=== PATIENT | male | born 1965 | race Hispanic/Latino ===

== ENCOUNTER 2017-04-01 12:03 | Emergency (ER) | payer SELFPAY ==
[2017-04-01 13:53] VITALS: BP 150/88
[2017-04-01 14:21] LABS: Basophils % (Auto) 0.4 % (0.0-1.8); Hematocrit 41.9 % (35.5-45.6); Hemoglobin 13.9 gm/dl (11.8-15.2); Mean Corpuscular HGB Conc 33 % (32-34); Mean Corpuscular Hemoglobin 28 pg (28-32); Mean Corpuscular Volume 86 fl (84-94); Platelet Count 347 K/mm3 (140-440); Red Cell Distribution Width 13.4 % (13.2-15.2); White Blood Count 16.1 K/mm3 (4.5-11.0)
[2017-04-01 14:35] LABS: Anion Gap 18 mmol/L; BUN/Creatinine Ratio 8.57; Blood Urea Nitrogen 6 mg/dL (9-20); Calcium 9.1 mg/dL (8.4-10.2); Carbon Dioxide 26 mmol/L (22-30); Chloride 92.5 mmol/L (98-107); Glucose 285 mg/dL (75-100); Potassium 3.9 mmol/L (3.6-5.0); Sodium 133 mmol/L (137-145)
== END 2017-04-01 18:17 | disposition left against medical advice (07) ==
LOC: ED 12:03
DX: M79.671 Pain in right foot (principal); Z53.21 Procedure and treatment not carried out due to patient leaving prior to being seen by health care provider
CPT/HCPCS: 36415; 80048; 82805; 82962; 85025

== ENCOUNTER 2022-07-30 23:57 | Inpatient (IN) | payer MEDICAID ==
[2022-07-31] MEDS ORDERED: CEFEPIME/NS 2 GM/100 ML 2 GM/100 ML BAG IV ONE (00:09)
[2022-07-31] MEDS ORDERED: SODIUM CHLORIDE 0.9% 1000 ML IV SOLN IV ONE (00:09)
[2022-07-31] MEDS ORDERED: VANCOMYCIN/NS 1 GM/250 ML 1 GM/250 ML BAG IV ONE (00:30)
--- NOTE | 2022-07-31 00:30 | Emergency Department Report ---
ED General Adult HPI - General Chief complaint: Altered Mental Status Stated complaint: FEVER Time Seen by Provider: 07/31/22 00:03 Source: EMS (Verbal report received from emergency medical services. EMS documentation not available at time of chart dictation ), RN notes reviewed, old records reviewed Mode of arrival: Stretcher Limitations: Altered Mental Status, Physical Limitation - History of Present Illness Initial comments: The patient was evaluated in the emergency department for symptoms described in the history of present illness. He/she was evaluated in the context of the global COVID-19 pandemic, which necessitated consideration that the patient might be at risk for infection with the virus that causes COVID-19. Institutional protocols and algorithms that pertain to the evaluation of patients at risk for COVID-19 are in a state of rapid change based on information released by regulatory bodies including the CDC and federal and [place] state health organizations. These policies and algorithms were followed during the patient's care in the emergency department. Please note that these policies, procedures and recommendations changed on a rapid basis. This patient is a 57-year-old gentleman who [place] [facility] a local [facility]. Past medical history includes GERD, pneumonitis, diabetes type 2, renal insufficiency, right above-knee amputation, anxiety, depression, urinary retention, indwelling Kyle catheter, dysphagia, and gastric feeding tube. The patient is currently a resident at [facility]. It appears that his primary care doctor is Dr. Mcguire. The patient is a 57-year-old gentleman brought to the hospital by emergency medical services with an EMS articulated complaint of weakness, altered mental status and difficulty breathing. EMS reports that blood pressure is low in the field, and that the patient might be hypoxic. They also report that the patient received acetaminophen and Benadryl while in the prison. In the emergency room, the patient is awake and breathing spontaneously, and not protecting his airway. He is found to be hypoxic, and hypotensive. The patient is intubated using rapid sequence induction techniques. Given hemodynamic instability, right-sided internal jugular sterile central line, is placed with maximum barrier precautions, using real-time ultrasound guidance. CT scan of the brain showed no acute findings. An x-ray of the chest showed a right lower lobe pneumonia. The patient's COVID-19 vaccination status is not known. His last known well time is not explicitly known. Patient himself is altered, encephalopathic, and not able to describe the qualitative nature of symptoms, exacerbating factors relieving factors or aggravating factors -: unknown - Related Data Allergies Allergy/AdvReac Type Severity Reaction Status Date / Time No Known Allergies Allergy Verified 07/31/22 00:19 ED Review of Systems ROS: Stated complaint: FEVER Other details as noted in HPI Comment: Unobtainable due to pts medical conditions ED Past Medical Hx - Past Medical History Hx Hypertension: Yes Hx Diabetes: Yes Hx Psychiatric Treatment: Yes (panic attacks, Anxiety) - Surgical History Additional Surgical History: Right foot surgery x 4 - Social History Smoking Status: Current Every Day Smoker Substance Use Type: Alcohol, Marijuana ED Physical Exam - General Limitations: Altered Mental Status, Physical Limitation General appearance: obtunded - Head Head exam: Present: atraumatic, normocephalic - Eye Eye exam: Present: normal appearance, EOMI - ENT ENT exam: Present: mucous membranes dry, normal external ear exam, other (Copious secretions noted in the mouth and oropharynx) - Neck Neck exam: Present: normal inspection, full ROM. Absent: tenderness, men ingismus - Respiratory Respiratory exam: Present: respiratory distress, rhonchi, accessory muscle use. Absent: stridor - Cardiovascular Cardiovascular Exam: Present: normal rhythm, tachycardia, JVD. Absent: systolic murmur, diastolic murmur, rubs, gallop - GI/Abdominal GI/Abdominal exam: Present: soft, other (Feeding tube in place). Absent: distended, tenderness, guarding, rebound, rigid, pulsatile mass - Rectal Rectal exam: Present: normal inspection - exam: Present: normal inspection External exam: Present: normal external exam - Extremities Exam Extremities exam: Present: other (2+ pulses noted in the bilateral upper, and lower extremities in the femoral distribution. There is no long bony tenderness. The muscular compartments are soft. The pelvis is stable). Absent: normal inspection (Right above-knee amputation.), calf tenderness - Back Exam Back exam: Present: normal inspection. Absent: tenderness, CVA tenderness (R), CVA tenderness (L), paraspinal tenderness, vertebral tenderness - Neurological Exam Neurological exam: Present: altered, other (Patient is altered and breathing rapidly. The patient's is encephalopathic. The patient does not have a gag reflex) - Skin Skin exam: Present: warm, dry, intact, normal color. Absent: rash ED Course Vital Signs 07/30/22 07/31/22 07/31/22 23:58 01:00 02:07 Temperature 100.3 F H Pulse Rate 102 H 95 H Respiratory 22 Rate Blood Pressure 77/53 Blood Pressure 100/58 [Right] O2 Sat by Pulse 4 L 100 100 Oximetry 07/31/22 07/31/22 07/31/22 02:08 02:16 02:30 Temperature Pulse Rate Respiratory Rate Blood Pressure 73/44 77/46 Blood Pressure [Right] O2 Sat by Pulse 96 97 100 Oximetry 07/31/22 07/31/22 07/31/22 02:46 03:00 03:16 Temperature Pulse Rate Respiratory Rate Blood Pressure 87/52 90/56 98/55 Blood Pressure [Right] O2 Sat by Pulse 100 100 100 Oximetry - Reevaluation(s) Reevaluation #1: 07/31/22 02:21 Differential diagnosis, include but not limited to: Toxic metabolic encephalopathy, hypoxic respiratory failure, sepsis Assessment and plan: 57-year-old gentleman, with acute hypoxic respiratory failure, septic shock, right lower lobe pneumonia, requires intubation, insertion of central line, and initiation of vasopressor therapy. Cover empirically with vancomycin, cefepime, stress dose steroids and hydrocortisone. Laboratory studies reviewed and appreciated. Contacted critical care physician on-call, Dr. Sevilla She will follow in consultation, and authorizes admission to the ICU. Hospital physician, Dr. Ainsley Winters to admit to ICU X-ray chest shows right lower lobe pneumonia. Noncontrast CT scan of the brain negative for acute findings. Prognosis is guarded. - Central Line Placement Right IJ Consent Obtained: emergent situation Patient Placed on Monitor/Pulse Ox: Yes MD Prep: mask, gown, gloves Central Line Prep: Chlorhexidine scrub Local Anesthesia Used: Lidocaine 1% Amount of Anesthesia Used (mls): 5 Ultrasound Used for Placement: Yes Central Line Lumen Inserted: triple Reason for Insertion: Emergency Venous Access Bloods Obtained for Lab: No Central Line Position: good blood return, all ports aspirated, flus, sutured in place with 2-0 Dressing Applied: Tegaderm Post Procedure X-Ray: tip of catheter in good p Patient Tolerated Procedure: well Complications: none Additional Comments: Patient presenting with septic shock, likely secondary to acute respiratory failure, and is demonstrating signs of hemodynamic compromise. Patient is critically ill, and the patient is emergently and administratively consented for sterile central line placement. Patient prepped and draped in typical maximal sterile fashion. Using ultrasound guidance, left-sided internal jugular vein is cannulated with an 18-gauge needle, with 3 inch plastic catheter, guidewire, 0.032 x 60 cm, J-tip with a 3 mm radius is then inserted into the guiding catheter, and appropriate luminal placement is confirmed with real-time [id number] ultrasound guidance. A stab incision is made with an 11-gauge blade, and then incision is dilated. The 7 Ethiopian triple-lumen catheter has each of the 3 ports flushed with sterile saline in advance of placement. Then, a 7 Ethiopian triple-lumen catheter is inserted over the guidewire, and sutured to the skin. Real-time ultrasound guidance confirms appropriate luminal placement. Ports are aspirated easily, and flushed easily. Blue Biopatch is then affixed to the skin, and Tegaderm is applied to the skin. This patient tolerated the procedure well, and without obvious complication. Blood loss estimated at less than 50 cc. - Intubation Time Out Performed: No (Emergency procedure) Sedative: Ketamine Mg Given: 100 Paralytic: Rocuronium Mg Given: 50 Laryngoscope: fiberoptic video scope Size: 4 Assist Device Used: fiberoptic device ET Tube Size: 8 Tube Secured Depth (cm): 23 Tube Placement Confirmation: visualized tube passing t, equal breath sounds bilat, no breath sounds over epi, confirmation by capnometr Patient Tolerated Procedure: well Intubation Complications: none Additional Comments: Patient placed on nasal cannula 15 L/min. Received simultaneous [id number] ventilation. Preoxygenated to 99/100%. Video laryngoscopy is performed, with a curved S4 video living scope blade, and a 8.0 endotracheal tube is gently inserted into the oropharynx, after appropriate suctioning. The tube is placed through the trachea without difficulty, stylette is removed, ems helicopter pilot balloon is inflated, and end-tidal capnography confirmatory device is attached to the endotracheal tube, and there is appropriate end-tidal capnography color change. Condensation is noted on the tube, and there are appropriate breath sounds appreciated bilaterally. The patient tolerated the procedure well, without obvious complication ED Medical Decision Making - Lab Data Result diagrams: 07/31/22 00:37 07/31/22 00:37 Vital Signs 07/30/22 07/31/22 07/31/22 23:58 01:00 02:07 Temperature 100.3 F H Pulse Rate 102 H 95 H Respiratory 22 Rate Blood Pressure 77/53 Blood Pressure 100/58 [Right] O2 Sat by Pulse 4 L 100 100 Oximetry Lab Results 07/31/22 07/31/22 07/31/22 Range/Units 00:37 00:37 00:37 WBC 5.0 (4.5-11.0) K/mm3 RBC 2.99 L (3.65-5.03) M/mm3 Hgb 8.5 L (11.8-15.2) gm/dl Hct 26.0 L (35.5-45.6) % MCV 87 (84-94) fl MCH 28 (28-32) pg MCHC 33 (32-34) % RDW 17.6 H (13.2-15.2) % Plt Count 184 (140-440) K/mm3 Lymph % (Auto) 9.9 L (13.4-35.0) % [place] % (Auto) 6.3 (0.0-7.3) % Eos % (Auto) 0.3 (0.0-4.3) % Baso % (Auto) 0.2 (0.0-1.8) % Lymph # (Auto) 0.5 L (1.2-5.4) K/mm3 [place] # (Auto) 0.3 (0.0-0.8) K/mm3 Eos # (Auto) 0.0 (0.0-0.4) K/mm3 Baso # (Auto) 0.0 (0.0-0.1) K/mm3 Seg Neutrophils % 83.3 H (40.0-70.0) % Seg Neutrophils # 4.1 (1.8-7.7) K/mm3 PT 15.1 H (12.2-14.9) Sec. INR 1.04 (0.87-1.13) APTT 32.1 (24.2-36.6) Sec. Sodium 137 (137-145) mmol/L Potassium 5.1 H (3.6-5.0) mmol/L Chloride 100.9 (98-107) mmol/L Carbon Dioxide 25 (22-30) mmol/L Anion Gap 16 mmol/L BUN 30 H (9-20) mg/dL Creatinine 1.2 (0.8-1.3) mg/dL Estimated GFR > 60 ml/min BUN/Creatinine Ratio 25 % Glucose 93 (75-100) mg/dL Lactic Acid (0.7-2.0) mmol/L Calcium 7.6 L (8.4-10.2) mg/dL Magnesium (1.7-2.3) mg/dL Total Bilirubin 0.50 (0.1-1.2) mg/dL AST 10 (5-40) units/L ALT < 5 L (7-56) units/L Alkaline Phosphatase 69 (35-129) units/L Total Creatine Kinase (55-170) units/L Troponin T 0.025 (0.00-0.029) ng/mL Total Protein 5.4 L (6.3-8.2) g/dL Albumin 1.9 L (3.9-5) g/dL Albumin/Globulin Ratio 0.5 % TSH (0.270-4.200) mlU/mL Salicylates (2.8-20.0) mg/dL Acetaminophen (10.0-30.0) ug/mL 07/31/22 07/31/22 07/31/22 Range/Units 00:37 00:37 00:37 WBC (4.5-11.0) K/mm3 RBC (3.65-5.03) M/mm3 Hgb (11.8-15.2) gm/dl Hct (35.5-45.6) % MCV (84-94) fl MCH (28-32) pg MCHC (32-34) % RDW (13.2-15.2) % Plt Count (140-440) K/mm3 Lymph % (Auto) (13.4-35.0) % [place] % (Auto) (0.0-7.3) % Eos % (Auto) (0.0-4.3) % Baso % (Auto) (0.0-1.8) % Lymph # (Auto) (1.2-5.4) K/mm3 [place] # (Auto) (0.0-0.8) K/mm3 Eos # (Auto) (0.0-0.4) K/mm3 Baso # (Auto) (0.0-0.1) K/mm3 Seg Neutrophils % (40.0-70.0) % Seg Neutrophils # (1.8-7.7) K/mm3 PT (12.2-14.9) Sec. INR (0.87-1.13) APTT (24.2-36.6) Sec. Sodium (137-145) mmol/L Potassium (3.6-5.0) mmol/L Chloride (98-107) mmol/L Carbon Dioxide (22-30) mmol/L Anion Gap mmol/L BUN (9-20) mg/dL Creatinine (0.8-1.3) mg/dL Estimated GFR ml/min BUN/Creatinine Ratio % Glucose (75-100) mg/dL Lactic Acid 1.40 (0.7-2.0) mmol/L Calcium (8.4-10.2) mg/dL Magnesium 1.90 (1.7-2.3) mg/dL Total Bilirubin (0.1-1.2) mg/dL AST (5-40) units/L ALT (7-56) units/L Alkaline Phosphatase (35-129) units/L Total Creatine Kinase 14 L (55-170) units/L Troponin T (0.00-0.029) ng/mL Total Protein (6.3-8.2) g/dL Albumin (3.9-5) g/dL Albumin/Globulin Ratio % TSH 0.844 (0.270-4.200) mlU/mL Salicylates (2.8-20.0) mg/dL Acetaminophen (10.0-30.0) ug/mL 07/31/22 07/31/22 Range/Units 00:37 00:37 WBC (4.5-11.0) K/mm3 RBC (3.65-5.03) M/mm3 Hgb (11.8-15.2) gm/dl Hct (35.5-45.6) % MCV (84-94) fl MCH (28-32) pg MCHC (32-34) % RDW (13.2-15.2) % Plt Count (140-440) K/mm3 Lymph % (Auto) (13.4-35.0) % [place] % (Auto) (0.0-7.3) % Eos % (Auto) (0.0-4.3) % Baso % (Auto) (0.0-1.8) % Lymph # (Auto) (1.2-5.4) K/mm3 [place] # (Auto) (0.0-0.8) K/mm3 Eos # (Auto) (0.0-0.4) K/mm3 Baso # (Auto) (0.0-0.1) K/mm3 Seg Neutrophils % (40.0-70.0) % Seg Neutrophils # (1.8-7.7) K/mm3 PT (12.2-14.9) Sec. INR (0.87-1.13) APTT (24.2-36.6) Sec. Sodium (137-145) mmol/L Potassium (3.6-5.0) mmol/L Chloride (98-107) mmol/L Carbon Dioxide (22-30) mmol/L Anion Gap mmol/L BUN (9-20) mg/dL Creatinine (0.8-1.3) mg/dL Estimated GFR ml/min BUN/Creatinine Ratio % Glucose (75-100) mg/dL Lactic Acid (0.7-2.0) mmol/L Calcium (8.4-10.2) mg/dL Magnesium (1.7-2.3) mg/dL Total Bilirubin (0.1-1.2) mg/dL AST (5-40) units/L ALT (7-56) units/L Alkaline Phosphatase (35-129) units/L Total Creatine Kinase (55-170) units/L Troponin T (0.00-0.029) ng/mL Total Protein (6.3-8.2) g/dL Albumin (3.9-5) g/dL Albumin/Globulin Ratio % TSH (0.270-4.200) mlU/mL Salicylates < 0.3 L (2.8-20.0) mg/dL Acetaminophen 14.6 (10.0-30.0) ug/mL - EKG Data -: EKG Interpreted by Ne EKG shows normal: sinus rhythm Rate: normal - EKG Data 07/31/22 04:03 The EKG is interpreted at 03: 51 This is a sinus rhythm, with a rate of 60 bpm. There is a normal axis. Nonspecific T wave abnormalities. Low voltage in inferior leads. QTc 4 7 3 ms. Abnormal EKG. Not a STEMI. 07/31/22 04:13 - Radiology Data Radiology results: pending, report reviewed, image reviewed CHEST 1 VIEW INDICATION / CLINICAL INFORMATION: ETT placement. COMPARISON: None available. FINDINGS: SUPPORT DEVICES: Endotracheal tube terminates 5 cm above glenn at satisfactory position. Right IJ central venous catheter terminates superior vena cava. HEART / MEDIASTINUM: Heart size is within normal limits. Mediastinal contour demonstrates no significant abnormality. LUNGS / PLEURA: Airspace opacities right cardiophrenic angle in infrahilar region with blunting right costophrenic angle. Diffuse interstitial prominence. BONES: No significant osseous abnormality. ADDITIONAL FINDINGS: No significant additional findings. IMPRESSION: 1. Infectious process right lower lung could be considered with possible small dependent right pleural effusion. Signer Name: Isac Servin II, MD Signed: 07/31/2022 12:58 AM Workstation Name: [email or web address] CT HEAD WITHOUT CONTRAST INDICATION / CLINICAL INFORMATION: Confusion and encephalopathy. TECHNIQUE: CT head was performed without administration of intravenous contrast. All CT scans at this location are performed using CT dose reduction for ALARA by means of automated exposure control. COMPARISON: None available. FINDINGS: CEREBRAL HEMISPHERES: Generalized atrophy and bilateral regions of periventricular white matter hypoattenuation compatible with juwan rovascular ischemia are demonstrated. No midline shift. Basal cisterns patent. Small lacunar infarction left subinsular white matter. Mildly asymmetric hypoattenuation of frontal white matter within the right centrum semiovale. HEMORRHAGE: None. CEREBELLUM / BRAINSTEM: No significant abnormality. ORBITS: No significant abnormality. SOFT TISSUES: No significant abnormality. SKULL: No significant abnormality. PARANASAL SINUSES / MASTOID AIR CELLS: Partial opacification of multiple anterior ethmoid air cells with air-fluid level right maxillary sinus and mucoperiosteal thickening of the right maxillary sinus. ADDITIONAL FINDINGS: Partially visualized endotracheal tube IMPRESSION: 1. Bilateral regions of periventricular white matter hypoattenuation compatible with microvascular ischemia. Slightly asymmetric more focal hypoattenuation of the right frontal white matter within the centrum semiovale additionally is present. If clinical concern for acute infarction is present, MRI is recommended for further evaluation. Signer Name: Isac Servin II, MD Signed: 07/31/2022 1:02 AM Workstation Name: [id number] Critical Care Time: Yes Critical care time in (mins) excluding proc time.: 45 Critical care attestation.: If time is entered above; I have spent that time in minutes in the direct care of this critically ill patient, excluding procedure time. ED Disposition Clinical Impression: Acute respiratory failure with hypoxia, Acute encephalopathy, Septic shock, Pneumonia Disposition: 09 ADMITTED INPATIENT Is pt being admited?: Yes Does the pt Need Aspirin: No Condition: Critical
[2022-07-31] MEDS ORDERED: ROCURONIUM 50 MG/5 ML INJ IV ONE (00:34)
[2022-07-31] MEDS ORDERED: KETAMINE 500 MG/5 ML VIAL MDV ONE (00:35)
[2022-07-31] MEDS ORDERED: VANCOMYCIN PHARMACY TO DOSE IV SCH ×2 (01:00→09:00)
[2022-07-31 01:04] LABS: Basophils % (Auto) 0.2 % (0.0-1.8); Eosinophils % (Auto) 0.3 % (0.0-4.3); Hemoglobin 8.5 gm/dl (11.8-15.2); Lymphocytes # (Auto) 0.5 K/mm3 (1.2-5.4); Lymphocytes % (Auto) 9.9 % (13.4-35.0); Mean Corpuscular HGB Conc 33 % (32-34); Mean Corpuscular Volume 87 fl (84-94); Monocytes # (Auto) 0.3 K/mm3 (0.0-0.8); Monocytes % (Auto) 6.3 % (0.0-7.3); Platelet Count 184 K/mm3 (140-440); Red Blood Count 2.99 M/mm3 (3.65-5.03); Red Cell Distribution Width 17.6 % (13.2-15.2)
[2022-07-31 01:20] LABS: INR 1.04 (0.87-1.13)
[2022-07-31 01:21] LABS: Partial Thromboplastin Time 32.1 Sec. (24.2-36.6)
[2022-07-31] MEDS ORDERED: LIP THERAPY VASELINE TP PRN (01:30)
[2022-07-31] MEDS ORDERED: MINERAL OIL/PETROLATUM, WHITE OPHTH OINT 3.5 GM OU PRN (01:30)
[2022-07-31 01:34] LABS: Albumin 1.9 g/dL (3.9-5); BUN/Creatinine Ratio 25; Blood Urea Nitrogen 30 mg/dL (9-20); Calcium 7.6 mg/dL (8.4-10.2); Hemolysis Index 9
[2022-07-31 01:59] LABS: Alanine Aminotransferase < 5 units/L (7-56)
[2022-07-31] MEDS ORDERED: fentaNYL DRIP Premix 1,000 MCG/100 ML BAG IV SCH (02:00)
[2022-07-31] MEDS ORDERED: HYDROCORTISONE SOD SUCC 100 MG/2 ML VIAL IV ONE (02:01)
--- NOTE | 2022-07-31 02:02 | XRay Report ---
CHEST 1 VIEW INDICATION / CLINICAL INFORMATION: ETT placement. COMPARISON: None available. FINDINGS: SUPPORT DEVICES: Endotracheal tube terminates 5 cm above glenn at satisfactory position. Right IJ ce ntral venous catheter terminates superior vena cava. HEART / MEDIASTINUM: Heart size is within normal limits. Mediastinal contour demonstrates no signific ant abnormality. LUNGS / PLEURA: Airspace opacities right cardiophrenic angle in infrahilar region with blunting right costophrenic angle. Diffuse interstitial prominence. BONES: No significant osseous abnormality. ADDITIONAL FINDINGS: No significant additional findings. IMPRESSION: 1. Infectious process right lower lung could be considered with possible small dependent right pleura l effusion. Signer Name: Isac Servin II, MD Signed: 07/31/2022 1:58 AM Workstation Name: [id number]
--- NOTE | 2022-07-31 02:06 | Cat Scan Report ---
CT HEAD WITHOUT CONTRAST INDICATION / CLINICAL INFORMATION: Confusion and encephalopathy. TECHNIQUE: CT head was performed without administration of intravenous contrast. All CT scans at this location are performed using CT dose reduction for ALARA by means of automated exposure control. COMPARISON: None available. FINDINGS: CEREBRAL HEMISPHERES: Generalized atrophy and bilateral regions of periventricular white matter hypoa ttenuation compatible with microvascular ischemia are demonstrated. No midline shift. Basal cisterns patent. Small lacunar infarction left subinsular white matter. Mildly asymmetric hypoattenuation of f rontal white matter within the right centrum semiovale. HEMORRHAGE: None. CEREBELLUM / BRAINSTEM: No significant abnormality. ORBITS: No significant abnormality. SOFT TISSUES: No significant abnormality. SKULL: No significant abnormality. PARANASAL SINUSES / MASTOID AIR CELLS: Partial opacification of multiple anterior ethmoid air cells w ith air-fluid level right maxillary sinus and mucoperiosteal thickening of the right maxillary sinus. ADDITIONAL FINDINGS: Partially visualized endotracheal tube IMPRESSION: 1. Bilateral regions of periventricular white matter hypoattenuation compatible with microvascular is chemia. Slightly asymmetric more focal hypoattenuation of the right frontal white matter within the c entrum semiovale additionally is present. If clinical concern for acute infarction is present, MRI is recommended for further evaluation. Signer Name: Isac Servin II, MD Signed: 07/31/2022 2:02 AM Workstation Name: [id number]
[2022-07-31] MEDS ORDERED: NORepinephrine/NS 8 MG-250 ML 8 MG/250 ML INFUS..BTL IV SCH ×2 (02:13→03:00)
[2022-07-31] MEDS ORDERED: MAGNESIUM HYDROXIDE (MOM) ORAL LIQD UDC PO PRN (02:27)
[2022-07-31] MEDS ORDERED: MORPHINE 4 MG/1 ML INJ IV PRN (02:27)
[2022-07-31] MEDS ORDERED: DEXTROSE 50% IN WATER (25GM) 50 ML SYRINGE IV PRN (02:27)
[2022-07-31] MEDS ORDERED: ONDANSETRON 4 MG/2 ML INJ IV PRN (02:27)
[2022-07-31] MEDS ORDERED: ACETAMINOPHEN 650 MG RECT SUPP PR PRN (02:27)
[2022-07-31] MEDS ORDERED: MORPHINE 2 MG/1 ML INJ IV PRN (02:27)
[2022-07-31] MEDS ORDERED: SODIUM CHLORIDE 0.9% 1000 ML 1,000 ML IV SCH (02:30)
[2022-07-31 02:35] LABS: ABG Base Excess 3.2 mmol/L (-2.0-3.0); ABG HCO3 28.7 mmol/L (20.0-26.0); ABG Methemoglobin 0.3 % (0.0-1.5); ABG Oxygen Saturation 88.6 % (95.0-99.0); ABG PCO2 49.4 mm Hg; ABG PH 7.381 pH Units (7.350-7.450); ABG PO2 51.2 mm Hg (80.0-90.0)
--- NOTE | 2022-07-31 02:42 | History and Physical Report ---
History of Present Illness Date of examination: 07/31/22 Date of admission: 07/31/2022 Chief complaint: Generalized Weakness Altered Mental Status History of present illness: 57-year-old male with known history of diabetes mellitus, GERD, anxiety and depression, right AKA brought into the emergency room today via EMS with complaint of generalized weakness, changes in mental status and shortness of breath. Patient is a resident of a group home. Most of the history was gotten from the ER staff as patient is already intubated sedated. Blood pressure was said to be low on the field and patient was also said to be hypoxic. He was said to have received Benadryl and acetaminophen while in the group home. Upon arrival in the emergency room he was found to be hypoxic and hypotensive. He was subsequently intubated because he was not protecting his airway. Work-up in the emergency room today, lab is significant for hemoglobin of 8.5 and hematocrit of 26. BUN of 30 and creatinine of 1.2. Urinalysis significant for UTI. Chest x-ray shows infectious process in the right lower lobe with possible small dependent right pleural effusion. CT of the head is suggestive microvascular ischemia. MRI of the brain suggested if needed for further evaluation. Patient has been started on IV fluid, pressure and empiric IV antibiotics. Past History Past Medical History: diabetes, GERD, hypertension, renal failure, other ( Depression, Urinary retention,Anxiety,) Past Surgical History: Other (Right AKA,Gastric tube placement) Social history: other (Resides in a Residential) Family history: no significant family history Medications and Allergies Allergies Allergy/AdvReac Type Severity Reaction Status Date / Time No Known Allergies Allergy Verified 07/31/22 00:19 Active Meds: Active Medications Acetaminophen (Acetaminophen 650 Mg Rect Supp) 650 mg OK Q6H PRN PRN Reason: Pain MILD(1-3)/Fever >100.5/BARDALES Dextrose (Dextrose 50% In Water (25gm) 50 Ml Syringe) 50 ml IV Q30MIN PRN; Protocol PRN Reason: Hypoglycemia Famotidine (Famotidine 20 Mg/2 Ml Inj) 20 mg IV BID HALEY Heparin Sodium (Porcine) (Heparin 5,000 Unit/1 Ml Vial) 5,000 unit SUB-Q Q8HR HALEY Hydrophilic Ointment (Lip Therapy Vaseline) 1 applic TP Q2HR PRN PRN Reason: Dry Lips Fentanyl Citrate (Fentanyl Drip Premix) 1,000 mcg in 100 mls @ 2.5 mls/hr IV TITR HALEY; Protocol NORepinephrine/NS 8 MG-250 ML (Norepinephrine/Ns 8 Mg-250 Ml (Double Conc)) 8 mg in 250 mls @ 11.907 mls/hr IV TITRATE HALEY; Protocol Last Admin: 07/31/22 02:17 Dose: 0.1 mcg/kg/min, 11.907 mls/hr Sodium Chloride (Nacl 0.9% 1000 Ml) 1,000 mls @ 125 mls/hr IV DIRECT HALEY Insulin Human Lispro (Insulin Lispro 100 Unit/Ml) 0 unit SUB-Q ACHS HALEY; Protocol Magnesium Hydroxide (Magnesium Hydroxide (Mom) Oral Liqd Udc) 30 ml PO Q4H PRN PRN Reason: Constipation Morphine Sulfate (Morphine 2 Mg/1 Ml Inj) 2 mg IV Q4H PRN PRN Reason: Pain, Moderate (4-6) Morphine Sulfate (Morphine 4 Mg/1 Ml Inj) 4 mg IV Q4H PRN PRN Reason: Pain , Severe (7-10) Multi-Ingred Cream/Lotion/Oil/Oint (Mineral Oil/Petrolatum, White Ophth Oint 3.5 Gm) 1 applic OU Q4HR PRN PRN Reason: Dry Eye(s) Ondansetron HCl (Ondansetron 4 Mg/2 Ml Inj) 4 mg IV Q8H PRN PRN Reason: Nausea And Vomiting Senna/Docusate Sodium (Sennosides/Docusate Sodium 8.6/50 Mg Tab) 1 tab FEEDTUBE BID HALEY Sodium Chloride (Sodium Chloride 0.9% 10 Ml Flush Syringe) 10 ml IV BID HALEY Sodium Chloride (Sodium Chloride 0.9% 10 Ml Flush Syringe) 10 ml IV PRN PRN PRN Reason: LINE FLUSH Review of Systems ROS unobtainable: due to endotracheal tube Exam - Constitutional Vitals: Temp Pulse Resp BP Pulse Ox 100.3 F H 95 H 22 77/53 100 07/30/22 23:58 07/31/22 01:00 07/30/22 23:58 07/31/22 01:00 07/31/22 02:07 General appearance: Present: well-nourished, other (Intubated and sedated) - EENT Eyes: Present: PERRL, EOM intact. Absent: scleral icterus ENT: hearing intact, clear oral mucosa, dentition normal - Neck Neck: Present: supple, normal ROM - Respiratory Respiratory effort: other (On Ventilator) Respiratory: bilateral: diminished - Cardiovascular Rhythm: regular Heart Sounds: Present: S1 & S2. Absent: gallop, systolic murmur, diastolic murmur, rub, click - Extremities Extremities: no ischemia, pulses intact, pulses symmetrical, No edema, normal temperature, normal color, Full ROM, abnormal (Right AKA) Peripheral Pulses: within normal limits - Abdominal General gastrointestinal: Present: soft, non-tender, non-distended, normal bowel sounds - Integumentary Integumentary: Present: clear, warm, dry - Musculoskeletal Musculoskeletal: other (Intubated and Sedated) - Psychiatric Psychiatric: cooperative - Neurologic Neurologic: other (Intubated and Sedated) HEART Score - HEART Score Troponin: Troponin T 0.025 ng/mL (0.00-0.029) 07/31/22 00:37 Results - Labs CBC & Chem 7: 07/31/22 00:37 07/31/22 00:37 Labs: Abnormal lab results 07/31/22 07/31/22 07/31/22 Range/Units 00:37 00:37 00:37 RBC 2.99 L (3.65-5.03) M/mm3 Hgb 8.5 L (11.8-15.2) gm/dl Hct 26.0 L (35.5-45.6) % RDW 17.6 H (13.2-15.2) % Lymph % (Auto) 9.9 L (13.4-35.0) % Lymph # (Auto) 0.5 L (1.2-5.4) K/mm3 Seg Neutrophils % 83.3 H (40.0-70.0) % PT 15.1 H (12.2-14.9) Sec. ABG pO2 (80.0-90.0) mm Hg ABG HCO3 (20.0-26.0) mmol/L ABG O2 Saturation (95.0-99.0) % ABG Base Excess (-2.0-3.0) mmol/L ABG Hemoglobin (14.0-18.0) gm/dl Oxyhemoglobin (95.0-99.0) % Potassium 5.1 H (3.6-5.0) mmol/L BUN 30 H (9-20) mg/dL Calcium 7.6 L (8.4-10.2) mg/dL ALT < 5 L (7-56) units/L Total Creatine Kinase (55-170) units/L Total Protein 5.4 L (6.3-8.2) g/dL Albumin 1.9 L (3.9-5) g/dL Salicylates (2.8-20.0) mg/dL 07/31/22 07/31/22 07/31/22 Range/Units 00:37 00:37 02:25 RBC (3.65-5.03) M/mm3 Hgb (11.8-15.2) gm/dl Hct (35.5-45.6) % RDW (13.2-15.2) % Lymph % (Auto) (13.4-35.0) % Lymph # (Auto) (1.2-5.4) K/mm3 Seg Neutrophils % (40.0-70.0) % PT (12.2-14.9) Sec. ABG pO2 51.2 L (80.0-90.0) mm Hg ABG HCO3 28.7 H (20.0-26.0) mmol/L ABG O2 Saturation 88.6 L (95.0-99.0) % ABG Base Excess 3.2 H (-2.0-3.0) mmol/L ABG Hemoglobin 7.1 L (14.0-18.0) gm/dl Oxyhemoglobin 87.3 L (95.0-99.0) % Potassium (3.6-5.0) mmol/L BUN (9-20) mg/dL Calcium (8.4-10.2) mg/dL ALT (7-56) units/L Total Creatine Kinase 14 L (55-170) units/L Total Protein (6.3-8.2) g/dL Albumin (3.9-5) g/dL Salicylates < 0.3 L (2.8-20.0) mg/dL Assessment and Plan Assessment: 1. Acute hypoxic respiratory failure 2. Septic shock -secondary to underlying infection 3. UTI 4. Pneumonia Plan: 1. Patient admitted into the intensive care unit. [employer] has also been notified by the ER physician 2. Patient placed on IV fluid and empiric IV antibiotics. 3. We will continue to monitor vital signs closely. 4. We will await culture results. DVT Prophylaxis: Subcutaneous heparin Code Status: Full code
[2022-07-31 02:56] LABS: Color,Urine Yellow (Yellow)
[2022-07-31 03:01] LABS: Bacteria,Urine 1+ /HPF (Negative); Mucus,Urine FEW /HPF
[2022-07-31 03:05] LABS: Ictotest,Urine Positive (Negative); WBC,Urine > 182.0 /HPF (0.0-6.0)
[2022-07-31] MEDS ORDERED: INSULIN LISPRO 100 UNIT/ML SUB-Q SCH (07:30)
--- NOTE | 2022-07-31 08:34 | Consultation ---
History of Present Illness Consult date: 07/31/22 Requesting physician: SUSAN SUNSHINE History of present illness: HISTORY PER ED DOCUMENTATION 57-year-old male with known history of diabetes mellitus, GERD, anxiety and depression, right AKA brought into the emergency room today via EMS with complaint of generalized weakness, changes in mental status and shortness of breath. Patient is a resident of a senior living. Blood pressure was said to be low on the field and patient was also said to be hypoxic. He was said to have received Benadryl and acetaminophen while in the senior living. Upon arrival in the emergency room he was found to be hypoxic and hypotensive. He was subsequently intubated because he was not protecting his airway. Work-up in the emergency room today, lab is significant for hemoglobin of 8.5 and hematocrit of 26. BUN of 30 and creatinine of 1.2. Urinalysis significant for UTI. Chest x-ray shows infectious process in the right lower lobe with possible small dependent right pleural effusion. CT of the head is suggestive microvascular ischemia. MRI of the brain suggested if needed for further evaluation. Patient has been started on IV fluid, vasopressor and empiric IV antibiotics. Patient seen and examined. Vitals, labs, medications, chart and imaging reviewed. Discussed with respiratory care, nursing care, clinical pharmacist and primary service Orally intubated, ETT 8.0, 24cm at the [facility] 20/450/+6/100% ABG 7.38/49/51 RIJ CVL Kyle catheter Past History Past Medical History: diabetes, GERD, hypertension, renal failure, other (Depression, Urinary retention,Anxiety,) Past Surgical History: Other (Right AKA,Gastric tube placement) Social history: other (Resides in a [facility]) Family history: no significant family history Medications and Allergies Allergies Allergy/AdvReac Type Severity Reaction Status Date / Time No Known Allergies Allergy Verified 07/31/22 00:19 Active Meds: Active Medications Acetaminophen (Acetaminophen 650 Mg Rect Supp) 650 mg ME Q6H PRN PRN Reason: Pain MILD(1-3)/Fever >100.5/BARDALES Last Admin: 07/31/22 03:20 Dose: 650 mg Dextrose (Dextrose 50% In Water (25gm) 50 Ml Syringe) 50 ml IV Q30MIN PRN; Protocol PRN Reason: Hypoglycemia Famotidine (Famotidine 20 Mg/2 Ml Inj) 20 mg IV BID HALEY Heparin Sodium (Porcine) (Heparin 5,000 Unit/1 Ml Vial) 5,000 unit SUB-Q Q8HR HALEY Hydrophilic Ointment (Lip Therapy Vaseline) 1 applic TP Q2HR PRN PRN Reason: Dry Lips Fentanyl Citrate (Fentanyl Drip Premix) 1,000 mcg in 100 mls @ 2.5 mls/hr IV TITR HALEY; Protocol NORepinephrine/NS 8 MG-250 ML (Norepinephrine/Ns 8 Mg-250 Ml (Double Conc)) 8 mg in 250 mls @ 11.907 mls/hr IV TITRATE HALEY; Protocol Last Admin: 07/31/22 02:17 Dose: 0.1 mcg/kg/min, 11.907 mls/hr Sodium Chloride (Nacl 0.9% 1000 Ml) 1,000 mls @ 125 mls/hr IV DIRECT HALEY Cefepime HCl (Cefepime/Ns 2 Gm/100 Ml) 2 gm in 100 mls @ 200 mls/hr IV Q12H HALEY; Protocol Insulin Human Lispro (Insulin Lispro 100 Unit/Ml) 0 unit SUB-Q Q6HR HALEY; Protocol Magnesium Hydroxide (Magnesium Hydroxide (Mom) Oral Liqd Udc) 30 ml PO Q4H PRN PRN Reason: Constipation Multi-Ingred Cream/Lotion/Oil/Oint (Mineral Oil/Petrolatum, White Ophth Oint 3.5 Gm) 1 applic OU Q4HR PRN PRN Reason: Dry Eye(s) Ondansetron HCl (Ondansetron 4 Mg/2 Ml Inj) 4 mg IV Q8H PRN PRN Reason: Nausea And Vomiting Senna/Docusate Sodium (Sennosides/Docusate Sodium 8.6/50 Mg Tab) 1 tab FEEDTUBE BID HALEY Sodium Chloride (Sodium Chloride 0.9% 10 Ml Flush Syringe) 10 ml IV BID HALEY Sodium Chloride (Sodium Chloride 0.9% 10 Ml Flush Syringe) 10 ml IV PRN PRN PRN Reason: LINE FLUSH Review of Systems ROS unobtainable: due to endotracheal tube, due to mental status Physical Examination Vital signs: Vital Signs Temp Pulse Resp BP Pulse Ox 100.3 F H 102 H 22 100/58 4 L 07/30/22 23:58 07/30/22 23:58 07/30/22 23:58 07/30/22 23:58 07/30/22 23:58 General appearance: no acute distress, other (cachexia, orally intubated) Eyes: non-icteric ENT: oropharynx dry Neck: supple, no lymphadenopathy Effort: mildly labored Ascultation: Bilateral: diminished breath sounds, rhonchi Cardiovascular: regular rate and rhythm, other (S1,S2) Gastrointestinal: normoactive bowel sounds, soft, non-tender, other (PEG in place) Integumentary: normal, other (s/p right AKA, Kyle catheter) Extremities: no cyanosis unable to assess Results - Laboratory Findings CBC and BMP: 07/31/22 00:37 07/31/22 00:37 ABG ABG pH 7.381 pH Units (7.350-7.450) 07/31/22 02:25 ABG pCO2 49.4 mm Hg 07/31/22 02:25 ABG pO2 51.2 mm Hg (80.0-90.0) L 07/31/22 02:25 ABG O2 Saturation 88.6 % (95.0-99.0) L 07/31/22 02:25 PT/INR, D-dimer PT 15.1 Sec. (12.2-14.9) H 07/31/22 00:37 INR 1.04 (0.87-1.13) 07/31/22 00:37 Abnormal lab findings: Abnormal Labs 07/31/22 07/31/22 07/31/22 00:37 00:37 00:37 RBC 2.99 L Hgb 8.5 L Hct 26.0 L RDW 17.6 H Lymph % (Auto) 9.9 L Lymph # (Auto) 0.5 L Seg Neutrophils % 83.3 H PT 15.1 H ABG pO2 ABG HCO3 ABG O2 Saturation ABG Base Excess ABG Hemoglobin Oxyhemoglobin Potassium 5.1 H BUN 30 H Calcium 7.6 L ALT < 5 L Total Creatine Kinase Total Protein 5.4 L Albumin 1.9 L Urine WBC (Auto) Salicylates 07/31/22 07/31/22 07/31/22 00:37 00:37 02:25 RBC Hgb Hct RDW Lymph % (Auto) Lymph # (Auto) Seg Neutrophils % PT ABG pO2 51.2 L ABG HCO3 28.7 H ABG O2 Saturation 88.6 L ABG Base Excess 3.2 H ABG Hemoglobin 7.1 L Oxyhemoglobin 87.3 L Potassium BUN Calcium ALT Total Creatine Kinase 14 L Total Protein Albumin Urine WBC (Auto) Salicylates < 0.3 L 07/31/22 Unknown RBC Hgb Hct RDW Lymph % (Auto) Lymph # (Auto) Seg Neutrophils % PT ABG pO2 ABG HCO3 ABG O2 Saturation ABG Base Excess ABG Hemoglobin Oxyhemoglobin Potassium BUN Calcium ALT Total Creatine Kinase Total Protein Albumin Urine WBC (Auto) > 182.0 H Salicylates - Diagnostic Findings Chest x-ray: image reviewed (ETT in position, RIJ CVL, RML/RLL infiltrate) Assessment and Plan This is a 57-year-old male from SNF facility with known past medical history of DM, diabetic neuropathy s/p right AKA, GERD, esophageal tear s/p repair, dyspagia s/p PEG tube placement, anxiety, and depression admitted for septic shock and acute hypoxic respiratory failure requiring ventilatory support. Acute hypoxemic resp failure on MVS Septic Shock 2/2 RML/RLL pneumonia Urinary Tract Infection(UTI) RLL/RML Pneumonia- possibly aspiration Diabetes mellitus COVID PUI Moderate protein calorie malnutrition Wean vasopressor support to keep MAP>65- came off Norepinephrine this morning VAP bundle addressed, aspiration precautions HOB >40 Titrate supplemental oxygen to keep SpO2 89-92% Sedation, titrate to RASS 0 to -1(on Fentanyl) Daily assessment for readiness to wean. Daily SAT and SBT Bronchodilators as indicated Continue empiric antibiotics, de-escalate based on culture data and clinical response. Trend temperature curve and WCC (Cefepime and Vancomycin) Accucheck with glycemic control. Target blood glucose 140-180mg/dL while critica lly ill. Avoid hypoglycemia VTE prophylaxis-Heparin Stress ulcer prophylaxis- Famotidine CXR,ABG as clinically indicated Enteric support,has a PEG tube; initiate tube feedings Mobility, off loading per facility protocol to prevent pressure ulcers Avoid benzodiazepines, limit delirium Maintain sleep-wake cycle Supportive transfusions as clinically indicated to keep HgB >7g/dL Discontinue Kyle catheter COVID -PENDING-continue with isolation precautions per facility protocol until COVID results are available CONDITION- CRITICAL PROGNOSIS- GUARDED CODE STATUS-FULL CODE The high probability of a clinically significant, sudden or life threatening deterioration of the [multiple] system(s) required my full and direct attention, intervention and personal management. The aggregate critical care time was [75] minutes. This time is in addition to time spent performing reported procedures but includes the following: [x] Data Review and interpretation [x] Patient assessment and monitoring of vital signs [x] Documentation [x] Medication orders and management
[2022-07-31] MEDS: FAMOTIDINE 20 MG/2 ML INJ IV SCH ×2 (10:07→21:35)
[2022-07-31] MEDS: HEPARIN 5,000 UNIT/1 ML VIAL SUB-Q SCH ×3 (10:43→21:35)
[2022-07-31] MEDS: SENNOSIDES/DOCUSATE SODIUM 8.6/50 MG TAB FEEDTUBE SCH ×2 (10:54→21:35)
--- NOTE | 2022-07-31 11:00 | Progress Note ---
<NIRAJ GORE - Last Filed: 07/31/22 17:46> Assessment and Plan Assessment and plan: This is a 57-year-old male from SNF facility with known past medical history of DM, diabetic neuropathy s/p right AKA, GERD, esophageal tear s/p repair, dyspagia s/p PEG tube placement, anxiety, and depression admitted for septic shock and acute hypoxic respiratory failure requiring ventilatory support. Hospital Course to Date: 07/31: Intubated, easily arousable, following simple commands. Remains on 100% Fio2 and 6 of peep this am. Hypoxic from this am ABG, however, SPO2 at 100%. Wean FIO2 as tolerated for SPO2 above 95. Remains on low dose levophed gtt, VSS. Titrate pressor for MAP above 65. Patient remains afebrile, COVID PCR pending. Continue empiric IV abx for now, Check CRP and procal. Assessment and Plan #Septic Shock 2/ #Urinary Tract Infection(UTI) #RLL Pneumonia #COVID PUI - Presented from a SNF facility with hypoxia, low grade fever, tachycardia, and hypotension requiring pressor - CXR revealed infectious process in the right lower lobe with possible small dependent right pleural effusion - UA consistent with UTI, Blood cultures and sputum culture pending - COVID PCR pending - Patient remains on low dose Levophed gtt this am, remains afebrile, WBCs wnr - Continue blood pressure monitor per protocol - Titrate pressors to maintain MAP above 65 - Continue empiric IV abx for now- Cefepine and Vanco - Check procal and inflammatory markers - F/U on cultures - Daily CBC monitor #Acute Hypoxic Respiratory Failure #RLL Pneumonia #Chronic Aspiration #COVID PUI - Found with SOB in the SNF. Presented with hypoxia, unable to protect his airway - Intubated in the ED on 07/31 - CXR revealed infectious process in the right lower lobe with possible small dependent right pleural effusion - Patient's mother reported that patient has a history of dysphagia s/p esophageal tear & repair and now with chronic aspiration, was recently admitted at [facility] for aspiration PNA - COVID PCR pending - Vent setting: PRVC-100%6,20,450 - AM ABG noted - CCM consulted, appreciate recommendations - Continue empiric IV abx and vent adjustment per CCM - VAP bundle addressed - Aspiration precaution HOB above 30 - Daily ABG and CXR - Continue SPO2 monitoring for SPO2 goal above 92% #Acute Metabolic Encephalopathy - most likely secondary to above - CT of the head is suggestive microvascular ischemia - Intubated,not on sedations. Easily arousable, following simple commands - Treat infectious process as describe above - Avoid benzodiazepine to reduce the possibility of delirium - PRN Analgesia for CPOT greater than 3 - Maintenance of sleep-wake cycle #Dysphagia s/p PEGtube placement #H/o Esophageal Tear and Repair - Presented with PEGTube in place - Initiate enteral nutrition - Nutrition consulted #Microcytic Anemia - Probably chronic - No s/s of any acute bleeding, H&H stable - Continue to trend CBC - Transfuse for hgb less than 7 #Type 2 Diabetes Mellitus - BG check and SSI Q6hrs - Avoid hypoglycemia - Hypoglycemic protocol #GI/DVT Prophylaxis - PPI- Pepcid - Heparin SubQ - SCDs to Left lower extremities while in bed #Advance Care Planning - Disease education data, care plan, diagnoses, and prognosis were discussed with patient's. Patient is a FULL code. Patient's mother acknowledged understanding and agreed with current care plan. +CCT 60 minutes History Interval history: Patient seen and examined at the bedside. Intubated, not on any sedations. Easily arousable and following simple commands. Remains on low dose Levophed gtt, SR on the monitor, VSS. JESSICA overnight Hospitalist Physical - Constitutional Vitals: Temp Pulse Resp BP Pulse Ox 97.4 F L 59 L 17 120/69 100 07/31/22 08:00 07/31/22 08:00 07/31/22 08:00 07/31/22 07:55 07/31/22 08:00 General appearance: Present: no acute distress, cachectic, other (On the vent) - EENT Eyes: Present: PERRL ENT: hearing intact - Neck Neck: Present: normal ROM - Respiratory Respiratory effort: normal Respiratory: bilateral: rhonchi - Cardiovascular Rhythm: regular Heart Sounds: Present: S1 & S2 - Extremities Extremities: no ischemia, pulses intact, pulses symmetrical, abnormal (Rt. AKA) Peripheral Pulses: within normal limits - Abdominal General gastrointestinal: soft, non-distended, normal bowel sounds - Integumentary Integumentary: Present: warm, dry - Psychiatric Psychiatric: cooperative, other (Intubated, easily arousable) - Neurologic Neurologic: moves all extremities, other (Intubated, not on any sedations. Following simple commands) - Allied Health Allied health notes reviewed: nursing, case management HEART Score - HEART Score Troponin: Troponin T 0.025 ng/mL (0.00-0.029) 07/31/22 00:37 Results - Labs CBC & Chem 7: 07/31/22 00:37 07/31/22 00:37 Labs: Laboratory Last Values WBC 5.0 K/mm3 (4.5-11.0) 07/31/22 00:37 RBC 2.99 M/mm3 (3.65-5.03) L 07/31/22 00:37 Hgb 8.5 gm/dl (11.8-15.2) L 07/31/22 00:37 Hct 26.0 % (35.5-45.6) L 07/31/22 00:37 MCV 87 fl (84-94) 07/31/22 00:37 MCH 28 pg (28-32) 07/31/22 00:37 MCHC 33 % (32-34) 07/31/22 00:37 RDW 17.6 % (13.2-15.2) H 07/31/22 00:37 Plt Count 184 K/mm3 (140-440) 07/31/22 00:37 Lymph % (Auto) 9.9 % (13.4-35.0) L 07/31/22 00:37 [place] % (Auto) 6.3 % (0.0-7.3) 07/31/22 00:37 Eos % (Auto) 0.3 % (0.0-4.3) 07/31/22 00:37 Baso % (Auto) 0.2 % (0.0-1.8) 07/31/22 00:37 Lymph # (Auto) 0.5 K/mm3 (1.2-5.4) L 07/31/22 00:37 [place] # (Auto) 0.3 K/mm3 (0.0-0.8) 07/31/22 00:37 Eos # (Auto) 0.0 K/mm3 (0.0-0.4) 07/31/22 00:37 Baso # (Auto) 0.0 K/mm3 (0.0-0.1) 07/31/22 00:37 Seg Neutrophils % 83.3 % (40.0-70.0) H 07/31/22 00:37 Seg Neutrophils # 4.1 K/mm3 (1.8-7.7) 07/31/22 00:37 PT 15.1 Sec. (12.2-14.9) H 07/31/22 00:37 INR 1.04 (0.87-1.13) 07/31/22 00:37 APTT 32.1 Sec. (24.2-36.6) 07/31/22 00:37 D-Dimer 880.44 ng/mlDDU (0-234) H 07/31/22 09:52 ABG pH 7.381 pH Units (7.350-7.450) 07/31/22 02:25 ABG pCO2 49.4 mm Hg 07/31/22 02:25 ABG pO2 51.2 mm Hg (80.0-90.0) L 07/31/22 02:25 ABG HCO3 28.7 mmol/L (20.0-26.0) H 07/31/22 02:25 ABG O2 Saturation 88.6 % (95.0-99.0) L 07/31/22 02:25 ABG O2 Content 8.8 (0.0-44) 07/31/22 02:25 ABG Base Excess 3.2 mmol/L (-2.0-3.0) H 07/31/22 02:25 ABG Hemoglobin 7.1 gm/dl (14.0-18.0) L 07/31/22 02:25 ABG Carboxyhemoglobin 1.3 % (0.0-5.0) 07/31/22 02:25 ABG Methemoglobin 0.3 % (0.0-1.5) 07/31/22 02:25 Oxyhemoglobin 87.3 % (95.0-99.0) L 07/31/22 02:25 FiO2 90 % 07/31/22 02:25 Sodium 137 mmol/L (137-145) 07/31/22 00:37 Potassium 5.1 mmol/L (3.6-5.0) H 07/31/22 00:37 Chloride 100.9 mmol/L (98-107) 07/31/22 00:37 Carbon Dioxide 25 mmol/L (22-30) 07/31/22 00:37 Anion Gap 16 mmol/L 07/31/22 00:37 BUN 30 mg/dL (9-20) H 07/31/22 00:37 Creatinine 1.2 mg/dL (0.8-1.3) 07/31/22 00:37 Estimated GFR > 60 ml/min 07/31/22 00:37 BUN/Creatinine Ratio 25 % 07/31/22 00:37 Glucose 93 mg/dL (75-100) 07/31/22 00:37 Lactic Acid 1.00 mmol/L (0.7-2.0) 07/31/22 05:00 Calcium 7.6 mg/dL (8.4-10.2) L 07/31/22 00:37 Magnesium 1.90 mg/dL (1.7-2.3) 07/31/22 00:37 Total Bilirubin 0.50 mg/dL (0.1-1.2) 07/31/22 00:37 AST 10 units/L (5-40) 07/31/22 00:37 ALT < 5 units/L (7-56) L 07/31/22 00:37 Alkaline Phosphatase 69 units/L (35-129) 07/31/22 00:37 Total Creatine Kinase 14 units/L (55-170) L 07/31/22 00:37 Troponin T 0.025 ng/mL (0.00-0.029) 07/31/22 00:37 Total Protein 5.4 g/dL (6.3-8.2) L 07/31/22 00:37 Albumin 1.9 g/dL (3.9-5) L 07/31/22 00:37 Albumin/Globulin Ratio 0.5 % 07/31/22 00:37 TSH 0.844 mlU/mL (0.270-4.200) 07/31/22 00:37 Urine Color Yellow (Yellow) 07/31/22 Unknown Urine Turbidity Cloudy (Clear) 07/31/22 Unknown Specific [place] (Man) 1.020 (1.003-1.030) 07/31/22 Unknown Ur Protein (Man) 3+ mg/dL (Negative) 07/31/22 Unknown Ur Ketones (Man) Negative (Negative) 07/31/22 Unknown Ur Nitrite (Man) Negative (Negative) 07/31/22 Unknown Urine Bilirubin (Man) Large (Negative) 07/31/22 Unknown Urine Ictotest Positive (Negative) 07/31/22 Unknown Leukocyte Esterase (Man) Small (Negative) 07/31/22 Unknown Urine WBC (Auto) > 182.0 /HPF (0.0-6.0) H 07/31/22 Unknown Urine RBC (Auto) 154.0 /HPF (0.0-6.0) 07/31/22 Unknown U Epithel Cells (Auto) 1.0 /HPF (0-13.0) 07/31/22 Unknown Urine Bacteria (Auto) 1+ /HPF (Negative) 07/31/22 Unknown Urine RBC (Manual) 3+ (Negative) 07/31/22 Unknown Urine WBC Clumps 3+ /HPF 07/31/22 Unknown Urine Mucus Few /HPF 07/31/22 Unknown Urine Yeast (Budding) 2+ /HPF 07/31/22 Unknown Salicylates < 0.3 mg/dL (2.8-20.0) L 07/31/22 00:37 Acetaminophen 14.6 ug/mL (10.0-30.0) 07/31/22 00:37 Microbiology: Microbiology 07/31/22 01:19 Peripheral/Venous Blood Culture - Preliminary Culture in Progress 07/31/22 00:37 Peripheral/Venous Blood Culture - Preliminary Culture in Progress Kyle/IV: Voiding Method Indwelling Catheter Active Medications - Current Medications Current Medications: Generic Name Dose Route Start Last Admin Trade Name Freq PRN Reason Stop Dose Admin Acetaminophen 650 mg 07/31/22 02:27 07/31/22 03:20 Acetaminophen 650 Mg Rect Supp HI 650 mg Q6H PRN Administration Pain MILD(1-3)/Fever >100.5/BARDALES Dextrose 50 ml 07/31/22 02:27 Dextrose 50% In Water (25gm) 50 Ml Syringe IV Q30MIN PRN Hypoglycemia Protocol Famotidine 20 mg 07/31/22 10:00 Famotidine 20 Mg/2 Ml Inj IV BID HALEY Heparin Sodium (Porcine) 5,000 unit 07/31/22 06:00 07/31/22 10:43 Heparin 5,000 Unit/1 Ml Vial SUB-Q Not Given Q8HR HALEY Hydrophilic Ointment 1 applic 07/31/22 01:30 Lip Therapy Vaseline TP Q2HR PRN Dry Lips Fentanyl Citrate 1,000 mcg in 100 mls @ 2.5 mls/hr 07/31/22 02:00 Fentanyl Drip Premix IV TITR HALEY Protocol 25 MCG/HR NORepinephrine/NS 8 MG-250 ML 8 mg in 250 mls @ 11.907 mls/hr 07/31/22 02:13 07/31/22 02:17 Norepinephrine/Ns 8 Mg-250 Ml (Double Conc) IV 0.1 mcg/kg/min TITRATE HALEY 11.907 mls/hr Administration Protocol 0.1 MCG/KG/MIN Sodium Chloride 1,000 mls @ 125 mls/hr 07/31/22 02:30 Nacl 0.9% 1000 Ml IV DIRECT HALEY Cefepime HCl 2 gm in 100 mls @ 200 mls/hr 07/31/22 12:00 Cefepime/Ns 2 Gm/100 Ml IV Q12H [facility] Protocol Vancomycin HCl 1 gm in 250 mls @ 166.667 mls/hr 07/31/22 22:00 Vancomycin/Ns 1 Gm/250 Ml IV Q24H [facility] Insulin Human Lispro 0 unit 07/31/22 12:00 Insulin Lispro 100 Unit/Ml SUB-Q Q6HR [facility] Protocol Magnesium Hydroxide 30 ml 07/31/22 02:27 Magnesium Hydroxide (Mom) Oral Liqd Udc PO Q4H PRN Constipation Multi-Ingred Cream/Lotion/Oil/Oint 1 applic 07/31/22 01:30 Mineral Oil/Petrolatum, White Ophth Oint 3.5 Gm OU Q4HR PRN Dry Eye(s) Ondansetron HCl 4 mg 07/31/22 02:27 Ondansetron 4 Mg/2 Ml Inj IV Q8H PRN Nausea And Vomiting Senna/Docusate Sodium 1 tab 07/31/22 10:00 Sennosides/Docusate Sodium 8.6/50 Mg Tab FEEDTUBE BID HALEY Sodium Chloride 10 ml 07/31/22 10:00 Sodium Chloride 0.9% 10 Ml Flush Syringe IV BID HALEY Sodium Chloride 10 ml 07/31/22 02:27 Sodium Chloride 0.9% 10 Ml Flush Syringe IV PRN PRN LINE FLUSH <SUSAN SUNSHINE E - Last Filed: 07/31/22 20:06> Assessment and Plan Assessment and plan: I saw and evaluated the patient. I agree with the findings and the plan of care as documented in the Nurse Practitioner's~note, with the following corrections and additions. Hospitalist Physical - Constitutional Vitals: Temp Pulse Resp BP Pulse Ox 98 F 56 L 20 96/59 100 07/31/22 16:00 07/31/22 19:22 07/31/22 19:15 07/31/22 19:22 07/31/22 19:22 HEART Score - HEART Score Troponin: Troponin T 0.025 ng/mL (0.00-0.029) 07/31/22 00:37 Results - Labs CBC & Chem 7: 07/31/22 00:37 07/31/22 00:37 Labs: Laboratory Last Values WBC 5.0 K/mm3 (4.5-11.0) 07/31/22 00:37 RBC 2.99 M/mm3 (3.65-5.03) L 07/31/22 00:37 Hgb 8.5 gm/dl (11.8-15.2) L 07/31/22 00:37 Hct 26.0 % (35.5-45.6) L 07/31/22 00:37 MCV 87 fl (84-94) 07/31/22 00:37 MCH 28 pg (28-32) 07/31/22 00:37 MCHC 33 % (32-34) 07/31/22 00:37 RDW 17.6 % (13.2-15.2) H 07/31/22 00:37 Plt Count 184 K/mm3 (140-440) 07/31/22 00:37 Lymph % (Auto) 9.9 % (13.4-35.0) L 07/31/22 00:37 [place] % (Auto) 6.3 % (0.0-7.3) 07/31/22 00:37 Eos % (Auto) 0.3 % (0.0-4.3) 07/31/22 00:37 Baso % (Auto) 0.2 % (0.0-1.8) 07/31/22 00:37 Lymph # (Auto) 0.5 K/mm3 (1.2-5.4) L 07/31/22 00:37 [place] # (Auto) 0.3 K/mm3 (0.0-0.8) 07/31/22 00:37 Eos # (Auto) 0.0 K/mm3 (0.0-0.4) 07/31/22 00:37 Baso # (Auto) 0.0 K/mm3 (0.0-0.1) 07/31/22 00:37 Seg Neutrophils % 83.3 % (40.0-70.0) H 07/31/22 00:37 Seg Neutrophils # 4.1 K/mm3 (1.8-7.7) 07/31/22 00:37 PT 15.1 Sec. (12.2-14.9) H 07/31/22 00:37 INR 1.04 (0.87-1.13) 07/31/22 00:37 APTT 32.1 Sec. (24.2-36.6) 07/31/22 00:37 D-Dimer 880.44 ng/mlDDU (0-234) H 07/31/22 09:52 ABG pH 7.381 pH Units (7.350-7.450) 07/31/22 02:25 ABG pCO2 49.4 mm Hg 07/31/22 02:25 ABG pO2 51.2 mm Hg (80.0-90.0) L 07/31/22 02:25 ABG HCO3 28.7 mmol/L (20.0-26.0) H 07/31/22 02:25 ABG O2 Saturation 88.6 % (95.0-99.0) L 07/31/22 02:25 ABG O2 Content 8.8 (0.0-44) 07/31/22 02:25 ABG Base Excess 3.2 mmol/L (-2.0-3.0) H 07/31/22 02:25 ABG Hemoglobin 7.1 gm/dl (14.0-18.0) L 07/31/22 02:25 ABG Carboxyhemoglobin 1.3 % (0.0-5.0) 07/31/22 02:25 ABG Methemoglobin 0.3 % (0.0-1.5) 07/31/22 02:25 Oxyhemoglobin 87.3 % (95.0-99.0) L 07/31/22 02:25 FiO2 90 % 07/31/22 02:25 Sodium 137 mmol/L (137-145) 07/31/22 00:37 Potassium 5.1 mmol/L (3.6-5.0) H 07/31/22 00:37 Chloride 100.9 mmol/L (98-107) 07/31/22 00:37 Carbon Dioxide 25 mmol/L (22-30) 07/31/22 00:37 Anion Gap 16 mmol/L 07/31/22 00:37 BUN 30 mg/dL (9-20) H 07/31/22 00:37 Creatinine 1.2 mg/dL (0.8-1.3) 07/31/22 00:37 Estimated GFR > 60 ml/min 07/31/22 00:37 BUN/Creatinine Ratio 25 % 07/31/22 00:37 Glucose 93 mg/dL (75-100) 07/31/22 00:37 POC Glucose 137 mg/dL (70-105) H 07/31/22 16:55 Lactic Acid 1.00 mmol/L (0.7-2.0) 07/31/22 05:00 Calcium 7.6 mg/dL (8.4-10.2) L 07/31/22 00:37 Magnesium 1.90 mg/dL (1.7-2.3) 07/31/22 00:37 Total Bilirubin 0.50 mg/dL (0.1-1.2) 07/31/22 00:37 AST 10 units/L (5-40) 07/31/22 00:37 ALT < 5 units/L (7-56) L 07/31/22 00:37 Alkaline Phosphatase 69 units/L (35-129) 07/31/22 00:37 Lactate Dehydrogenase 135 units/L (91-180) 07/31/22 09:52 Total Creatine Kinase 14 units/L (55-170) L 07/31/22 00:37 Troponin T 0.025 ng/mL (0.00-0.029) 07/31/22 00:37 C-Reactive Protein 14.60 mg/dL (0.00-1.30) H 07/31/22 09:52 Total Protein 5.4 g/dL (6.3-8.2) L 07/31/22 00:37 Albumin 1.9 g/dL (3.9-5) L 07/31/22 00:37 Albumin/Globulin Ratio 0.5 % 07/31/22 00:37 TSH 0.844 mlU/mL (0.270-4.200) 07/31/22 00:37 Urine Color Yellow (Yellow) 07/31/22 Unknown Urine Turbidity Cloudy (Clear) 07/31/22 Unknown Specific [place] (Man) 1.020 (1.003-1.030) 07/31/22 Unknown Ur Protein (Man) 3+ mg/dL (Negative) 07/31/22 Unknown Ur Ketones (Man) Negative (Negative) 07/31/22 Unknown Ur Nitrite (Man) Negative (Negative) 07/31/22 Unknown Urine Bilirubin (Man) Large (Negative) 07/31/22 Unknown Urine Ictotest Positive (Negative) 07/31/22 Unknown Leukocyte Esterase (Man) Small (Negative) 07/31/22 Unknown Urine WBC (Auto) > 182.0 /HPF (0.0-6.0) H 07/31/22 Unknown Urine RBC (Auto) 154.0 /HPF (0.0-6.0) 07/31/22 Unknown U Epithel Cells (Auto) 1.0 /HPF (0-13.0) 07/31/22 Unknown Urine Bacteria (Auto) 1+ /HPF (Negative) 07/31/22 Unknown Urine RBC (Manual) 3+ (Negative) 07/31/22 Unknown Urine WBC Clumps 3+ /HPF 07/31/22 Unknown Urine Mucus Few /HPF 07/31/22 Unknown Urine Yeast (Budding) 2+ /HPF 07/31/22 Unknown Salicylates < 0.3 mg/dL (2.8-20.0) L 07/31/22 00:37 Acetaminophen 14.6 ug/mL (10.0-30.0) 07/31/22 00:37 Coronavirus (PCR) Positive (Negative) A 07/31/22 Unknown Microbiology: Microbiology 07/31/22 Unknown Tracheal Aspirate Sputum Culture - Final 07/31/22 01:19 Peripheral/Venous Blood Culture - Preliminary Culture in Progress 07/31/22 00:37 Peripheral/Venous Blood Culture - Preliminary Culture in Progress Kyle/IV: Voiding Method Indwelling Catheter Active Medications - Current Medications Current Medications: Generic Name Dose Route Start Last Admin Trade Name Freq PRN Reason Stop Dose Admin Acetaminophen 650 mg 07/31/22 02:27 07/31/22 03:20 Acetaminophen 650 Mg Rect Supp HI 650 mg Q6H PRN Administration Pain MILD(1-3)/Fever >100.5/BARDALES Dexamethasone 6 mg 07/31/22 17:00 07/31/22 17:53 Dexamethasone 4 Mg/Ml Vial IV 07/31/22 23:59 6 mg ONCE HALEY Administration Dexamethasone 6 mg 08/01/22 10:00 Dexamethasone 4 Mg/Ml Vial IV 08/10/22 09:59 QDAY HALEY Dextrose 50 ml 07/31/22 02:27 Dextrose 50% In Water (25gm) 50 Ml Syringe IV Q30MIN PRN Hypoglycemia Protocol Famotidine 20 mg 07/31/22 10:00 07/31/22 10:07 Famotidine 20 Mg/2 Ml Inj IV 20 mg BID HALEY Administration Fentanyl 50 mcg 07/31/22 12:44 07/31/22 18:04 Fentanyl 100 Mcg/2 Ml Inj IV 50 mcg Q2H PRN Administration AGITATION Heparin Sodium (Porcine) 5,000 unit 07/31/22 06:00 07/31/22 13:00 Heparin 5,000 Unit/1 Ml Vial SUB-Q 5,000 unit Q8HR HALEY Administration Hydrophilic Ointment 1 applic 07/31/22 01:30 Lip Therapy Vaseline TP Q2HR PRN Dry Lips Fentanyl Citrate 1,000 mcg in 100 mls @ 2.5 mls/hr 07/31/22 02:00 Fentanyl Drip Premix IV TITR HALEY Protocol 25 MCG/HR NORepinephrine/NS 8 MG-250 ML 8 mg in 250 mls @ 11.907 mls/hr 07/31/22 02:13 07/31/22 11:17 Norepinephrine/Ns 8 Mg-250 Ml (Double Conc) IV 0 mcg/kg/min TITRATE HALEY 0 mls/hr Titration Protocol 0.1 MCG/KG/MIN Sodium Chloride 1,000 mls @ 125 mls/hr 07/31/22 02:30 Nacl 0.9% 1000 Ml IV DIRECT HALEY Cefepime HCl 2 gm in 100 mls @ 200 mls/hr 07/31/22 12:00 07/31/22 12:08 Cefepime/Ns 2 Gm/100 Ml IV 200 mls/hr Q12H HALEY Administration Protocol Vancomycin HCl 1 gm in 250 mls @ 166.667 mls/hr 07/31/22 22:00 Vancomycin/Ns 1 Gm/250 Ml IV Q24H [facility]ALEY Insulin Human Lispro 0 unit 07/31/22 12:00 07/31/22 17:54 Insulin Lispro 100 Unit/Ml SUB-Q Not Given Q6HR [facility] Protocol Magnesium Hydroxide 30 ml 07/31/22 02:27 Magnesium Hydroxide (Mom) Oral Liqd Udc PO Q4H PRN Constipation Multi-Ingred Cream/Lotion/Oil/Oint 1 applic 07/31/22 01:30 Mineral Oil/Petrolatum, White Ophth Oint 3.5 Gm OU Q4HR PRN Dry Eye(s) Ondansetron HCl 4 mg 07/31/22 02:27 Ondansetron 4 Mg/2 Ml Inj IV Q8H PRN Nausea And Vomiting Senna/Docusate Sodium 1 tab 07/31/22 10:00 07/31/22 10:54 Sennosides/Docusate Sodium 8.6/50 Mg Tab FEEDTUBE Not Given BID HALEY Sodium Chloride 10 ml 07/31/22 10:00 07/31/22 10:08 Sodium Chloride 0.9% 10 Ml Flush Syringe IV 10 ml BID HALEY Administration Sodium Chloride 10 ml 07/31/22 02:27 Sodium Chloride 0.9% 10 Ml Flush Syringe IV PRN PRN LINE FLUSH Nutrition/Malnutrition Assess - Dietary Evaluation Nutrition/Malnutrition Findings: Nutrition Notes Start: 07/31/22 09:38 Freq: Status: Active Protocol: Document 07/31/22 12:24 NILA (Rec: 07/31/22 12:28 NILA [id number]) Nutrition Notes Need for Assessment generated from: MD Order,Education Initial or Follow up Brief Note Current Diagnosis Diabetes,Sepsis,Respiratory Failure Other Pertinent Diagnosis GERD, AKA, UTI Current Diet TF-Vital AF 1.2 [place] @ 60 ml/hr (from D 07/31). Height 6 ft 2 in Weight 58.4 kg [place] Body Weight (kg) 86.36 BMI 16.5 Weight Status Underweight Subjective/Other Information RD consult for nutrition education assessment. Pt is currently on NPO, Sedated and on Mechanical Ventilation, not a candidate for nutrition education at the time. Percent of energy/protein needs met: Prescribed TF-Vital AF 1.2 [place] @ 60 ml/hr provides for energy/protein needs (1,728 Kcal/108 g) during LOS, 99% Kcal; 100% AA. #1 Nutrition Diagnosis Inadequate oral intake Comments: Change Nutrition Diagnosis for precision. Diagnosis Progress(for reassessment Continues documentation) Is patient on ventilator? Yes Is Patient Ambulatory and/or Out of Bed No REE-([facility]-confined to bed) [phone] Calculation Used for Recommendations [facility] Additional Notes Estimated Protein Needs: 1.25- 2.0g/kg ABW = 73-108g PRO q day Estimated Fluid Needs: 1mL/ kcal or per MD. Nutrition Intervention Nutrition Support: Initiate Vital AF @ 20mL/hr and increase by 10mL q 8hr to goal rate of 60mL/hr as medically feasible. Kcal 1,728 Protein (gm) 108 Fluid (mL) 1,170 % RDI: 99% Kcal / 100% AA Goal #1 Pt to begin and tolerate enteral nutrition within 24- 72hrs. Goal #2 Pt to maintain current wt status throughout LOS. Follow-Up By: 08/02/22 Additional Comments Monitor TF rate, tolerance, BM , and wt status.
[2022-07-31 11:47] LABS: C-Reactive Protein 14.6 mg/dL (0.00-1.30)
[2022-07-31] MEDS: CEFEPIME/NS 2 GM/100 ML 2 GM/100 ML BAG IV SCH (12:08)
[2022-07-31] MEDS: INSULIN LISPRO 100 UNIT/ML SUB-Q SCH ×2 (12:35→17:54)
[2022-07-31] MEDS: fentaNYL 100 MCG/2 ML INJ IV PRN ×2 (12:59→18:04)
[2022-07-31] MEDS ORDERED: dexAMETHasone 4 MG/ML VIAL IV SCH (17:00)
[2022-07-31] MEDS ORDERED: LORazepam 2 MG/ML VIAL IV ONE (21:50)
[2022-07-31] MEDS ORDERED: VANCOMYCIN/NS 1 GM/250 ML 1 GM/250 ML BAG IV SCH (22:00)
[2022-08-01] MEDS: INSULIN LISPRO 100 UNIT/ML SUB-Q SCH ×5 (00:30→23:28)
[2022-08-01] MEDS: CEFEPIME/NS 2 GM/100 ML 2 GM/100 ML BAG IV SCH ×2 (00:30→12:01)
[2022-08-01] MEDS ORDERED: LORazepam 2 MG/ML VIAL IM ONE (03:51)
[2022-08-01] MEDS ORDERED: MORPHINE 2 MG/1 ML INJ IV ONE (04:00)
[2022-08-01] MEDS: HEPARIN 5,000 UNIT/1 ML VIAL SUB-Q SCH ×3 (05:13→21:35)
[2022-08-01 05:40] LABS: Basophils % (Auto) 0.1 % (0.0-1.8); Hematocrit 24.9 % (35.5-45.6); Hemoglobin 8.1 gm/dl (11.8-15.2); Lymphocytes # (Auto) 0.7 K/mm3 (1.2-5.4); Lymphocytes % (Auto) 10.7 % (13.4-35.0); Mean Corpuscular HGB Conc 33 % (32-34); Mean Corpuscular Volume 89 fl (84-94); Monocytes # (Auto) 0.2 K/mm3 (0.0-0.8); Monocytes % (Auto) 3.3 % (0.0-7.3); Platelet Count 236 K/mm3 (140-440)
[2022-08-01 05:48] LABS: BUN/Creatinine Ratio 33; Blood Urea Nitrogen 40 mg/dL (9-20); Calcium 7.4 mg/dL (8.4-10.2); Hemolysis Index 2
--- NOTE | 2022-08-01 08:30 | Progress Note ---
Assessment and Plan Acute hypoxemic resp failure s/p MVS Septic Shock Aspiration Pneumonia Urinary Tract Infection (UTI) Diabetes mellitus COVID-19 infection Acute Encephalopathy Moderate protein calorie malnutrition - follow MRI report - COVID-19 positive - continue to wean supplemental oxygen for target O2 sat's > 90% acutely - aspiration precautions - lung protective strategies - bronchodilators with pulmonary hygiene per RT - continue accuchecks resumed with glycemic control per SSI (While critically ill target blood glucose of 140-180 mg/dL; avoid hypoglycemia) - AB's per ID rec's - prn analgesia per CPOT score - Maintenance of sleep-wake cycle, avoid delirium - enteral nutritional support at goal rate as tolerated - G.I. & VTE prophylaxis - PT/OT/ROM exercises - mobility protocols for pressure ulcer prophylaxis - Monitor hemodynamics closely - continue other care per attending / other consultants - discharge planning ongoing concurrently COVID SPECIFIC INTERVENTIONS - Remdesivir as per ID/Pulmonary developed protocols (ordered) - continue systemic steroids for severe COVID-19 infection empirically (Decadron) - follow repeat COVID tests results - zinc and vitamin C supplementation - Monitor inflammatory markers per facility protocol - ferritin, Ddimer, CRP - therapeutic anticoagulation per system Protocol based on d-dimer and clinical considerations - Continue contact and airborne isolation .... Re-evaluate in am & prn CONDITION: CRITICAL PROGNOSIS: GUARDED CODE STATUS: FULL CODE The high probability of a clinically significant, sudden or life-threatening deterioration of the [respiratory, cardiovascular & neurologic] system(s) required my full and direct attention, intervention and personal management. The aggregate critical care time was [35] minutes without overlap. Time includes spent on; [x] Data Review and interpretation [x] Patient assessment and monitoring of vital signs [x] Documentation [x] Medication orders and management Subjective Date of service: 08/01/22 Principal diagnosis: AHRF; Septic Shock; Aspiration Pneumonia; UTI; DM II; COVID-19 infection Interval history: Patient is seen today for: Acute hypoxemic resp failure s/p MVS; Septic Shock; Aspiration Pneumonia; UTI; DM II; COVID-19 infection; AMS Seen and examined at bedside; 24hour events reviewed; nursing and respiratory care staff consulted; no adverse overnight events reported to me; resting peacefully in bed; remains on supplemental oxygen; awaiting MRI; self extubated but doing well so far Objective Vital Signs - 12hr 07/31/22 07/31/22 07/31/22 20:31 20:45 21:00 Temperature Pulse Rate 76 76 80 Pulse Rate [ From Monitor] Respiratory 16 13 17 Rate Blood Pressure 138/64 138/64 138/88 O2 Sat by Pulse 99 97 Oximetry 07/31/22 07/31/22 07/31/22 21:15 21:31 21:45 Temperature Pulse Rate 81 78 82 Pulse Rate [ From Monitor] Respiratory 13 17 14 Rate Blood Pressure 138/88 138/88 138/88 O2 Sat by Pulse 98 97 Oximetry 07/31/22 07/31/22 07/31/22 22:00 22:15 22:31 Temperature Pulse Rate 72 69 76 Pulse Rate [ From Monitor] Respiratory 16 14 20 Rate Blood Pressure 143/89 143/89 143/89 O2 Sat by Pulse 97 98 95 Oximetry 07/31/22 07/31/22 07/31/22 22:45 23:00 23:11 Temperature Pulse Rate 99 H 76 78 Pulse Rate [ From Monitor] Respiratory 15 15 14 Rate Blood Pressure 143/89 136/88 136/88 O2 Sat by Pulse 94 95 Oximetry 07/31/22 07/31/22 07/31/22 23:15 23:31 23:45 Temperature Pulse Rate 83 72 71 Pulse Rate [ From Monitor] Respiratory 15 27 H 13 Rate Blood Pressure 136/88 136/88 136/88 O2 Sat by Pulse 96 95 96 Oximetry 08/01/22 08/01/22 08/01/22 00:00 00:15 00:16 Temperature 98.8 F Pulse Rate 68 69 Pulse Rate [ 68 From Monitor] Respiratory 13 14 Rate Blood Pressure 119/63 119/63 O2 Sat by Pulse 91 99 92 Oximetry 08/01/22 08/01/22 08/01/22 00:31 00:45 01:01 Temperature Pulse Rate 65 67 71 Pulse Rate [ From Monitor] Respiratory 13 14 16 Rate Blood Pressure 119/63 119/63 138/63 O2 Sat by Pulse 98 99 97 Oximetry 08/01/22 08/01/22 08/01/22 01:15 01:31 01:45 Temperature Pulse Rate 64 67 73 Pulse Rate [ From Monitor] Respiratory 13 13 20 Rate Blood Pressure 138/63 138/63 138/63 O2 Sat by Pulse 99 98 98 Oximetry 08/01/22 08/01/22 08/01/22 02:00 02:15 02:31 Temperature Pulse Rate 80 76 76 Pulse Rate [ From Monitor] Respiratory 20 19 17 Rate Blood Pressure 131/74 131/74 131/74 O2 Sat by Pulse 98 98 98 Oximetry 08/01/22 08/01/22 08/01/22 02:45 03:00 03:16 Temperature Pulse Rate 89 71 71 Pulse Rate [ From Monitor] Respiratory 22 19 19 Rate Blood Pressure 131/74 138/71 138/71 O2 Sat by Pulse 98 97 99 Oximetry 08/01/22 08/01/22 08/01/22 03:30 03:46 04:00 Temperature Pulse Rate 90 86 80 Pulse Rate [ 80 From Monitor] Respiratory 25 H 13 11 L Rate Blood Pressure 138/71 138/71 156/66 O2 Sat by Pulse 99 97 93 Oximetry 08/01/22 08/01/22 08/01/22 04:16 04:30 04:46 Temperature Pulse Rate 75 80 73 Pulse Rate [ From Monitor] Respiratory 12 18 21 Rate Blood Pressure 156/66 156/66 156/66 O2 Sat by Pulse 99 99 99 Oximetry 08/01/22 08/01/22 08/01/22 05:00 05:16 05:30 Temperature Pulse Rate 73 76 77 Pulse Rate [ From Monitor] Respiratory 24 16 19 Rate Blood Pressure 136/83 136/83 136/83 O2 Sat by Pulse 97 98 97 Oximetry 08/01/22 08/01/22 08/01/22 05:46 06:00 06:16 Temperature Pulse Rate 71 79 75 Pulse Rate [ From Monitor] Respiratory 13 19 14 Rate Blood Pressure 136/83 142/68 142/68 O2 Sat by Pulse 100 97 99 Oximetry 08/01/22 08/01/22 08/01/22 06:30 06:46 07:00 Temperature Pulse Rate 73 74 68 Pulse Rate [ From Monitor] Respiratory 23 18 15 Rate Blood Pressure 142/68 142/68 154/72 O2 Sat by Pulse 100 99 100 Oximetry 08/01/22 08/01/22 08/01/22 07:16 07:30 07:46 Temperature Pulse Rate 76 71 74 Pulse Rate [ From Monitor] Respiratory 18 15 26 H Rate Blood Pressure 154/72 154/72 154/72 O2 Sat by Pulse 98 100 96 Oximetry 08/01/22 08/01/22 07:52 08:00 Temperature 97.7 F Pulse Rate 70 73 Pulse Rate [ From Monitor] Respiratory 22 Rate Blood Pressure 150/79 O2 Sat by Pulse 96 Oximetry Constitutional: no acute distress, other (middle aged male with intermittent agitation and mildly increased respiratory effort) Eyes: non-icteric ENT: oropharynx moist Neck: supple, no lymphadenopathy, no JVD Effort: mildly labored Ascultation: Bilateral: diminished breath sounds, rhonchi Percussion: Bilateral: not dull Cardiovascular: regular rate and rhythm, other (S1,S2) Gastrointestinal: normoactive bowel sounds, soft, non-tender, non-distended, other (PEG in place) Integumentary: normal, other (s/p right AKA, Kyle catheter) Extremities: no cyanosis, no edema, pink and warm, pulses normal Neurologic: non-focal exam (grossly), pupils equal and round, motor strength normal and Psychiatric: other (delirious / agitated at times) CBC and BMP: 08/02/22 04:04 08/02/22 04:04 ABG, PT/INR, D-dimer: ABG ABG pH 7.381 pH Units (7.350-7.450) 07/31/22 02:25 ABG pCO2 49.4 mm Hg 07/31/22 02:25 ABG pO2 51.2 mm Hg (80.0-90.0) L 07/31/22 02:25 ABG O2 Saturation 88.6 % (95.0-99.0) L 07/31/22 02:25 PT/INR, D-dimer PT 15.1 Sec. (12.2-14.9) H 07/31/22 00:37 INR 1.04 (0.87-1.13) 07/31/22 00:37 D-Dimer 880.44 ng/mlDDU (0-234) H 07/31/22 09:52 Abnormal lab findings: Abnormal Labs 07/31/22 07/31/22 07/31/22 00:37 00:37 00:37 RBC 2.99 L Hgb 8.5 L Hct 26.0 L RDW 17.6 H Lymph % (Auto) 9.9 L Lymph # (Auto) 0.5 L Seg Neutrophils % 83.3 H PT 15.1 H D-Dimer ABG pO2 ABG HCO3 ABG O2 Saturation ABG Base Excess ABG Hemoglobin Oxyhemoglobin Potassium 5.1 H BUN 30 H Glucose POC Glucose Calcium 7.6 L Ferritin ALT < 5 L Total Creatine Kinase C-Reactive Protein Total Protein 5.4 L Albumin 1.9 L Urine WBC (Auto) Salicylates Coronavirus (PCR) 07/31/22 07/31/22 07/31/22 00:37 00:37 02:25 RBC Hgb Hct RDW Lymph % (Auto) Lymph # (Auto) Seg Neutrophils % PT D-Dimer ABG pO2 51.2 L ABG HCO3 28.7 H ABG O2 Saturation 88.6 L ABG Base Excess 3.2 H ABG Hemoglobin 7.1 L Oxyhemoglobin 87.3 L Potassium BUN Glucose POC Glucose Calcium Ferritin ALT Total Creatine Kinase 14 L C-Reactive Protein Total Protein Albumin Urine WBC (Auto) Salicylates < 0.3 L Coronavirus (PCR) 07/31/22 07/31/22 07/31/22 05:27 09:52 09:52 RBC Hgb Hct RDW Lymph % (Auto) Lymph # (Auto) Seg Neutrophils % PT D-Dimer 880.44 H ABG pO2 ABG HCO3 ABG O2 Saturation ABG Base Excess ABG Hemoglobin Oxyhemoglobin Potassium BUN Glucose POC Glucose 142 H Calcium Ferritin 577.8 H ALT Total Creatine Kinase C-Reactive Protein Total Protein Albumin Urine WBC (Auto) Salicylates Coronavirus (PCR) 07/31/22 07/31/22 07/31/22 09:52 16:55 Unknown RBC Hgb Hct RDW Lymph % (Auto) Lymph # (Auto) Seg Neutrophils % PT D-Dimer ABG pO2 ABG HCO3 ABG O2 Saturation ABG Base Excess ABG Hemoglobin Oxyhemoglobin Potassium BUN Glucose POC Glucose 137 H Calcium Ferritin ALT Total Creatine Kinase C-Reactive Protein 14.60 H Total Protein Albumin Urine WBC (Auto) > 182.0 H Salicylates Coronavirus (PCR) 07/31/22 08/01/22 08/01/22 Unknown 00:26 04:13 RBC 2.80 L Hgb 8.1 L Hct 24.9 L RDW 18.0 H Lymph % (Auto) 10.7 L Lymph # (Auto) 0.7 L Seg Neutrophils % 85.9 H PT D-Dimer ABG pO2 ABG HCO3 ABG O2 Saturation ABG Base Excess ABG Hemoglobin Oxyhemoglobin Potassium BUN Glucose POC Glucose 154 H Calcium Ferritin ALT Total Creatine Kinase C-Reactive Protein Total Protein Albumin Urine WBC (Auto) Salicylates Coronavirus (PCR) Positive A 08/01/22 04:13 RBC Hgb Hct RDW Lymph % (Auto) Lymph # (Auto) Seg Neutrophils % PT D-Dimer ABG pO2 ABG HCO3 ABG O2 Saturation ABG Base Excess ABG Hemoglobin Oxyhemoglobin Potassium 5.2 H BUN 40 H Glucose 158 H POC Glucose Calcium 7.4 L Ferritin ALT Total Creatine Kinase C-Reactive Protein Total Protein Albumin Urine WBC (Auto) Salicylates Coronavirus (PCR) Chest x-ray: image reviewed (gross cardiomegaly; RLL infiltrate) Allied health notes reviewed: nursing
[2022-08-01] MEDS ORDERED: SODIUM POLYSTYRENE 15 GM/60 ML ORAL LIQD PO SCH (09:00)
[2022-08-01] MEDS: SENNOSIDES/DOCUSATE SODIUM 8.6/50 MG TAB FEEDTUBE SCH ×2 (09:56→21:35)
[2022-08-01] MEDS: dexAMETHasone 4 MG/ML VIAL IV SCH (09:56)
[2022-08-01] MEDS: FAMOTIDINE 20 MG/2 ML INJ IV SCH (09:57)
[2022-08-01] MEDS: HALOPERIDOL LACTATE 5 MG/1 ML INJ IV PRN ×2 (09:57→17:48)
[2022-08-01] MEDS ORDERED: LORazepam 2 MG/ML VIAL IV PRN (11:44)
[2022-08-01] MEDS ORDERED: QUEtiapine 25 MG TAB PO SCH (12:00)
--- NOTE | 2022-08-01 12:32 | Consultation ---
History of Present Illness - Reason for Consult Consult date: 08/01/22 COVID-19 Requesting physician: NIRAJ GORE - History of Present Illness The patient is a 57-year-old male with diabetes, GERD, anxiety, depression, prior right AKA, indwelling PEG tube, shelter resident was admitted on 07/31/2022 with hypoxia, hypotension. Intubated for airway protection. Chest x- ray suggestive of possible right lower lobe pneumonia, was started on fluids, vasopressors and empiric antibiotics. COVID-19 test came back positive, hence infectious diseases was consulted. Labs revealed normal WBC, platelets 236, D- dimer 880, ferritin 577, CRP 14.6, creatinine 1.2. UA showed significant pyuria. Patient self extubated yesterday, on nasal cannula, no distress, awake but confused. Review of Systems: Limited, due to confusion Past History Past Medical History: diabetes, GERD, hypertension, renal failure, other (Depression, Urinary retention,Anxiety,) Past Surgical History: Other (Right AKA,Gastric tube placement) Social history: other (Resides in a Long-Term) Family history: no significant family history Medications and Allergies Allergies Allergy/AdvReac Type Severity Reaction Status Date / Time No Known Allergies Allergy Verified 07/31/22 00:19 Home Medications Medication Instructions Recorded Confirmed Last Taken Type ALPRAZolam [Xanax TAB] 0.5 mg PO TID PRN 08/01/22 08/01/22 Unknown History Furosemide [Lasix] 40 mg PO DAILY 08/01/22 08/01/22 Unknown History Gabapentin [Neurontin] 300 mg PO DAILY 08/01/22 08/01/22 Unknown History Metoprolol [Lopressor TAB] 12.5 mg PO DAILY 08/01/22 08/01/22 Unknown History Omeprazole 40 mg PO BID 08/01/22 08/01/22 Unknown History Oxycodone HCl/Acetaminophen 1 each PO PRN MDD 6 08/01/22 08/01/22 Unknown History [Percocet 7.5/325 mg] Oxycodone HCl/Acetaminophen 1 each PO Q6HR PRN 08/01/22 08/01/22 Unknown History [Percocet 7.5/325 mg] Active Meds: Active Medications Acetaminophen (Acetaminophen 650 Mg Rect Supp) 650 mg CO Q6H PRN PRN Reason: Pain MILD(1-3)/Fever >100.5/BARDALES Last Admin: 07/31/22 03:20 Dose: 650 mg Alprazolam (Alprazolam 0.5 Mg Tab) 0.5 mg PO TID PRN PRN Reason: Agitation Ascorbic Acid (Ascorbic Acid 500 Mg Tab) 500 mg PO BID HALEY Dexamethasone (Dexamethasone 4 Mg/Ml Vial) 6 mg IV QDAY [facility] Stop: 08/10/22 09:59 Last Admin: 08/01/22 09:56 Dose: 6 mg Dextrose (Dextrose 50% In Water (25gm) 50 Ml Syringe) 50 ml IV Q30MIN PRN; Protocol PRN Reason: Hypoglycemia Doxazosin Mesylate (Doxazosin 1 Mg Tab) 1 mg FEEDTUBE QDAY [facility] Famotidine (Famotidine 20 Mg Tab) 20 mg FEEDTUBE BID H[facility]Y Fentanyl (Fentanyl 100 Mcg/2 Ml Inj) 50 mcg IV Q2H PRN PRN Reason: AGITATION Last Admin: 07/31/22 18:04 Dose: 50 mcg Gabapentin (Gabapentin 300 Mg Cap) 300 mg FEEDTUBE QDAY [facility] Haloperidol Lactate (Haloperidol Lactate 5 Mg/1 Ml Inj) 5 mg IV Q6H PRN PRN Reason: Agitation Last Admin: 08/01/22 09:57 Dose: 5 mg Heparin Sodium (Porcine) (Heparin 5,000 Unit/1 Ml Vial) 5,000 unit SUB-Q Q8HR [facility] Last Admin: 08/01/22 05:13 Dose: 5,000 unit Hydrophilic Ointment (Lip Therapy Vaseline) 1 applic TP Q2HR PRN PRN Reason: Dry Lips Cefepime HCl (Cefepime/Ns 2 Gm/100 Ml) 2 gm in 100 mls @ 200 mls/hr IV Q12H [facility]; Protocol Last Admin: 08/01/22 12:01 Dose: 200 mls/hr Remdesivir 200 mg/ Sodium (Chloride) 250 mls @ 500 mls/hr IV ONCE ONE Stop: 08/01/22 12:57 Remdesivir 100 mg/ Sodium (Chloride) 250 mls @ 500 mls/hr IV Q24HR@1400 [facility] Stop: 08/05/22 14:29 Insulin Human Lispro (Insulin Lispro 100 Unit/Ml) 0 unit SUB-Q Q6HR [facility]; Protocol Last Admin: 08/01/22 12:01 Dose: 2 unit Lorazepam (Lorazepam 2 Mg/Ml Vial) 2 mg IV ONCE PRN PRN Reason: For MRI Magnesium Hydroxide (Magnesium Hydroxide (Mom) Oral Liqd Udc) 30 ml PO Q4H PRN PRN Reason: Constipation Multi-Ingred Cream/Lotion/Oil/Oint (Mineral Oil/Petrolatum, White Ophth Oint 3.5 Gm) 1 applic OU Q4HR PRN PRN Reason: Dry Eye(s) Ondansetron HCl (Ondansetron 4 Mg/2 Ml Inj) 4 mg IV Q8H PRN PRN Reason: Nausea And Vomiting Quetiapine Fumarate (Quetiapine 25 Mg Tab) 50 mg FEEDTUBE BID [facility] Senna/Docusate Sodium (Sennosides/Docusate Sodium 8.6/50 Mg Tab) 1 tab FEEDTUBE BID [facility] Last Admin: 08/01/22 09:56 Dose: 1 tab Sodium Chloride (Sodium Chloride 0.9% 10 Ml Flush Syringe) 10 ml IV BID [facility] Last Admin: 08/01/22 09:56 Dose: 10 ml Sodium Chloride (Sodium Chloride 0.9% 10 Ml Flush Syringe) 10 ml IV PRN PRN PRN Reason: LINE FLUSH Sodium Chloride (Sodium Chloride 0.9% 50 Ml Ivpb) 50 ml IV Q24HR@1400 [facility] Stop: 08/05/22 14:01 Sodium Polystyrene Sulfonate (Sodium Polystyrene 15 Gm/60 Ml Oral Liqd) 15 gm PO ONCE [facility] Stop: 08/01/22 13:00 Last Admin: 08/01/22 09:56 Dose: 15 gm Zinc Sulfate (Zinc Sulfate 220 Mg Cap) 220 mg PO BID [facility] Physical Examination - Physical Exam Narrative exam: Physical Exam: Constitutional: Alert, no distress Head, Ears, Nose: Normocephalic, atraumatic. External ears, nose normal Eyes: Conjunctivae/corneas clear. No icterus. No ptosis. Neck: Supple, no meningeal signs Cardiovascular: S1, S2 + Respiratory: Good air entry, clear to auscultation bilaterally GI: Soft, non-tender; bowel sounds normal. No peritoneal signs. G-tube + Musculoskeletal: Right AKA, well-healed Skin: No rash or abscess Hem/Lymphatic: No palpable cervical or supraclavicular nodes. No lymphangitis Psych: Confused Neurological: Awake, alert, confused - Constitutional Vitals: Vital Signs Temp Pulse Resp BP Pulse Ox 97.7 F 89 17 172/85 100 08/01/22 12:00 08/01/22 12:00 08/01/22 12:00 08/01/22 12:00 08/01/22 12:00 Temperature -Last 24 Hours Temperature 97.7 F Temperature 97.7 F Temperature 98.8 F Temperature 98 F Temperature 98 F Results - Labs CBC & Chem 7: 08/01/22 04:13 08/01/22 04:13 Labs: Abnormal lab results 07/31/22 07/31/22 07/31/22 Range/Units 09:52 16:55 Unknown RBC (3.65-5.03) M/mm3 Hgb (11.8-15.2) gm/dl Hct (35.5-45.6) % RDW (13.2-15.2) % Lymph % (Auto) (13.4-35.0) % Lymph # (Auto) (1.2-5.4) K/mm3 Seg Neutrophils % (40.0-70.0) % Potassium (3.6-5.0) mmol/L BUN (9-20) mg/dL Glucose (75-100) mg/dL POC Glucose 137 H (70-105) mg/dL Calcium (8.4-10.2) mg/dL Ferritin 577.8 H (30.0-300.0) ng/mL Coronavirus (PCR) Positive A (Negative) 08/01/22 08/01/22 08/01/22 Range/Units 00:26 04:13 04:13 RBC 2.80 L (3.65-5.03) M/mm3 Hgb 8.1 L (11.8-15.2) gm/dl Hct 24.9 L (35.5-45.6) % RDW 18.0 H (13.2-15.2) % Lymph % (Auto) 10.7 L (13.4-35.0) % Lymph # (Auto) 0.7 L (1.2-5.4) K/mm3 Seg Neutrophils % 85.9 H (40.0-70.0) % Potassium 5.2 H (3.6-5.0) mmol/L BUN 40 H (9-20) mg/dL Glucose 158 H (75-100) mg/dL POC Glucose 154 H (70-105) mg/dL Calcium 7.4 L (8.4-10.2) mg/dL Ferritin (30.0-300.0) ng/mL Coronavirus (PCR) (Negative) 08/01/22 08/01/22 Range/Units 04:43 11:52 RBC (3.65-5.03) M/mm3 Hgb (11.8-15.2) gm/dl Hct (35.5-45.6) % RDW (13.2-15.2) % Lymph % (Auto) (13.4-35.0) % Lymph # (Auto) (1.2-5.4) K/mm3 Seg Neutrophils % (40.0-70.0) % Potassium (3.6-5.0) mmol/L BUN (9-20) mg/dL Glucose (75-100) mg/dL POC Glucose 167 H 165 H (70-105) mg/dL Calcium (8.4-10.2) mg/dL Ferritin (30.0-300.0) ng/mL Coronavirus (PCR) (Negative) - Imaging and Cardiology Chest x-ray: report reviewed, image reviewed (?RLL pneumonia) Assessment and Plan Cultures: COVID-19 PCR: Positive 07/31/2022 blood culture: No growth 07/31/2022 tracheal aspirate cultures: Contaminated, high epithelial cells 07/31/2022 urine culture: In process A/P: 57-year-old male with diabetes, GERD, anxiety, depression, prior right AKA, indwelling PEG tube, shelter resident was admitted on 07/31/2022 with hypoxia, hypotension: #COVID-19 pneumonia: Ferritin 577, CRP 14.6. #Acute respiratory failure: Was on the vent, now extubated to nasal cannula. #UTI: UA with significant pyuria. #Acute encephalopathy #Indwelling PEG tube Recs: -Continue cefepime for 5-7 days, follow-up cultures -Vancomycin discontinued -IV Remdesivir added for COVID-19 -Continue steroids for 10 days -Since he is extubated, no indication for Actemra -Monitor CRP, procalcitonin Uriel Obrien MD, FACP, [facility] O: [phone] F: [phone] C: [phone]
[2022-08-01] MEDS: ALPRAZolam 0.5 MG TAB PO PRN (12:37)
--- NOTE | 2022-08-01 12:43 | Consultation ---
History of Present Illness - Reason for Consult Consult date: 08/01/22 Reason for consult: altered mental status - History of Present Psychiatric Illness The patient is a 57y/o male patient from a local long term with a history of GERD, pneumonitis, diabetes type 2, renal insufficiency, right above-knee amputation, anxiety, depression, urinary retention, indwelling Kyle catheter, dysphagia, and gastric feeding tube. The patient was found to COVID positive. During my evaluation of the patient is awake, but confused. He is in wrist restraints. He has poor insight and unable to tell me why he was admitted into the hospital. His speech is garbled and he is difficult to understand at times. The patient does tell me he's from the long term. He says he's seen a psychiatrist in the past but could not tell me why. When asking the patient about hallucinations, he says "yes" but could not tell me what they were. He denies SI/HI. Staff notes the patient has been agitated and yelling PAST PSYCHIATRIC HISTORY: Unable to assess PAST MEDICAL HISTORY: None reported Family Psychiatric History: None reported or documented SOCIAL HISTORY Unable to assess REVIEW OF SYSTEMS cough COVID pos MENTAL STATUS EXAMINATION Unable to assess Diagnoses: Delirium Treatment Plan Appreciate seroquel prn haldol, lorazepam order Start Valproic sodium 500mg IV q12h Medical: per primary Disposition: Do not recommend acute psychiatric inpatient treatment WIll follow. Thanks Case staffed with Dr. Acharya Medications and Allergies Allergies Allergy/AdvReac Type Severity Reaction Status Date / Time No Known Allergies Allergy Verified 07/31/22 00:19 Home Medications Medication Instructions Recorded Confirmed Last Taken Type ALPRAZolam [Xanax TAB] 0.5 mg PO TID PRN 08/01/22 08/01/22 Unknown History Furosemide [Lasix] 40 mg PO DAILY 08/01/22 08/01/22 Unknown History Gabapentin [Neurontin] 300 mg PO DAILY 08/01/22 08/01/22 Unknown History Metoprolol [Lopressor TAB] 12.5 mg PO DAILY 08/01/22 08/01/22 Unknown History Omeprazole 40 mg PO BID 08/01/22 08/01/22 Unknown History Oxycodone HCl/Acetaminophen 1 each PO PRN MDD 6 08/01/22 08/01/22 Unknown History [Percocet 7.5/325 mg] Oxycodone HCl/Acetaminophen 1 each PO Q6HR PRN 08/01/22 08/01/22 Unknown History [Percocet 7.5/325 mg] Active Meds: Active Medications Acetaminophen (Acetaminophen 650 Mg Rect Supp) 650 mg OK Q6H PRN PRN Reason: Pain MILD(1-3)/Fever >100.5/BARDALES Last Admin: 07/31/22 03:20 Dose: 650 mg Alprazolam (Alprazolam 0.5 Mg Tab) 0.5 mg PO TID PRN PRN Reason: Agitation Last Admin: 08/01/22 12:37 Dose: 0.5 mg Ascorbic Acid (Ascorbic Acid 500 Mg Tab) 500 mg PO BID HALEY Dexamethasone (Dexamethasone 4 Mg/Ml Vial) 6 mg IV QDAY COUNTS INCLUDE 234 BEDS AT THE [facility] Stop: 08/10/22 09:59 Last Admin: 08/01/22 09:56 Dose: 6 mg Dextrose (Dextrose 50% In Water (25gm) 50 Ml Syringe) 50 ml IV Q30MIN PRN; Protocol PRN Reason: Hypoglycemia Doxazosin Mesylate (Doxazosin 1 Mg Tab) 1 mg FEEDTUBE QDAY HALEY Famotidine (Famotidine 20 Mg Tab) 20 mg FEEDTUBE BID HALEY Fentanyl (Fentanyl 100 Mcg/2 Ml Inj) 50 mcg IV Q2H PRN PRN Reason: AGITATION Last Admin: 07/31/22 18:04 Dose: 50 mcg Gabapentin (Gabapentin 300 Mg Cap) 300 mg FEEDTUBE QDAY HALEY Haloperidol Lactate (Haloperidol Lactate 5 Mg/1 Ml Inj) 5 mg IV Q6H PRN PRN Reason: Agitation Last Admin: 08/01/22 09:57 Dose: 5 mg Heparin Sodium (Porcine) (Heparin 5,000 Unit/1 Ml Vial) 5,000 unit SUB-Q Q8HR COUNTS INCLUDE 234 BEDS AT THE [facility] Last Admin: 08/01/22 05:13 Dose: 5,000 unit Hydrophilic Ointment (Lip Therapy Vaseline) 1 applic TP Q2HR PRN PRN Reason: Dry Lips Cefepime HCl (Cefepime/Ns 2 Gm/100 Ml) 2 gm in 100 mls @ 200 mls/hr IV Q12H COUNTS INCLUDE 234 BEDS AT THE [facility]; Protocol Last Admin: 08/01/22 12:01 Dose: 200 mls/hr Remdesivir 200 mg/ Sodium (Chloride) 250 mls @ 500 mls/hr IV ONCE@1300 [facility]Y Stop: 08/01/22 18:00 Remdesivir 100 mg/ Sodium (Chloride) 250 mls @ 500 mls/hr IV Q24HR@1400 COUNTS INCLUDE 234 BEDS AT THE [facility] Stop: 08/05/22 14:29 Insulin Human Lispro (Insulin Lispro 100 Unit/Ml) 0 unit SUB-Q Q6HR COUNTS INCLUDE 234 BEDS AT THE [facility]; Protocol Last Admin: 08/01/22 12:01 Dose: 2 unit Lorazepam (Lorazepam 2 Mg/Ml Vial) 2 mg IV ONCE PRN PRN Reason: For MRI Magnesium Hydroxide (Magnesium Hydroxide (Mom) Oral Liqd Udc) 30 ml PO Q4H PRN PRN Reason: Constipation Multi-Ingred Cream/Lotion/Oil/Oint (Mineral Oil/Petrolatum, White Ophth Oint 3.5 Gm) 1 applic OU Q4HR PRN PRN Reason: Dry Eye(s) Ondansetron HCl (Ondansetron 4 Mg/2 Ml Inj) 4 mg IV Q8H PRN PRN Reason: Nausea And Vomiting Quetiapine Fumarate (Quetiapine 25 Mg Tab) 50 mg FEEDTUBE BID COUNTS INCLUDE 234 BEDS AT THE [facility] Senna/Docusate Sodium (Sennosides/Docusate Sodium 8.6/50 Mg Tab) 1 tab FEEDTUBE BID COUNTS INCLUDE 234 BEDS AT THE [facility] Last Admin: 08/01/22 09:56 Dose: 1 tab Sodium Chloride (Sodium Chloride 0.9% 10 Ml Flush Syringe) 10 ml IV BID COUNTS INCLUDE 234 BEDS AT THE [facility] Last Admin: 08/01/22 09:56 Dose: 10 ml Sodium Chloride (Sodium Chloride 0.9% 10 Ml Flush Syringe) 10 ml IV PRN PRN PRN Reason: LINE FLUSH Sodium Chloride (Sodium Chloride 0.9% 50 Ml Ivpb) 50 ml IV Q24HR@1400 COUNTS INCLUDE 234 BEDS AT THE [facility] Stop: 08/04/22 14:01 Sodium Polystyrene Sulfonate (Sodium Polystyrene 15 Gm/60 Ml Oral Liqd) 15 gm PO ONCE COUNTS INCLUDE 234 BEDS AT THE [facility] Stop: 08/01/22 13:00 Last Admin: 08/01/22 09:56 Dose: 15 gm Zinc Sulfate (Zinc Sulfate 220 Mg Cap) 220 mg PO BID COUNTS INCLUDE 234 BEDS AT THE [facility] Mental Status Exam - Vital signs Last Vital Signs Temp 97.7 F 08/01/22 12:00 Pulse 89 08/01/22 12:00 Resp 17 08/01/22 12:00 BP 172/85 08/01/22 12:00 Pulse Ox 100 08/01/22 12:00 Results Result Diagrams: 08/01/22 04:13 08/01/22 04:13 Abnormal lab results 07/31/22 07/31/22 07/31/22 Range/Units 09:52 16:55 Unknown RBC (3.65-5.03) M/mm3 Hgb (11.8-15.2) gm/dl Hct (35.5-45.6) % RDW (13.2-15.2) % Lymph % (Auto) (13.4-35.0) % Lymph # (Auto) (1.2-5.4) K/mm3 Seg Neutrophils % (40.0-70.0) % Potassium (3.6-5.0) mmol/L BUN (9-20) mg/dL Glucose (75-100) mg/dL POC Glucose 137 H (70-105) mg/dL Calcium (8.4-10.2) mg/dL Ferritin 577.8 H (30.0-300.0) ng/mL Coronavirus (PCR) Positive A (Negative) 08/01/22 08/01/22 08/01/22 Range/Units 00:26 04:13 04:13 RBC 2.80 L (3.65-5.03) M/mm3 Hgb 8.1 L (11.8-15.2) gm/dl Hct 24.9 L (35.5-45.6) % RDW 18.0 H (13.2-15.2) % Lymph % (Auto) 10.7 L (13.4-35.0) % Lymph # (Auto) 0.7 L (1.2-5.4) K/mm3 Seg Neutrophils % 85.9 H (40.0-70.0) % Potassium 5.2 H (3.6-5.0) mmol/L BUN 40 H (9-20) mg/dL Glucose 158 H (75-100) mg/dL POC Glucose 154 H (70-105) mg/dL Calcium 7.4 L (8.4-10.2) mg/dL Ferritin (30.0-300.0) ng/mL Coronavirus (PCR) (Negative) 08/01/22 08/01/22 Range/Units 04:43 11:52 RBC (3.65-5.03) M/mm3 Hgb (11.8-15.2) gm/dl Hct (35.5-45.6) % RDW (13.2-15.2) % Lymph % (Auto) (13.4-35.0) % Lymph # (Auto) (1.2-5.4) K/mm3 Seg Neutrophils % (40.0-70.0) % Potassium (3.6-5.0) mmol/L BUN (9-20) mg/dL Glucose (75-100) mg/dL POC Glucose 167 H 165 H (70-105) mg/dL Calcium (8.4-10.2) mg/dL Ferritin (30.0-300.0) ng/mL Coronavirus (PCR) (Negative) All other labs normal.
[2022-08-01] MEDS ORDERED: REMDESIVIR 200 MG in SODIUM CHLORIDE 0.9% 250ML 250 ML IV SCH (13:00)
--- NOTE | 2022-08-01 13:11 | Progress Note ---
<NIRAJ GORE - Last Filed: 08/02/22 11:15> Assessment and Plan Assessment and plan: This is a 57-year-old male from SNF facility with known past medical history of DM, diabetic neuropathy s/p right AKA, GERD, esophageal tear s/p repair, dyspagia s/p PEG tube placement, anxiety, and depression admitted for septic shock and acute hypoxic respiratory failure requiring ventilatory support. Hospital Course to Date: 07/31: Intubated, easily arousable, following simple commands. Remains on 100% Fio2 and 6 of peep this am. Hypoxic from this am ABG, however, SPO2 at 100%. Wean FIO2 as tolerated for SPO2 above 95. Remains on low dose levophed gtt, VSS. Titrate pressor for MAP above 65. Patient remains afebrile, COVID PCR pending. Continue empiric IV abx for now, Check CRP and procal. 08/01: Self-extubated overnight due to increase agitation/combative s/p IV ativan, now in restraints for safety. Patient is still confused and restless this am, stable on RA, SPO2 at 100%. Off pressors, VSS. PRN Haldol and PO seroquel added. Will consult Neuro and Mental health for further eval and treatm ent. Mild hyperkalemia this am, Scr. stable, X1 dose of Kayaxalate. Cardura added for urinary retention. COVID PCR +, IV decadron initiated and ID consulted. Continue current IV abx per ID. Assessment and Plan #Septic Shock 2/2 #Urinary Tract Infection(UTI) #RLL Pneumonia #COVID PUI - Presented from a SNF facility with hypoxia, low grade fever, tachycardia, and hypotension requiring pressor - CXR revealed infectious process in the right lower lobe with possible small dependent right pleural effusion - UA consistent with UTI, Blood cultures and sputum culture pending - COVID PCR positive - Off pressors, remains afebrile, and WBCs wnr - Continue blood pressure monitor per protocol - Titrate pressors to maintain MAP above 65 - ID consulted, appreciated recommendations - Continue empiric IV abx- Cefepine, IV Steroids initiated - Check procal and inflammatory markers - F/U on cultures - Daily CBC monitor #Acute Hypoxic Respiratory Failure #RLL Pneumonia #Chronic Aspiration #COVID PUI - Found with SOB in the SNF. Presented with hypoxia, unable to protect his airway - Intubated in the ED on 07/31 - CXR revealed infectious process in the right lower lobe with possible small dependent right pleural effusion - Patient's mother reported that patient has a history of dysphagia s/p esophageal tear & repair and now with chronic aspiration, was recently admitted at [facility] for aspiration PNA - COVID PCR + - Self-extubated, stable on RA SPO2 at 100% - CCM consulted, appreciate recommendations - Continue empiric IV abx, IV steroids, and Nebx tx per [facility] - Aspiration precaution HOB above 30 - Continue SPO2 monitoring for SPO2 goal above 92% #Acute Metabolic Encephalopathy #Combative/Agitation - Self-extubated overnight due to increase agitation/combative s/p IV ativan, now in restraints for safety - CT of the head is suggestive microvascular ischemia - MRI ordered - PRN Haldol and PO seroquel initiated - Mental health and Neuro consulted - Avoid benzodiazepine to reduce the possibility of delirium - PRN Analgesia for pain control - Maintenance of sleep-wake cycle #Dysphagia s/p PEGtube placement #H/o Esophageal Tear and Repair - Presented with PEGTube in place - Initiate enteral nutrition - Nutrition consulted #Microcytic Anemia - Probably chronic - No s/s of any acute bleeding, H&H stable - Continue to trend CBC - Transfuse for hgb less than 7 #Type 2 Diabetes Mellitus - BG check and SSI Q6hrs - Avoid hypoglycemia - Hypoglycemic protocol #GI/DVT Prophylaxis - PPI- Pepcid - Heparin SubQ - SCDs to Left lower extremities while in bed #Advance Care Planning - Disease education data, care plan, diagnoses, and prognosis were discussed with patient's mother. Patient is a FULL code. Patient's mother acknowledged understanding and agreed with current care plan. The high probability of a clinically significant, sudden or life threatening deterioration of the [multiple] system(s) required my full and direct attention, intervention and personal management. The aggregate critical care time was [60] minutes. This time is in addition to time spent performing reported procedures but includes the following: [x] Data Review and interpretation [x] Patient assessment and monitoring of vital signs [x] Documentation [x] Medication orders and management Disposition Plan: ICU Total Time Spent with Patient (Minutes): 60 History Interval history: Patient seen and examined at the bedside. Self-extubated overnight, currently stable on RA, SPO2 at 100%. Patient with increase agitation/combative overnight s/p IV ativan, now in restraints for safety. NSR on the monitor, VSS. Hospitalist Physical - Constitutional Vitals: Temp Pulse Resp BP Pulse Ox 97.7 F 89 17 172/85 100 08/01/22 12:00 08/01/22 12:00 08/01/22 12:00 08/01/22 12:00 08/01/22 12:00 General appearance: Present: mild distress, cachectic, other (Confused) - EENT Eyes: Present: PERRL ENT: hearing intact - Neck Neck: Present: normal ROM - Respiratory Respiratory effort: normal Respiratory: bilateral: diminished - Cardiovascular Rhythm: regular Heart Sounds: Present: S1 & S2 - Extremities Extremities: no ischemia, pulses intact, pulses symmetrical, abnormal (Right AKA) Peripheral Pulses: within normal limits - Abdominal General gastrointestinal: soft, non-distended, normal bowel sounds - Integumentary Integumentary: Present: warm, dry, erythema (Sacral wound Stage 2- POA) - Psychiatric Psychiatric: agitated, other (Confused) - Neurologic Neurologic: moves all extremities, other (Confused) - Allied Health Allied health notes reviewed: nursing, case management HEART Score - HEART Score Troponin: Troponin T 0.025 ng/mL (0.00-0.029) 07/31/22 00:37 Results - Labs CBC & Chem 7: 08/02/22 04:04 08/02/22 04:04 Labs: Laboratory Last Values WBC 7.0 K/mm3 (4.5-11.0) 08/01/22 04:13 RBC 2.80 M/mm3 (3.65-5.03) L 08/01/22 04:13 Hgb 8.1 gm/dl (11.8-15.2) L 08/01/22 04:13 Hct 24.9 % (35.5-45.6) L 08/01/22 04:13 MCV 89 fl (84-94) 08/01/22 04:13 MCH 29 pg (28-32) 08/01/22 04:13 MCHC 33 % (32-34) 08/01/22 04:13 RDW 18.0 % (13.2-15.2) H 08/01/22 04:13 Plt Count 236 K/mm3 (140-440) 08/01/22 04:13 Lymph % (Auto) 10.7 % (13.4-35.0) L 08/01/22 04:13 Love % (Auto) 3.3 % (0.0-7.3) 08/01/22 04:13 Eos % (Auto) 0.0 % (0.0-4.3) 08/01/22 04:13 Baso % (Auto) 0.1 % (0.0-1.8) 08/01/22 04:13 Lymph # (Auto) 0.7 K/mm3 (1.2-5.4) L 08/01/22 04:13 Love # (Auto) 0.2 K/mm3 (0.0-0.8) 08/01/22 04:13 Eos # (Auto) 0.0 K/mm3 (0.0-0.4) 08/01/22 04:13 Baso # (Auto) 0.0 K/mm3 (0.0-0.1) 08/01/22 04:13 Seg Neutrophils % 85.9 % (40.0-70.0) H 08/01/22 04:13 Seg Neutrophils # 6.0 K/mm3 (1.8-7.7) 08/01/22 04:13 PT 15.1 Sec. (12.2-14.9) H 07/31/22 00:37 INR 1.04 (0.87-1.13) 07/31/22 00:37 APTT 32.1 Sec. (24.2-36.6) 07/31/22 00:37 D-Dimer 880.44 ng/mlDDU (0-234) H 07/31/22 09:52 ABG pH 7.381 pH Units (7.350-7.450) 07/31/22 02:25 ABG pCO2 49.4 mm Hg 07/31/22 02:25 ABG pO2 51.2 mm Hg (80.0-90.0) L 07/31/22 02:25 ABG HCO3 28.7 mmol/L (20.0-26.0) H 07/31/22 02:25 ABG O2 Saturation 88.6 % (95.0-99.0) L 07/31/22 02:25 ABG O2 Content 8.8 (0.0-44) 07/31/22 02:25 ABG Base Excess 3.2 mmol/L (-2.0-3.0) H 07/31/22 02:25 ABG Hemoglobin 7.1 gm/dl (14.0-18.0) L 07/31/22 02:25 ABG Carboxyhemoglobin 1.3 % (0.0-5.0) 07/31/22 02:25 ABG Methemoglobin 0.3 % (0.0-1.5) 07/31/22 02:25 Oxyhemoglobin 87.3 % (95.0-99.0) L 07/31/22 02:25 FiO2 90 % 07/31/22 02:25 Sodium 139 mmol/L (137-145) 08/01/22 04:13 Potassium 5.2 mmol/L (3.6-5.0) H 08/01/22 04:13 Chloride 103.5 mmol/L (98-107) 08/01/22 04:13 Carbon Dioxide 26 mmol/L (22-30) 08/01/22 04:13 Anion Gap 15 mmol/L 08/01/22 04:13 BUN 40 mg/dL (9-20) H 08/01/22 04:13 Creatinine 1.2 mg/dL (0.8-1.3) 08/01/22 04:13 Estimated GFR > 60 ml/min 08/01/22 04:13 BUN/Creatinine Ratio 33 % 08/01/22 04:13 Glucose 158 mg/dL (75-100) H 08/01/22 04:13 POC Glucose 165 mg/dL (70-105) H 08/01/22 11:52 Lactic Acid 1.00 mmol/L (0.7-2.0) 07/31/22 05:00 Calcium 7.4 mg/dL (8.4-10.2) L 08/01/22 04:13 Magnesium 1.90 mg/dL (1.7-2.3) 07/31/22 00:37 Ferritin 577.8 ng/mL (30.0-300.0) H 07/31/22 09:52 Total Bilirubin 0.50 mg/dL (0.1-1.2) 07/31/22 00:37 AST 10 units/L (5-40) 07/31/22 00:37 ALT < 5 units/L (7-56) L 07/31/22 00:37 Alkaline Phosphatase 69 units/L (35-129) 07/31/22 00:37 Lactate Dehydrogenase 135 units/L (91-180) 07/31/22 09:52 Total Creatine Kinase 14 units/L (55-170) L 07/31/22 00:37 Troponin T 0.025 ng/mL (0.00-0.029) 07/31/22 00:37 C-Reactive Protein 14.60 mg/dL (0.00-1.30) H 07/31/22 09:52 Total Protein 5.4 g/dL (6.3-8.2) L 07/31/22 00:37 Albumin 1.9 g/dL (3.9-5) L 07/31/22 00:37 Albumin/Globulin Ratio 0.5 % 07/31/22 00:37 TSH 0.844 mlU/mL (0.270-4.200) 07/31/22 00:37 Urine Color Yellow (Yellow) 07/31/22 Unknown Urine Turbidity Cloudy (Clear) 07/31/22 Unknown Specific [place] (Man) 1.020 (1.003-1.030) 07/31/22 Unknown Ur Protein (Man) 3+ mg/dL (Negative) 07/31/22 Unknown Ur Ketones (Man) Negative (Negative) 07/31/22 Unknown Ur Nitrite (Man) Negative (Negative) 07/31/22 Unknown Urine Bilirubin (Man) Large (Negative) 07/31/22 Unknown Urine Ictotest Positive (Negative) 07/31/22 Unknown Leukocyte Esterase (Man) Small (Negative) 07/31/22 Unknown Urine WBC (Auto) > 182.0 /HPF (0.0-6.0) H 07/31/22 Unknown Urine RBC (Auto) 154.0 /HPF (0.0-6.0) 07/31/22 Unknown U Epithel Cells (Auto) 1.0 /HPF (0-13.0) 07/31/22 Unknown Urine Bacteria (Auto) 1+ /HPF (Negative) 07/31/22 Unknown Urine RBC (Manual) 3+ (Negative) 07/31/22 Unknown Urine WBC Clumps 3+ /HPF 07/31/22 Unknown Urine Mucus Few /HPF 07/31/22 Unknown Urine Yeast (Budding) 2+ /HPF 07/31/22 Unknown Salicylates < 0.3 mg/dL (2.8-20.0) L 07/31/22 00:37 Acetaminophen 14.6 ug/mL (10.0-30.0) 07/31/22 00:37 Coronavirus (PCR) Positive (Negative) A 07/31/22 Unknown Microbiology: Microbiology 07/31/22 Unknown Urine,Catheterized - Indwelling Catheter Urine Culture - Preliminary Staphylococcus Aureus 07/31/22 01:19 Peripheral/Venous Blood Culture - Preliminary NO GROWTH AFTER 24 HOURS 07/31/22 00:37 Peripheral/Venous Blood Culture - Preliminary NO GROWTH AFTER 24 HOURS 07/31/22 Unknown Tracheal Aspirate Sputum Culture - Final Kyle/IV: Voiding Method Condom Catheter Active Medications - Current Medications Current Medications: Generic Name Dose Route Start Last Admin Trade Name Freq PRN Reason Stop Dose Admin Acetaminophen 650 mg 07/31/22 02:27 07/31/22 03:20 Acetaminophen 650 Mg Rect Supp WI 650 mg Q6H PRN Administration Pain MILD(1-3)/Fever >100.5/BARDALES Alprazolam 0.5 mg 08/01/22 11:40 08/01/22 12:37 Alprazolam 0.5 Mg Tab PO 0.5 mg TID PRN Administration Agitation Ascorbic Acid 500 mg 08/01/22 22:00 Ascorbic Acid 500 Mg Tab FEEDTUBE BID HALEY Dexamethasone 6 mg 08/01/22 10:00 08/01/22 09:56 Dexamethasone 4 Mg/Ml Vial IV 08/10/22 09:59 6 mg QDAY HALEY Administration Dextrose 50 ml 07/31/22 02:27 Dextrose 50% In Water (25gm) 50 Ml Syringe IV Q30MIN PRN Hypoglycemia Protocol Doxazosin Mesylate 1 mg 08/01/22 13:00 Doxazosin 1 Mg Tab FEEDTUBE QDAY HALEY Famotidine 20 mg 08/01/22 22:00 Famotidine 20 Mg Tab FEEDTUBE BID HALEY Fentanyl 50 mcg 07/31/22 12:44 07/31/22 18:04 Fentanyl 100 Mcg/2 Ml Inj IV 50 mcg Q2H PRN Administration AGITATION Gabapentin 300 mg 08/01/22 14:00 Gabapentin 300 Mg Cap FEEDTUBE QDAY HALEY Haloperidol Lactate 5 mg 08/01/22 10:00 08/01/22 09:57 Haloperidol Lactate 5 Mg/1 Ml Inj IV 5 mg Q6H PRN Administration Agitation Heparin Sodium (Porcine) 5,000 unit 07/31/22 06:00 08/01/22 05:13 Heparin 5,000 Unit/1 Ml Vial SUB-Q 5,000 unit Q8HR HALEY Administration Hydrophilic Ointment 1 applic 07/31/22 01:30 Lip Therapy Vaseline TP Q2HR PRN Dry Lips Cefepime HCl 2 gm in 100 mls @ 200 mls/hr 07/31/22 12:00 08/01/22 12:01 Cefepime/Ns 2 Gm/100 Ml IV 200 mls/hr Q12H [facility] Administration Protocol Remdesivir 200 mg/ Sodium 250 mls @ 500 mls/hr 08/01/22 13:00 Chloride IV 08/01/22 18:00 ONCE@1300 HALEY Remdesivir 100 mg/ Sodium 250 mls @ 500 mls/hr 08/02/22 14:00 Chloride IV 08/05/22 14:29 Q24HR@1400 HALEY Valproate Sodium 500 mg/ 105 mls @ 100 mls/hr 08/01/22 14:00 Sodium Chloride IV Q12HR [facility] Insulin Human Lispro 0 unit 07/31/22 12:00 08/01/22 12:01 Insulin Lispro 100 Unit/Ml SUB-Q 2 unit Q6HR [facility] Administration Protocol Lorazepam 2 mg 08/01/22 11:44 08/01/22 12:49 Lorazepam 2 Mg/Ml Vial IV 2 mg ONCE PRN Administration For MRI Magnesium Hydroxide 30 ml 07/31/22 02:27 Magnesium Hydroxide (Mom) Oral Liqd Udc PO Q4H PRN Constipation Multi-Ingred Cream/Lotion/Oil/Oint 1 applic 07/31/22 01:30 Mineral Oil/Petrolatum, White Ophth Oint 3.5 Gm OU Q4HR PRN Dry Eye(s) Ondansetron HCl 4 mg 07/31/22 02:27 Ondansetron 4 Mg/2 Ml Inj IV Q8H PRN Nausea And Vomiting Quetiapine Fumarate 50 mg 08/01/22 22:00 Quetiapine 25 Mg Tab FEEDTUBE BID HALEY Senna/Docusate Sodium 1 tab 07/31/22 10:00 08/01/22 09:56 Sennosides/Docusate Sodium 8.6/50 Mg Tab FEEDTUBE 1 tab BID HALEY Administration Sodium Chloride 10 ml 07/31/22 10:00 08/01/22 09:56 Sodium Chloride 0.9% 10 Ml Flush Syringe IV 10 ml BID HALEY Administration Sodium Chloride 10 ml 07/31/22 02:27 Sodium Chloride 0.9% 10 Ml Flush Syringe IV PRN PRN LINE FLUSH Sodium Chloride 50 ml 08/01/22 13:00 Sodium Chloride 0.9% 50 Ml Ivpb IV 08/04/22 14:01 Q24HR@1400 HALEY Zinc Sulfate 220 mg 08/01/22 22:00 Zinc Sulfate 220 Mg Cap PO BID HALEY Nutrition/Malnutrition Assess - Dietary Evaluation Nutrition/Malnutrition Findings: Nutrition Notes Start: 07/31/22 09:38 Freq: Status: Active Protocol: Document 07/31/22 12:24 NILA (Rec: 07/31/22 12:28 NILA [id number]) Nutrition Notes Need for Assessment generated from: MD Order,Education Initial or Follow up Brief Note Current Diagnosis Diabetes,Sepsis,Respiratory Failure Other Pertinent Diagnosis GERD, AKA, UTI Current Diet TF-Vital AF 1.2 Gald[place] @ 60 ml/hr (from D 07/31). Height 6 ft 2 in Weight 58.4 kg [place] Body Weight (kg) 86.36 BMI 16.5 Weight Status Underweight Subjective/Other Information RD consult for nutrition education assessment. Pt is currently on NPO, Sedated and on Mechanical Ventilation, not a candidate for nutrition education at the time. Percent of energy/protein needs met: Prescribed TF-Vital AF 1.2 Gald[place] @ 60 ml/hr provides for energy/protein needs (1,728 Kcal/108 g) during LOS, 99% Kcal; 100% AA. #1 Nutrition Diagnosis Inadequate oral intake Comments: Change Nutrition Diagnosis for precision. Diagnosis Progress(for reassessment Continues documentation) Is patient on ventilator? Yes Is Patient Ambulatory and/or Out of Bed No REE-([facility] Jede-confined to bed) 7022.044 Calculation Used for Recommendations [facility] Additional Notes Estimated Protein Needs: 1.25- 2.0g/kg ABW = 73-108g PRO q day Estimated Fluid Needs: 1mL/ kcal or per MD. Nutrition Intervention Nutrition Support: Initiate Vital AF @ 20mL/hr and increase by 10mL q 8hr to goal rate of 60mL/hr as medically feasible. Kcal 1,728 Protein (gm) 108 Fluid (mL) 1,170 % RDI: 99% Kcal / 100% AA Goal #1 Pt to begin and tolerate enteral nutrition within 24- 72hrs. Goal #2 Pt to maintain current wt status throughout LOS. Follow-Up By: 08/02/22 Additional Comments Monitor TF rate, tolerance, BM , and wt status. <SUSAN SUNSHINE - Last Filed: 08/03/22 07:34> Assessment and Plan Assessment and plan: I saw and evaluated the patient. I agree with the findings and the plan of care as documented in the Nurse Practitioner's~note, with the following corrections and additions. Hospitalist Physical - Constitutional Vitals: Temp Pulse Resp BP Pulse Ox 98.7 F 100 H 18 121/78 89 08/03/22 05:01 08/03/22 05:01 08/03/22 05:01 08/03/22 05:01 08/03/22 05:01 HEART Score - HEART Score Troponin: Troponin T 0.025 ng/mL (0.00-0.029) 07/31/22 00:37 Results - Labs CBC & Chem 7: 08/02/22 04:04 08/02/22 04:04 Labs: Laboratory Last Values WBC 7.3 K/mm3 (4.5-11.0) 08/02/22 04:04 RBC 2.91 M/mm3 (3.65-5.03) L 08/02/22 04:04 Hgb 8.4 gm/dl (11.8-15.2) L 08/02/22 04:04 Hct 25.2 % (35.5-45.6) L 08/02/22 04:04 MCV 87 fl (84-94) 08/02/22 04:04 MCH 29 pg (28-32) 08/02/22 04:04 MCHC 33 % (32-34) 08/02/22 04:04 RDW 17.9 % (13.2-15.2) H 08/02/22 04:04 Plt Count 221 K/mm3 (140-440) 08/02/22 04:04 Lymph % (Auto) 10.7 % (13.4-35.0) L 08/01/22 04:13 Love % (Auto) 3.3 % (0.0-7.3) 08/01/22 04:13 Eos % (Auto) 0.0 % (0.0-4.3) 08/01/22 04:13 Baso % (Auto) 0.1 % (0.0-1.8) 08/01/22 04:13 Lymph # (Auto) 0.7 K/mm3 (1.2-5.4) L 08/01/22 04:13 Love # (Auto) 0.2 K/mm3 (0.0-0.8) 08/01/22 04:13 Eos # (Auto) 0.0 K/mm3 (0.0-0.4) 08/01/22 04:13 Baso # (Auto) 0.0 K/mm3 (0.0-0.1) 08/01/22 04:13 Seg Neutrophils % 85.9 % (40.0-70.0) H 08/01/22 04:13 Seg Neutrophils # 6.0 K/mm3 (1.8-7.7) 08/01/22 04:13 PT 15.1 Sec. (12.2-14.9) H 07/31/22 00:37 INR 1.04 (0.87-1.13) 07/31/22 00:37 APTT 32.1 Sec. (24.2-36.6) 07/31/22 00:37 D-Dimer 880.44 ng/mlDDU (0-234) H 07/31/22 09:52 ABG pH 7.381 pH Units (7.350-7.450) 07/31/22 02:25 ABG pCO2 49.4 mm Hg 07/31/22 02:25 ABG pO2 51.2 mm Hg (80.0-90.0) L 07/31/22 02:25 ABG HCO3 28.7 mmol/L (20.0-26.0) H 07/31/22 02:25 ABG O2 Saturation 88.6 % (95.0-99.0) L 07/31/22 02:25 ABG O2 Content 8.8 (0.0-44) 07/31/22 02:25 ABG Base Excess 3.2 mmol/L (-2.0-3.0) H 07/31/22 02:25 ABG Hemoglobin 7.1 gm/dl (14.0-18.0) L 07/31/22 02:25 ABG Carboxyhemoglobin 1.3 % (0.0-5.0) 07/31/22 02:25 ABG Methemoglobin 0.3 % (0.0-1.5) 07/31/22 02:25 Oxyhemoglobin 87.3 % (95.0-99.0) L 07/31/22 02:25 FiO2 90 % 07/31/22 02:25 Sodium 137 mmol/L (137-145) 08/02/22 04:04 Potassium 4.5 mmol/L (3.6-5.0) 08/02/22 04:04 Chloride 102.2 mmol/L (98-107) 08/02/22 04:04 Carbon Dioxide 20 mmol/L (22-30) L 08/02/22 04:04 Anion Gap 19 mmol/L 08/02/22 04:04 BUN 39 mg/dL (9-20) H 08/02/22 04:04 Creatinine 1.1 mg/dL (0.8-1.3) 08/02/22 04:04 Estimated GFR > 60 ml/min 08/02/22 04:04 BUN/Creatinine Ratio 35 % 08/02/22 04:04 Glucose 119 mg/dL (75-100) H 08/02/22 04:04 POC Glucose 126 mg/dL (70-105) H 08/03/22 05:36 Lactic Acid 1.00 mmol/L (0.7-2.0) 07/31/22 05:00 Calcium 7.9 mg/dL (8.4-10.2) L 08/02/22 04:04 Phosphorus 3.60 mg/dL (2.5-4.5) 08/02/22 04:04 Magnesium 2.10 mg/dL (1.7-2.3) 08/02/22 04:04 Ferritin 577.8 ng/mL (30.0-300.0) H 07/31/22 09:52 Total Bilirubin 0.30 mg/dL (0.1-1.2) 08/02/22 04:04 AST 13 units/L (5-40) 08/02/22 04:04 ALT < 5 units/L (7-56) L 08/02/22 04:04 Alkaline Phosphatase 65 units/L (35-129) 08/02/22 04:04 Ammonia 31.0 umol/L (25-60) 08/01/22 14:53 Lactate Dehydrogenase 135 units/L (91-180) 07/31/22 09:52 Total Creatine Kinase 14 units/L (55-170) L 07/31/22 00:37 Troponin T 0.025 ng/mL (0.00-0.029) 07/31/22 00:37 C-Reactive Protein 14.60 mg/dL (0.00-1.30) H 07/31/22 09:52 Total Protein 5.7 g/dL (6.3-8.2) L 08/02/22 04:04 Albumin 2.1 g/dL (3.9-5) L 08/02/22 04:04 Albumin/Globulin Ratio 0.6 % 08/02/22 04:04 Procalcitonin 6.98 ng/mL (<0.15) 07/31/22 09:52 TSH 0.844 mlU/mL (0.270-4.200) 07/31/22 00:37 Urine Color Yellow (Yellow) 07/31/22 Unknown Urine Turbidity Cloudy (Clear) 07/31/22 Unknown Specific [place] (Man) 1.020 (1.003-1.030) 07/31/22 Unknown Ur Protein (Man) 3+ mg/dL (Negative) 07/31/22 Unknown Ur Ketones (Man) Negative (Negative) 07/31/22 Unknown Ur Nitrite (Man) Negative (Negative) 07/31/22 Unknown Urine Bilirubin (Man) Large (Negative) 07/31/22 Unknown Urine Ictotest Positive (Negative) 07/31/22 Unknown Leukocyte Esterase (Man) Small (Negative) 07/31/22 Unknown Urine WBC (Auto) > 182.0 /HPF (0.0-6.0) H 07/31/22 Unknown Urine RBC (Auto) 154.0 /HPF (0.0-6.0) 07/31/22 Unknown U Epithel Cells (Auto) 1.0 /HPF (0-13.0) 07/31/22 Unknown Urine Bacteria (Auto) 1+ /HPF (Negative) 07/31/22 Unknown Urine RBC (Manual) 3+ (Negative) 07/31/22 Unknown Urine WBC Clumps 3+ /HPF 07/31/22 Unknown Urine Mucus Few /HPF 07/31/22 Unknown Urine Yeast (Budding) 2+ /HPF 07/31/22 Unknown Salicylates < 0.3 mg/dL (2.8-20.0) L 07/31/22 00:37 Acetaminophen 14.6 ug/mL (10.0-30.0) 07/31/22 00:37 Coronavirus (PCR) Positive (Negative) A 07/31/22 Unknown Microbiology: Microbiology 07/31/22 01:19 Peripheral/Venous Blood Culture - Preliminary NO GROWTH AFTER 72 HOURS 07/31/22 00:37 Peripheral/Venous Blood Culture - Preliminary NO GROWTH AFTER 72 HOURS 07/31/22 Unknown Urine,Catheterized - Indwelling Catheter Urine Culture - Preliminary Staphylococcus Aureus Kyle/IV: Voiding Method Indwelling Catheter Active Medications - Current Medications Current Medications: Generic Name Dose Route Start Last Admin Trade Name Freq PRN Reason Stop Dose Admin Acetaminophen 650 mg 07/31/22 02:27 07/31/22 03:20 Acetaminophen 650 Mg Rect Supp WI 650 mg Q6H PRN Administration Pain MILD(1-3)/Fever >100.5/BADRALES Alprazolam 0.5 mg 08/01/22 11:40 08/02/22 21:08 Alprazolam 0.5 Mg Tab PO 0.5 mg TID PRN Administration Agitation Ascorbic Acid 500 mg 08/01/22 22:00 08/02/22 21:07 Ascorbic Acid 500 Mg Tab FEEDTUBE 500 mg BID HALEY Administration Dexamethasone 6 mg 08/01/22 10:00 08/02/22 09:31 Dexamethasone 4 Mg/Ml Vial IV 08/10/22 09:59 6 mg QDAY HALEY Administration Dextrose 50 ml 07/31/22 02:27 Dextrose 50% In Water (25gm) 50 Ml Syringe IV Q30MIN PRN Hypoglycemia Protocol Doxazosin Mesylate 1 mg 08/01/22 13:00 08/02/22 09:31 Doxazosin 1 Mg Tab FEEDTUBE 1 mg QDAY HALEY Administration Famotidine 20 mg 08/01/22 22:00 08/02/22 21:07 Famotidine 20 Mg Tab FEEDTUBE 20 mg BID HALEY Administration Fentanyl 50 mcg 07/31/22 12:44 07/31/22 18:04 Fentanyl 100 Mcg/2 Ml Inj IV 50 mcg Q2H PRN Administration AGITATION Gabapentin 300 mg 08/01/22 14:00 08/02/22 09:31 Gabapentin 300 Mg Cap FEEDTUBE 300 mg QDAY HALEY Administration Haloperidol Lactate 5 mg 08/01/22 10:00 08/02/22 22:52 Haloperidol Lactate 5 Mg/1 Ml Inj IV 5 mg Q6H PRN Administration Agitation Heparin Sodium (Porcine) 5,000 unit 07/31/22 06:00 08/03/22 06:46 Heparin 5,000 Unit/1 Ml Vial SUB-Q 5,000 unit Q8HR HALEY Administration Hydrophilic Ointment 1 applic 07/31/22 01:30 Lip Therapy Vaseline TP Q2HR PRN Dry Lips Remdesivir 100 mg/ Sodium 250 mls @ 500 mls/hr 08/02/22 14:00 08/02/22 15:48 Chloride IV 08/05/22 14:29 500 mls/hr Q24HR@1400 HALEY Administration Valproate Sodium 500 mg/ 105 mls @ 100 mls/hr 08/01/22 14:00 08/02/22 21:06 Sodium Chloride IV 100 mls/hr Q12HR [facility]Y Administration Vancomycin HCl 1 gm in 250 mls @ 166.667 mls/hr 08/02/22 10:00 08/02/22 09:31 Vancomycin/Ns 1 Gm/250 Ml IV 166.667 mls/hr Q24H [facility]ALEY Administration Insulin Human Lispro 0 unit 07/31/22 12:00 08/03/22 05:42 Insulin Lispro 100 Unit/Ml SUB-Q Not Given Q6HR [facility] Protocol Magnesium Hydroxide 30 ml 07/31/22 02:27 Magnesium Hydroxide (Mom) Oral Liqd Udc PO Q4H PRN Constipation Multi-Ingred Cream/Lotion/Oil/Oint 1 applic 07/31/22 01:30 Mineral Oil/Petrolatum, White Ophth Oint 3.5 Gm OU Q4HR PRN Dry Eye(s) Ondansetron HCl 4 mg 07/31/22 02:27 Ondansetron 4 Mg/2 Ml Inj IV Q8H PRN Nausea And Vomiting Oxycodone/Acetaminophen 1 tab 08/02/22 11:07 08/02/22 21:08 Oxycodone /Acetaminophen 5-325mg Tab FEEDTUBE 1 tab Q6H PRN Administration Pain, Moderate (4-6) Quetiapine Fumarate 50 mg 08/01/22 22:00 08/02/22 21:07 Quetiapine 25 Mg Tab FEEDTUBE 50 mg BID HALEY Administration Senna 17.6 mg 08/02/22 10:00 08/02/22 23:39 Sennosides Oral Liqd 8.8 Mg/5 Ml Oral Liqd FEEDTUBE Not Given BID HALEY Sodium Chloride 10 ml 07/31/22 10:00 08/02/22 21:06 Sodium Chloride 0.9% 10 Ml Flush Syringe IV 10 ml BID [facility]Y Administration Sodium Chloride 10 ml 07/31/22 02:27 08/02/22 22:53 Sodium Chloride 0.9% 10 Ml Flush Syringe IV 10 ml PRN PRN Administration LINE FLUSH Sodium Chloride 50 ml 08/01/22 13:00 08/02/22 18:05 Sodium Chloride 0.9% 50 Ml Ivpb IV 08/04/22 14:01 50 ml Q24HR@1400 [facility] Administration Zinc Sulfate 220 mg 08/01/22 22:00 08/02/22 21:07 Zinc Sulfate 220 Mg Cap PO 220 mg BID HALEY Administration Nutrition/Malnutrition Assess - Dietary Evaluation Nutrition/Malnutrition Findings: Nutrition Notes Start: 07/31/22 09:38 Freq: Status: Active Protocol: Document 08/02/22 11:12 CM (Rec: 08/02/22 11:20 CM [id number]) Co-Sign 08/02/22 11:12 WW Nutrition Notes Need for Assessment 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 Will monitor need for malnutrition assessment at follow-up. Receiving Vital AF @ 50mL/hr via PEG and increasing to goal by this afternoon - no N/V or BM per RN. Abdomen soft, flat, w/ BS+ per physical assessment. GI Symptoms None Difficulty In Swallowing Food Allergy No Skin Integrity/Comment Sacral pressure ulcer II Current % PO Other #1 Nutrition Diagnosis Swallowing difficulty Comments: Change Nutrition Diagnosis for precision. Etiology Esophageal tear s/p repair Diagnosis Progress(for reassessment Continues documentation) Is patient on ventilator? No Is Patient Ambulatory and/or Out of Bed No REE-([facility]-confined to bed) 1253.197 Calculation Used for Recommendations [facility] Additional Notes Estimated Protein Needs: 1.25- 2.0g/kg ABW = 73-108g PRO q day Estimated Fluid Needs: 1mL/ kcal or per MD. Nutrition Intervention Nutrition Support: Initiate Vital AF @ 20mL/hr and increase by 10mL q 8hr to goal rate of 60mL/hr as medically feasible. Kcal 1,728 Protein (gm) 108 Fluid (mL) 1,170 % RDI: 99% Kcal / 100% AA Goal #1 Pt to obtain and tolerate >75% of estimated energy/protein needs through enteral nutrition. Goal #2 Pt to maintain current wt status throughout LOS. Follow-Up By: 08/09/22 Additional Comments Monitor TF rate, tolerance, BM , and wt status.
[2022-08-01] MEDS ORDERED: NON-FORMULARY EACH (Gabapentin [Neurontin] 600 MG Tablet) PO SCH (14:00)
[2022-08-01] MEDS ORDERED: GABAPENTIN 100 MG CAP PO SCH (14:00)
[2022-08-01] MEDS: VALPROATE SODIUM 500 MG in SODIUM CHLORIDE 0.9% 100 ML IV SCH ×2 (14:18→22:02)
[2022-08-01] MEDS: DOXAZOSIN 1 MG TAB FEEDTUBE SCH (14:19)
[2022-08-01] MEDS: SODIUM CHLORIDE 0.9% 50 ML IVPB IV SCH ×2 (14:19→14:20)
[2022-08-01] MEDS: GABAPENTIN 300 MG CAP FEEDTUBE SCH (14:19)
[2022-08-01 14:58] LABS: BUN/Creatinine Ratio 34; Blood Urea Nitrogen 41 mg/dL (9-20); Calcium 7.7 mg/dL (8.4-10.2); Hemolysis Index 9
[2022-08-01 15:05] LABS: Alanine Aminotransferase < 5 units/L (7-56)
--- NOTE | 2022-08-01 15:28 | Consultation ---
History of Present Illness Consult date: 08/01/22 Reason for Consult: Abnormal CT History of present illness: The patient was admitted for medical reasons and there has been AMS. The patient has diagnosed with COVID in the hospital . Past History Past Medical History: diabetes, GERD, hypertension, renal failure, other (Depression, Urinary retention,Anxiety,) Past Surgical History: Other (Right AKA,Gastric tube placement) Social history: other (Resides in a Jail) Family history: no significant family history Medications and Allergies Allergies Allergy/AdvReac Type Severity Reaction Status Date / Time No Known Allergies Allergy Verified 07/31/22 00:19 Home Medications Medication Instructions Recorded Confirmed Last Taken Type ALPRAZolam [Xanax TAB] 0.5 mg PO TID PRN 08/01/22 08/01/22 Unknown History Furosemide [Lasix] 40 mg PO DAILY 08/01/22 08/01/22 Unknown History Gabapentin [Neurontin] 300 mg PO DAILY 08/01/22 08/01/22 Unknown History Metoprolol [Lopressor TAB] 12.5 mg PO DAILY 08/01/22 08/01/22 Unknown History Omeprazole 40 mg PO BID 08/01/22 08/01/22 Unknown History Oxycodone HCl/Acetaminophen 1 each PO PRN MDD 6 08/01/22 08/01/22 Unknown History [Percocet 7.5/325 mg] Oxycodone HCl/Acetaminophen 1 each PO Q6HR PRN 08/01/22 08/01/22 Unknown History [Percocet 7.5/325 mg] Active Meds: Active Medications Acetaminophen (Acetaminophen 650 Mg Rect Supp) 650 mg AR Q6H PRN PRN Reason: Pain MILD(1-3)/Fever >100.5/BARDALES Last Admin: 07/31/22 03:20 Dose: 650 mg Alprazolam (Alprazolam 0.5 Mg Tab) 0.5 mg PO TID PRN PRN Reason: Agitation Last Admin: 08/01/22 12:37 Dose: 0.5 mg Ascorbic Acid (Ascorbic Acid 500 Mg Tab) 500 mg FEEDTUBE BID [facility] Dexamethasone (Dexamethasone 4 Mg/Ml Vial) 6 mg IV QDAY [facility] Stop: 08/10/22 09:59 Last Admin: 08/01/22 09:56 Dose: 6 mg Dextrose (Dextrose 50% In Water (25gm) 50 Ml Syringe) 50 ml IV Q30MIN PRN; Protocol PRN Reason: Hypoglycemia Doxazosin Mesylate (Doxazosin 1 Mg Tab) 1 mg FEEDTUBE QDAY [facility] Last Admin: 08/01/22 14:19 Dose: 1 mg Famotidine (Famotidine 20 Mg Tab) 20 mg FEEDTUBE BID HALEY Fentanyl (Fentanyl 100 Mcg/2 Ml Inj) 50 mcg IV Q2H PRN PRN Reason: AGITATION Last Admin: 07/31/22 18:04 Dose: 50 mcg Gabapentin (Gabapentin 300 Mg Cap) 300 mg FEEDTUBE QDAY [facility] Last Admin: 08/01/22 14:19 Dose: 300 mg Haloperidol Lactate (Haloperidol Lactate 5 Mg/1 Ml Inj) 5 mg IV Q6H PRN PRN Reason: Agitation Last Admin: 08/01/22 09:57 Dose: 5 mg Heparin Sodium (Porcine) (Heparin 5,000 Unit/1 Ml Vial) 5,000 unit SUB-Q Q8HR [facility] Last Admin: 08/01/22 14:19 Dose: 5,000 unit Hydrophilic Ointment (Lip Therapy Vaseline) 1 applic TP Q2HR PRN PRN Reason: Dry Lips Cefepime HCl (Cefepime/Ns 2 Gm/100 Ml) 2 gm in 100 mls @ 200 mls/hr IV Q12H SC H; Protocol Last Infusion: 08/01/22 12:40 Dose: Infused Remdesivir 200 mg/ Sodium (Chloride) 250 mls @ 500 mls/hr IV ONCE@1300 [facility] Stop: 08/01/22 18:00 Last Admin: 08/01/22 14:18 Dose: 500 mls/hr Remdesivir 100 mg/ Sodium (Chloride) 250 mls @ 500 mls/hr IV Q24HR@1400 [facility] Stop: 08/05/22 14:29 Valproate Sodium 500 mg/ (Sodium Chloride) 105 mls @ 100 mls/hr IV Q12HR [facility] Last Admin: 08/01/22 14:18 Dose: 100 mls/hr Insulin Human Lispro (Insulin Lispro 100 Unit/Ml) 0 unit SUB-Q Q6HR [facility]; Protocol Last Admin: 08/01/22 12:01 Dose: 2 unit Lorazepam (Lorazepam 2 Mg/Ml Vial) 2 mg IV ONCE PRN PRN Reason: For MRI Last Admin: 08/01/22 12:49 Dose: 2 mg Magnesium Hydroxide (Magnesium Hydroxide (Mom) Oral Liqd Udc) 30 ml PO Q4H PRN PRN Reason: Constipation Multi-Ingred Cream/Lotion/Oil/Oint (Mineral Oil/Petrolatum, White Ophth Oint 3.5 Gm) 1 applic OU Q4HR PRN PRN Reason: Dry Eye(s) Ondansetron HCl (Ondansetron 4 Mg/2 Ml Inj) 4 mg IV Q8H PRN PRN Reason: Nausea And Vomiting Quetiapine Fumarate (Quetiapine 25 Mg Tab) 50 mg FEEDTUBE BID [facility] Senna/Docusate Sodium (Sennosides/Docusate Sodium 8.6/50 Mg Tab) 1 tab FEEDTUBE BID [facility] Last Admin: 08/01/22 09:56 Dose: 1 tab Sodium Chloride (Sodium Chloride 0.9% 10 Ml Flush Syringe) 10 ml IV BID [facility] Last Admin: 08/01/22 09:56 Dose: 10 ml Sodium Chloride (Sodium Chloride 0.9% 10 Ml Flush Syringe) 10 ml IV PRN PRN PRN Reason: LINE FLUSH Sodium Chloride (Sodium Chloride 0.9% 50 Ml Ivpb) 50 ml IV Q24HR@1400 [facility] Stop: 08/04/22 14:01 Last Admin: 08/01/22 14:20 Dose: Not Given Zinc Sulfate (Zinc Sulfate 220 Mg Cap) 220 mg PO BID [facility] Physical Examination - Vital Signs Vital Signs: Vital Signs Temp Pulse Resp BP Pulse Ox 100.3 F H 102 H 22 100/58 4 L 07/30/22 23:58 07/30/22 23:58 07/30/22 23:58 07/30/22 23:58 07/30/22 23:58 - Physical Exam Narrative exam: The patient was not examined ( under COVID - protocal ) Results - Laboratory Findings CBC and BMP: 08/01/22 04:13 08/01/22 14:06 Abnormal Lab Findings: Abnormal Labs 07/31/22 07/31/22 07/31/22 00:37 00:37 00:37 RBC 2.99 L Hgb 8.5 L Hct 26.0 L RDW 17.6 H Lymph % (Auto) 9.9 L Lymph # (Auto) 0.5 L Seg Neutrophils % 83.3 H PT 15.1 H D-Dimer ABG pO2 ABG HCO3 ABG O2 Saturation ABG Base Excess ABG Hemoglobin Oxyhemoglobin Sodium Potassium 5.1 H BUN 30 H Glucose POC Glucose Calcium 7.6 L Ferritin ALT < 5 L Total Creatine Kinase C-Reactive Protein Total Protein 5.4 L Albumin 1.9 L Urine WBC (Auto) Salicylates Coronavirus (PCR) 07/31/22 07/31/22 07/31/22 00:37 00:37 02:25 RBC Hgb Hct RDW Lymph % (Auto) Lymph # (Auto) Seg Neutrophils % PT D-Dimer ABG pO2 51.2 L ABG HCO3 28.7 H ABG O2 Saturation 88.6 L ABG Base Excess 3.2 H ABG Hemoglobin 7.1 L Oxyhemoglobin 87.3 L Sodium Potassium BUN Glucose POC Glucose Calcium Ferritin ALT Total Creatine Kinase 14 L C-Reactive Protein Total Protein Albumin Urine WBC (Auto) Salicylates < 0.3 L Coronavirus (PCR) 07/31/22 07/31/22 07/31/22 05:27 09:52 09:52 RBC Hgb Hct RDW Lymph % (Auto) Lymph # (Auto) Seg Neutrophils % PT D-Dimer 880.44 H ABG pO2 ABG HCO3 ABG O2 Saturation ABG Base Excess ABG Hemoglobin Oxyhemoglobin Sodium Potassium BUN Glucose POC Glucose 142 H Calcium Ferritin 577.8 H ALT Total Creatine Kinase C-Reactive Protein Total Protein Albumin Urine WBC (Auto) Salicylates Coronavirus (PCR) 07/31/22 07/31/22 07/31/22 09:52 16:55 Unknown RBC Hgb Hct RDW Lymph % (Auto) Lymph # (Auto) Seg Neutrophils % PT D-Dimer ABG pO2 ABG HCO3 ABG O2 Saturation ABG Base Excess ABG Hemoglobin Oxyhemoglobin Sodium Potassium BUN Glucose POC Glucose 137 H Calcium Ferritin ALT Total Creatine Kinase C-Reactive Protein 14.60 H Total Protein Albumin Urine WBC (Auto) > 182.0 H Salicylates Coronavirus (PCR) 07/31/22 08/01/22 08/01/22 Unknown 00:26 04:13 RBC 2.80 L Hgb 8.1 L Hct 24.9 L RDW 18.0 H Lymph % (Auto) 10.7 L Lymph # (Auto) 0.7 L Seg Neutrophils % 85.9 H PT D-Dimer ABG pO2 ABG HCO3 ABG O2 Saturation ABG Base Excess ABG Hemoglobin Oxyhemoglobin Sodium Potassium BUN Glucose POC Glucose 154 H Calcium Ferritin ALT Total Creatine Kinase C-Reactive Protein Total Protein Albumin Urine WBC (Auto) Salicylates Coronavirus (PCR) Positive A 08/01/22 08/01/22 08/01/22 04:13 04:43 11:52 RBC Hgb Hct RDW Lymph % (Auto) Lymph # (Auto) Seg Neutrophils % PT D-Dimer ABG pO2 ABG HCO3 ABG O2 Saturation ABG Base Excess ABG Hemoglobin Oxyhemoglobin Sodium Potassium 5.2 H BUN 40 H Glucose 158 H POC Glucose 167 H 165 H Calcium 7.4 L Ferritin ALT Total Creatine Kinase C-Reactive Protein Total Protein Albumin Urine WBC (Auto) Salicylates Coronavirus (PCR) 08/01/22 14:06 RBC Hgb Hct RDW Lymph % (Auto) Lymph # (Auto) Seg Neutrophils % PT D-Dimer ABG pO2 ABG HCO3 ABG O2 Saturation ABG Base Excess ABG Hemoglobin Oxyhemoglobin Sodium 136 L Potassium BUN 41 H Glucose 136 H POC Glucose Calcium 7.7 L Ferritin ALT < 5 L Total Creatine Kinase C-Reactive Protein Total Protein 5.7 L Albumin 2.0 L Urine WBC (Auto) Salicylates Coronavirus (PCR) Assessment and Plan 1. Reviewed Head CT - await MRI results - looking at the images i dont think neurologically any management changes are necessary at present . 2. Risk for CVA is high due to underlying issues. 3. Call Back with questions if any thing is significantly abnormal . Dr. Cobian
--- NOTE | 2022-08-01 16:55 | Magnetic Resonance Report ---
MRI BRAIN 08/01/2022 INDICATION / CLINICAL INFORMATION: Encephalopathy, AMS. TECHNIQUE: Multiplanar, multisequence MR images of the brain were obtained. COMPARISON: None available. FINDINGS: BRAIN / INTRACRANIAL CONTENTS: Unenhanced and enhanced MR images of the brain were obtained. There is no evidence of acute abnormality. Ventricles and sulci are within upper limits of normal in size and shape for a patient of this age. There is no evidence of acute ischemic injury, hemorrhage, or mass. Some chronic microangiopathic whi te matter T2 hyperintensities are present, most prominently in the right frontal lobe. There are no abnormal extra-axial fluid collections. Postcontrast images demonstrate no abnormal contrast enhancement. EXTRACRANIAL: Unremarkable CRANIOCERVICAL JUNCTION: No significant abnormality. VASCULAR FLOW-VOIDS: No significant abnormality. IMPRESSION: No acute abnormality. Chronic and age-related changes. Signer Name: David Jaramillo MD Signed: 08/01/2022 4:51 PM Workstation Name: [id number]
--- NOTE | 2022-08-01 17:29 | Electrocardiograph Report ---
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
[2022-08-01] MEDS: ASCORBIC ACID 500 MG TAB FEEDTUBE SCH (21:34)
[2022-08-01] MEDS: FAMOTIDINE 20 MG TAB FEEDTUBE SCH (21:34)
[2022-08-01] MEDS: QUEtiapine 25 MG TAB FEEDTUBE SCH (21:34)
[2022-08-01] MEDS: ZINC SULFATE 220 MG CAP PO SCH (21:34)
[2022-08-02] MEDS: CEFEPIME/NS 2 GM/100 ML 2 GM/100 ML BAG IV SCH (01:24)
[2022-08-02] MEDS: HALOPERIDOL LACTATE 5 MG/1 ML INJ IV PRN ×2 (01:48→22:52)
[2022-08-02 05:04] LABS: Hematocrit 25.2 % (35.5-45.6); Hemoglobin 8.4 gm/dl (11.8-15.2); Mean Corpuscular HGB Conc 33 % (32-34); Mean Corpuscular Volume 87 fl (84-94); Platelet Count 221 K/mm3 (140-440); Red Blood Count 2.91 M/mm3 (3.65-5.03); Red Cell Distribution Width 17.9 % (13.2-15.2)
[2022-08-02 05:34] LABS: Albumin 2.1 g/dL (3.9-5); BUN/Creatinine Ratio 35; Blood Urea Nitrogen 39 mg/dL (9-20); Calcium 7.9 mg/dL (8.4-10.2); Hemolysis Index 34
[2022-08-02 05:36] LABS: Alanine Aminotransferase < 5 units/L (7-56)
[2022-08-02] MEDS: HEPARIN 5,000 UNIT/1 ML VIAL SUB-Q SCH ×3 (06:18→21:07)
[2022-08-02] MEDS: INSULIN LISPRO 100 UNIT/ML SUB-Q SCH ×3 (06:19→21:34)
[2022-08-02] MEDS ORDERED: VANCOMYCIN 1,000 MG in SODIUM CHLORIDE 0.9% 500 ML 500 ML IV ONE (08:59)
--- NOTE | 2022-08-02 08:59 | Progress Note ---
Assessment and Plan Cultures: COVID-19 PCR: Positive 07/31/2022 blood culture: No growth 07/31/2022 tracheal aspirate cultures: Contaminated, high epithelial cells 07/31/2022 urine culture: Staph aureus A/P: 57-year-old male with diabetes, GERD, anxiety, depression, prior right AKA, indwelling PEG tube, half-way resident was admitted on 07/31/2022 with hypoxia, hypotension: #COVID-19 pneumonia: Ferritin 577, CRP 14.6. #Acute respiratory failure: Was on the vent, now on room air #UTI: UA with significant pyuria. Urine culture growing Staph aureus, which is not a common uropathogen but there is no evidence of bacteremia or sepsis. UA did show significant pyuria. Has a Kyle catheter. #Acute encephalopathy #Indwelling PEG tube Recs: -Vancomycin restarted, follow-up final urine culture. If MRSA, switch to Bactrim DS 1 tab twice daily for 7 days, if MSSA, switch to Keflex 500 mg 4 times daily for 7 days -Cefepime discontinued -continue IV Remdesivir x 5 days -Continue steroids for 10 days -Since he is extubated, no indication for Actemra -Monitor CRP, procalcitonin Uriel Obrien MD, FACP, [facility] O: [phone] F: [phone] C: [phone] Subjective Date of service: 08/02/22 Interval history: Afebrile. Remains on room air. Has indwelling Kyle catheter. Objective - Exam Narrative Exam: Physical Exam: Constitutional: Alert, no distress Head, Ears, Nose: Normocephalic, atraumatic. External ears, nose normal Eyes: Conjunctivae/corneas clear. No icterus. No ptosis. Neck: Supple, no meningeal signs Cardiovascular: S1, S2 + Respiratory: Good air entry, clear to auscultation bilaterally GI: Soft, non-tender; bowel sounds normal. No peritoneal signs. G-tube + Musculoskeletal: Right AKA, well-healed Skin: No rash or abscess Hem/Lymphatic: No palpable cervical or supraclavicular nodes. No lymphangitis Psych: Confused Neurological: Awake, alert, confused - Constitutional Vitals: Vital Signs Temp Pulse Resp BP Pulse Ox 97.6 F 103 H 23 174/75 100 08/02/22 07:16 08/02/22 08:00 08/02/22 08:00 08/02/22 08:00 08/02/22 08:25 Temperature -Last 24 Hours Temperature 97.6 F Temperature 97.8 F Temperature 97.8 F Temperature 96 F Temperature 97.6 F Temperature 97.7 F - Labs CBC & Chem 7: 08/02/22 04:04 08/02/22 04:04 Labs: Abnormal lab results 08/01/22 08/01/22 08/01/22 Range/Units 04:43 11:52 14:06 RBC (3.65-5.03) M/mm3 Hgb (11.8-15.2) gm/dl Hct (35.5-45.6) % RDW (13.2-15.2) % Sodium 136 L (137-145) mmol/L Carbon Dioxide (22-30) mmol/L BUN 41 H (9-20) mg/dL Glucose 136 H (75-100) mg/dL POC Glucose 167 H 165 H (70-105) mg/dL Calcium 7.7 L (8.4-10.2) mg/dL ALT < 5 L (7-56) units/L Total Protein 5.7 L (6.3-8.2) g/dL Albumin 2.0 L (3.9-5) g/dL 08/01/22 08/01/22 08/02/22 Range/Units 17:24 23:27 04:04 RBC 2.91 L (3.65-5.03) M/mm3 Hgb 8.4 L (11.8-15.2) gm/dl Hct 25.2 L (35.5-45.6) % RDW 17.9 H (13.2-15.2) % Sodium (137-145) mmol/L Carbon Dioxide (22-30) mmol/L BUN (9-20) mg/dL Glucose (75-100) mg/dL POC Glucose 157 H 156 H (70-105) mg/dL Calcium (8.4-10.2) mg/dL ALT (7-56) units/L Total Protein (6.3-8.2) g/dL Albumin (3.9-5) g/dL 08/02/22 08/02/22 Range/Units 04:04 06:17 RBC (3.65-5.03) M/mm3 Hgb (11.8-15.2) gm/dl Hct (35.5-45.6) % RDW (13.2-15.2) % Sodium (137-145) mmol/L Carbon Dioxide 20 L (22-30) mmol/L BUN 39 H (9-20) mg/dL Glucose 119 H (75-100) mg/dL POC Glucose 114 H (70-105) mg/dL Calcium 7.9 L (8.4-10.2) mg/dL ALT < 5 L (7-56) units/L Total Protein 5.7 L (6.3-8.2) g/dL Albumin 2.1 L (3.9-5) g/dL
[2022-08-02] MEDS ORDERED: VANCOMYCIN PHARMACY TO DOSE IV SCH (09:00)
--- NOTE | 2022-08-02 09:20 | Progress Note ---
Assessment and Plan Acute hypoxemic resp failure s/p MVS Septic Shock Aspiration Pneumonia Urinary Tract Infection (UTI) Diabetes mellitus COVID-19 infection Acute Encephalopathy Moderate protein calorie malnutrition - doing better - ok to transfer to medical floor - continue care as below; - continue to wean supplemental oxygen to keep O2 sats > 90% - continue Bronchodilators (VICKY) with pulm hygiene per RT - avoid nephrotoxins, renally dose all medications - mobility protocols to prevent pressure ulcers - PT/OT as tolerated - Wound care per RN/WCT - continue accuchecks with glycemic control per SSI for target blood glucose < 180 mg/dL - tobacco abstinence strongly counseled at the bedside - home oxygen evaluation at discharge - GI & VTE prophylaxis - Flu & pneumovax per protocol - Pulmonary out patient follow up for PFTs and optimization of respiratory status - continue other care per attending / other consultants - prn analgesia per pain score COVID SPECIFIC INTERVENTIONS - Remdesivir as per ID/Pulmonary developed protocols (ordered) - continue systemic steroids for severe COVID-19 infection empirically (Decadron) - follow repeat COVID tests results - zinc and vitamin C supplementation - Monitor inflammatory markers per facility protocol - ferritin, Ddimer, CRP - therapeutic anticoagulation per system Protocol based on d-dimer and clinical considerations - Continue contact and airborne isolation .... Re-evaluate in am & prn Subjective Date of service: 08/02/22 Principal diagnosis: AHRF; Septic Shock; Aspiration Pneumonia; UTI; DM II; COVID-19 infection Interval history: Patient is seen today for: Acute hypoxemic resp failure s/p MVS; Septic Shock; Aspiration Pneumonia; UTI; DM II; COVID-19 infection; AMS Seen and examined at bedside; 24hour events reviewed; nursing and respiratory care staff consulted; no adverse overnight events reported to me; resting pe acefully in bed; remains on supplemental oxygen; MRI was negative; No N/V/F/C Objective Vital Signs - 12hr 08/01/22 08/01/22 08/01/22 22:01 23:01 23:27 Temperature Pulse Rate 82 81 89 Respiratory 27 H 17 14 Rate Blood Pressure 156/78 150/73 150/73 O2 Sat by Pulse 100 98 99 Oximetry 08/01/22 08/01/22 08/02/22 23:32 23:33 00:00 Temperature 97.8 F Pulse Rate 89 93 H Respiratory 12 Rate Blood Pressure 146/79 O2 Sat by Pulse 10 L 98 Oximetry 08/02/22 08/02/22 08/02/22 01:00 02:00 03:00 Temperature Pulse Rate 82 63 76 Respiratory 22 12 24 Rate Blood Pressure 151/71 150/76 157/93 O2 Sat by Pulse 98 99 100 Oximetry 08/02/22 08/02/22 08/02/22 03:56 03:57 04:01 Temperature 97.8 F Pulse Rate 85 96 H Respiratory 21 Rate Blood Pressure 157/93 O2 Sat by Pulse 10 L 95 Oximetry 08/02/22 08/02/22 08/02/22 05:00 06:00 07:00 Temperature Pulse Rate 96 H 89 Respiratory 15 18 Rate Blood Pressure 157/82 166/79 167/79 O2 Sat by Pulse 98 99 100 Oximetry 08/02/22 08/02/22 08/02/22 07:16 07:17 08:00 Temperature 97.6 F Pulse Rate 92 H Respiratory 19 23 Rate Blood Pressure 174/75 O2 Sat by Pulse 98 Oximetry 08/02/22 08/02/22 08:25 09:00 Temperature Pulse Rate 75 Respiratory 17 Rate Blood Pressure 170/78 O2 Sat by Pulse 100 99 Oximetry Constitutional: no acute distress, other (middle aged male with mildly increased respiratory effort) Eyes: non-icteric ENT: oropharynx moist Neck: supple, no lymphadenopathy, no JVD Effort: normal Ascultation: Bilateral: diminished breath sounds, rhonchi Percussion: Bilateral: not dull Cardiovascular: regular rate and rhythm, other (S1,S2) Gastrointestinal: normoactive bowel sounds, soft, non-tender, non-distended, other (PEG in place) Integumentary: normal, other (s/p right AKA, Kyle catheter) Extremities: no cyanosis, no edema, pink and warm, pulses normal Neurologic: non-focal exam (grossly), pupils equal and round, motor strength normal and Psychiatric: other (delirious / agitated at times) CBC and BMP: 08/02/22 04:04 08/02/22 04:04 ABG, PT/INR, D-dimer: ABG ABG pH 7.381 pH Units (7.350-7.450) 07/31/22 02:25 ABG pCO2 49.4 mm Hg 07/31/22 02:25 ABG pO2 51.2 mm Hg (80.0-90.0) L 07/31/22 02:25 ABG O2 Saturation 88.6 % (95.0-99.0) L 07/31/22 02:25 PT/INR, D-dimer PT 15.1 Sec. (12.2-14.9) H 07/31/22 00:37 INR 1.04 (0.87-1.13) 07/31/22 00:37 D-Dimer 880.44 ng/mlDDU (0-234) H 07/31/22 09:52 Abnormal lab findings: Abnormal Labs 07/31/22 07/31/22 07/31/22 00:37 00:37 00:37 RBC 2.99 L Hgb 8.5 L Hct 26.0 L RDW 17.6 H Lymph % (Auto) 9.9 L Lymph # (Auto) 0.5 L Seg Neutrophils % 83.3 H PT 15.1 H D-Dimer ABG pO2 ABG HCO3 ABG O2 Saturation ABG Base Excess ABG Hemoglobin Oxyhemoglobin Sodium Potassium 5.1 H Carbon Dioxide BUN 30 H Glucose POC Glucose Calcium 7.6 L Ferritin ALT < 5 L Total Creatine Kinase C-Reactive Protein Total Protein 5.4 L Albumin 1.9 L Urine WBC (Auto) Salicylates Coronavirus (PCR) 07/31/22 07/31/22 07/31/22 00:37 00:37 02:25 RBC Hgb Hct RDW Lymph % (Auto) Lymph # (Auto) Seg Neutrophils % PT D-Dimer ABG pO2 51.2 L ABG HCO3 28.7 H ABG O2 Saturation 88.6 L ABG Base Excess 3.2 H ABG Hemoglobin 7.1 L Oxyhemoglobin 87.3 L Sodium Potassium Carbon Dioxide BUN Glucose POC Glucose Calcium Ferritin ALT Total Creatine Kinase 14 L C-Reactive Protein Total Protein Albumin Urine WBC (Auto) Salicylates < 0.3 L Coronavirus (PCR) 07/31/22 07/31/22 07/31/22 05:27 09:52 09:52 RBC Hgb Hct RDW Lymph % (Auto) Lymph # (Auto) Seg Neutrophils % PT D-Dimer 880.44 H ABG pO2 ABG HCO3 ABG O2 Saturation ABG Base Excess ABG Hemoglobin Oxyhemoglobin Sodium Potassium Carbon Dioxide BUN Glucose POC Glucose 142 H Calcium Ferritin 577.8 H ALT Total Creatine Kinase C-Reactive Protein Total Protein Albumin Urine WBC (Auto) Salicylates Coronavirus (PCR) 07/31/22 07/31/22 07/31/22 09:52 16:55 Unknown RBC Hgb Hct RDW Lymph % (Auto) Lymph # (Auto) Seg Neutrophils % PT D-Dimer ABG pO2 ABG HCO3 ABG O2 Saturation ABG Base Excess ABG Hemoglobin Oxyhemoglobin Sodium Potassium Carbon Dioxide BUN Glucose POC Glucose 137 H Calcium Ferritin ALT Total Creatine Kinase C-Reactive Protein 14.60 H Total Protein Albumin Urine WBC (Auto) > 182.0 H Salicylates Coronavirus (PCR) 07/31/22 08/01/22 08/01/22 Unknown 00:26 04:13 RBC 2.80 L Hgb 8.1 L Hct 24.9 L RDW 18.0 H Lymph % (Auto) 10.7 L Lymph # (Auto) 0.7 L Seg Neutrophils % 85.9 H PT D-Dimer ABG pO2 ABG HCO3 ABG O2 Saturation ABG Base Excess ABG Hemoglobin Oxyhemoglobin Sodium Potassium Carbon Dioxide BUN Glucose POC Glucose 154 H Calcium Ferritin ALT Total Creatine Kinase C-Reactive Protein Total Protein Albumin Urine WBC (Auto) Salicylates Coronavirus (PCR) Positive A 08/01/22 08/01/22 08/01/22 04:13 04:43 11:52 RBC Hgb Hct RDW Lymph % (Auto) Lymph # (Auto) Seg Neutrophils % PT D-Dimer ABG pO2 ABG HCO3 ABG O2 Saturation ABG Base Excess ABG Hemoglobin Oxyhemoglobin Sodium Potassium 5.2 H Carbon Dioxide BUN 40 H Glucose 158 H POC Glucose 167 H 165 H Calcium 7.4 L Ferritin ALT Total Creatine Kinase C-Reactive Protein Total Protein Albumin Urine WBC (Auto) Salicylates Coronavirus (PCR) 08/01/22 08/01/22 08/01/22 14:06 17:24 23:27 RBC Hgb Hct RDW Lymph % (Auto) Lymph # (Auto) Seg Neutrophils % PT D-Dimer ABG pO2 ABG HCO3 ABG O2 Saturation ABG Base Excess ABG Hemoglobin Oxyhemoglobin Sodium 136 L Potassium Carbon Dioxide BUN 41 H Glucose 136 H POC Glucose 157 H 156 H Calcium 7.7 L Ferritin ALT < 5 L Total Creatine Kinase C-Reactive Protein Total Protein 5.7 L Albumin 2.0 L Urine WBC (Auto) Salicylates Coronavirus (PCR) 08/02/22 08/02/22 08/02/22 04:04 04:04 06:17 RBC 2.91 L Hgb 8.4 L Hct 25.2 L RDW 17.9 H Lymph % (Auto) Lymph # (Auto) Seg Neutrophils % PT D-Dimer ABG pO2 ABG HCO3 ABG O2 Saturation ABG Base Excess ABG Hemoglobin Oxyhemoglobin Sodium Potassium Carbon Dioxide 20 L BUN 39 H Glucose 119 H POC Glucose 114 H Calcium 7.9 L Ferritin ALT < 5 L Total Creatine Kinase C-Reactive Protein Total Protein 5.7 L Albumin 2.1 L Urine WBC (Auto) Salicylates Coronavirus (PCR) Allied health notes reviewed: nursing
[2022-08-02] MEDS: VALPROATE SODIUM 500 MG in SODIUM CHLORIDE 0.9% 100 ML IV SCH ×2 (09:30→21:06)
--- NOTE | 2022-08-02 09:30 | Progress Note ---
Assessment and Plan Assessment and plan: This is a 57-year-old male from [facility] facility with known past medical history of DM, diabetic neuropathy s/p right AKA, GERD, esophageal tear s/p repair, dyspagia s/p PEG tube placement, anxiety, and depression admitted for septic shock and acute hypoxic respiratory failure requiring ventilatory support. Hospital Course to Date: 07/31: Intubated, easily arousable, following simple commands. Remains on 100% Fio2 and 6 of peep this am. Hypoxic from this am ABG, however, SPO2 at 100%. Wean FIO2 as tolerated for SPO2 above 95. Remains on low dose levophed gtt, VSS. Titrate pressor for MAP above 65. Patient remains afebrile, COVID PCR pending. Continue empiric IV abx for now, Check CRP and procal. 08/01: Self-extubated overnight due to increase agitation/combative s/p IV a tivan, now in restraints for safety. Patient is still confused and restless this am, stable on RA, SPO2 at 100%. Off pressors, VSS. PRN Haldol and PO seroquel added. Will consult Neuro and Mental health for further eval and treatment. Mild hyperkalemia this am, Scr. stable, X1 dose of Kayaxalate. Cardura added for urinary retention. COVID PCR +, IV decadron initiated and ID consulted. Continue current IV abx per ID. 08/02: Patient from respiratory standpoint is clinically stable for transfer to the medical floor. MRI done yesterday is negative for acute CVA Discussed with the mother today we will start patient back on his Percocet therapy. ID input is noted patient will consider steroids for 10 days and also IV remdesivir for 5 days. Urine culture finalization is still pending. ID input is appreciated. Is unclear to me what his baseline mental status is. His mother tells me that he has been on long-term opioid medication outpatient. Anticipate discharge to facility in 1 to 2 days. Wean off oxygen as tolerated Cultures: COVID-19 PCR: Positive 07/31/2022 blood culture: No growth 07/31/2022 tracheal aspirate cultures: Contaminated, high epithelial cells 07/31/2022 urine culture: Staph aureus Assessment and Plan #Septic Shock 2/2 #Urinary Tract Infection(UTI) #RLL Pneumonia #COVID PUI - Presented from a SNF facility with hypoxia, low grade fever, tachycardia, and hypotension requiring pressor - CXR revealed infectious process in the right lower lobe with possible small dependent right pleural effusion - UA consistent with UTI, Blood cultures and sputum culture pending - COVID PCR positive - Off pressors, remains afebrile, and WBCs wnr - Continue blood pressure monitor per protocol - Titrate pressors to maintain MAP above 65 - ID consulted, appreciated recommendations - Continue empiric IV abx- Cefepine, IV Steroids initiated - Check procal and inflammatory markers - F/U on cultures - Daily CBC monitor #Acute Hypoxic Respiratory Failure #RLL Pneumonia #Chronic Aspiration #COVID PUI - Found with SOB in the SNF. Presented with hypoxia, unable to protect his airway - Intubated in the ED on 07/31 - CXR revealed infectious process in the right lower lobe with possible small dependent right pleural effusion - Patient's mother reported that patient has a history of dysphagia s/p esophageal tear & repair and now with chronic aspiration, was recently admitted at [facility] for aspiration PNA - COVID PCR + - Self-extubated, stable on RA SPO2 at 100% - CCM consulted, appreciate recommendations - Continue empiric IV abx, IV steroids, and Nebx tx per CCM - Aspiration precaution HOB above 30 - Continue SPO2 monitoring for SPO2 goal above 92% #Acute Metabolic Encephalopathy #Acute cystitis #Combative/Agitation - Self-extubated overnight due to increase agitation/combative s/p IV ativan, now in restraints for safety - CT of the head is suggestive microvascular ischemia - MRI ordered - PRN Haldol and PO seroquel initiated - Mental health and Neuro consulted - Avoid benzodiazepine to reduce the possibility of delirium - PRN Analgesia for pain control - Maintenance of sleep-wake cycle #Dysphagia s/p PEGtube placement #H/o Esophageal Tear and Repair - Presented with PEGTube in place - Initiate enteral nutrition - Nutrition consulted #Microcytic Anemia - Probably chronic - No s/s of any acute bleeding, H&H stable - Continue to trend CBC - Transfuse for hgb less than 7 #Type 2 Diabetes Mellitus - BG check and SSI Q6hrs - Avoid hypoglycemia - Hypoglycemic protocol #GI/DVT Prophylaxis - PPI- Pepcid - Heparin SubQ - SCDs to Left lower extremities while in bed #Advance Care Planning - Disease education data, care plan, diagnoses, and prognosis were discussed with patient's mother. Patient is a FULL code. Patient's mother acknowledged understanding and agreed with current care plan. History Interval history: Patient seen and examined this morning no acute distress. No reported overnight still with some confusion and agitation. Discussed with mother at the bedside Hospitalist Physical - Physical exam Narrative exam: General appearance: Present: agitated but no acute distress cachectic, other (Confused) - EENT Eyes: Present: PERRL ENT: hearing intact - Neck Neck: Present: normal ROM - Respiratory Respiratory effort: normal Respiratory: bilateral: diminished - Cardiovascular Rhythm: regular Heart Sounds: Present: S1 & S2 - Extremities Extremities: no ischemia, pulses intact, pulses symmetrical, abnormal (Right AKA) Peripheral Pulses: within normal limits - Abdominal General gastrointestinal: soft, non-distended, normal bowel sounds - Integumentary Integumentary: Present: warm, dry, erythema (Sacral wound Stage 2- POA) - Psychiatric Psychiatric: agitated, other (Confused) - Neurologic Neurologic: moves all extremities, other (Confused) - Allied Health Allied health notes reviewed: nursing, case management - Constitutional Vitals: Temp Pulse Resp BP Pulse Ox 97.6 F 75 17 170/78 99 08/02/22 07:16 08/02/22 09:00 08/02/22 09:00 08/02/22 09:00 08/02/22 09:00 General appearance: Present: no acute distress, cachectic, other (On the vent) HEART Score - HEART Score Troponin: Troponin T 0.025 ng/mL (0.00-0.029) 07/31/22 00:37 Results - Labs CBC & Chem 7: 08/02/22 04:04 08/02/22 04:04 Labs: Laboratory Last Values WBC 7.3 K/mm3 (4.5-11.0) 08/02/22 04:04 RBC 2.91 M/mm3 (3.65-5.03) L 08/02/22 04:04 Hgb 8.4 gm/dl (11.8-15.2) L 08/02/22 04:04 Hct 25.2 % (35.5-45.6) L 08/02/22 04:04 MCV 87 fl (84-94) 08/02/22 04:04 MCH 29 pg (28-32) 08/02/22 04:04 MCHC 33 % (32-34) 08/02/22 04:04 RDW 17.9 % (13.2-15.2) H 08/02/22 04:04 Plt Count 221 K/mm3 (140-440) 08/02/22 04:04 Lymph % (Auto) 10.7 % (13.4-35.0) L 08/01/22 04:13 [place] % (Auto) 3.3 % (0.0-7.3) 08/01/22 04:13 Eos % (Auto) 0.0 % (0.0-4.3) 08/01/22 04:13 Baso % (Auto) 0.1 % (0.0-1.8) 08/01/22 04:13 Lymph # (Auto) 0.7 K/mm3 (1.2-5.4) L 08/01/22 04:13 [place] # (Auto) 0.2 K/mm3 (0.0-0.8) 08/01/22 04:13 Eos # (Auto) 0.0 K/mm3 (0.0-0.4) 08/01/22 04:13 Baso # (Auto) 0.0 K/mm3 (0.0-0.1) 08/01/22 04:13 Seg Neutrophils % 85.9 % (40.0-70.0) H 08/01/22 04:13 Seg Neutrophils # 6.0 K/mm3 (1.8-7.7) 08/01/22 04:13 PT 15.1 Sec. (12.2-14.9) H 07/31/22 00:37 INR 1.04 (0.87-1.13) 07/31/22 00:37 APTT 32.1 Sec. (24.2-36.6) 07/31/22 00:37 D-Dimer 880.44 ng/mlDDU (0-234) H 07/31/22 09:52 ABG pH 7.381 pH Units (7.350-7.450) 07/31/22 02:25 ABG pCO2 49.4 mm Hg 07/31/22 02:25 ABG pO2 51.2 mm Hg (80.0-90.0) L 07/31/22 02:25 ABG HCO3 28.7 mmol/L (20.0-26.0) H 07/31/22 02:25 ABG O2 Saturation 88.6 % (95.0-99.0) L 07/31/22 02:25 ABG O2 Content 8.8 (0.0-44) 07/31/22 02:25 ABG Base Excess 3.2 mmol/L (-2.0-3.0) H 07/31/22 02:25 ABG Hemoglobin 7.1 gm/dl (14.0-18.0) L 07/31/22 02:25 ABG Carboxyhemoglobin 1.3 % (0.0-5.0) 07/31/22 02:25 ABG Methemoglobin 0.3 % (0.0-1.5) 07/31/22 02:25 Oxyhemoglobin 87.3 % (95.0-99.0) L 07/31/22 02:25 FiO2 90 % 07/31/22 02:25 Sodium 137 mmol/L (137-145) 08/02/22 04:04 Potassium 4.5 mmol/L (3.6-5.0) 08/02/22 04:04 Chloride 102.2 mmol/L (98-107) 08/02/22 04:04 Carbon Dioxide 20 mmol/L (22-30) L 08/02/22 04:04 Anion Gap 19 mmol/L 08/02/22 04:04 BUN 39 mg/dL (9-20) H 08/02/22 04:04 Creatinine 1.1 mg/dL (0.8-1.3) 08/02/22 04:04 Estimated GFR > 60 ml/min 08/02/22 04:04 BUN/Creatinine Ratio 35 % 08/02/22 04:04 Glucose 119 mg/dL (75-100) H 08/02/22 04:04 POC Glucose 114 mg/dL (70-105) H 08/02/22 06:17 Lactic Acid 1.00 mmol/L (0.7-2.0) 07/31/22 05:00 Calcium 7.9 mg/dL (8.4-10.2) L 08/02/22 04:04 Phosphorus 3.60 mg/dL (2.5-4.5) 08/02/22 04:04 Magnesium 2.10 mg/dL (1.7-2.3) 08/02/22 04:04 Ferritin 577.8 ng/mL (30.0-300.0) H 07/31/22 09:52 Total Bilirubin 0.30 mg/dL (0.1-1.2) 08/02/22 04:04 AST 13 units/L (5-40) 08/02/22 04:04 ALT < 5 units/L (7-56) L 08/02/22 04:04 Alkaline Phosphatase 65 units/L (35-129) 08/02/22 04:04 Ammonia 31.0 umol/L (25-60) 08/01/22 14:53 Lactate Dehydrogenase 135 units/L (91-180) 07/31/22 09:52 Total Creatine Kinase 14 units/L (55-170) L 07/31/22 00:37 Troponin T 0.025 ng/mL (0.00-0.029) 07/31/22 00:37 C-Reactive Protein 14.60 mg/dL (0.00-1.30) H 07/31/22 09:52 Total Protein 5.7 g/dL (6.3-8.2) L 08/02/22 04:04 Albumin 2.1 g/dL (3.9-5) L 08/02/22 04:04 Albumin/Globulin Ratio 0.6 % 08/02/22 04:04 Procalcitonin 6.98 ng/mL (<0.15) 07/31/22 09:52 TSH 0.844 mlU/mL (0.270-4.200) 07/31/22 00:37 Urine Color Yellow (Yellow) 07/31/22 Unknown Urine Turbidity Cloudy (Clear) 07/31/22 Unknown Specific [place] (Man) 1.020 (1.003-1.030) 07/31/22 Unknown Ur Protein (Man) 3+ mg/dL (Negative) 07/31/22 Unknown Ur Ketones (Man) Negative (Negative) 07/31/22 Unknown Ur Nitrite (Man) Negative (Negative) 07/31/22 Unknown Urine Bilirubin (Man) Large (Negative) 07/31/22 Unknown Urine Ictotest Positive (Negative) 07/31/22 Unknown Leukocyte Esterase (Man) Small (Negative) 07/31/22 Unknown Urine WBC (Auto) > 182.0 /HPF (0.0-6.0) H 07/31/22 Unknown Urine RBC (Auto) 154.0 /HPF (0.0-6.0) 07/31/22 Unknown U Epithel Cells (Auto) 1.0 /HPF (0-13.0) 07/31/22 Unknown Urine Bacteria (Auto) 1+ /HPF (Negative) 07/31/22 Unknown Urine RBC (Manual) 3+ (Negative) 07/31/22 Unknown Urine WBC Clumps 3+ /HPF 07/31/22 Unknown Urine Mucus Few /HPF 07/31/22 Unknown Urine Yeast (Budding) 2+ /HPF 07/31/22 Unknown Salicylates < 0.3 mg/dL (2.8-20.0) L 07/31/22 00:37 Acetaminophen 14.6 ug/mL (10.0-30.0) 07/31/22 00:37 Coronavirus (PCR) Positive (Negative) A 07/31/22 Unknown Microbiology: Microbiology 07/31/22 01:19 Peripheral/Venous Blood Culture - Preliminary NO GROWTH AFTER 48 HOURS 07/31/22 00:37 Peripheral/Venous Blood Culture - Preliminary NO GROWTH AFTER 48 HOURS 07/31/22 Unknown Urine,Catheterized - Indwelling Catheter Urine Culture - Pr eliminary Staphylococcus Aureus Kyle/IV: Voiding Method Indwelling Catheter Active Medications - Current Medications Current Medications: Generic Name Dose Route Start Last Admin Trade Name Freq PRN Reason Stop Dose Admin Acetaminophen 650 mg 07/31/22 02:27 07/31/22 03:20 Acetaminophen 650 Mg Rect Supp MI 650 mg Q6H PRN Administration Pain MILD(1-3)/Fever >100.5/BARDALES Alprazolam 0.5 mg 08/01/22 11:40 08/01/22 12:37 Alprazolam 0.5 Mg Tab PO 0.5 mg TID PRN Administration Agitation Ascorbic Acid 500 mg 08/01/22 22:00 08/01/22 21:34 Ascorbic Acid 500 Mg Tab FEEDTUBE 500 mg BID HALEY Administration Dexamethasone 6 mg 08/01/22 10:00 08/01/22 09:56 Dexamethasone 4 Mg/Ml Vial IV 08/10/22 09:59 6 mg QDAY HALEY Administration Dextrose 50 ml 07/31/22 02:27 Dextrose 50% In Water (25gm) 50 Ml Syringe IV Q30MIN PRN Hypoglycemia Protocol Doxazosin Mesylate 1 mg 08/01/22 13:00 08/01/22 14:19 Doxazosin 1 Mg Tab FEEDTUBE 1 mg QDAY HALEY Administration Famotidine 20 mg 08/01/22 22:00 08/01/22 21:34 Famotidine 20 Mg Tab FEEDTUBE 20 mg BID HALEY Administration Fentanyl 50 mcg 07/31/22 12:44 07/31/22 18:04 Fentanyl 100 Mcg/2 Ml Inj IV 50 mcg Q2H PRN Administration AGITATION Gabapentin 300 mg 08/01/22 14:00 08/01/22 14:19 Gabapentin 300 Mg Cap FEEDTUBE 300 mg QDAY HALEY Administration Haloperidol Lactate 5 mg 08/01/22 10:00 08/02/22 01:48 Haloperidol Lactate 5 Mg/1 Ml Inj IV 5 mg Q6H PRN Administration Agitation Heparin Sodium (Porcine) 5,000 unit 07/31/22 06:00 08/02/22 06:18 Heparin 5,000 Unit/1 Ml Vial SUB-Q 5,000 unit Q8HR HALEY Administration Hydrophilic Ointment 1 applic 07/31/22 01:30 Lip Therapy Vaseline TP Q2HR PRN Dry Lips Remdesivir 100 mg/ Sodium 250 mls @ 500 mls/hr 08/02/22 14:00 Chloride IV 08/05/22 14:29 Q24HR@1400 HALEY Valproate Sodium 500 mg/ 105 mls @ 100 mls/hr 08/01/22 14:00 08/01/22 22:02 Sodium Chloride IV 100 mls/hr Q12HR HALEY Administration Vancomycin HCl 1 gm in 250 mls @ 166.667 mls/hr 08/02/22 10:00 Vancomycin/Ns 1 Gm/250 Ml IV Q24H HALEY Insulin Human Lispro 0 unit 07/31/22 12:00 08/02/22 06:19 Insulin Lispro 100 Unit/Ml SUB-Q Not Given Q6HR [facility] Protocol Magnesium Hydroxide 30 ml 07/31/22 02:27 Magnesium Hydroxide (Mom) Oral Liqd Udc PO Q4H PRN Constipation Multi-Ingred Cream/Lotion/Oil/Oint 1 applic 07/31/22 01:30 Mineral Oil/Petrolatum, White Ophth Oint 3.5 Gm OU Q4HR PRN Dry Eye(s) Ondansetron HCl 4 mg 07/31/22 02:27 Ondansetron 4 Mg/2 Ml Inj IV Q8H PRN Nausea And Vomiting Quetiapine Fumarate 50 mg 08/01/22 22:00 08/01/22 21:34 Quetiapine 25 Mg Tab FEEDTUBE 50 mg BID HALEY Administration Senna 17.6 mg 08/02/22 10:00 Sennosides Oral Liqd 8.8 Mg/5 Ml Oral Liqd FEEDTUBE BID HALEY Sodium Chloride 10 ml 07/31/22 10:00 08/01/22 21:47 Sodium Chloride 0.9% 10 Ml Flush Syringe IV 10 ml BID HALEY Administration Sodium Chloride 10 ml 07/31/22 02:27 Sodium Chloride 0.9% 10 Ml Flush Syringe IV PRN PRN LINE FLUSH Sodium Chloride 50 ml 08/01/22 13:00 08/01/22 14:20 Sodium Chloride 0.9% 50 Ml Ivpb IV 08/04/22 14:01 Not Given Q24HR@1400 HALEY Zinc Sulfate 220 mg 08/01/22 22:00 08/01/22 21:34 Zinc Sulfate 220 Mg Cap PO 220 mg BID HALEY Administration Nutrition/Malnutrition Assess - Dietary Evaluation Nutrition/Malnutrition Findings: Nutrition Notes Start: 07/31/22 09:38 Freq: Status: Active Protocol: Document 07/31/22 12:24 NILA (Rec: 07/31/22 12:28 NILA [id number]) Nutrition Notes Need for Assessment generated from: MD Order,Education Initial or Follow up Brief Note Current Diagnosis Diabetes,Sepsis,Respiratory Failure Other Pertinent Diagnosis GERD, AKA, UTI Current Diet TF-Vital AF 1.2 Gald[place] @ 60 ml/hr (from D 07/31). Height 6 ft 2 in Weight 58.4 kg [place] Body Weight (kg) 86.36 BMI 16.5 Weight Status Underweight Subjective/Other Information RD consult for nutrition education assessment. Pt is currently on NPO, Sedated and on Mechanical Ventilation, not a candidate for nutrition education at the time. Percent of energy/protein needs met: Prescribed TF-Vital AF 1.2 Galdino @ 60 ml/hr provides for energy/protein needs (1,728 Kcal/108 g) during LOS, 99% Kcal; 100% AA. #1 Nutrition Diagnosis Inadequate oral intake Comments: Change Nutrition Diagnosis for precision. Diagnosis Progress(for reassessment Continues documentation) Is patient on ventilator? Yes Is Patient Ambulatory and/or Out of Bed No REE-([facility]-confined to bed) [phone] Calculation Used for Recommendations [facility] Additional Notes Estimated Protein Needs: 1.25- 2.0g/kg ABW = 73-108g PRO q day Estimated Fluid Needs: 1mL/ kcal or per MD. Nutrition Intervention Nutrition Support: Initiate Vital AF @ 20mL/hr and increase by 10mL q 8hr to goal rate of 60mL/hr as medically feasible. Kcal 1,728 Protein (gm) 108 Fluid (mL) 1,170 % RDI: 99% Kcal / 100% AA Goal #1 Pt to begin and tolerate enteral nutrition within 24- 72hrs. Goal #2 Pt to maintain current wt status throughout LOS. Follow-Up By: 08/02/22 Additional Comments Monitor TF rate, tolerance, BM , and wt status.
[2022-08-02] MEDS: dexAMETHasone 4 MG/ML VIAL IV SCH (09:31)
[2022-08-02] MEDS: ZINC SULFATE 220 MG CAP PO SCH ×2 (09:31→21:07)
[2022-08-02] MEDS: QUEtiapine 25 MG TAB FEEDTUBE SCH ×2 (09:31→21:07)
[2022-08-02] MEDS: FAMOTIDINE 20 MG TAB FEEDTUBE SCH ×2 (09:31→21:07)
[2022-08-02] MEDS: ASCORBIC ACID 500 MG TAB FEEDTUBE SCH ×2 (09:31→21:07)
[2022-08-02] MEDS: GABAPENTIN 300 MG CAP FEEDTUBE SCH (09:31)
[2022-08-02] MEDS: DOXAZOSIN 1 MG TAB FEEDTUBE SCH (09:31)
[2022-08-02] MEDS: SENNOSIDES ORAL LIQD 8.8 MG/5 ML ORAL LIQD FEEDTUBE SCH ×2 (09:32→23:39)
[2022-08-02] MEDS ORDERED: VANCOMYCIN/NS 1 GM/250 ML 1 GM/250 ML BAG IV SCH (10:00)
[2022-08-02] MEDS ORDERED: TAMSULOSIN 0.4 MG CAP PO SCH (10:00)
[2022-08-02] MEDS: oxyCODONE /ACETAMINOPHEN 5-325MG TAB FEEDTUBE PRN ×2 (11:25→21:08)
[2022-08-02] MEDS: REMDESIVIR 100 MG in SODIUM CHLORIDE 0.9% 250ML 250 ML IV SCH (15:48)
[2022-08-02] MEDS: SODIUM CHLORIDE 0.9% 50 ML IVPB IV SCH (18:05)
[2022-08-02] MEDS: ALPRAZolam 0.5 MG TAB PO PRN (21:08)
[2022-08-02] MEDS ORDERED: METOPROLOL TARTRATE 5 MG/5 ML INJ IV ONE (23:38)
[2022-08-03] MEDS: INSULIN LISPRO 100 UNIT/ML SUB-Q SCH ×4 (02:15→18:17)
[2022-08-03] MEDS: HEPARIN 5,000 UNIT/1 ML VIAL SUB-Q SCH ×3 (06:46→22:00)
[2022-08-03 08:14] LABS: Hematocrit 24.2 % (35.5-45.6); Hemoglobin 7.9 gm/dl (11.8-15.2); Mean Corpuscular HGB Conc 33 % (32-34); Mean Corpuscular Volume 87 fl (84-94); Platelet Count 226 K/mm3 (140-440); Red Cell Distribution Width 17.8 % (13.2-15.2)
[2022-08-03 08:22] LABS: BUN/Creatinine Ratio 38; Blood Urea Nitrogen 34 mg/dL (9-20); Calcium 7.8 mg/dL (8.4-10.2); Hemolysis Index 29
--- NOTE | 2022-08-03 08:36 | Progress Note ---
Assessment and Plan 57-year-old male with known history of diabetes mellitus, GERD, anxiety and depression, right AKA brought into the emergency room today via EMS with complaint of generalized weakness, changes in mental status and shortness of breath. Patient is a resident of a long term. Most of the history was gotten from the ER staff as patient is already intubated sedated. Blood pressure was said to be low on the field and patient was also said to be hypoxic. He was said to have received Benadryl and acetaminophen while in the long term. Surgical history right AKA and Gastric tube placement. Upon arrival in the emergency room he was found to be hypoxic and hypotensive. He was subsequently intubated because he was not protecting his airway. Work-up in the emergency room today, lab is significant for hemoglobin of 8.5 and hematocrit of 26. BUN of 30 and creatinine of 1.2. Urinalysis significant for UTI. Chest x-ray shows infectious process in the right lower lobe with possible small dependent right pleural effusion. CT of the head is suggestive microvascular ischemia. MRI of the brain suggested if needed for further evaluation. Patient has been started on IV fluid, pressure and empiric IV antibiotics. Patient Burger virus (PCR) positive. Patient extubated, off the pressors. Patient transfered to telemetry. Patient awake. Patient weak. On 2 litres O2. O2 saturation reported 100%. No acute respiratory distress. Patient afebrile. Has mild leukocytosis , Blood pressure 150/83 , pulse 85 , respirations 18. Chest xray 07/31/22 reported infectious process right lower lung could be considered with possible small dependent right pleural effusion. Patient is on Decadron, Remdesivir, S/C Heparin, Famotidine, PO Keflex. I spent critical care time of 35 minutes, reviewing the chart, examine the patient, review chest xray and lab results, talking to the nursing and respiratory therapy staff and work up plan of treatment in this critically ill coronavirus positive patient. - Patient Problems (1) Acute respiratory failure with hypoxia Current Visit: Yes Status: Acute Plan to address problem: Patient intubated and extubated. O2 2 litres via nasal canula Patient is on Decadron. S/C Heparin Famotidine. (2) Pneumonia Current Visit: Yes Status: Acute Plan to address problem: Patient is on PO Keflex. (3) Acute encephalopathy Current Visit: Yes Status: Acute Plan to address problem: Management as per primary care. (4) Septic shock Current Visit: Yes Status: Acute Plan to address problem: Patient was on cefepime and vancomycin. (5) Coronavirus infection Current Visit: Yes Status: Acute Plan to address problem: Patient is on Decadron, REMDESIVIR. Management as per infectious diseases. Burger virus isolation precautions. Subjective Date of service: 08/03/22 Principal diagnosis: AHRF; Septic Shock; Aspiration Pneumonia; UTI; DM II; COVID-19 infection Interval history: 57-year-old male with known history of diabetes mellitus, GERD, anxiety and depression, right AKA brought into the emergency room today via EMS with complaint of generalized weakness, changes in mental status and shortness of breath. Patient is a resident of a long term. Most of the history was gotten from the ER staff as patient is already intubated sedated. Blood pressure was said to be low on the field and patient was also said to be h ypoxic. He was said to have received Benadryl and acetaminophen while in the long term. Surgical history right AKA and Gastric tube placement. Upon arrival in the emergency room he was found to be hypoxic and hypotensive. He was subsequently intubated because he was not protecting his airway. Work-up in the emergency room today, lab is significant for hemoglobin of 8.5 and hematocrit of 26. BUN of 30 and creatinine of 1.2. Urinalysis significant for UTI. Chest x-ray shows infectious process in the right lower lobe with possible small dependent right pleural effusion. CT of the head is suggestive microvascular ischemia. MRI of the brain suggested if needed for further evaluation. Patient has been started on IV fluid, pressure and empiric IV antibiotics. Patient Burger virus (PCR) positive. Patient extubated, off the pressors. Patient transfered to telemetry. Patient awake. Patient weak. On 2 litres O2. O2 saturation reported 100%. No acute respiratory distress. Patient afebrile. Has mild leukocytosis , Blood pressure 150/83 , pulse 85 , respirations 18. Chest xray 07/31/22 reported nfectious process right lower lung could be considered with possible small dependent right pleural effusion. Patient is on Decadron, Remdesivir, S/C Heparin, Famotidine, PO Keflex. Objective Vital Signs - 12hr 08/02/22 08/02/22 08/03/22 21:00 22:01 00:03 Temperature 98.4 F Pulse Rate 148 H 104 H Respiratory 18 24 18 Rate Blood Pressure 177/103 145/71 O2 Sat by Pulse 100 95 94 Oximetry 08/03/22 05:01 Temperature 98.7 F Pulse Rate 100 H Respiratory 18 Rate Blood Pressure 121/78 O2 Sat by Pulse 89 Oximetry Constitutional: no acute distress, other (middle aged male with mildly increased respiratory effort) Eyes: non-icteric ENT: oropharynx moist Neck: supple, no lymphadenopathy, no JVD Effort: normal Ascultation: Bilateral: diminished breath sounds, rhonchi Percussion: Bilateral: not dull Cardiovascular: regular rate and rhythm, other (S1,S2) Gastrointestinal: normoactive bowel sounds, soft, non-tender, non-distended, other (PEG in place) Integumentary: normal, other (s/p right AKA, Kyle catheter) Extremities: no cyanosis, no edema, pink and warm, other (Right AKA) Neurologic: non-focal exam (grossly), pupils equal and round Psychiatric: other (delirious / agitated at times) CBC and BMP: 08/03/22 07:13 08/03/22 11:33 ABG, PT/INR, D-dimer: ABG ABG pH 7.381 pH Units (7.350-7.450) 07/31/22 02:25 ABG pCO2 49.4 mm Hg 07/31/22 02:25 ABG pO2 51.2 mm Hg (80.0-90.0) L 07/31/22 02:25 ABG O2 Saturation 88.6 % (95.0-99.0) L 07/31/22 02:25 PT/INR, D-dimer PT 15.1 Sec. (12.2-14.9) H 07/31/22 00:37 INR 1.04 (0.87-1.13) 07/31/22 00:37 D-Dimer 880.44 ng/mlDDU (0-234) H 07/31/22 09:52 Abnormal lab findings: Abnormal Labs 07/31/22 07/31/22 07/31/22 00:37 00:37 00:37 WBC RBC 2.99 L Hgb 8.5 L Hct 26.0 L RDW 17.6 H Lymph % (Auto) 9.9 L Lymph # (Auto) 0.5 L Seg Neutrophils % 83.3 H PT 15.1 H D-Dimer ABG pO2 ABG HCO3 ABG O2 Saturation ABG Base Excess ABG Hemoglobin Oxyhemoglobin Sodium Potassium 5.1 H Carbon Dioxide BUN 30 H Glucose POC Glucose Calcium 7.6 L Ferritin ALT < 5 L Total Creatine Kinase C-Reactive Protein Total Protein 5.4 L Albumin 1.9 L Urine WBC (Auto) Salicylates Coronavirus (PCR) 07/31/22 07/31/22 07/31/22 00:37 00:37 02:25 WBC RBC Hgb Hct RDW Lymph % (Auto) Lymph # (Auto) Seg Neutrophils % PT D-Dimer ABG pO2 51.2 L ABG HCO3 28.7 H ABG O2 Saturation 88.6 L ABG Base Excess 3.2 H ABG Hemoglobin 7.1 L Oxyhemoglobin 87.3 L Sodium Potassium Carbon Dioxide BUN Glucose POC Glucose Calcium Ferritin ALT Total Creatine Kinase 14 L C-Reactive Protein Total Protein Albumin Urine WBC (Auto) Salicylates < 0.3 L Coronavirus (PCR) 07/31/22 07/31/22 07/31/22 05:27 09:52 09:52 WBC RBC Hgb Hct RDW Lymph % (Auto) Lymph # (Auto) Seg Neutrophils % PT D-Dimer 880.44 H ABG pO2 ABG HCO3 ABG O2 Saturation ABG Base Excess ABG Hemoglobin Oxyhemoglobin Sodium Potassium Carbon Dioxide BUN Glucose POC Glucose 142 H Calcium Ferritin 577.8 H ALT Total Creatine Kinase C-Reactive Protein Total Protein Albumin Urine WBC (Auto) Salicylates Coronavirus (PCR) 07/31/22 07/31/22 07/31/22 09:52 16:55 Unknown WBC RBC Hgb Hct RDW Lymph % (Auto) Lymph # (Auto) Seg Neutrophils % PT D-Dimer ABG pO2 ABG HCO3 ABG O2 Saturation ABG Base Excess ABG Hemoglobin Oxyhemoglobin Sodium Potassium Carbon Dioxide BUN Glucose POC Glucose 137 H Calcium Ferritin ALT Total Creatine Kinase C-Reactive Protein 14.60 H Total Protein Albumin Urine WBC (Auto) > 182.0 H Salicylates Coronavirus (PCR) 07/31/22 08/01/22 08/01/22 Unknown 00:26 04:13 WBC RBC 2.80 L Hgb 8.1 L Hct 24.9 L RDW 18.0 H Lymph % (Auto) 10.7 L Lymph # (Auto) 0.7 L Seg Neutrophils % 85.9 H PT D-Dimer ABG pO2 ABG HCO3 ABG O2 Saturation ABG Base Excess ABG Hemoglobin Oxyhemoglobin Sodium Potassium Carbon Dioxide BUN Glucose POC Glucose 154 H Calcium Ferritin ALT Total Creatine Kinase C-Reactive Protein Total Protein Albumin Urine WBC (Auto) Salicylates Coronavirus (PCR) Positive A 08/01/22 08/01/22 08/01/22 04:13 04:43 11:52 WBC RBC Hgb Hct RDW Lymph % (Auto) Lymph # (Auto) Seg Neutrophils % PT D-Dimer ABG pO2 ABG HCO3 ABG O2 Saturation ABG Base Excess ABG Hemoglobin Oxyhemoglobin Sodium Potassium 5.2 H Carbon Dioxide BUN 40 H Glucose 158 H POC Glucose 167 H 165 H Calcium 7.4 L Ferritin ALT Total Creatine Kinase C-Reactive Protein Total Protein Albumin Urine WBC (Auto) Salicylates Coronavirus (PCR) 08/01/22 08/01/22 08/01/22 14:06 17:24 23:27 WBC RBC Hgb Hct RDW Lymph % (Auto) Lymph # (Auto) Seg Neutrophils % PT D-Dimer ABG pO2 ABG HCO3 ABG O2 Saturation ABG Base Excess ABG Hemoglobin Oxyhemoglobin Sodium 136 L Potassium Carbon Dioxide BUN 41 H Glucose 136 H POC Glucose 157 H 156 H Calcium 7.7 L Ferritin ALT < 5 L Total Creatine Kinase C-Reactive Protein Total Protein 5.7 L Albumin 2.0 L Urine WBC (Auto) Salicylates Coronavirus (PCR) 08/02/22 08/02/22 08/02/22 04:04 04:04 06:17 WBC RBC 2.91 L Hgb 8.4 L Hct 25.2 L RDW 17.9 H Lymph % (Auto) Lymph # (Auto) Seg Neutrophils % PT D-Dimer ABG pO2 ABG HCO3 ABG O2 Saturation ABG Base Excess ABG Hemoglobin Oxyhemoglobin Sodium Potassium Carbon Dioxide 20 L BUN 39 H Glucose 119 H POC Glucose 114 H Calcium 7.9 L Ferritin ALT < 5 L Total Creatine Kinase C-Reactive Protein Total Protein 5.7 L Albumin 2.1 L Urine WBC (Auto) Salicylates Coronavirus (PCR) 08/02/22 08/02/2208/03/22 12:29 18:38 05:36 WBC RBC Hgb Hct RDW Lymph % (Auto) Lymph # (Auto) Seg Neutrophils % PT D-Dimer ABG pO2 ABG HCO3 ABG O2 Saturation ABG Base Excess ABG Hemoglobin Oxyhemoglobin Sodium Potassium Carbon Dioxide BUN Glucose POC Glucose 167 H 163 H 126 H Calcium Ferritin ALT Total Creatine Kinase C-Reactive Protein Total Protein Albumin Urine WBC (Auto) Salicylates Coronavirus (PCR) 08/03/22 07:13 WBC 11.4 H RBC 2.80 L Hgb 7.9 L Hct 24.2 L RDW 17.8 H Lymph % (Auto) Lymph # (Auto) Seg Neutrophils % PT D-Dimer ABG pO2 ABG HCO3 ABG O2 Saturation ABG Base Excess ABG Hemoglobin Oxyhemoglobin Sodium Potassium Carbon Dioxide BUN Glucose POC Glucose Calcium Ferritin ALT Total Creatine Kinase C-Reactive Protein Total Protein Albumin Urine WBC (Auto) Salicylates Coronavirus (PCR) Chest x-ray: report reviewed, image reviewed Additional Studies: CHEST 1 VIEW 07/31/22 INDICATION / CLINICAL INFORMATION: ETT placement. COMPARISON: None available. FINDINGS: SUPPORT DEVICES: Endotracheal tube terminates 5 cm above glenn at satisfactory position. Right IJ central venous catheter terminates superior vena cava. HEART / MEDIASTINUM: Heart size is within normal limits. Mediastinal contour demonstrates no significant abnormality. LUNGS / PLEURA: Airspace opacities right cardiophrenic angle in infrahilar region with blunting right costophrenic angle. Diffuse interstitial prominence. BONES: No significant osseous abnormality. ADDITIONAL FINDINGS: No significant additional findings. IMPRESSION: 1. Infectious process right lower lung could be considered with possible small dependent right pleural effusion. Allied health notes reviewed: nursing
--- NOTE | 2022-08-03 08:56 | Progress Note ---
Assessment and Plan Assessment and plan: This is a 57-year-old male from [facility] facility with known past medical history of DM, diabetic neuropathy s/p right AKA, GERD, esophageal tear s/p repair, dyspagia s/p PEG tube placement, anxiety, and depression admitted for septic shock and acute hypoxic respiratory failure requiring ventilatory support. Hospital Course to Date: 07/31: Intubated, easily arousable, following simple commands. Remains on 100% Fio2 and 6 of peep this am. Hypoxic from this am ABG, however, SPO2 at 100%. Wean FIO2 as tolerated for SPO2 above 95. Remains on low dose levophed gtt, VSS. Titrate pressor for MAP above 65. Patient remains afebrile, COVID PCR pending. Continue empiric IV abx for now, Check CRP and procal. 08/01: Self-extubated overnight due to increase agitation/combative s/p IV a tivan, now in restraints for safety. Patient is still confused and restless this am, stable on RA, SPO2 at 100%. Off pressors, VSS. PRN Haldol and PO seroquel added. Will consult Neuro and Mental health for further eval and treatment. Mild hyperkalemia this am, Scr. stable, X1 dose of Kayaxalate. Cardura added for urinary retention. COVID PCR +, IV decadron initiated and ID consulted. Continue current IV abx per ID. 08/02: Patient from respiratory standpoint is clinically stable for transfer to the medical floor. MRI done yesterday is negative for acute CVA Discussed with the mother today we will start patient back on his Percocet therapy. ID input is noted patient will consider steroids for 10 days and also IV remdesivir for 5 days. Urine culture finalization is still pending. ID input is appreciated. Is unclear to me what his baseline mental status is. His mother tells me that he has been on long-term opioid medication outpatient. Anticipate discharge to facility in 1 to 2 days. Wean off oxygen as tolerated Cultures: COVID-19 PCR: Positive 07/31/2022 blood culture: No growth 07/31/2022 tracheal aspirate cultures: Contaminated, high epithelial cells 07/31/2022 urine culture: Staph aureus 08/03: Patient seen and examined this morning no acute distress that extensive review of her records from the facility and also spoke to the staff at the facility he normally moves around with his wheelchair. Sometimes he takes Eliquis food and eats by mouth after he throws off his tube feeds himself. He unfortunately does not have his bed to come back today. Cli nically he is improving I do speak to the mom also noticed that there was some hospice documentation on the chart she tells me that he was never in hospice. Urine culture came back MSSA so we will switch to Keflex 500 mg 4 times daily for 7 days as recommended by ID and discontinue vancomycin. We will obtain speech evaluation and monitor his mental status. He is still chronically on Xanax as needed and Percocet as as needed that has been restarted. Anticipate discharge once he has an accepting facility. I was also notified by the facility that the first time he came to the facility that he was COVID-positive. He is currently on 2 L of oxygen now. Assessment and Plan #Septic Shock 12/19 #Urinary Tract Infection(UTI) #RLL Pneumonia #COVID PUI - Presented from a SNF facility with hypoxia, low grade fever, tachycardia, and hypotension requiring pressor - CXR revealed infectious process in the right lower lobe with possible small dependent right pleural effusion - UA consistent with UTI, Blood cultures and sputum culture pending - COVID PCR positive - Off pressors, remains afebrile, and WBCs wnr - Continue blood pressure monitor per protocol - Titrate pressors to maintain MAP above 65 - ID consulted, appreciated recommendations - Continue empiric IV abx- Cefepine, IV Steroids initiated - Check procal and inflammatory markers - F/U on cultures - Daily CBC monitor #Acute Hypoxic Respiratory Failure #RLL Pneumonia #Chronic Aspiration #COVID PUI - Found with SOB in the SNF. Presented with hypoxia, unable to protect his airway - Intubated in the ED on 07/31 - CXR revealed infectious process in the right lower lobe with possible small dependent right pleural effusion - Patient's mother reported that patient has a history of dysphagia s/p esophageal tear & repair and now with chronic aspiration, was recently admitted at [facility] for aspiration PNA - COVID PCR + - Self-extubated, stable on RA SPO2 at 100% - CCM consulted, appreciate recommendations - Continue empiric IV abx, IV steroids, and Nebx tx per CCM - Aspiration precaution HOB above 30 - Continue SPO2 monitoring for SPO2 goal above 92% #Acute Metabolic Encephalopathy #Acute cystitis #Combative/Agitation - Self-extubated overnight due to increase agitation/combative s/p IV ativan, now in restraints for safety - CT of the head is suggestive microvascular ischemia - MRI ordered - PRN Haldol and PO seroquel initiated - Mental health and Neuro consulted - Avoid benzodiazepine to reduce the possibility of delirium - PRN Analgesia for pain control - Maintenance of sleep-wake cycle #Dysphagia s/p PEGtube placement #H/o Esophageal Tear and Repair - Presented with PEGTube in place - Initiate enteral nutrition - Nutrition consulted #Microcytic Anemia - Probably chronic - No s/s of any acute bleeding, H&H stable - Continue to trend CBC - Transfuse for hgb less than 7 #Type 2 Diabetes Mellitus - BG check and SSI Q6hrs - Avoid hypoglycemia - Hypoglycemic protocol #GI/DVT Prophylaxis - PPI- Pepcid - Heparin SubQ - SCDs to Left lower extremities while in bed #Advance Care Planning - Disease education data, care plan, diagnoses, and prognosis were discussed with patient's mother. Patient is a FULL code. Patient's mother acknowledged understanding and agreed with current care plan. History Interval history: Patient seen and examined this morning no acute distress. No reported overnight still with some confusion and agitation. Discussed with mother at the bedside Hospitalist Physical - Physical exam Narrative exam: General appearance: Present: agitated but no acute distress cachectic, - EENT Eyes: Present: PERRL ENT: hearing intact - Neck Neck: Present: normal ROM - Respiratory Respiratory effort: normal Respiratory: bilateral: diminished - Cardiovascular Rhythm: regular Heart Sounds: Present: S1 & S2 - Extremities Extremities: no ischemia, pulses intact, pulses symmetrical, abnormal (Right AKA) Peripheral Pulses: within normal limits - Abdominal General gastrointestinal: soft, non-distended, normal bowel sounds - Integumentary Integumentary: Present: warm, dry, erythema (Sacral wound Stage 2- POA) - Psychiatric Psychiatric: No agitation present this morning - Neurologic Neurologic: moves all extremities, alert awake oriented x3 - Allied Health Allied health notes reviewed: nursing, case management - Constitutional Vitals: Temp Pulse Resp BP Pulse Ox 98.7 F 100 H 18 121/78 89 08/03/22 05:01 08/03/22 05:01 08/03/22 05:01 08/03/22 05:01 08/03/22 05:01 General appearance: Present: no acute distress, cachectic, other (On the vent) HEART Score - HEART Score Troponin: Troponin T 0.025 ng/mL (0.00-0.029) 07/31/22 00:37 Results - Labs CBC & Chem 7: 08/03/22 07:13 08/03/22 07:13 Labs: Laboratory Last Values WBC 11.4 K/mm3 (4.5-11.0) H 08/03/22 07:13 RBC 2.80 M/mm3 (3.65-5.03) L 08/03/22 07:13 Hgb 7.9 gm/dl (11.8-15.2) L 08/03/22 07:13 Hct 24.2 % (35.5-45.6) L 08/03/22 07:13 MCV 87 fl (84-94) 08/03/22 07:13 MCH 28 pg (28-32) 08/03/22 07:13 MCHC 33 % (32-34) 08/03/22 07:13 RDW 17.8 % (13.2-15.2) H 08/03/22 07:13 Plt Count 226 K/mm3 (140-440) 08/03/22 07:13 Lymph % (Auto) 10.7 % (13.4-35.0) L 08/01/22 04:13 [place] % (Auto) 3.3 % (0.0-7.3) 08/01/22 04:13 Eos % (Auto) 0.0 % (0.0-4.3) 08/01/22 04:13 Baso % (Auto) 0.1 % (0.0-1.8) 08/01/22 04:13 Lymph # (Auto) 0.7 K/mm3 (1.2-5.4) L 08/01/22 04:13 [place] # (Auto) 0.2 K/mm3 (0.0-0.8) 08/01/22 04:13 Eos # (Auto) 0.0 K/mm3 (0.0-0.4) 08/01/22 04:13 Baso # (Auto) 0.0 K/mm3 (0.0-0.1) 08/01/22 04:13 Seg Neutrophils % 85.9 % (40.0-70.0) H 08/01/22 04:13 Seg Neutrophils # 6.0 K/mm3 (1.8-7.7) 08/01/22 04:13 PT 15.1 Sec. (12.2-14.9) H 07/31/22 00:37 INR 1.04 (0.87-1.13) 07/31/22 00:37 APTT 32.1 Sec. (24.2-36.6) 07/31/22 00:37 D-Dimer 880.44 ng/mlDDU (0-234) H 07/31/22 09:52 ABG pH 7.381 pH Units (7.350-7.450) 07/31/22 02:25 ABG pCO2 49.4 mm Hg 07/31/22 02:25 ABG pO2 51.2 mm Hg (80.0-90.0) L 07/31/22 02:25 ABG HCO3 28.7 mmol/L (20.0-26.0) H 07/31/22 02:25 ABG O2 Saturation 88.6 % (95.0-99.0) L 07/31/22 02:25 ABG O2 Content 8.8 (0.0-44) 07/31/22 02:25 ABG Base Excess 3.2 mmol/L (-2.0-3.0) H 07/31/22 02:25 ABG Hemoglobin 7.1 gm/dl (14.0-18.0) L 07/31/22 02:25 ABG Carboxyhemoglobin 1.3 % (0.0-5.0) 07/31/22 02:25 ABG Methemoglobin 0.3 % (0.0-1.5) 07/31/22 02:25 Oxyhemoglobin 87.3 % (95.0-99.0) L 07/31/22 02:25 FiO2 90 % 07/31/22 02:25 Sodium 137 mmol/L (137-145) 08/03/22 07:13 Potassium 4.0 mmol/L (3.6-5.0) 08/03/22 07:13 Chloride 102.2 mmol/L (98-107) 08/03/22 07:13 Carbon Dioxide 26 mmol/L (22-30) 08/03/22 07:13 Anion Gap 13 mmol/L 08/03/22 07:13 BUN 34 mg/dL (9-20) H 08/03/22 07:13 Creatinine 0.9 mg/dL (0.8-1.3) 08/03/22 07:13 Estimated GFR > 60 ml/min 08/03/22 07:13 BUN/Creatinine Ratio 38 % 08/03/22 07:13 Glucose 119 mg/dL (75-100) H 08/02/22 04:04 POC Glucose 126 mg/dL (70-105) H 08/03/22 05:36 Lactic Acid 1.00 mmol/L (0.7-2.0) 07/31/22 05:00 Calcium 7.8 mg/dL (8.4-10.2) L 08/03/22 07:13 Phosphorus 3.60 mg/dL (2.5-4.5) 08/02/22 04:04 Magnesium 2.10 mg/dL (1.7-2.3) 08/02/22 04:04 Ferritin 577.8 ng/mL (30.0-300.0) H 07/31/22 09:52 Total Bilirubin 0.30 mg/dL (0.1-1.2) 08/03/22 07:13 AST 13 units/L (5-40) 08/02/22 04:04 ALT < 5 units/L (7-56) L 08/02/22 04:04 Alkaline Phosphatase 65 units/L (35-129) 08/02/22 04:04 Ammonia 31.0 umol/L (25-60) 08/01/22 14:53 Lactate Dehydrogenase 135 units/L (91-180) 07/31/22 09:52 Total Creatine Kinase 14 units/L (55-170) L 07/31/22 00:37 Troponin T 0.025 ng/mL (0.00-0.029) 07/31/22 00:37 C-Reactive Protein 14.60 mg/dL (0.00-1.30) H 07/31/22 09:52 Total Protein 5.5 g/dL (6.3-8.2) L 08/03/22 07:13 Albumin 2.1 g/dL (3.9-5) L 08/02/22 04:04 Albumin/Globulin Ratio 0.6 % 08/02/22 04:04 Procalcitonin 6.98 ng/mL (<0.15) 07/31/22 09:52 TSH 0.844 mlU/mL (0.270-4.200) 07/31/22 00:37 Urine Color Yellow (Yellow) 07/31/22 Unknown Urine Turbidity Cloudy (Clear) 07/31/22 Unknown Specific [place] (Man) 1.020 (1.003-1.030) 07/31/22 Unknown Ur Protein (Man) 3+ mg/dL (Negative) 07/31/22 Unknown Ur Ketones (Man) Negative (Negative) 07/31/22 Unknown Ur Nitrite (Man) Negative (Negative) 07/31/22 Unknown Urine Bilirubin (Man) Large (Negative) 07/31/22 Unknown Urine Ictotest Positive (Negative) 07/31/22 Unknown Leukocyte Esterase (Man) Small (Negative) 07/31/22 Unknown Urine WBC (Auto) > 182.0 /HPF (0.0-6.0) H 07/31/22 Unknown Urine RBC (Auto) 154.0 /HPF (0.0-6.0) 07/31/22 Unknown U Epithel Cells (Auto) 1.0 /HPF (0-13.0) 07/31/22 Unknown Urine Bacteria (Auto) 1+ /HPF (Negative) 07/31/22 Unknown Urine RBC (Manual) 3+ (Negative) 07/31/22 Unknown Urine WBC Clumps 3+ /HPF 07/31/22 Unknown Urine Mucus Few /HPF 07/31/22 Unknown Urine Yeast (Budding) 2+ /HPF 07/31/22 Unknown Salicylates < 0.3 mg/dL (2.8-20.0) L 07/31/22 00:37 Acetaminophen 14.6 ug/mL (10.0-30.0) 07/31/22 00:37 Coronavirus (PCR) Positive (Negative) A 07/31/22 Unknown Microbiology: Microbiology 07/31/22 01:19 Peripheral/Venous Blood Culture - Preliminary NO GROWTH AFTER 72 HOURS 07/31/22 00:37 Peripheral/Venous Blood Culture - Preliminary NO GROWTH AFTER 72 HOURS 07/31/22 Unknown Urine,Catheterized - Indwelling Catheter Urine Culture - Preliminary Staphylococcus Aureus Kyle/IV: Voiding Method Indwelling Catheter Active Medications - Current Medications Current Medications: Generic Name Dose Route Start Last Admin Trade Name Freq PRN Reason Stop Dose Admin Acetaminophen 650 mg 07/31/22 02:27 07/31/22 03:20 Acetaminophen 650 Mg Rect Supp MO 650 mg Q6H PRN Administration Pain MILD(1-3)/Fever >100.5/BARDALES Alprazolam 0.5 mg 08/01/22 11:40 08/02/22 21:08 Alprazolam 0.5 Mg Tab PO 0.5 mg TID PRN Administration Agitation Ascorbic Acid 500 mg 08/01/22 22:00 08/02/22 21:07 Ascorbic Acid 500 Mg Tab FEEDTUBE 500 mg BID HALEY Administration Dexamethasone 6 mg 08/01/22 10:00 08/02/22 09:31 Dexamethasone 4 Mg/Ml Vial IV 08/10/22 09:59 6 mg QDAY HALEY Administration Dextrose 50 ml 07/31/22 02:27 Dextrose 50% In Water (25gm) 50 Ml Syringe IV Q30MIN PRN Hypoglycemia Protocol Doxazosin Mesylate 1 mg 08/01/22 13:00 08/02/22 09:31 Doxazosin 1 Mg Tab FEEDTUBE 1 mg QDAY HALEY Administration Famotidine 20 mg 08/01/22 22:00 08/02/22 21:07 Famotidine 20 Mg Tab FEEDTUBE 20 mg BID HALEY Administration Fentanyl 50 mcg 07/31/22 12:44 07/31/22 18:04 Fentanyl 100 Mcg/2 Ml Inj IV 50 mcg Q2H PRN Administration AGITATION Gabapentin 300 mg 08/01/22 14:00 08/02/22 09:31 Gabapentin 300 Mg Cap FEEDTUBE 300 mg QDAY HALEY Administration Haloperidol Lactate 5 mg 08/01/22 10:00 08/02/22 22:52 Haloperidol Lactate 5 Mg/1 Ml Inj IV 5 mg Q6H PRN Administration Agitation Heparin Sodium (Porcine) 5,000 unit 07/31/22 06:00 08/03/22 06:46 Heparin 5,000 Unit/1 Ml Vial SUB-Q 5,000 unit Q8HR HALEY Administration Hydrophilic Ointment 1 applic 07/31/22 01:30 Lip Therapy Vaseline TP Q2HR PRN Dry Lips Remdesivir 100 mg/ Sodium 250 mls @ 500 mls/hr 08/02/22 14:00 08/02/22 15:48 Chloride IV 08/05/22 14:29 500 mls/hr Q24HR@1400 HALEY Administration Valproate Sodium 500 mg/ 105 mls @ 100 mls/hr 08/01/22 14:00 08/02/22 21:06 Sodium Chloride IV 100 mls/hr Q12HR HALEY Administration Vancomycin HCl 1 gm in 250 mls @ 166.667 mls/hr 08/02/22 10:00 08/02/22 09:31 Vancomycin/Ns 1 Gm/250 Ml IV 166.667 mls/hr Q24H HALEY Administration Sodium Chloride 500 mls @ 999 mls/hr 08/03/22 08:44 Nacl 0.9% 500 Ml IV 08/03/22 09:14 ONCE ONE Insulin Human Lispro 0 unit 07/31/22 12:00 08/03/22 05:42 Insulin Lispro 100 Unit/Ml SUB-Q Not Given Q6HR [facility] Protocol Magnesium Hydroxide 30 ml 07/31/22 02:27 Magnesium Hydroxide (Mom) Oral Liqd Udc PO Q4H PRN Constipation Metoprolol Tartrate 12.5 mg 08/03/22 10:00 Metoprolol Tartrate 25 Mg Tab PO BID [facility] Multi-Ingred Cream/Lotion/Oil/Oint 1 applic 07/31/22 01:30 Mineral Oil/Petrolatum, White Ophth Oint 3.5 Gm OU Q4HR PRN Dry Eye(s) Ondansetron HCl 4 mg 07/31/22 02:27 Ondansetron 4 Mg/2 Ml Inj IV Q8H PRN Nausea And Vomiting Oxycodone/Acetaminophen 1 tab 08/02/22 11:07 08/02/22 21:08 Oxycodone /Acetaminophen 5-325mg Tab FEEDTUBE 1 tab Q6H PRN Administration Pain, Moderate (4-6) Quetiapine Fumarate 50 mg 08/01/22 22:00 08/02/22 21:07 Quetiapine 25 Mg Tab FEEDTUBE 50 mg BID HALEY Administration Senna 17.6 mg 08/02/22 10:00 08/02/22 23:39 Sennosides Oral Liqd 8.8 Mg/5 Ml Oral Liqd FEEDTUBE Not Given BID HALEY Sodium Chloride 10 ml 07/31/22 10:00 08/02/22 21:06 Sodium Chloride 0.9% 10 Ml Flush Syringe IV 10 ml BID HALEY Administration Sodium Chloride 10 ml 07/31/22 02:27 08/02/22 22:53 Sodium Chloride 0.9% 10 Ml Flush Syringe IV 10 ml PRN PRN Administration LINE FLUSH Sodium Chloride 50 ml 08/01/22 13:00 08/02/22 18:05 Sodium Chloride 0.9% 50 Ml Ivpb IV 08/04/22 14:01 50 ml Q24HR@1400 HALEY Administration Zinc Sulfate 220 mg 08/01/22 22:00 08/02/22 21:07 Zinc Sulfate 220 Mg Cap PO 220 mg BID HALEY Administration Nutrition/Malnutrition Assess - Dietary Evaluation Nutrition/Malnutrition Findings: Nutrition Notes Start: 07/31/22 09:38 Freq: Status: Active Protocol: Document 08/02/22 11:12 CM (Rec: 08/02/22 11:20 CM [id number]) Co-Sign 08/02/22 11:12 WW Nutrition Notes Need for Assessment generated from: garment cutter,MST Initial or Follow up Brief Note Current Diagnosis Diabetes,Sepsis,Respiratory Failure Other Pertinent Diagnosis GERD, AKA, UTI Current Diet TF Vital AF 1.2 [place] @ 60mL/hr Labs/Tests 08/02: CO2 20 BUN 39 Glu 119 Pertinent Medications 08/02: Zinc Sulfate Ascorbic ACid Dexamethasone Height 6 ft 2 in Weight 58.4 kg [place] Body Weight (kg) 86.36 BMI 16.5 Subjective/Other Information RD consult for malnutrition screening tool score 2 (unsure wt loss / no decreased appetite) Pt currently under COVID-19 isolation on room air. Will monitor need for malnutrition assessment at follow-up. Receiving Vital AF @ 50mL/hr via PEG and increasing to goal by this afternoon - no N/V or BM per RN. Abdomen soft, flat, w/ BS+ per physical assessment. GI Symptoms None Difficulty In Swallowing Food Allergy No Skin Integrity/Comment Sacral pressure ulcer II Current % PO Other #1 Nutrition Diagnosis Swallowing difficulty Comments: Change Nutrition Diagnosis for precision. Etiology Esophageal tear s/p repair Diagnosis Progress(for reassessment Continues documentation) Is patient on ventilator? No Is Patient Ambulatory and/or Out of Bed No [facility] [phone] Calculation Used for Recommendations Hernan Cuevas Additional Notes Estimated Protein Needs: 1.25- 2.0g/kg ABW = 73-108g PRO q day Estimated Fluid Needs: 1mL/ kcal or per MD. Nutrition Intervention Nutrition Support: Initiate Vital AF @ 20mL/hr and increase by 10mL q 8hr to goal rate of 60mL/hr as medically feasible. Kcal 1,728 Protein (gm) 108 Fluid (mL) 1,170 % RDI: 99% Kcal / 100% AA Goal #1 Pt to obtain and tolerate >75% of estimated energy/protein needs through enteral nutrition. Goal #2 Pt to maintain current wt status throughout LOS. Follow-Up By: 08/09/22 Additional Comments Monitor TF rate, tolerance, BM , and wt status.
[2022-08-03] MEDS ORDERED: SODIUM CHLORIDE 0.9% 500 ML 500 ML IV ONE (09:00)
[2022-08-03 09:03] LABS: Albumin 2.2 g/dL (3.9-5)
[2022-08-03 09:07] LABS: Alanine Aminotransferase < 5 units/L (7-56)
[2022-08-03] MEDS ORDERED: cephALEXin ORAL LIQD 500 MG/10 ML ORAL LIQD PO SCH (10:00)
[2022-08-03] MEDS: dexAMETHasone 4 MG/ML VIAL IV SCH (10:37)
[2022-08-03] MEDS: cephALEXin ORAL LIQD 500 MG/10 ML ORAL LIQD PO SCH ×3 (10:37→22:23)
[2022-08-03] MEDS: QUEtiapine 25 MG TAB FEEDTUBE SCH ×2 (10:38→22:00)
[2022-08-03] MEDS: ASCORBIC ACID 500 MG TAB FEEDTUBE SCH ×2 (10:38→21:59)
[2022-08-03] MEDS: ZINC SULFATE 220 MG CAP PO SCH ×2 (10:38→22:00)
[2022-08-03] MEDS: FAMOTIDINE 20 MG TAB FEEDTUBE SCH ×2 (10:38→22:00)
[2022-08-03] MEDS: METOPROLOL TARTRATE 25 MG TAB PO SCH ×2 (10:39→21:59)
[2022-08-03] MEDS: GABAPENTIN 300 MG CAP FEEDTUBE SCH (10:40)
[2022-08-03] MEDS: VALPROATE SODIUM 500 MG in SODIUM CHLORIDE 0.9% 100 ML IV SCH ×2 (12:02→21:59)
[2022-08-03 12:23] LABS: BUN/Creatinine Ratio 33; Blood Urea Nitrogen 33 mg/dL (9-20); Calcium 7.9 mg/dL (8.4-10.2); Hemolysis Index 1
[2022-08-03] MEDS: SENNOSIDES ORAL LIQD 8.8 MG/5 ML ORAL LIQD FEEDTUBE SCH ×2 (15:25→22:00)
[2022-08-03] MEDS: DOXAZOSIN 1 MG TAB FEEDTUBE SCH (15:31)
[2022-08-03] MEDS: REMDESIVIR 100 MG in SODIUM CHLORIDE 0.9% 250ML 250 ML IV SCH (15:31)
[2022-08-03] MEDS: SODIUM CHLORIDE 0.9% 50 ML IVPB IV SCH (17:35)
[2022-08-03] MEDS: oxyCODONE /ACETAMINOPHEN 5-325MG TAB FEEDTUBE PRN (22:24)
[2022-08-04] MEDS: cephALEXin ORAL LIQD 500 MG/10 ML ORAL LIQD PO SCH ×5 (00:07→18:32)
[2022-08-04] MEDS: HEPARIN 5,000 UNIT/1 ML VIAL SUB-Q SCH ×3 (05:03→22:02)
[2022-08-04] MEDS: ALPRAZolam 0.5 MG TAB PO PRN ×2 (05:15→22:01)
[2022-08-04 08:02] LABS: Hematocrit 22.5 % (35.5-45.6); Hemoglobin 7.7 gm/dl (11.8-15.2); Mean Corpuscular HGB Conc 34 % (32-34); Mean Corpuscular Volume 86 fl (84-94); Platelet Count 184 K/mm3 (140-440); Red Blood Count 2.61 M/mm3 (3.65-5.03); Red Cell Distribution Width 17.7 % (13.2-15.2)
[2022-08-04 08:17] LABS: BUN/Creatinine Ratio 40; Blood Urea Nitrogen 32 mg/dL (9-20); Calcium 8.1 mg/dL (8.4-10.2); Hemolysis Index 4
[2022-08-04 08:23] LABS: Alanine Aminotransferase < 5 units/L (7-56)
[2022-08-04] MEDS: INSULIN LISPRO 100 UNIT/ML SUB-Q SCH ×4 (10:13→18:31)
[2022-08-04] MEDS: DOXAZOSIN 1 MG TAB FEEDTUBE SCH (10:14)
[2022-08-04] MEDS: GABAPENTIN 300 MG CAP FEEDTUBE SCH (10:14)
[2022-08-04] MEDS: dexAMETHasone 4 MG/ML VIAL IV SCH (10:14)
[2022-08-04] MEDS: QUEtiapine 25 MG TAB FEEDTUBE SCH ×2 (10:15→22:01)
[2022-08-04] MEDS: METOPROLOL TARTRATE 25 MG TAB PO SCH ×2 (10:15→22:02)
[2022-08-04] MEDS: FAMOTIDINE 20 MG TAB FEEDTUBE SCH ×2 (10:15→22:01)
[2022-08-04] MEDS: ZINC SULFATE 220 MG CAP PO SCH ×2 (10:16→22:19)
[2022-08-04] MEDS: SENNOSIDES ORAL LIQD 8.8 MG/5 ML ORAL LIQD FEEDTUBE SCH ×2 (10:16→22:01)
[2022-08-04] MEDS: ASCORBIC ACID 500 MG TAB FEEDTUBE SCH ×2 (10:16→22:01)
--- NOTE | 2022-08-04 11:53 | Progress Note ---
Assessment and Plan Assessment and plan: This is a 57-year-old male from [facility] facility with known past medical history of DM, diabetic neuropathy s/p right AKA, GERD, esophageal tear s/p repair, dyspagia s/p PEG tube placement, anxiety, and depression admitted for septic shock and acute hypoxic respiratory failure requiring ventilatory support. Hospital Course to Date: 07/31: Intubated, easily arousable, following simple commands. Remains on 100% Fio2 and 6 of peep this am. Hypoxic from this am ABG, however, SPO2 at 100%. Wean FIO2 as tolerated for SPO2 above 95. Remains on low dose levophed gtt, VSS. Titrate pressor for MAP above 65. Patient remains afebrile, COVID PCR pending. Continue empiric IV abx for now, Check CRP and procal. 08/01: Self-extubated overnight due to increase agitation/combative s/p IV a tivan, now in restraints for safety. Patient is still confused and restless this am, stable on RA, SPO2 at 100%. Off pressors, VSS. PRN Haldol and PO seroquel added. Will consult Neuro and Mental health for further eval and treatment. Mild hyperkalemia this am, Scr. stable, X1 dose of Kayaxalate. Cardura added for urinary retention. COVID PCR +, IV decadron initiated and ID consulted. Continue current IV abx per ID. 08/02: Patient from respiratory standpoint is clinically stable for transfer to the medical floor. MRI done yesterday is negative for acute CVA Discussed with the mother today we will start patient back on his Percocet therapy. ID input is noted patient will consider steroids for 10 days and also IV remdesivir for 5 days. Urine culture finalization is still pending. ID input is appreciated. Is unclear to me what his baseline mental status is. His mother tells me that he has been on long-term opioid medication outpatient. Anticipate discharge to facility in 1 to 2 days. Wean off oxygen as tolerated Cultures: COVID-19 PCR: Positive 07/31/2022 blood culture: No growth 07/31/2022 tracheal aspirate cultures: Contaminated, high epithelial cells 07/31/2022 urine culture: Staph aureus 08/03: Patient seen and examined this morning no acute distress that extensive review of her records from the facility and also spoke to the staff at the facility he normally moves around with his wheelchair. Sometimes he takes Eliquis food and eats by mouth after he throws off his tube feeds himself. He unfortunately does not have his bed to come back today. Cli nically he is improving I do speak to the mom also noticed that there was some hospice documentation on the chart she tells me that he was never in hospice. Urine culture came back MSSA so we will switch to Keflex 500 mg 4 times daily for 7 days as recommended by ID and discontinue vancomycin. We will obtain speech evaluation and monitor his mental status. He is still chronically on Xanax as needed and Percocet as as needed that has been restarted. Anticipate discharge once he has an accepting facility. I was also notified by the facility that the first time he came to the facility that he was COVID-positive. He is currently on 2 L of oxygen now. 08/04: Patient continues to improve, mental status improving. Discussed with Nursing staff to obtain PT eval. Awaiting reauthorization to return to the facility. Restarted the Lasix, anticipate positive impact on the BP Assessment and Plan #Septic Shock / #Urinary Tract Infection(UTI) #RLL Pneumonia #COVID PUI - Presented from a SNF facility with hypoxia, low grade fever, tachycardia, and hypotension requiring pressor - CXR revealed infectious process in the right lower lobe with possible small dependent right pleural effusion - UA consistent with UTI, Blood cultures and sputum culture pending - COVID PCR positive - Off pressors, remains afebrile, and WBCs wnr - Continue blood pressure monitor per protocol - Titrate pressors to maintain MAP above 65 - ID consulted, appreciated recommendations - Continue empiric IV abx- Cefepine, IV Steroids initiated - Check procal and inflammatory markers - F/U on cultures - Daily CBC monitor #Acute Hypoxic Respiratory Failure #RLL Pneumonia #Chronic Aspiration #COVID PUI - Found with SOB in the SNF. Presented with hypoxia, unable to protect his airway - Intubated in the ED on 07/31 - CXR revealed infectious process in the right lower lobe with possible small dependent right pleural effusion - Patient's mother reported that patient has a history of dysphagia s/p esophageal tear & repair and now with chronic aspiration, was recently admitted at [facility] for aspiration PNA - COVID PCR + - Self-extubated, stable on RA SPO2 at 100% - [facility] consulted, appreciate recommendations - Continue empiric IV abx, IV steroids, and Nebx tx per [facility] - Aspiration precaution HOB above 30 - Continue SPO2 monitoring for SPO2 goal above 92% #Acute Metabolic Encephalopathy #Acute cystitis # Severe Protein calorie malnutrition #Combative/Agitation - Self-extubated overnight due to increase agitation/combative s/p IV ativan, now in restraints for safety - CT of the head is suggestive microvascular ischemia - MRI ordered - PRN Haldol and PO seroquel initiated - Mental health and Neuro consulted - Avoid benzodiazepine to reduce the possibility of delirium - PRN Analgesia for pain control - Maintenance of sleep-wake cycle #Dysphagia s/p PEGtube placement #H/o Esophageal Tear and Repair - Presented with PEGTube in place - Initiate enteral nutrition - Nutrition consulted #Microcytic Anemia - Probably chronic - No s/s of any acute bleeding, H&H stable - Continue to trend CBC - Transfuse for hgb less than 7 #Type 2 Diabetes Mellitus - BG check and SSI Q6hrs - Avoid hypoglycemia - Hypoglycemic protocol #GI/DVT Prophylaxis - PPI- Pepcid - Heparin SubQ - SCDs to Left lower extremities while in bed #Advance Care Planning - Disease education data, care plan, diagnoses, and prognosis were discussed with patient's mother. Patient is a FULL code. Patient's mother acknowledged understanding and agreed with current care plan. History Interval history: Patient seen and examined this morning no acute distress. No reported overnight, There is no further confusion but he gets up and precautionary was restriants because he is a risk for fall and not listening to the nurses. This does not appear to be new. Discussed with mother at the bedside Hospitalist Physical - Physical exam Narrative exam: General appearance: Present: agitated but no acute distress cachectic, - EENT Eyes: Present: PERRL ENT: hearing intact - Neck Neck: Present: normal ROM - Respiratory Respiratory effort: normal Respiratory: bilateral: diminished - Cardiovascular Rhythm: regular Heart Sounds: Present: S1 & S2 - Extremities Extremities: no ischemia, pulses intact, pulses symmetrical, abnormal (Right AKA) Peripheral Pulses: within normal limits - Abdominal General gastrointestinal: soft, non-distended, normal bowel sounds - Integumentary Integumentary: Present: warm, dry, erythema (Sacral wound Stage 2- POA) - Psychiatric Psychiatric: No agitation present this morning - Neurologic Neurologic: moves all extremities, alert awake oriented x3 - Allied Health Allied health notes reviewed: nursing, case management - Constitutional Vitals: Temp Pulse Resp BP Pulse Ox 97.6 F 80 18 174/92 99 08/04/22 04:44 08/04/22 10:14 08/04/22 04:44 08/04/22 10:14 08/04/22 04:44 General appearance: Present: no acute distress, cachectic, other (On the vent) HEART Score - HEART Score Troponin: Troponin T 0.025 ng/mL (0.00-0.029) 07/31/22 00:37 Results - Labs CBC & Chem 7: 08/04/22 06:37 08/04/22 06:37 Labs: Laboratory Last Values WBC 9.0 K/mm3 (4.5-11.0) 08/04/22 06:37 RBC 2.61 M/mm3 (3.65-5.03) L 08/04/22 06:37 Hgb 7.7 gm/dl (11.8-15.2) L 08/04/22 06:37 Hct 22.5 % (35.5-45.6) L 08/04/22 06:37 MCV 86 fl (84-94) 08/04/22 06:37 MCH 30 pg (28-32) 08/04/22 06:37 MCHC 34 % (32-34) 08/04/22 06:37 RDW 17.7 % (13.2-15.2) H 08/04/22 06:37 Plt Count 184 K/mm3 (140-440) 08/04/22 06:37 Lymph % (Auto) 10.7 % (13.4-35.0) L 08/01/22 04:13 Henry % (Auto) 3.3 % (0.0-7.3) 08/01/22 04:13 Eos % (Auto) 0.0 % (0.0-4.3) 08/01/22 04:13 Baso % (Auto) 0.1 % (0.0-1.8) 08/01/22 04:13 Lymph # (Auto) 0.7 K/mm3 (1.2-5.4) L 08/01/22 04:13 Henry # (Auto) 0.2 K/mm3 (0.0-0.8) 08/01/22 04:13 Eos # (Auto) 0.0 K/mm3 (0.0-0.4) 08/01/22 04:13 Baso # (Auto) 0.0 K/mm3 (0.0-0.1) 08/01/22 04:13 Seg Neutrophils % 85.9 % (40.0-70.0) H 08/01/22 04:13 Seg Neutrophils # 6.0 K/mm3 (1.8-7.7) 08/01/22 04:13 PT 15.1 Sec. (12.2-14.9) H 07/31/22 00:37 INR 1.04 (0.87-1.13) 07/31/22 00:37 APTT 32.1 Sec. (24.2-36.6) 07/31/22 00:37 D-Dimer 880.44 ng/mlDDU (0-234) H 07/31/22 09:52 ABG pH 7.381 pH Units (7.350-7.450) 07/31/22 02:25 ABG pCO2 49.4 mm Hg 07/31/22 02:25 ABG pO2 51.2 mm Hg (80.0-90.0) L 07/31/22 02:25 ABG HCO3 28.7 mmol/L (20.0-26.0) H 07/31/22 02:25 ABG O2 Saturation 88.6 % (95.0-99.0) L 07/31/22 02:25 ABG O2 Content 8.8 (0.0-44) 07/31/22 02:25 ABG Base Excess 3.2 mmol/L (-2.0-3.0) H 07/31/22 02:25 ABG Hemoglobin 7.1 gm/dl (14.0-18.0) L 07/31/22 02:25 ABG Carboxyhemoglobin 1.3 % (0.0-5.0) 07/31/22 02:25 ABG Methemoglobin 0.3 % (0.0-1.5) 07/31/22 02:25 Oxyhemoglobin 87.3 % (95.0-99.0) L 07/31/22 02:25 FiO2 90 % 07/31/22 02:25 Sodium 138 mmol/L (137-145) 08/04/22 06:37 Potassium 3.9 mmol/L (3.6-5.0) 08/04/22 06:37 Chloride 104.8 mmol/L (98-107) 08/04/22 06:37 Carbon Dioxide 25 mmol/L (22-30) 08/04/22 06:37 Anion Gap 12 mmol/L 08/04/22 06:37 BUN 32 mg/dL (9-20) H 08/04/22 06:37 Creatinine 0.8 mg/dL (0.8-1.3) 08/04/22 06:37 Estimated GFR > 60 ml/min 08/04/22 06:37 BUN/Creatinine Ratio 40 % 08/04/22 06:37 Glucose 125 mg/dL (75-100) H 08/04/22 06:37 POC Glucose 114 mg/dL (70-105) H 08/04/22 05:34 Lactic Acid 1.00 mmol/L (0.7-2.0) 07/31/22 05:00 Calcium 8.1 mg/dL (8.4-10.2) L 08/04/22 06:37 Phosphorus 3.60 mg/dL (2.5-4.5) 08/02/22 04:04 Magnesium 2.10 mg/dL (1.7-2.3) 08/02/22 04:04 Ferritin 577.8 ng/mL (30.0-300.0) H 07/31/22 09:52 Total Bilirubin 0.30 mg/dL (0.1-1.2) 08/04/22 06:37 AST 11 units/L (5-40) 08/04/22 06:37 ALT < 5 units/L (7-56) L 08/04/22 06:37 Alkaline Phosphatase 70 units/L (35-129) 08/04/22 06:37 Ammonia 31.0 umol/L (25-60) 08/01/22 14:53 Lactate Dehydrogenase 135 units/L (91-180) 07/31/22 09:52 Total Creatine Kinase 14 units/L (55-170) L 07/31/22 00:37 Troponin T 0.025 ng/mL (0.00-0.029) 07/31/22 00:37 C-Reactive Protein 14.60 mg/dL (0.00-1.30) H 07/31/22 09:52 Total Protein 5.2 g/dL (6.3-8.2) L 08/04/22 06:37 Albumin 2.0 g/dL (3.9-5) L 08/04/22 06:37 Albumin/Globulin Ratio 0.6 % 08/04/22 06:37 Procalcitonin 6.98 ng/mL (<0.15) 07/31/22 09:52 TSH 0.844 mlU/mL (0.270-4.200) 07/31/22 00:37 Urine Color Yellow (Yellow) 07/31/22 Unknown Urine Turbidity Cloudy (Clear) 07/31/22 Unknown Specific [place] (Man) 1.020 (1.003-1.030) 07/31/22 Unknown Ur Protein (Man) 3+ mg/dL (Negative) 07/31/22 Unknown Ur Ketones (Man) Negative (Negative) 07/31/22 Unknown Ur Nitrite (Man) Negative (Negative) 07/31/22 Unknown Urine Bilirubin (Man) Large (Negative) 07/31/22 Unknown Urine Ictotest Positive (Negative) 07/31/22 Unknown Leukocyte Esterase (Man) Small (Negative) 07/31/22 Unknown Urine WBC (Auto) > 182.0 /HPF (0.0-6.0) H 07/31/22 Unknown Urine RBC (Auto) 154.0 /HPF (0.0-6.0) 07/31/22 Unknown U Epithel Cells (Auto) 1.0 /HPF (0-13.0) 07/31/22 Unknown Urine Bacteria (Auto) 1+ /HPF (Negative) 07/31/22 Unknown Urine RBC (Manual) 3+ (Negative) 07/31/22 Unknown Urine WBC Clumps 3+ /HPF 07/31/22 Unknown Urine Mucus Few /HPF 07/31/22 Unknown Urine Yeast (Budding) 2+ /HPF 07/31/22 Unknown Salicylates < 0.3 mg/dL (2.8-20.0) L 07/31/22 00:37 Acetaminophen 14.6 ug/mL (10.0-30.0) 07/31/22 00:37 Coronavirus (PCR) Positive (Negative) A 07/31/22 Unknown Microbiology: Microbiology 07/31/22 01:19 Peripheral/Venous Blood Culture - Preliminary NO GROWTH AFTER 4 DAYS 07/31/22 00:37 Peripheral/Venous Blood Culture - Preliminary NO GROWTH AFTER 4 DAYS 07/31/22 Unknown Urine,Catheterized - Indwelling Catheter Urine Culture - Final Staphylococcus Aureus Kyle/IV: Voiding Method Indwelling Catheter Active Medications - Current Medications Current Medications: Generic Name Dose Route Start Last Admin Trade Name Freq PRN Reason Stop Dose Admin Acetaminophen 650 mg 07/31/22 02:27 07/31/22 03:20 Acetaminophen 650 Mg Rect Supp MA 650 mg Q6H PRN Administration Pain MILD(1-3)/Fever >100.5/BARDALES Alprazolam 0.5 mg 08/01/22 11:40 08/04/22 05:15 Alprazolam 0.5 Mg Tab PO 0.5 mg TID PRN Administration Agitation Ascorbic Acid 500 mg 08/01/22 22:00 08/04/22 10:16 Ascorbic Acid 500 Mg Tab FEEDTUBE 500 mg BID HALEY Administration Cephalexin 500 mg 08/03/22 09:30 08/04/22 05:03 Cephalexin Oral Liqd 500 Mg/10 Ml Oral Liqd PO 08/10/22 09:29 500 mg Q6HR HALEY Administration Protocol Dexamethasone 6 mg 08/01/22 10:00 08/04/22 10:14 Dexamethasone 4 Mg/Ml Vial IV 08/10/22 09:59 6 mg QDAY HALEY Administration Dextrose 50 ml 07/31/22 02:27 Dextrose 50% In Water (25gm) 50 Ml Syringe IV Q30MIN PRN Hypoglycemia Protocol Doxazosin Mesylate 1 mg 08/01/22 13:00 08/04/22 10:14 Doxazosin 1 Mg Tab FEEDTUBE 1 mg QDAY HALEY Administration Famotidine 20 mg 08/01/22 22:00 08/04/22 10:15 Famotidine 20 Mg Tab FEEDTUBE 20 mg BID HALEY Administration Fentanyl 50 mcg 07/31/22 12:44 07/31/22 18:04 Fentanyl 100 Mcg/2 Ml Inj IV 50 mcg Q2H PRN Administration AGITATION Furosemide 40 mg 08/04/22 12:00 Furosemide 40 Mg Tab PO DAILY HALEY Gabapentin 300 mg 08/01/22 14:00 08/04/22 10:14 Gabapentin 300 Mg Cap FEEDTUBE 300 mg QDAY HALEY Administration Haloperidol Lactate 5 mg 08/01/22 10:00 08/02/22 22:52 Haloperidol Lactate 5 Mg/1 Ml Inj IV 5 mg Q6H PRN Administration Agitation Heparin Sodium (Porcine) 5,000 unit 07/31/22 06:00 08/04/22 05:03 Heparin 5,000 Unit/1 Ml Vial SUB-Q 5,000 unit Q8HR HALEY Administration Hydrophilic Ointment 1 applic 07/31/22 01:30 Lip Therapy Vaseline TP Q2HR PRN Dry Lips Remdesivir 100 mg/ Sodium 250 mls @ 500 mls/hr 08/02/22 14:00 08/03/22 20:51 Chloride IV 08/05/22 14:29 Infused Q24HR@1400 HALEY Infusion Valproate Sodium 500 mg/ 105 mls @ 100 mls/hr 08/01/22 14:00 08/04/22 01:34 Sodium Chloride IV Infused Q12HR HALEY Infusion Insulin Human Lispro 0 unit 07/31/22 12:00 08/04/22 10:13 Insulin Lispro 100 Unit/Ml SUB-Q Not Given Q6HR [facility] Protocol Magnesium Hydroxide 30 ml 07/31/22 02:27 Magnesium Hydroxide (Mom) Oral Liqd Udc PO Q4H PRN Constipation Metoprolol Tartrate 12.5 mg 08/03/22 10:00 08/04/22 10:15 Metoprolol Tartrate 25 Mg Tab PO 12.5 mg BID HALEY Administration Multi-Ingred Cream/Lotion/Oil/Oint 1 applic 07/31/22 01:30 Mineral Oil/Petrolatum, White Ophth Oint 3.5 Gm OU Q4HR PRN Dry Eye(s) Ondansetron HCl 4 mg 07/31/22 02:27 Ondansetron 4 Mg/2 Ml Inj IV Q8H PRN Nausea And Vomiting Oxycodone/Acetaminophen 1 tab 08/02/22 11:07 08/03/22 22:24 Oxycodone /Acetaminophen 5-325mg Tab FEEDTUBE 1 tab Q6H PRN Administration Pain, Moderate (4-6) Quetiapine Fumarate 50 mg 08/01/22 22:00 08/04/22 10:15 Quetiapine 25 Mg Tab FEEDTUBE 50 mg BID HALEY Administration Senna 17.6 mg 08/02/22 10:00 08/04/22 10:16 Sennosides Oral Liqd 8.8 Mg/5 Ml Oral Liqd FEEDTUBE 17.6 mg BID HALEY Administration Sodium Chloride 10 ml 07/31/22 10:00 08/04/22 10:16 Sodium Chloride 0.9% 10 Ml Flush Syringe IV 10 ml BID HALEY Administration Sodium Chloride 10 ml 07/31/22 02:27 08/02/22 22:53 Sodium Chloride 0.9% 10 Ml Flush Syringe IV 10 ml PRN PRN Administration LINE FLUSH Sodium Chloride 50 ml 08/01/22 13:00 08/03/22 17:35 Sodium Chloride 0.9% 50 Ml Ivpb IV 08/04/22 14:01 50 ml Q24HR@1400 HALEY Administration Zinc Sulfate 220 mg 08/01/22 22:00 08/04/22 10:16 Zinc Sulfate 220 Mg Cap PO 220 mg BID HALEY Administration Nutrition/Malnutrition Assess - Dietary Evaluation Nutrition/Malnutrition Findings: Nutrition Notes Start: 07/31/22 09:38 Freq: Status: Active Protocol: Document 08/02/22 11:12 CM (Rec: 08/02/22 11:20 CM [id number]) Co-Sign 08/02/22 11:12 WW Nutrition Notes Need for Assessment generated from: rn anesthetist,MST Initial or Follow up Brief Note Current Diagnosis Diabetes,Sepsis,Respiratory Failure Other Pertinent Diagnosis GERD, AKA, UTI Current Diet TF Vital AF 1.2 [place] @ 60mL/hr Labs/Tests 08/02: CO2 20 BUN 39 Glu 119 Pertinent Medications 08/02: Zinc Sulfate Ascorbic ACid Dexamethasone Height 6 ft 2 in Weight 58.4 kg [place] Body Weight (kg) 86.36 BMI 16.5 Subjective/Other Information RD consult for malnutrition screening tool score 2 (unsure wt loss / no decreased appetite) Pt currently under COVID-19 isolation on room air. Will monitor need for malnutrition assessment at follow-up. Receiving Vital AF @ 50mL/hr via PEG and increasing to goal by this afternoon - no N/V or BM per RN. Abdomen soft, flat, w/ BS+ per physical assessment. GI Symptoms None Difficulty In Swallowing Food Allergy No Skin Integrity/Comment Sacral pressure ulcer II Current % PO Other #1 Nutrition Diagnosis Swallowing difficulty Comments: Change Nutrition Diagnosis for precision. Etiology Esophageal tear s/p repair Diagnosis Progress(for reassessment Continues documentation) Is patient on ventilator? No Is Patient Ambulatory and/or Out of Bed No REE-([facility]-confined to bed) [phone] Calculation Used for Recommendations [facility] Additional Notes Estimated Protein Needs: 1.25- 2.0g/kg ABW = 73-108g PRO q day Estimated Fluid Needs: 1mL/ kcal or per MD. Nutrition Intervention Nutrition Support: Initiate Vital AF @ 20mL/hr and increase by 10mL q 8hr to goal rate of 60mL/hr as medically feasible. Kcal 1,728 Protein (gm) 108 Fluid (mL) 1,170 % RDI: 99% Kcal / 100% AA Goal #1 Pt to obtain and tolerate >75% of estimated energy/protein needs through enteral nutrition. Goal #2 Pt to maintain current wt status throughout LOS. Follow-Up By: 08/09/22 Additional Comments Monitor TF rate, tolerance, BM , and wt status.
[2022-08-04] MEDS: VALPROATE SODIUM 500 MG in SODIUM CHLORIDE 0.9% 100 ML IV SCH (12:38)
--- NOTE | 2022-08-04 13:16 | Progress Note ---
Assessment and Plan 57-year-old male with known history of diabetes mellitus, GERD, anxiety and depression, right AKA brought into the emergency room today via EMS with complaint of generalized weakness, changes in mental status and shortness of breath. [facility] is a [facility] a [facility]. Most of the history was gotten from the ER staff as patient is already intubated sedated. Blood pressure was said to be low on the field and patient was also said to be hypoxic. He was said to have received Benadryl and acetaminophen while in the [facility]. Surgical history right AKA and Gastric tube placement. Upon arrival in the emergency room he was found to be hypoxic and hypotensive. He was subsequently intubated because he was not protecting his airway. Work-up in the emergency room today, lab is significant for hemoglobin of 8.5 and hematocrit of 26. BUN of 30 and creatinine of 1.2. Urinalysis significant for UTI. Chest x-ray shows infectious process in the right lower lobe with possible small dependent right pleural effusion. CT of the head is suggestive microvascular ischemia. MRI of the brain suggested if needed for further evaluation. Patient has been started on IV fluid, pressure and empiric IV antibiotics. Patient Burger virus (PCR) positive. Patient extubated, off the pressors. Patient transfered to telemetry. Patient awake. Patient weak. On 1.5 litres O2. O2 saturation reported 98%. No acute respiratory distress. Patient afebrile. No leukocytosis , Blood pressure 166/85 , pulse 73 , respirations 18. Chest xray 07/31/22 reported nfectious process right lower lung could be considered with possible small dependent right pleural effusion. Patient is on Decadron, S/C Heparin, Famotidine, PO Keflex. - Patient Problems (1) Acute respiratory failure with hypoxia Status: Acute Plan to address problem: Patient intubated and extubated. O2 1.5 litres via nasal canula Patient is on Decadron. S/C Heparin Famotidine. (2) Pneumonia Status: Acute Plan to address problem: Patient is on PO Keflex. (3) Acute encephalopathy Status: Acute Plan to address problem: Management as per primary care. (4) Septic shock Status: Acute Plan to address problem: Patient was on cefepime and vancomycin. (5) Coronavirus infection Status: Acute Plan to address problem: Patient is on Decadron. Finished course of REMDESIVIR. Management as per infectious diseases. Burger virus isolation precautions. Subjective Date of service: 08/04/22 Principal diagnosis: AHRF; Septic Shock; Aspiration Pneumonia; UTI; DM II; COVID-19 infection Interval history: 57-year-old male with known history of diabetes mellitus, GERD, anxiety and depression, right AKA brought into the emergency room today via EMS with complaint of generalized weakness, changes in mental status and shortness of breath. Patient is a resident of a [facility]. Most of the history was gotten from the ER staff as patient is already intubated sedated. Blood pressure was said to be low on the field and patient was also said to be hypoxic. He was said to have received Benadryl and acetaminophen while in the [facility]. Surgical history right AKA and Gastric tube placement. Upon arrival in the emergency room he was found to be hypoxic and hypotensive. He was subsequently intubated because he was not protecting his airway. Work-up in the emergency room today, lab is significant for hemoglobin of 8.5 a nd hematocrit of 26. BUN of 30 and creatinine of 1.2. Urinalysis significant for UTI. Chest x-ray shows infectious process in the right lower lobe with possible small dependent right pleural effusion. CT of the head is suggestive microvascular ischemia. MRI of the brain suggested if needed for further evaluation. Patient has been started on IV fluid, pressure and empiric IV antibiotics. Patient Burger virus (PCR) positive. Patient extubated, off the pressors. Patient transfered to telemetry. Patient awake. Patient weak. On 1.5 litres O2. O2 saturation reported 98%. No acute respiratory distress. Patient afebrile. No leukocytosis , Blood pressure 166/85 , pulse 73 , respirations 18. Chest xray 07/31/22 reported nfectious process right lower lung could be considered with possible small dependent right pleural effusion. Patient is on Decadron, S/C Heparin, Famotidine, PO Keflex. Objective Vital Signs - 12hr 08/04/22 08/04/22 08/04/22 04:44 09:00 10:14 Temperature 97.6 F Pulse Rate 73 80 Respiratory 18 20 Rate Blood Pressure 154/82 174/92 O2 Sat by Pulse 99 96 Oximetry Constitutional: no acute distress, alert, other (middle aged male with mildly increased respiratory effort) Eyes: non-icteric ENT: oropharynx moist Neck: supple, no lymphadenopathy, no JVD Effort: normal Ascultation: Bilateral: diminished breath sounds, rhonchi Percussion: Bilateral: not dull Cardiovascular: regular rate and rhythm, other (S1,S2) Gastrointestinal: normoactive bowel sounds, soft, non-tender, non-distended, other (PEG in place) Integumentary: normal, other (s/p right AKA, Kyle catheter) Extremities: no cyanosis, no edema, pink and warm, other (Right AKA) Neurologic: non-focal exam (grossly), pupils equal and round Psychiatric: other (delirious / agitated at times) CBC and BMP: 08/07/22 04:27 08/07/22 04:27 ABG, PT/INR, D-dimer: ABG ABG pH 7.381 pH Units (7.350-7.450) 07/31/22 02:25 ABG pCO2 49.4 mm Hg 07/31/22 02:25 ABG pO2 51.2 mm Hg (80.0-90.0) L 07/31/22 02:25 ABG O2 Saturation 88.6 % (95.0-99.0) L 07/31/22 02:25 PT/INR, D-dimer PT 15.1 Sec. (12.2-14.9) H 07/31/22 00:37 INR 1.04 (0.87-1.13) 07/31/22 00:37 D-Dimer 880.44 ng/mlDDU (0-234) H 07/31/22 09:52 Abnormal lab findings: Abnormal Labs 07/31/22 07/31/22 07/31/22 00:37 00:37 00:37 WBC RBC 2.99 L Hgb 8.5 L Hct 26.0 L RDW 17.6 H Lymph % (Auto) 9.9 L Lymph # (Auto) 0.5 L Seg Neutrophils % 83.3 H PT 15.1 H D-Dimer ABG pO2 ABG HCO3 ABG O2 Saturation ABG Base Excess ABG Hemoglobin Oxyhemoglobin Sodium Potassium 5.1 H Carbon Dioxide BUN 30 H Glucose POC Glucose Calcium 7.6 L Ferritin ALT < 5 L Total Creatine Kinase C-Reactive Protein Total Protein 5.4 L Albumin 1.9 L Urine WBC (Auto) Salicylates Coronavirus (PCR) 07/31/22 07/31/22 07/31/22 00:37 00:37 02:25 WBC RBC Hgb Hct RDW Lymph % (Auto) Lymph # (Auto) Seg Neutrophils % PT D-Dimer ABG pO2 51.2 L ABG HCO3 28.7 H ABG O2 Saturation 88.6 L ABG Base Excess 3.2 H ABG Hemoglobin 7.1 L Oxyhemoglobin 87.3 L Sodium Potassium Carbon Dioxide BUN Glucose POC Glucose Calcium Ferritin ALT Total Creatine Kinase 14 L C-Reactive Protein Total Protein Albumin Urine WBC (Auto) Salicylates < 0.3 L Coronavirus (PCR) 07/31/22 07/31/22 07/31/22 05:27 09:52 09:52 WBC RBC Hgb Hct RDW Lymph % (Auto) Lymph # (Auto) Seg Neutrophils % PT D-Dimer 880.44 H ABG pO2 ABG HCO3 ABG O2 Saturation ABG Base Excess ABG Hemoglobin Oxyhemoglobin Sodium Potassium Carbon Dioxide BUN Glucose POC Glucose 142 H Calcium Ferritin 577.8 H ALT Total Creatine Kinase C-Reactive Protein Total Protein Albumin Urine WBC (Auto) Salicylates Coronavirus (PCR) 07/31/22 07/31/22 07/31/22 09:52 16:55 Unknown WBC RBC Hgb Hct RDW Lymph % (Auto) Lymph # (Auto) Seg Neutrophils % PT D-Dimer ABG pO2 ABG HCO3 ABG O2 Saturation ABG Base Excess ABG Hemoglobin Oxyhemoglobin Sodium Potassium Carbon Dioxide BUN Glucose POC Glucose 137 H Calcium Ferritin ALT Total Creatine Kinase C-Reactive Protein 14.60 H Total Protein Albumin Urine WBC (Auto) > 182.0 H Salicylates Coronavirus (PCR) 07/31/22 08/01/22 08/01/22 Unknown 00:26 04:13 WBC RBC 2.80 L Hgb 8.1 L Hct 24.9 L RDW 18.0 H Lymph % (Auto) 10.7 L Lymph # (Auto) 0.7 L Seg Neutrophils % 85.9 H PT D-Dimer ABG pO2 ABG HCO3 ABG O2 Saturation ABG Base Excess ABG Hemoglobin Oxyhemoglobin Sodium Potassium Carbon Dioxide BUN Glucose POC Glucose 154 H Calcium Ferritin ALT Total Creatine Kinase C-Reactive Protein Total Protein Albumin Urine WBC (Auto) Salicylates Coronavirus (PCR) Positive A 08/01/22 08/01/22 08/01/22 04:13 04:43 11:52 WBC RBC Hgb Hct RDW Lymph % (Auto) Lymph # (Auto) Seg Neutrophils % PT D-Dimer ABG pO2 ABG HCO3 ABG O2 Saturation ABG Base Excess ABG Hemoglobin Oxyhemoglobin Sodium Potassium 5.2 H Carbon Dioxide BUN 40 H Glucose 158 H POC Glucose 167 H 165 H Calcium 7.4 L Ferritin ALT Total Creatine Kinase C-Reactive Protein Total Protein Albumin Urine WBC (Auto) Salicylates Coronavirus (PCR) 08/01/22 08/01/22 08/01/22 14:06 17:24 23:27 WBC RBC Hgb Hct RDW Lymph % (Auto) Lymph # (Auto) Seg Neutrophils % PT D-Dimer ABG pO2 ABG HCO3 ABG O2 Saturation ABG Base Excess ABG Hemoglobin Oxyhemoglobin Sodium 136 L Potassium Carbon Dioxide BUN 41 H Glucose 136 H POC Glucose 157 H 156 H Calcium 7.7 L Ferritin ALT < 5 L Total Creatine Kinase C-Reactive Protein Total Protein 5.7 L Albumin 2.0 L Urine WBC (Auto) Salicylates Coronavirus (PCR) 08/02/22 08/02/22 08/02/22 04:04 04:04 06:17 WBC RBC 2.91 L Hgb 8.4 L Hct 25.2 L RDW 17.9 H Lymph % (Auto) Lymph # (Auto) Seg Neutrophils % PT D-Dimer ABG pO2 ABG HCO3 ABG O2 Saturation ABG Base Excess ABG Hemoglobin Oxyhemoglobin Sodium Potassium Carbon Dioxide 20 L BUN 39 H Glucose 119 H POC Glucose 114 H Calcium 7.9 L Ferritin ALT < 5 L Total Creatine Kinase C-Reactive Protein Total Protein 5.7 L Albumin 2.1 L Urine WBC (Auto) Salicylates Coronavirus (PCR) 08/02/22 08/02/22 08/03/22 12:29 18:38 05:36 WBC RBC Hgb Hct RDW Lymph % (Auto) Lymph # (Auto) Seg Neutrophils % PT D-Dimer ABG pO2 ABG HCO3 ABG O2 Saturation ABG Base Excess ABG Hemoglobin Oxyhemoglobin Sodium Potassium Carbon Dioxide BUN Glucose POC Glucose 167 H 163 H 126 H Calcium Ferritin ALT Total Creatine Kinase C-Reactive Protein Total Protein Albumin Urine WBC (Auto) Salicylates Coronavirus (PCR) 08/03/22 08/03/22 08/03/22 07:13 07:13 11:33 WBC 11.4 H RBC 2.80 L Hgb 7.9 L Hct 24.2 L RDW 17.8 H Lymph % (Auto) Lymph # (Auto) Seg Neutrophils % PT D-Dimer ABG pO2 ABG HCO3 ABG O2 Saturation ABG Base Excess ABG Hemoglobin Oxyhemoglobin Sodium 136 L Potassium Carbon Dioxide BUN 34 H 33 H Glucose 137 H 157 H POC Glucose Calcium 7.8 L 7.9 L Ferritin ALT < 5 L Total Creatine Kinase C-Reactive Protein Total Protein 5.5 L Albumin 2.2 L Urine WBC (Auto) Salicylates Coronavirus (PCR) 08/03/22 08/03/22 08/03/22 12:13 17:36 22:57 WBC RBC Hgb Hct RDW Lymph % (Auto) Lymph # (Auto) Seg Neutrophils % PT D-Dimer ABG pO2 ABG HCO3 ABG O2 Saturation ABG Base Excess ABG Hemoglobin Oxyhemoglobin Sodium Potassium Carbon Dioxide BUN Glucose POC Glucose 161 H 129 H 146 H Calcium Ferritin ALT Total Creatine Kinase C-Reactive Protein Total Protein Albumin Urine WBC (Auto) Salicylates Coronavirus (PCR) 08/04/22 08/04/22 08/04/22 05:34 06:37 06:37 WBC RBC 2.61 L Hgb 7.7 L Hct 22.5 L RDW 17.7 H Lymph % (Auto) Lymph # (Auto) Seg Neutrophils % PT D-Dimer ABG pO2 ABG HCO3 ABG O2 Saturation ABG Base Excess ABG Hemoglobin Oxyhemoglobin Sodium Potassium Carbon Dioxide BUN 32 H Glucose 125 H POC Glucose 114 H Calcium 8.1 L Ferritin ALT < 5 L Total Creatine Kinase C-Reactive Protein Total Protein 5.2 L Albumin 2.0 L Urine WBC (Auto) Salicylates Coronavirus (PCR) Allied health notes reviewed: nursing
[2022-08-04] MEDS: FUROSEMIDE 40 MG TAB PO SCH (13:21)
[2022-08-04] MEDS: SODIUM CHLORIDE 0.9% 50 ML IVPB IV SCH (15:29)
[2022-08-04] MEDS: REMDESIVIR 100 MG in SODIUM CHLORIDE 0.9% 250ML 250 ML IV SCH (15:29)
[2022-08-04] MEDS: VALPROIC ACID 250 MG/5 ML ORAL LIQD PO SCH (22:01)
[2022-08-04] MEDS: oxyCODONE /ACETAMINOPHEN 5-325MG TAB FEEDTUBE PRN (22:19)
[2022-08-05] MEDS: INSULIN LISPRO 100 UNIT/ML SUB-Q SCH ×4 (01:28→17:25)
[2022-08-05] MEDS: cephALEXin ORAL LIQD 500 MG/10 ML ORAL LIQD PO SCH ×4 (01:29→17:26)
[2022-08-05] MEDS: HALOPERIDOL LACTATE 5 MG/1 ML INJ IV PRN (03:09)
[2022-08-05] MEDS: HEPARIN 5,000 UNIT/1 ML VIAL SUB-Q SCH ×3 (06:03→21:23)
[2022-08-05] MEDS ORDERED: FUROSEMIDE 40 MG/4 ML INJ IV ONE (07:25)
[2022-08-05] MEDS ORDERED: FUROSEMIDE 40 MG/4 ML INJ ONE (07:29)
--- NOTE | 2022-08-05 07:46 | Progress Note ---
Assessment and Plan Assessment and plan: This is a 57-year-old male from [facility] facility with known past medical history of DM, diabetic neuropathy s/p right AKA, GERD, esophageal tear s/p repair, dyspagia s/p PEG tube placement, anxiety, and depression admitted for septic shock and acute hypoxic respiratory failure requiring ventilatory support. Hospital Course to Date: 07/31: Intubated, easily arousable, following simple commands. Remains on 100% Fio2 and 6 of peep this am. Hypoxic from this am ABG, however, SPO2 at 100%. Wean FIO2 as tolerated for SPO2 above 95. Remains on low dose levophed gtt, VSS. Titrate pressor for MAP above 65. Patient remains afebrile, COVID PCR pending. Continue empiric IV abx for now, Check CRP and procal. 08/01: Self-extubated overnight due to increase agitation/combative s/p IV a tivan, now in restraints for safety. Patient is still confused and restless this am, stable on RA, SPO2 at 100%. Off pressors, VSS. PRN Haldol and PO seroquel added. Will consult Neuro and Mental health for further eval and treatment. Mild hyperkalemia this am, Scr. stable, X1 dose of Kayaxalate. Cardura added for urinary retention. COVID PCR +, IV decadron initiated and ID consulted. Continue current IV abx per ID. 08/02: Patient from respiratory standpoint is clinically stable for transfer to the medical floor. MRI done yesterday is negative for acute CVA Discussed with the mother today we will start patient back on his Percocet therapy. ID input is noted patient will consider steroids for 10 days and also IV remdesivir for 5 days. Urine culture finalization is still pending. ID input is appreciated. Is unclear to me what his baseline mental status is. His mother tells me that he has been on long-term opioid medication outpatient. Anticipate discharge to facility in 1 to 2 days. Wean off oxygen as tolerated Cultures: COVID-19 PCR: Positive 07/31/2022 blood culture: No growth 07/31/2022 tracheal aspirate cultures: Contaminated, high epithelial cells 07/31/2022 urine culture: Staph aureus 08/03: Patient seen and examined this morning no acute distress that extensive review of her records from the facility and also spoke to the staff at the facility he normally moves around with his wheelchair. Sometimes he takes other peoples food and eats by mouth after he throws off his tube feeds himself. He unfortunately does not have his bed to come back today. Clinically he is improving I do speak to the mom also noticed that there was some hospice documentation on the chart she tells me that he was never in hospice. Urine culture came back MSSA so we will switch to Keflex 500 mg 4 times daily for 7 days as recommended by ID and discontinue vancomycin. We will obtain speech evaluation and monitor his mental status. He is still chronically on Xanax as needed and Percocet as as needed that has been restarted. Anticipate discharge once he has an accepting facility. I was also notified by the facility that the first time he came to the facility that he was COVID- positive. He is currently on 2 L of oxygen now. 08/04: Patient continues to improve, mental status improving. Discussed with Nursing staff to obtain PT eval. Awaiting reauthorization to return to the facility. Restarted the Lasix, anticipate positive impact on the BP 08/05: Patient now in Severe hypoxic Distress, ?Flash pulmonary edema, also a thought is given to Pulmonary embolism but he has been on Heparin DVT prophylaxis, gave patient a dose of IV Lasix with 300cc Of urine output noted. Patient will be transferred to the CCU for continued monitoring. Call placed to the high school counselor. Summary of stay so far. PATIENT IS 57 Year old male resident of [facility] admitted with hypoxic respiratory failure, diagnosed with COVID 19 Possible reinfection, was doing well being treated with remdesivir and steroids was weaned down to 2 L of oxygen until this morning when he became hypoxic in the 70s. ABG shows compensated respiratory alkalosis with severe hypoxia. Patient in ICU as noted above. Patient has severe anemia but no sign of bleeding was noted. The plan was for an outpatient GI evaluation. I am waiting for labs today to see if there is further decrease in hemoglobin this has also precluded given full dose anticoagulation. As mentioned patient was actually recovering and was planned to be discharged back to [place] except COVID did not have a bed. He is active although has a right AKA gets around with his wheelchair but in the past few days has been debilitated Assessment and Plan #Septic Shock 2/2 #Urinary Tract Infection(UTI) #RLL Pneumonia #COVID PUI - Presented from a SNF facility with hypoxia, low grade fever, tachycardia, and hypotension requiring pressor - CXR revealed infectious process in the right lower lobe with possible small dependent right pleural effusion - UA consistent with UTI, Blood cultures and sputum culture pending - COVID PCR positive - Off pressors, remains afebrile, and WBCs wnr - Continue blood pressure monitor per protocol - Titrate pressors to maintain MAP above 65 - ID consulted, appreciated recommendations - Continue empiric IV abx- Cefepine, IV Steroids initiated - Check procal and inflammatory markers - F/U on cultures - Daily CBC monitor #Acute Hypoxic Respiratory Failure #RLL Pneumonia #Chronic Aspiration #COVID PUI - Found with SOB in the SNF. Presented with hypoxia, unable to protect his airway - Intubated in the ED on 07/31 - CXR revealed infectious process in the right lower lobe with possible small dependent right pleural effusion - Patient's mother reported that patient has a history of dysphagia s/p esophageal tear & repair and now with chronic aspiration, was recently admitted at [facility] for aspiration PNA - COVID PCR + - Self-extubated, stable on RA SPO2 at 100% - CCM consulted, appreciate recommendations - Continue empiric IV abx, IV steroids, and Nebx tx per CCM - Aspiration precaution HOB above 30 - Continue SPO2 monitoring for SPO2 goal above 92% #Acute Metabolic Encephalopathy #Acute cystitis # Severe Protein calorie malnutrition #Combative/Agitation - Self-extubated overnight due to increase agitation/combative s/p IV ativan, now in restraints for safety - CT of the head is suggestive microvascular ischemia - MRI ordered - PRN Haldol and PO seroquel initiated - Mental health and Neuro consulted - Avoid benzodiazepine to reduce the possibility of delirium - PRN Analgesia for pain control - Maintenance of sleep-wake cycle #Dysphagia s/p PEGtube placement #H/o Esophageal Tear and Repair - Presented with PEGTube in place - Initiate enteral nutrition - Nutrition consulted #Microcytic Anemia - Probably chronic - No s/s of any acute bleeding, H&H stable - Continue to trend CBC -Outpatient GI evaluation except if further decrease in hemoglobin - Transfuse for hgb less than 7 #Type 2 Diabetes Mellitus - BG check and SSI Q6hrs - Avoid hypoglycemia - Hypoglycemic protocol #GI/DVT Prophylaxis - PPI- Pepcid - Heparin SubQ - SCDs to Left lower extremities while in bed #Advance Care Planning - Disease education data, care plan, diagnoses, and prognosis were discussed with patient's mother. Patient is a FULL code. Patient's mother acknowledged understanding and agreed with current care plan. The high probability of a clinically significant, sudden or life threatening det erioration of the [multiple] system(s) required my full and direct attention, intervention and personal management. The aggregate critical care time was [65] minutes. This time is in addition to time spent performing reported procedures but includes the following: [x] Data Review and interpretation [x] Patient assessment and monitoring of vital signs [x] Documentation [x] Medication orders and management History Interval history: Patient seen and examined this morning I was called to bedside as patient was desaturating. Per the Nursing staff, this started this morning and saturation noted in the 70% range, patient was placed from 2L to NRB with sats only improving to 74%. He however on exam does not appear to be in distress with only mild tachycardia noted Hospitalist Physical - Physical exam Narrative exam: General appearance: Present: but mild acute respiratory distress cachectic, - EENT Eyes: Present: PERRL ENT: hearing intact - Neck Neck: Present: normal ROM - Respiratory Respiratory effort: normal Respiratory: bilateral: diminished - Cardiovascular Rhythm:tachycardia Heart Sounds: Present: S1 & S2 - Extremities Extremities: no ischemia, pulses intact, pulses symmetrical, abnormal (Right A KA) Peripheral Pulses: within normal limits - Abdominal General gastrointestinal: soft, non-distended, normal bowel sounds - Integumentary Integumentary: Present: warm, dry, erythema (Sacral wound Stage 2- POA) - Psychiatric Psychiatric: No agitation present this morning - Neurologic Neurologic: moves all extremities, alert awake oriented x3 - Allied Health Allied health notes reviewed: nursing, case management - Constitutional Vitals: Temp Pulse Resp BP Pulse Ox 98.2 F 101 H 20 155/79 75 L 08/05/22 05:53 08/05/22 05:53 08/05/22 05:53 08/05/22 05:53 08/05/22 06:59 General appearance: Present: no acute distress, cachectic, other (On the vent) HEART Score - HEART Score Troponin: Troponin T 0.025 ng/mL (0.00-0.029) 07/31/22 00:37 Results - Labs CBC & Chem 7: 08/04/22 06:37 08/04/22 06:37 Labs: Laboratory Last Values WBC 9.0 K/mm3 (4.5-11.0) 08/04/22 06:37 RBC 2.61 M/mm3 (3.65-5.03) L 08/04/22 06:37 Hgb 7.7 gm/dl (11.8-15.2) L 08/04/22 06:37 Hct 22.5 % (35.5-45.6) L 08/04/22 06:37 MCV 86 fl (84-94) 08/04/22 06:37 MCH 30 pg (28-32) 08/04/22 06:37 MCHC 34 % (32-34) 08/04/22 06:37 RDW 17.7 % (13.2-15.2) H 08/04/22 06:37 Plt Count 184 K/mm3 (140-440) 08/04/22 06:37 Lymph % (Auto) 10.7 % (13.4-35.0) L 08/01/22 04:13 [place] % (Auto) 3.3 % (0.0-7.3) 08/01/22 04:13 Eos % (Auto) 0.0 % (0.0-4.3) 08/01/22 04:13 Baso % (Auto) 0.1 % (0.0-1.8) 08/01/22 04:13 Lymph # (Auto) 0.7 K/mm3 (1.2-5.4) L 08/01/22 04:13 [place] # (Auto) 0.2 K/mm3 (0.0-0.8) 08/01/22 04:13 Eos # (Auto) 0.0 K/mm3 (0.0-0.4) 08/01/22 04:13 Baso # (Auto) 0.0 K/mm3 (0.0-0.1) 08/01/22 04:13 Seg Neutrophils % 85.9 % (40.0-70.0) H 08/01/22 04:13 Seg Neutrophils # 6.0 K/mm3 (1.8-7.7) 08/01/22 04:13 PT 15.1 Sec. (12.2-14.9) H 07/31/22 00:37 INR 1.04 (0.87-1.13) 07/31/22 00:37 APTT 32.1 Sec. (24.2-36.6) 07/31/22 00:37 D-Dimer 880.44 ng/mlDDU (0-234) H 07/31/22 09:52 ABG pH 7.381 pH Units (7.350-7.450) 07/31/22 02:25 ABG pCO2 49.4 mm Hg 07/31/22 02:25 ABG pO2 51.2 mm Hg (80.0-90.0) L 07/31/22 02:25 ABG HCO3 28.7 mmol/L (20.0-26.0) H 07/31/22 02:25 ABG O2 Saturation 88.6 % (95.0-99.0) L 07/31/22 02:25 ABG O2 Content 8.8 (0.0-44) 07/31/22 02:25 ABG Base Excess 3.2 mmol/L (-2.0-3.0) H 07/31/22 02:25 ABG Hemoglobin 7.1 gm/dl (14.0-18.0) L 07/31/22 02:25 ABG Carboxyhemoglobin 1.3 % (0.0-5.0) 07/31/22 02:25 ABG Methemoglobin 0.3 % (0.0-1.5) 07/31/22 02:25 Oxyhemoglobin 87.3 % (95.0-99.0) L 07/31/22 02:25 FiO2 90 % 07/31/22 02:25 Sodium 138 mmol/L (137-145) 08/04/22 06:37 Potassium 3.9 mmol/L (3.6-5.0) 08/04/22 06:37 Chloride 104.8 mmol/L (98-107) 08/04/22 06:37 Carbon Dioxide 25 mmol/L (22-30) 08/04/22 06:37 Anion Gap 12 mmol/L 08/04/22 06:37 BUN 32 mg/dL (9-20) H 08/04/22 06:37 Creatinine 0.8 mg/dL (0.8-1.3) 08/04/22 06:37 Estimated GFR > 60 ml/min 08/04/22 06:37 BUN/Creatinine Ratio 40 % 08/04/22 06:37 Glucose 125 mg/dL (75-100) H 08/04/22 06:37 POC Glucose 190 mg/dL (70-105) H 08/05/22 05:48 Lactic Acid 1.00 mmol/L (0.7-2.0) 07/31/22 05:00 Calcium 8.1 mg/dL (8.4-10.2) L 08/04/22 06:37 Phosphorus 3.60 mg/dL (2.5-4.5) 08/02/22 04:04 Magnesium 2.10 mg/dL (1.7-2.3) 08/02/22 04:04 Ferritin 577.8 ng/mL (30.0-300.0) H 07/31/22 09:52 Total Bilirubin 0.30 mg/dL (0.1-1.2) 08/04/22 06:37 AST 11 units/L (5-40) 08/04/22 06:37 ALT < 5 units/L (7-56) L 08/04/22 06:37 Alkaline Phosphatase 70 units/L (35-129) 08/04/22 06:37 Ammonia 31.0 umol/L (25-60) 08/01/22 14:53 Lactate Dehydrogenase 135 units/L (91-180) 07/31/22 09:52 Total Creatine Kinase 14 units/L (55-170) L 07/31/22 00:37 Troponin T 0.025 ng/mL (0.00-0.029) 07/31/22 00:37 C-Reactive Protein 14.60 mg/dL (0.00-1.30) H 07/31/22 09:52 Total Protein 5.2 g/dL (6.3-8.2) L 08/04/22 06:37 Albumin 2.0 g/dL (3.9-5) L 08/04/22 06:37 Albumin/Globulin Ratio 0.6 % 08/04/22 06:37 Procalcitonin 6.98 ng/mL (<0.15) 07/31/22 09:52 TSH 0.844 mlU/mL (0.270-4.200) 07/31/22 00:37 Urine Color Yellow (Yellow) 07/31/22 Unknown Urine Turbidity Cloudy (Clear) 07/31/22 Unknown Specific [place] (Man) 1.020 (1.003-1.030) 07/31/22 Unknown Ur Protein (Man) 3+ mg/dL (Negative) 07/31/22 Unknown Ur Ketones (Man) Negative (Negative) 07/31/22 Unknown Ur Nitrite (Man) Negative (Negative) 07/31/22 Unknown Urine Bilirubin (Man) Large (Negative) 07/31/22 Unknown Urine Ictotest Positive (Negative) 07/31/22 Unknown Leukocyte Esterase (Man) Small (Negative) 07/31/22 Unknown Urine WBC (Auto) > 182.0 /HPF (0.0-6.0) H 07/31/22 Unknown Urine RBC (Auto) 154.0 /HPF (0.0-6.0) 07/31/22 Unknown U Epithel Cells (Auto) 1.0 /HPF (0-13.0) 07/31/22 Unknown Urine Bacteria (Auto) 1+ /HPF (Negative) 07/31/22 Unknown Urine RBC (Manual) 3+ (Negative) 07/31/22 Unknown Urine WBC Clumps 3+ /HPF 07/31/22 Unknown Urine Mucus Few /HPF 07/31/22 Unknown Urine Yeast (Budding) 2+ /HPF 07/31/22 Unknown Salicylates < 0.3 mg/dL (2.8-20.0) L 07/31/22 00:37 Acetaminophen 14.6 ug/mL (10.0-30.0) 07/31/22 00:37 Coronavirus (PCR) Positive (Negative) A 07/31/22 Unknown Microbiology: Microbiology 07/31/22 00:37 Peripheral/Venous Blood Culture - Final NO GROWTH AFTER 5 DAYS 07/31/22 01:19 Peripheral/Venous Blood Culture - Final NO GROWTH AFTER 5 DAYS Kyle/IV: Voiding Method Indwelling Catheter Active Medications - Current Medications Current Medications: Generic Name Dose Route Start Last Admin Trade Name Freq PRN Reason Stop Dose Admin Acetaminophen 650 mg 07/31/22 02:27 07/31/22 03:20 Acetaminophen 650 Mg Rect Supp GA 650 mg Q6H PRN Administration Pain MILD(1-3)/Fever >100.5/BARDALES Alprazolam 0.5 mg 08/01/22 11:40 08/04/22 22:01 Alprazolam 0.5 Mg Tab PO 0.5 mg TID PRN Administration Agitation Ascorbic Acid 500 mg 08/01/22 22:00 08/04/22 22:01 Ascorbic Acid 500 Mg Tab FEEDTUBE 500 mg BID HALEY Administration Cephalexin 500 mg 08/03/22 09:30 08/05/22 06:01 Cephalexin Oral Liqd 500 Mg/10 Ml Oral Liqd PO 08/10/22 09:29 500 mg Q6HR HALEY Administration Protocol Dexamethasone 6 mg 08/01/22 10:00 08/04/22 10:14 Dexamethasone 4 Mg/Ml Vial IV 08/10/22 09:59 6 mg QDAY HALEY Administration Dextrose 50 ml 07/31/22 02:27 Dextrose 50% In Water (25gm) 50 Ml Syringe IV Q30MIN PRN Hypoglycemia Protocol Doxazosin Mesylate 1 mg 08/01/22 13:00 08/04/22 10:14 Doxazosin 1 Mg Tab FEEDTUBE 1 mg QDAY HALEY Administration Famotidine 20 mg 08/01/22 22:00 08/04/22 22:01 Famotidine 20 Mg Tab FEEDTUBE 20 mg BID HALEY Administration Furosemide 40 mg 08/04/22 14:00 08/04/22 13:21 Furosemide 40 Mg Tab PO 40 mg DAILY HALEY Administration Gabapentin 300 mg 08/01/22 14:00 08/04/22 10:14 Gabapentin 300 Mg Cap FEEDTUBE 300 mg QDAY HALEY Administration Heparin Sodium (Porcine) 5,000 unit 07/31/22 06:00 08/05/22 06:03 Heparin 5,000 Unit/1 Ml Vial SUB-Q 5,000 unit Q8HR HALEY Administration Hydrophilic Ointment 1 applic 07/31/22 01:30 Lip Therapy Vaseline TP Q2HR PRN Dry Lips Remdesivir 100 mg/ Sodium 250 mls @ 500 mls/hr 08/02/22 14:00 08/04/22 15:29 Chloride IV 08/05/22 14:29 500 mls/hr Q24HR@1400 HALEY Administration Insulin Human Lispro 0 unit 07/31/22 12:00 08/05/22 06:01 Insulin Lispro 100 Unit/Ml SUB-Q 2 unit Q6HR HALEY Administration Protocol Magnesium Hydroxide 30 ml 07/31/22 02:27 Magnesium Hydroxide (Mom) Oral Liqd Udc PO Q4H PRN Constipation Metoprolol Tartrate 12.5 mg 08/03/22 10:00 08/04/22 22:02 Metoprolol Tartrate 25 Mg Tab PO 12.5 mg BID HALEY Administration Multi-Ingred Cream/Lotion/Oil/Oint 1 applic 07/31/22 01:30 Mineral Oil/Petrolatum, White Ophth Oint 3.5 Gm OU Q4HR PRN Dry Eye(s) Ondansetron HCl 4 mg 07/31/22 02:27 Ondansetron 4 Mg/2 Ml Inj IV Q8H PRN Nausea And Vomiting Oxycodone/Acetaminophen 1 tab 08/02/22 11:07 08/04/22 22:19 Oxycodone /Acetaminophen 5-325mg Tab FEEDTUBE 1 tab Q6H PRN Administration Pain, Moderate (4-6) Quetiapine Fumarate 50 mg 08/01/22 22:00 08/04/22 22:01 Quetiapine 25 Mg Tab FEEDTUBE 50 mg BID HALEY Administration Senna 17.6 mg 08/02/22 10:00 08/04/22 22:01 Sennosides Oral Liqd 8.8 Mg/5 Ml Oral Liqd FEEDTUBE 17.6 mg BID HALEY Administration Sodium Chloride 10 ml 07/31/22 10:00 08/04/22 22:02 Sodium Chloride 0.9% 10 Ml Flush Syringe IV 10 ml BID HALEY Administration Sodium Chloride 10 ml 07/31/22 02:27 08/02/22 22:53 Sodium Chloride 0.9% 10 Ml Flush Syringe IV 10 ml PRN PRN Administration LINE FLUSH Valproic Acid 500 mg 08/04/22 22:00 08/04/22 22:01 Valproic Acid 250 Mg/5 Ml Oral Liqd PO 500 mg Q12HR HALEY Administration Zinc Sulfate 220 mg 08/01/22 22:00 08/04/22 22:19 Zinc Sulfate 220 Mg Cap PO 220 mg BID HALEY Administration Nutrition/Malnutrition Assess - Dietary Evaluation Nutrition/Malnutrition Findings: Nutrition Notes Start: 07/31/22 09:38 Freq: Status: Active Protocol: Document 08/02/22 11:12 CM (Rec: 08/02/22 11:20 CM [id number]) Co-Sign 08/02/22 11:12 WW Nutrition Notes Need for Assessment generated from: sounding device operator,MST Initial or Follow up Brief Note Current Diagnosis Diabetes,Sepsis,Respiratory Failure Other Pertinent Diagnosis GERD, AKA, UTI Current Diet TF Vital AF 1.2 [place] @ 60mL/hr Labs/Tests 08/02: CO2 20 BUN 39 Glu 119 Pertinent Medications 08/02: Zinc Sulfate Ascorbic ACid Dexamethasone Height 6 ft 2 in Weight 58.4 kg [place] Body Weight (kg) 86.36 BMI 16.5 Subjective/Other Information RD consult for malnutrition screening tool score 2 (unsure wt loss / no decreased appetite) Pt currently under COVID-19 isolation on room air. Will monitor need for malnutrition assessment at follow-up. Receiving Vital AF @ 50mL/hr via PEG and increasing to goal by this afternoon - no N/V or BM per RN. Abdomen soft, flat, w/ BS+ per physical assessment. GI Symptoms None Difficulty In Swallowing Food Allergy No Skin Integrity/Comment Sacral pressure ulcer II Current % PO Other #1 Nutrition Diagnosis Swallowing difficulty Comments: Change Nutrition Diagnosis for precision. Etiology Esophageal tear s/p repair Diagnosis Progress(for reassessment Continues documentation) Is patient on ventilator? No Is Patient Ambulatory and/or Out of Bed No REE-([facility]-confined to bed) 9632.427 Calculation Used for Recommendations [facility] Additional Notes Estimated Protein Needs: 1.25- 2.0g/kg ABW = 73-108g PRO q day Estimated Fluid Needs: 1mL/ kcal or per MD. Nutrition Intervention Nutrition Support: Initiate Vital AF @ 20mL/hr and increase by 10mL q 8hr to goal rate of 60mL/hr as medically feasible. Kcal 1,728 Protein (gm) 108 Fluid (mL) 1,170 % RDI: 99% Kcal / 100% AA Goal #1 Pt to obtain and tolerate >75% of estimated energy/protein needs through enteral nutrition. Goal #2 Pt to maintain current wt status throughout LOS. Follow-Up By: 08/09/22 Additional Comments Monitor TF rate, tolerance, BM , and wt status.
[2022-08-05 07:51] LABS: ABG Base Excess 2.6 mmol/L (-2.0-3.0); ABG HCO3 25.2 mmol/L (20.0-26.0); ABG Methemoglobin 0.3 % (0.0-1.5); ABG Oxygen Saturation 74.1 % (95.0-99.0); ABG PCO2 31.8 mm Hg; ABG PH 7.518 pH Units (7.350-7.450)
[2022-08-05 07:56] LABS: ABG PO2 37.7 mm Hg (80.0-90.0)
--- NOTE | 2022-08-05 08:36 | XRay Report ---
CHEST 1 VIEW 08/05/2022 8:13 AM INDICATION / CLINICAL INFORMATION: hypoxia. COMPARISON: 08/02/2022 FINDINGS: SUPPORT DEVICES: None. HEART / MEDIASTINUM: No significant abnormality. LUNGS / PLEURA: There is left lower lobe atelectasis. No pneumothorax. ADDITIONAL FINDINGS: No significant additional findings. IMPRESSION: 1. Left lower lobe atelectasis has developed since the prior study, likely mucous plugging. Signer Name: Erick Saucedo MD Signed: 08/05/2022 8:32 AM Workstation Name: [email or web address]
[2022-08-05 11:03] LABS: BUN/Creatinine Ratio 33; Blood Urea Nitrogen 30 mg/dL (9-20); Calcium 8.5 mg/dL (8.4-10.2); Hemolysis Index 19
[2022-08-05] MEDS: ASCORBIC ACID 500 MG TAB FEEDTUBE SCH ×2 (11:12→21:22)
[2022-08-05] MEDS: METOPROLOL TARTRATE 25 MG TAB PO SCH ×2 (11:12→21:23)
[2022-08-05] MEDS: QUEtiapine 25 MG TAB FEEDTUBE SCH ×2 (11:12→21:26)
[2022-08-05] MEDS: SENNOSIDES ORAL LIQD 8.8 MG/5 ML ORAL LIQD FEEDTUBE SCH ×2 (11:13→21:22)
[2022-08-05] MEDS: VALPROIC ACID 250 MG/5 ML ORAL LIQD PO SCH ×2 (11:13→21:23)
[2022-08-05] MEDS: dexAMETHasone 4 MG/ML VIAL IV SCH (11:13)
[2022-08-05] MEDS: FAMOTIDINE 20 MG TAB FEEDTUBE SCH ×2 (11:13→21:22)
[2022-08-05] MEDS: DOXAZOSIN 1 MG TAB FEEDTUBE SCH (11:13)
[2022-08-05] MEDS: GABAPENTIN 300 MG CAP FEEDTUBE SCH (11:13)
[2022-08-05] MEDS: FUROSEMIDE 40 MG TAB PO SCH (11:14)
[2022-08-05] MEDS: ZINC SULFATE 220 MG CAP PO SCH ×2 (11:20→21:22)
[2022-08-05] MEDS: REMDESIVIR 100 MG in SODIUM CHLORIDE 0.9% 250ML 250 ML IV SCH (13:36)
--- NOTE | 2022-08-05 14:57 | Progress Note ---
Assessment and Plan Acute hypoxemic resp failure s/p MVS Septic Shock Aspiration Pneumonia Urinary Tract Infection (UTI) Diabetes mellitus COVID-19 infection Acute Encephalopathy Moderate protein calorie malnutrition - continue BIPAP @ 18/12 for now - attempt to give breaks once FiO2 </= 50% (on 90% now) - CPT to loer left hemithorax - continue to wean supplemental oxygen for target O2 sat's > 90% acutely - aspiration precautions - bronchodilators with pulmonary hygiene per RT - continue accuchecks resumed with glycemic control per SSI (While critically ill target blood glucose of 140-180 mg/dL; avoid hypoglycemia) - AB's per ID rec's - prn analgesia per pain score - Maintenance of sleep-wake cycle, avoid delirium - G.I. & VTE prophylaxis - PT/OT/ROM exercises - mobility protocols for pressure ulcer prophylaxis - Monitor hemodynamics closely - continue other care per attending / other consultants - discharge planning ongoing concurrently COVID SPECIFIC INTERVENTIONS - Remdesivir as per ID/Pulmonary developed protocols (received) - continue systemic steroids for severe COVID-19 infection empirically (Decadron X 10 days) - follow repeat COVID tests results - zinc and vitamin C supplementation - Monitor inflammatory markers per facility protocol - ferritin, Ddimer, CRP - therapeutic anticoagulation per system Protocol based on d-dimer and clinical considerations - Continue contact and airborne isolation .... Re-evaluate in am & prn CONDITION: CRITICAL PROGNOSIS: GUARDED CODE STATUS: FULL CODE The high probability of a clinically significant, sudden or life-threatening deterioration of the [respiratory, cardiovascular & neurologic] system(s) required my full and direct attention, intervention and personal management. The aggregate critical care time was [32] minutes without overlap. Time includes spent on; [x] Data Review and interpretation [x] Patient assessment and monitoring of vital signs [x] Documentation [x] Medication orders and management Subjective Date of service: 08/05/22 Principal diagnosis: AHRF; Septic Shock; Aspiration Pneumonia; UTI; DM II; COVID-19 infection Interval history: Patient is seen today for: Acute hypoxemic resp failure s/p MVS; Septic Shock; Aspiration Pneumonia; UTI; DM II; COVID-19 infection; AMS Seen and examined at bedside; 24hour events reviewed; nursing and respiratory care staff consulted; no adverse overnight events reported to me; resting peacefully in bed; remains on supplemental oxygen; transferred to ICU emergently this am due to desatuirations and now on continuous BIPAP therapy; CXR revealed LLL atelectasis; no N/V/F/C Objective Vital Signs - 12hr 08/05/22 08/05/22 08/05/22 05:53 06:05 06:59 Temperature 98.2 F Pulse Rate 101 H Pulse Rate [ From Monitor] Respiratory 20 Rate Blood Pressure 155/79 O2 Sat by Pulse 81 L 93 75 L Oximetry 08/05/22 08/05/22 08/05/22 07:45 08:07 08:50 Temperature Pulse Rate 110 H 103 H Pulse Rate [ From Monitor] Respiratory 20 20 Rate Blood Pressure O2 Sat by Pulse 75 L 84 Oximetry 08/05/22 08/05/22 08/05/22 09:00 09:09 10:03 Temperature Pulse Rate 98 H 115 H 113 H Pulse Rate [ From Monitor] Respiratory 28 H 33 H Rate Blood Pressure 132/73 131/70 O2 Sat by Pulse 77 L 82 L Oximetry 08/05/22 08/05/22 08/05/22 11:00 12:00 12:15 Temperature Pulse Rate 118 H 115 H 112 H Pulse Rate [ From Monitor] Respiratory 25 H 25 H Rate Blood Pressure 139/79 129/79 O2 Sat by Pulse 95 97 Oximetry 08/05/22 08/05/22 08/05/22 12:16 12:29 13:00 Temperature Pulse Rate 108 H 106 H Pulse Rate [ 112 H From Monitor] Respiratory 25 H 32 H 28 H Rate Blood Pressure 126/71 110/72 O2 Sat by Pulse 96 96 96 Oximetry 08/05/22 14:00 Temperature Pulse Rate 96 H Pulse Rate [ From Monitor] Respiratory 21 Rate Blood Pressure 119/75 O2 Sat by Pulse 100 Oximetry Constitutional: appears uncomfortable, other (middle aged male with mildly increased respiratory effort on continuous BIPAP) Eyes: non-icteric ENT: oropharynx moist, other (+ BIPAP FFM) Neck: supple, no lymphadenopathy, no JVD Effort: mildly labored Ascultation: Left: diminished breath sounds (LLL), Bilateral: rhonchi Percussion: Bilateral: not dull Cardiovascular: regular rate and rhythm, other (S1,S2) Gastrointestinal: normoactive bowel sounds, soft, non-tender, non-distended, other (PEG in place) Integumentary: normal, other (s/p right AKA, Kyle catheter) Extremities: no cyanosis, no edema, pink and warm, other (Right AKA) Neurologic: non-focal exam (grossly), pupils equal and round, CN II-XII normal Psychiatric: mood appropriate, affect normal CBC and BMP: 08/04/22 06:37 08/05/22 10:29 ABG, PT/INR, D-dimer: ABG ABG pH 7.518 pH Units (7.350-7.450) H 08/05/22 07:35 ABG pCO2 31.8 mm Hg 08/05/22 07:35 ABG pO2 37.7 mm Hg (80.0-90.0) L* 08/05/22 07:35 ABG O2 Saturation 74.1 % (95.0-99.0) L 08/05/22 07:35 PT/INR, D-dimer PT 15.1 Sec. (12.2-14.9) H 07/31/22 00:37 INR 1.04 (0.87-1.13) 07/31/22 00:37 D-Dimer 880.44 ng/mlDDU (0-234) H 07/31/22 09:52 Abnormal lab findings: Abnormal Labs 07/31/22 07/31/22 07/31/22 00:37 00:37 00:37 WBC RBC 2.99 L Hgb 8.5 L Hct 26.0 L RDW 17.6 H Lymph % (Auto) 9.9 L Lymph # (Auto) 0.5 L Seg Neutrophils % 83.3 H PT 15.1 H D-Dimer ABG pH ABG pO2 ABG HCO3 ABG O2 Saturation ABG Base Excess ABG Hemoglobin Oxyhemoglobin Sodium Potassium 5.1 H Carbon Dioxide BUN 30 H Glucose POC Glucose Calcium 7.6 L Ferritin ALT < 5 L Total Creatine Kinase C-Reactive Protein Total Protein 5.4 L Albumin 1.9 L Urine WBC (Auto) Salicylates Coronavirus (PCR) 07/31/22 07/31/22 07/31/22 00:37 00:37 02:25 WBC RBC Hgb Hct RDW Lymph % (Auto) Lymph # (Auto) Seg Neutrophils % PT D-Dimer ABG pH ABG pO2 51.2 L ABG HCO3 28.7 H ABG O2 Saturation 88.6 L ABG Base Excess 3.2 H ABG Hemoglobin 7.1 L Oxyhemoglobin 87.3 L Sodium Potassium Carbon Dioxide BUN Glucose POC Glucose Calcium Ferritin ALT Total Creatine Kinase 14 L C-Reactive Protein Total Protein Albumin Urine WBC (Auto) Salicylates < 0.3 L Coronavirus (PCR) 07/31/22 07/31/22 07/31/22 05:27 09:52 09:52 WBC RBC Hgb Hct RDW Lymph % (Auto) Lymph # (Auto) Seg Neutrophils % PT D-Dimer 880.44 H ABG pH ABG pO2 ABG HCO3 ABG O2 Saturation ABG Base Excess ABG Hemoglobin Oxyhemoglobin Sodium Potassium Carbon Dioxide BUN Glucose POC Glucose 142 H Calcium Ferritin 577.8 H ALT Total Creatine Kinase C-Reactive Protein Total Protein Albumin Urine WBC (Auto) Salicylates Coronavirus (PCR) 07/31/22 07/31/22 07/31/22 09:52 16:55 Unknown WBC RBC Hgb Hct RDW Lymph % (Auto) Lymph # (Auto) Seg Neutrophils % PT D-Dimer ABG pH ABG pO2 ABG HCO3 ABG O2 Saturation ABG Base Excess ABG Hemoglobin Oxyhemoglobin Sodium Potassium Carbon Dioxide BUN Glucose POC Glucose 137 H Calcium Ferritin ALT Total Creatine Kinase C-Reactive Protein 14.60 H Total Protein Albumin Urine WBC (Auto) > 182.0 H Salicylates Coronavirus (PCR) 07/31/22 08/01/22 08/01/22 Unknown 00:26 04:13 WBC RBC 2.80 L Hgb 8.1 L Hct 24.9 L RDW 18.0 H Lymph % (Auto) 10.7 L Lymph # (Auto) 0.7 L Seg Neutrophils % 85.9 H PT D-Dimer ABG pH ABG pO2 ABG HCO3 ABG O2 Saturation ABG Base Excess ABG Hemoglobin Oxyhemoglobin Sodium Potassium Carbon Dioxide BUN Glucose POC Glucose 154 H Calcium Ferritin ALT Total Creatine Kinase C-Reactive Protein Total Protein Albumin Urine WBC (Auto) Salicylates Coronavirus (PCR) Positive A 08/01/22 08/01/22 08/01/22 04:13 04:43 11:52 WBC RBC Hgb Hct RDW Lymph % (Auto) Lymph # (Auto) Seg Neutrophils % PT D-Dimer ABG pH ABG pO2 ABG HCO3 ABG O2 Saturation ABG Base Excess ABG Hemoglobin Oxyhemoglobin Sodium Potassium 5.2 H Carbon Dioxide BUN 40 H Glucose 158 H POC Glucose 167 H 165 H Calcium 7.4 L Ferritin ALT Total Creatine Kinase C-Reactive Protein Total Protein Albumin Urine WBC (Auto) Salicylates Coronavirus (PCR) 08/01/22 08/01/22 08/01/22 14:06 17:24 23:27 WBC RBC Hgb Hct RDW Lymph % (Auto) Lymph # (Auto) Seg Neutrophils % PT D-Dimer ABG pH ABG pO2 ABG HCO3 ABG O2 Saturation ABG Base Excess ABG Hemoglobin Oxyhemoglobin Sodium 136 L Potassium Carbon Dioxide BUN 41 H Glucose 136 H POC Glucose 157 H 156 H Calcium 7.7 L Ferritin ALT < 5 L Total Creatine Kinase C-Reactive Protein Total Protein 5.7 L Albumin 2.0 L Urine WBC (Auto) Salicylates Coronavirus (PCR) 08/02/22 08/02/22 08/02/22 04:04 04:04 06:17 WBC RBC 2.91 L Hgb 8.4 L Hct 25.2 L RDW 17.9 H Lymph % (Auto) Lymph # (Auto) Seg Neutrophils % PT D-Dimer ABG pH ABG pO2 ABG HCO3 ABG O2 Saturation ABG Base Excess ABG Hemoglobin Oxyhemoglobin Sodium Potassium Carbon Dioxide 20 L BUN 39 H Glucose 119 H POC Glucose 114 H Calcium 7.9 L Ferritin ALT < 5 L Total Creatine Kinase C-Reactive Protein Total Protein 5.7 L Albumin 2.1 L Urine WBC (Auto) Salicylates Coronavirus (PCR) 08/02/22 08/02/22 08/03/22 12:29 18:38 05:36 WBC RBC Hgb Hct RDW Lymph % (Auto) Lymph # (Auto) Seg Neutrophils % PT D-Dimer ABG pH ABG pO2 ABG HCO3 ABG O2 Saturation ABG Base Excess ABG Hemoglobin Oxyhemoglobin Sodium Potassium Carbon Dioxide BUN Glucose POC Glucose 167 H 163 H 126 H Calcium Ferritin ALT Total Creatine Kinase C-Reactive Protein Total Protein Albumin Urine WBC (Auto) Salicylates Coronavirus (PCR) 08/03/22 08/03/22 08/03/22 07:13 07:13 11:33 WBC 11.4 H RBC 2.80 L Hgb 7.9 L Hct 24.2 L RDW 17.8 H Lymph % (Auto) Lymph # (Auto) Seg Neutrophils % PT D-Dimer ABG pH ABG pO2 ABG HCO3 ABG O2 Saturation ABG Base Excess ABG Hemoglobin Oxyhemoglobin Sodium 136 L Potassium Carbon Dioxide BUN 34 H 33 H Glucose 137 H 157 H POC Glucose Calcium 7.8 L 7.9 L Ferritin ALT < 5 L Total Creatine Kinase C-Reactive Protein Total Protein 5.5 L Albumin 2.2 L Urine WBC (Auto) Salicylates Coronavirus (PCR) 08/03/22 08/03/22 08/03/22 12:13 17:36 22:57 WBC RBC Hgb Hct RDW Lymph % (Auto) Lymph # (Auto) Seg Neutrophils % PT D-Dimer ABG pH ABG pO2 ABG HCO3 ABG O2 Saturation ABG Base Excess ABG Hemoglobin Oxyhemoglobin Sodium Potassium Carbon Dioxide BUN Glucose POC Glucose 161 H 129 H 146 H Calcium Ferritin ALT Total Creatine Kinase C-Reactive Protein Total Protein Albumin Urine WBC (Auto) Salicylates Coronavirus (PCR) 08/04/22 08/04/22 08/04/22 05:34 06:37 06:37 WBC RBC 2.61 L Hgb 7.7 L Hct 22.5 L RDW 17.7 H Lymph % (Auto) Lymph # (Auto) Seg Neutrophils % PT D-Dimer ABG pH ABG pO2 ABG HCO3 ABG O2 Saturation ABG Base Excess ABG Hemoglobin Oxyhemoglobin Sodium Potassium Carbon Dioxide BUN 32 H Glucose 125 H POC Glucose 114 H Calcium 8.1 L Ferritin ALT < 5 L Total Creatine Kinase C-Reactive Protein Total Protein 5.2 L Albumin 2.0 L Urine WBC (Auto) Salicylates Coronavirus (PCR) 08/04/22 08/04/22 08/04/22 11:32 16:22 23:25 WBC RBC Hgb Hct RDW Lymph % (Auto) Lymph # (Auto) Seg Neutrophils % PT D-Dimer ABG pH ABG pO2 ABG HCO3 ABG O2 Saturation ABG Base Excess ABG Hemoglobin Oxyhemoglobin Sodium Potassium Carbon Dioxide BUN Glucose POC Glucose 180 H 134 H 134 H Calcium Ferritin ALT Total Creatine Kinase C-Reactive Protein Total Protein Albumin Urine WBC (Auto) Salicylates Coronavirus (PCR) 08/05/22 08/05/22 08/05/22 05:48 07:35 10:29 WBC RBC Hgb Hct RDW Lymph % (Auto) Lymph # (Auto) Seg Neutrophils % PT D-Dimer ABG pH 7.518 H ABG pO2 37.7 L* ABG HCO3 ABG O2 Saturation 74.1 L ABG Base Excess ABG Hemoglobin 9.9 L Oxyhemoglobin 73.2 L Sodium 136 L Potassium Carbon Dioxide BUN 30 H Glucose 187 H POC Glucose 190 H Calcium Ferritin ALT Total Creatine Kinase C-Reactive Protein Total Protein Albumin Urine WBC (Auto) Salicylates Coronavirus (PCR) 08/05/22 11:31 WBC RBC Hgb Hct RDW Lymph % (Auto) Lymph # (Auto) Seg Neutrophils % PT D-Dimer ABG pH ABG pO2 ABG HCO3 ABG O2 Saturation ABG Base Excess ABG Hemoglobin Oxyhemoglobin Sodium Potassium Carbon Dioxide BUN Glucose POC Glucose 225 H Calcium Ferritin ALT Total Creatine Kinase C-Reactive Protein Total Protein Albumin Urine WBC (Auto) Salicylates Coronavirus (PCR) Chest x-ray: image reviewed (LLL atelectasis is new) Allied health notes reviewed: nursing
[2022-08-05] MEDS: oxyCODONE /ACETAMINOPHEN 5-325MG TAB FEEDTUBE PRN (17:25)
--- NOTE | 2022-08-05 17:38 | Progress Note ---
Subjective Date of service: 08/05/22 Principal diagnosis: AHRF; Septic Shock; Aspiration Pneumonia; UTI; DM II; COVID-19 infection Objective Vital Signs - 12hr 08/05/22 08/05/22 08/05/22 05:53 06:05 06:59 Temperature 98.2 F Pulse Rate 101 H Pulse Rate [ From Monitor] Respiratory 20 Rate Blood Pressure 155/79 O2 Sat by Pulse 81 L 93 75 L Oximetry 08/05/22 08/05/22 08/05/22 07:45 08:07 08:50 Temperature Pulse Rate 110 H 103 H Pulse Rate [ From Monitor] Respiratory 20 20 Rate Blood Pressure O2 Sat by Pulse 75 L 84 Oximetry 08/05/22 08/05/22 08/05/22 09:00 09:09 10:03 Temperature Pulse Rate 98 H 115 H 113 H Pulse Rate [ From Monitor] Respiratory 28 H 33 H Rate Blood Pressure 132/73 131/70 O2 Sat by Pulse 77 L 82 L Oximetry 08/05/22 08/05/22 08/05/22 11:00 12:00 12:15 Temperature 99 F Pulse Rate 118 H 115 H 112 H Pulse Rate [ From Monitor] Respiratory 25 H 25 H Rate Blood Pressure 139/79 129/79 O2 Sat by Pulse 95 97 Oximetry 08/05/22 08/05/22 08/05/22 12:16 12:29 13:00 Temperature Pulse Rate 108 H 106 H Pulse Rate [ 112 H From Monitor] Respiratory 25 H 32 H 28 H Rate Blood Pressure 126/71 110/72 O2 Sat by Pulse 96 96 96 Oximetry 08/05/22 08/05/22 08/05/22 14:00 15:00 16:00 Temperature Pulse Rate 96 H 102 H 96 H Pulse Rate [ From Monitor] Respiratory 21 26 H 18 Rate Blood Pressure 119/75 116/77 109/73 O2 Sat by Pulse 100 93 98 Oximetry 08/05/22 08/05/22 08/05/22 16:11 16:12 16:15 Temperature Pulse Rate 112 H 84 Pulse Rate [ 112 H From Monitor] Respiratory 25 H 23 Rate Blood Pressure 109/73 O2 Sat by Pulse 96 94 Oximetry 08/05/22 08/05/22 16:39 17:00 Temperature 98.2 F Pulse Rate 85 Pulse Rate [ From Monitor] Respiratory 22 Rate Blood Pressure 120/72 O2 Sat by Pulse 98 Oximetry Constitutional: no acute distress, other (middle aged male with mildly increased respiratory effort) Eyes: non-icteric ENT: oropharynx moist Neck: supple, no lymphadenopathy, no JVD Effort: normal Ascultation: Bilateral: diminished breath sounds, rhonchi Percussion: Bilateral: not dull Cardiovascular: regular rate and rhythm, other (S1,S2) Gastrointestinal: normoactive bowel sounds, soft, non-tender, non-distended, other (PEG in place) Integumentary: normal, other (s/p right AKA, Kyle catheter) Extremities: no cyanosis, no edema, pink and warm, other (Right AKA) Neurologic: non-focal exam (grossly), pupils equal and round Psychiatric: other (delirious / agitated at times) CBC and BMP: 08/04/22 06:37 08/05/22 10:29 ABG, PT/INR, D-dimer: ABG ABG pH 7.518 pH Units (7.350-7.450) H 08/05/22 07:35 ABG pCO2 31.8 mm Hg 08/05/22 07:35 ABG pO2 37.7 mm Hg (80.0-90.0) L* 08/05/22 07:35 ABG O2 Saturation 74.1 % (95.0-99.0) L 08/05/22 07:35 PT/INR, D-dimer PT 15.1 Sec. (12.2-14.9) H 07/31/22 00:37 INR 1.04 (0.87-1.13) 07/31/22 00:37 D-Dimer 880.44 ng/mlDDU (0-234) H 07/31/22 09:52 Abnormal lab findings: Abnormal Labs 07/31/22 07/31/22 07/31/22 00:37 00:37 00:37 WBC RBC 2.99 L Hgb 8.5 L Hct 26.0 L RDW 17.6 H Lymph % (Auto) 9.9 L Lymph # (Auto) 0.5 L Seg Neutrophils % 83.3 H PT 15.1 H D-Dimer ABG pH ABG pO2 ABG HCO3 ABG O2 Saturation ABG Base Excess ABG Hemoglobin Oxyhemoglobin Sodium Potassium 5.1 H Carbon Dioxide BUN 30 H Glucose POC Glucose Calcium 7.6 L Ferritin ALT < 5 L Total Creatine Kinase C-Reactive Protein Total Protein 5.4 L Albumin 1.9 L Urine WBC (Auto) Salicylates Coronavirus (PCR) 07/31/22 07/31/22 07/31/22 00:37 00:37 02:25 WBC RBC Hgb Hct RDW Lymph % (Auto) Lymph # (Auto) Seg Neutrophils % PT D-Dimer ABG pH ABG pO2 51.2 L ABG HCO3 28.7 H ABG O2 Saturation 88.6 L ABG Base Excess 3.2 H ABG Hemoglobin 7.1 L Oxyhemoglobin 87.3 L Sodium Potassium Carbon Dioxide BUN Glucose POC Glucose Calcium Ferritin ALT Total Creatine Kinase 14 L C-Reactive Protein Total Protein Albumin Urine WBC (Auto) Salicylates < 0.3 L Coronavirus (PCR) 07/31/22 07/31/22 07/31/22 05:27 09:52 09:52 WBC RBC Hgb Hct RDW Lymph % (Auto) Lymph # (Auto) Seg Neutrophils % PT D-Dimer 880.44 H ABG pH ABG pO2 ABG HCO3 ABG O2 Saturation ABG Base Excess ABG Hemoglobin Oxyhemoglobin Sodium Potassium Carbon Dioxide BUN Glucose POC Glucose 142 H Calcium Ferritin 577.8 H ALT Total Creatine Kinase C-Reactive Protein Total Protein Albumin Urine WBC (Auto) Salicylates Coronavirus (PCR) 07/31/22 07/31/22 07/31/22 09:52 16:55 Unknown WBC RBC Hgb Hct RDW Lymph % (Auto) Lymph # (Auto) Seg Neutrophils % PT D-Dimer ABG pH ABG pO2 ABG HCO3 ABG O2 Saturation ABG Base Excess ABG Hemoglobin Oxyhemoglobin Sodium Potassium Carbon Dioxide BUN Glucose POC Glucose 137 H Calcium Ferritin ALT Total Creatine Kinase C-Reactive Protein 14.60 H Total Protein Albumin Urine WBC (Auto) > 182.0 H Salicylates Coronavirus (PCR) 07/31/22 08/01/22 08/01/22 Unknown 00:26 04:13 WBC RBC 2.80 L Hgb 8.1 L Hct 24.9 L RDW 18.0 H Lymph % (Auto) 10.7 L Lymph # (Auto) 0.7 L Seg Neutrophils % 85.9 H PT D-Dimer ABG pH ABG pO2 ABG HCO3 ABG O2 Saturation ABG Base Excess ABG Hemoglobin Oxyhemoglobin Sodium Potassium Carbon Dioxide BUN Glucose POC Glucose 154 H Calcium Ferritin ALT Total Creatine Kinase C-Reactive Protein Total Protein Albumin Urine WBC (Auto) Salicylates Coronavirus (PCR) Positive A 08/01/22 08/01/22 08/01/22 04:13 04:43 11:52 WBC RBC Hgb Hct RDW Lymph % (Auto) Lymph # (Auto) Seg Neutrophils % PT D-Dimer ABG pH ABG pO2 ABG HCO3 ABG O2 Saturation ABG Base Excess ABG Hemoglobin Oxyhemoglobin Sodium Potassium 5.2 H Carbon Dioxide BUN 40 H Glucose 158 H POC Glucose 167 H 165 H Calcium 7.4 L Ferritin ALT Total Creatine Kinase C-Reactive Protein Total Protein Albumin Urine WBC (Auto) Salicylates Coronavirus (PCR) 08/01/22 08/01/22 08/01/22 14:06 17:24 23:27 WBC RBC Hgb Hct RDW Lymph % (Auto) Lymph # (Auto) Seg Neutrophils % PT D-Dimer ABG pH ABG pO2 ABG HCO3 ABG O2 Saturation ABG Base Excess ABG Hemoglobin Oxyhemoglobin Sodium 136 L Potassium Carbon Dioxide BUN 41 H Glucose 136 H POC Glucose 157 H 156 H Calcium 7.7 L Ferritin ALT < 5 L Total Creatine Kinase C-Reactive Protein Total Protein 5.7 L Albumin 2.0 L Urine WBC (Auto) Salicylates Coronavirus (PCR) 08/02/22 08/02/22 08/02/22 04:04 04:04 06:17 WBC RBC 2.91 L Hgb 8.4 L Hct 25.2 L RDW 17.9 H Lymph % (Auto) Lymph # (Auto) Seg Neutrophils % PT D-Dimer ABG pH ABG pO2 ABG HCO3 ABG O2 Saturation ABG Base Excess ABG Hemoglobin Oxyhemoglobin Sodium Potassium Carbon Dioxide 20 L BUN 39 H Glucose 119 H POC Glucose 114 H Calcium 7.9 L Ferritin ALT < 5 L Total Creatine Kinase C-Reactive Protein Total Protein 5.7 L Albumin 2.1 L Urine WBC (Auto) Salicylates Coronavirus (PCR) 08/02/22 08/02/22 08/03/22 12:29 18:38 05:36 WBC RBC Hgb Hct RDW Lymph % (Auto) Lymph # (Auto) Seg Neutrophils % PT D-Dimer ABG pH ABG pO2 ABG HCO3 ABG O2 Saturation ABG Base Excess ABG Hemoglobin Oxyhemoglobin Sodium Potassium Carbon Dioxide BUN Glucose POC Glucose 167 H 163 H 126 H Calcium Ferritin ALT Total Creatine Kinase C-Reactive Protein Total Protein Albumin Urine WBC (Auto) Salicylates Coronavirus (PCR) 08/03/22 08/03/22 08/03/22 07:13 07:13 11:33 WBC 11.4 H RBC 2.80 L Hgb 7.9 L Hct 24.2 L RDW 17.8 H Lymph % (Auto) Lymph # (Auto) Seg Neutrophils % PT D-Dimer ABG pH ABG pO2 ABG HCO3 ABG O2 Saturation ABG Base Excess ABG Hemoglobin Oxyhemoglobin Sodium 136 L Potassium Carbon Dioxide BUN 34 H 33 H Glucose 137 H 157 H POC Glucose Calcium 7.8 L 7.9 L Ferritin ALT < 5 L Total Creatine Kinase C-Reactive Protein Total Protein 5.5 L Albumin 2.2 L Urine WBC (Auto) Salicylates Coronavirus (PCR) 08/03/22 08/03/22 08/03/22 12:13 17:36 22:57 WBC RBC Hgb Hct RDW Lymph % (Auto) Lymph # (Auto) Seg Neutrophils % PT D-Dimer ABG pH ABG pO2 ABG HCO3 ABG O2 Saturation ABG Base Excess ABG Hemoglobin Oxyhemoglobin Sodium Potassium Carbon Dioxide BUN Glucose POC Glucose 161 H 129 H 146 H Calcium Ferritin ALT Total Creatine Kinase C-Reactive Protein Total Protein Albumin Urine WBC (Auto) Salicylates Coronavirus (PCR) 08/04/22 08/04/22 08/04/22 05:34 06:37 06:37 WBC RBC 2.61 L Hgb 7.7 L Hct 22.5 L RDW 17.7 H Lymph % (Auto) Lymph # (Auto) Seg Neutrophils % PT D-Dimer ABG pH ABG pO2 ABG HCO3 ABG O2 Saturation ABG Base Excess ABG Hemoglobin Oxyhemoglobin Sodium Potassium Carbon Dioxide BUN 32 H Glucose 125 H POC Glucose 114 H Calcium 8.1 L Ferritin ALT < 5 L Total Creatine Kinase C-Reactive Protein Total Protein 5.2 L Albumin 2.0 L Urine WBC (Auto) Salicylates Coronavirus (PCR) 08/04/22 08/04/22 08/04/22 11:32 16:22 23:25 WBC RBC Hgb Hct RDW Lymph % (Auto) Lymph # (Auto) Seg Neutrophils % PT D-Dimer ABG pH ABG pO2 ABG HCO3 ABG O2 Saturation ABG Base Excess ABG Hemoglobin Oxyhemoglobin Sodium Potassium Carbon Dioxide BUN Glucose POC Glucose 180 H 134 H 134 H Calcium Ferritin ALT Total Creatine Kinase C-Reactive Protein Total Protein Albumin Urine WBC (Auto) Salicylates Coronavirus (PCR) 08/05/22 08/05/22 08/05/22 05:48 07:35 10:29 WBC RBC Hgb Hct RDW Lymph % (Auto) Lymph # (Auto) Seg Neutrophils % PT D-Dimer ABG pH 7.518 H ABG pO2 37.7 L* ABG HCO3 ABG O2 Saturation 74.1 L ABG Base Excess ABG Hemoglobin 9.9 L Oxyhemoglobin 73.2 L Sodium 136 L Potassium Carbon Dioxide BUN 30 H Glucose 187 H POC Glucose 190 H Calcium Ferritin ALT Total Creatine Kinase C-Reactive Protein Total Protein Albumin Urine WBC (Auto) Salicylates Coronavirus (PCR) 08/05/22 08/05/22 11:31 16:14 WBC RBC Hgb Hct RDW Lymph % (Auto) Lymph # (Auto) Seg Neutrophils % PT D-Dimer ABG pH ABG pO2 ABG HCO3 ABG O2 Saturation ABG Base Excess ABG Hemoglobin Oxyhemoglobin Sodium Potassium Carbon Dioxide BUN Glucose POC Glucose 225 H 196 H Calcium Ferritin ALT Total Creatine Kinase C-Reactive Protein Total Protein Albumin Urine WBC (Auto) Salicylates Coronavirus (PCR) Allied health notes reviewed: nursing
--- NOTE | 2022-08-05 19:17 | Progress Note ---
Assessment and Plan Cultures: COVID-19 PCR: Positive 07/31/2022 blood culture: No growth 07/31/2022 tracheal aspirate cultures: Contaminated, high epithelial cells 07/31/2022 urine culture: MSSA A/P: 57-year-old male with diabetes, GERD, anxiety, depression, prior right AKA, indwelling PEG tube, group home resident was admitted on 07/31/2022 with hypoxia, hypotension: #COVID-19 pneumonia: Ferritin 577, CRP 14.6. #Acute respiratory failure: Was on the vent, now on room air #UTI: UA with significant pyuria. Urine culture growing Staph aureus, which is not a common uropathogen but there is no evidence of bacteremia or sepsis. UA did show significant pyuria. Has a Kyle catheter. #Acute encephalopathy #Indwelling PEG tube Recs: - Keflex 500 mg 4 times daily for 7 days -Continue steroids for 10 days -Monitor CRP, procalcitonin ID will sign off. Please call questions. Wayne Nolasco MD [facility] ([facility] O: [phone] F: [phone] Subjective Date of service: 08/05/22 Principal diagnosis: AHRF; Septic Shock; Aspiration Pneumonia; UTI; DM II; COVID-19 infection Interval history: Afebrile, normal white count Objective - Exam Narrative Exam: Physical Exam: Constitutional: Alert, no distress Head, Ears, Nose: Normocephalic, atraumatic. External ears, nose normal Eyes: Conjunctivae/corneas clear. No icterus. No ptosis. Neck: Supple, no meningeal signs Cardiovascular: S1, S2 + Respiratory: Good air entry, clear to auscultation bilaterally GI: Soft, non-tender; bowel sounds normal. No peritoneal signs. G-tube + Musculoskeletal: Right AKA, well-healed Skin: No rash or abscess Hem/Lymphatic: No palpable cervical or supraclavicular nodes. No lymphangitis Psych: Confused Neurological: Awake, alert, confused - Constitutional Vitals: Vital Signs Temp Pulse Resp BP Pulse Ox 98.2 F 71 18 101/58 95 08/05/22 16:39 08/05/22 19:14 08/05/22 19:00 08/05/22 19:00 08/05/22 18:00 Temperature -Last 24 Hours Temperature 98.2 F Temperature 99 F Temperature 98.2 F Temperature 98.6 F - Labs CBC & Chem 7: 08/04/22 06:37 08/05/22 10:29 Labs: Abnormal lab results 08/04/22 08/05/22 08/05/22 Range/Units 23:25 05:48 07:35 ABG pH 7.518 H (7.350-7.450) pH Units ABG pO2 37.7 L* (80.0-90.0) mm Hg ABG O2 Saturation 74.1 L (95.0-99.0) % ABG Hemoglobin 9.9 L (14.0-18.0) gm/dl Oxyhemoglobin 73.2 L (95.0-99.0) % Sodium (137-145) mmol/L BUN (9-20) mg/dL Glucose (75-100) mg/dL POC Glucose 134 H 190 H (70-105) mg/dL 08/05/22 08/05/22 08/05/22 Range/Units 10:29 11:31 16:14 ABG pH (7.350-7.450) pH Units ABG pO2 (80.0-90.0) mm Hg ABG O2 Saturation (95.0-99.0) % ABG Hemoglobin (14.0-18.0) gm/dl Oxyhemoglobin (95.0-99.0) % Sodium 136 L (137-145) mmol/L BUN 30 H (9-20) mg/dL Glucose 187 H (75-100) mg/dL POC Glucose 225 H 196 H (70-105) mg/dL
[2022-08-05 20:18] LABS: Hematocrit 34.9 % (35.5-45.6); Hemoglobin 11.1 gm/dl (11.8-15.2); Mean Corpuscular HGB Conc 32 % (32-34); Mean Corpuscular Volume 87 fl (84-94); Platelet Count 279 K/mm3 (140-440); Red Cell Distribution Width 18.8 % (13.2-15.2)
[2022-08-05 20:20] LABS: Basophils % (Manual) 0 % (0.0-1.8); Eosinophils % (Manual) 0 % (0.0-4.3); RBC Morphology Normal; Total Cells Counted 100
[2022-08-06] MEDS: INSULIN LISPRO 100 UNIT/ML SUB-Q SCH ×4 (00:20→18:12)
[2022-08-06] MEDS: cephALEXin ORAL LIQD 500 MG/10 ML ORAL LIQD PO SCH ×4 (00:39→18:12)
[2022-08-06] MEDS: oxyCODONE /ACETAMINOPHEN 5-325MG TAB FEEDTUBE PRN ×3 (04:02→16:07)
[2022-08-06] MEDS: HEPARIN 5,000 UNIT/1 ML VIAL SUB-Q SCH ×3 (05:15→21:18)
--- NOTE | 2022-08-06 06:47 | Progress Note ---
Assessment and Plan Acute hypoxemic resp failure s/p MVS Septic Shock Aspiration Pneumonia Urinary Tract Infection (UTI) Diabetes mellitus COVID-19 infection Acute Encephalopathy Moderate protein calorie malnutrition - follow repeat CXR - wean to nasal cannula - keep NPO and use PEG tube for feeding - reduce Seroquel to 50 mg p.o. qhs - complete Keflex dosing re: MSSA UTI - continue care as below otherwise; - BIPAP prn - CPT to lower left hemithorax - continue to wean supplemental oxygen for target O2 sat's > 90% acutely - aspiration precautions - bronchodilators with pulmonary hygiene per RT - continue accuchecks resumed with glycemic control per SSI (While critically ill target blood glucose of 140-180 mg/dL; avoid hypoglycemia) - AB's per ID rec's - prn analgesia per pain score - Maintenance of sleep-wake cycle, avoid delirium - G.I. & VTE prophylaxis - PT/OT/ROM exercises - mobility protocols for pressure ulcer prophylaxis - Monitor hemodynamics closely - continue other care per attending / other consultants - discharge planning ongoing concurrently COVID SPECIFIC INTERVENTIONS - Remdesivir as per ID/Pulmonary developed protocols (received) - continue systemic steroids for severe COVID-19 infection empirically (Decadron X 10 days) - follow repeat COVID tests results - zinc and vitamin C supplementation - Monitor inflammatory markers per facility protocol - ferritin, Ddimer, CRP - therapeutic anticoagulation per system Protocol based on d-dimer and clinical considerations - Continue contact and airborne isolation .... Re-evaluate in am & prn CONDITION: CRITICAL PROGNOSIS: GUARDED CODE STATUS: FULL CODE The high probability of a clinically significant, sudden or life-threatening deterioration of the [respiratory, cardiovascular & neurologic] system(s) required my full and direct attention, intervention and personal management. The aggregate critical care time was [33] minutes without overlap. Time includes spent on; [x] Data Review and interpretation [x] Patient assessment and monitoring of vital signs [x] Documentation [x] Medication orders and management Subjective Date of service: 08/06/22 Principal diagnosis: AHRF; Septic Shock; Aspiration Pneumonia; UTI; DM II; COVID-19 infection Interval history: Patient is seen today for: Acute hypoxemic resp failure s/p MVS; Septic Shock; Aspiration Pneumonia; UTI; DM II; COVID-19 infection; AMS Seen and examined at bedside; 24hour events reviewed; nursing and respiratory care staff consulted; no adverse overnight events reported to me; resting peacefully in bed; remains on supplemental oxygen but FiO2 down to 50% with some room to wean; awaiting CTA of chest; denies N/V/F/C Objective Vital Signs - 12hr 08/05/22 08/05/22 08/05/22 19:00 19:14 19:28 Temperature 97.6 F Pulse Rate 73 71 Respiratory 18 16 Rate Blood Pressure 101/58 O2 Sat by Pulse 100 Oximetry 08/05/22 08/05/22 08/05/22 20:00 21:00 21:05 Temperature 97.6 F Pulse Rate 71 64 64 Respiratory 16 15 16 Rate Blood Pressure 117/61 93/51 93/51 O2 Sat by Pulse 97 96 96 Oximetry 08/05/22 08/05/22 08/05/22 21:23 22:00 23:00 Temperature Pulse Rate 60 62 63 Respiratory 16 14 Rate Blood Pressure 93/51 89/50 93/47 O2 Sat by Pulse 97 95 Oximetry 08/06/22 08/06/22 08/06/22 00:00 01:00 02:01 Temperature 99.3 F Pulse Rate 60 62 64 Respiratory 14 17 25 H Rate Blood Pressure 85/44 102/50 123/56 O2 Sat by Pulse 94 94 91 Oximetry 08/06/22 08/06/22 08/06/22 03:01 04:00 05:00 Temperature 98.8 F Pulse Rate 84 92 H 75 Respiratory 21 20 17 Rate Blood Pressure 134/56 147/72 128/54 O2 Sat by Pulse 98 95 95 Oximetry 08/06/22 08/06/22 05:10 06:00 Temperature Pulse Rate 71 Respiratory 16 Rate Blood Pressure 132/62 O2 Sat by Pulse 98 100 Oximetry Constitutional: no acute distress, other (middle aged male with mildly increased respiratory effort on continuous BIPAP) Eyes: non-icteric ENT: oropharynx moist, other (+ BIPAP FFM) Neck: supple, no lymphadenopathy, no JVD Effort: mildly labored Ascultation: Bilateral: clear, diminished breath sounds, other (improved LLL air entry) Percussion: Bilateral: not dull Cardiovascular: regular rate and rhythm, other (S1,S2) Gastrointestinal: normoactive bowel sounds, soft, non-tender, non-distended, other (PEG in place) Integumentary: normal, other (s/p right AKA, Kyle catheter) Extremities: no cyanosis, no edema, pink and warm, other (Right AKA) Neurologic: non-focal exam (grossly), pupils equal and round, CN II-XII normal Psychiatric: mood appropriate, affect normal CBC and BMP: 08/05/22 10:29 08/05/22 10:29 ABG, PT/INR, D-dimer: ABG ABG pH 7.518 pH Units (7.350-7.450) H 08/05/22 07:35 ABG pCO2 31.8 mm Hg 08/05/22 07:35 ABG pO2 37.7 mm Hg (80.0-90.0) L* 08/05/22 07:35 ABG O2 Saturation 74.1 % (95.0-99.0) L 08/05/22 07:35 PT/INR, D-dimer PT 15.1 Sec. (12.2-14.9) H 07/31/22 00:37 INR 1.04 (0.87-1.13) 07/31/22 00:37 D-Dimer 880.44 ng/mlDDU (0-234) H 07/31/22 09:52 Abnormal lab findings: Abnormal Labs 07/31/22 07/31/22 07/31/22 00:37 00:37 00:37 WBC RBC 2.99 L Hgb 8.5 L Hct 26.0 L RDW 17.6 H Lymph % (Auto) 9.9 L Lymph # (Auto) 0.5 L Seg Neutrophils % 83.3 H Seg Neuts % (Manual) Lymphocytes % (Manual) Seg Neutrophils # Man PT 15.1 H D-Dimer ABG pH ABG pO2 ABG HCO3 ABG O2 Saturation ABG Base Excess ABG Hemoglobin Oxyhemoglobin Sodium Potassium 5.1 H Carbon Dioxide BUN 30 H Glucose POC Glucose Calcium 7.6 L Ferritin ALT < 5 L Total Creatine Kinase C-Reactive Protein Total Protein 5.4 L Albumin 1.9 L Urine WBC (Auto) Salicylates Coronavirus (PCR) 07/31/22 07/31/22 07/31/22 00:37 00:37 02:25 WBC RBC Hgb Hct RDW Lymph % (Auto) Lymph # (Auto) Seg Neutrophils % Seg Neuts % (Manual) Lymphocytes % (Manual) Seg Neutrophils # Man PT D-Dimer ABG pH ABG pO2 51.2 L ABG HCO3 28.7 H ABG O2 Saturation 88.6 L ABG Base Excess 3.2 H ABG Hemoglobin 7.1 L Oxyhemoglobin 87.3 L Sodium Potassium Carbon Dioxide BUN Glucose POC Glucose Calcium Ferritin ALT Total Creatine Kinase 14 L C-Reactive Protein Total Protein Albumin Urine WBC (Auto) Salicylates < 0.3 L Coronavirus (PCR) 07/31/22 07/31/22 07/31/22 05:27 09:52 09:52 WBC RBC Hgb Hct RDW Lymph % (Auto) Lymph # (Auto) Seg Neutrophils % Seg Neuts % (Manual) Lymphocytes % (Manual) Seg Neutrophils # Man PT D-Dimer 880.44 H ABG pH ABG pO2 ABG HCO3 ABG O2 Saturation ABG Base Excess ABG Hemoglobin Oxyhemoglobin Sodium Potassium Carbon Dioxide BUN Glucose POC Glucose 142 H Calcium Ferritin 577.8 H ALT Total Creatine Kinase C-Reactive Protein Total Protein Albumin Urine WBC (Auto) Salicylates Coronavirus (PCR) 07/31/22 07/31/22 07/31/22 09:52 16:55 Unknown WBC RBC Hgb Hct RDW Lymph % (Auto) Lymph # (Auto) Seg Neutrophils % Seg Neuts % (Manual) Lymphocytes % (Manual) Seg Neutrophils # Man PT D-Dimer ABG pH ABG pO2 ABG HCO3 ABG O2 Saturation ABG Base Excess ABG Hemoglobin Oxyhemoglobin Sodium Potassium Carbon Dioxide BUN Glucose POC Glucose 137 H Calcium Ferritin ALT Total Creatine Kinase C-Reactive Protein 14.60 H Total Protein Albumin Urine WBC (Auto) > 182.0 H Salicylates Coronavirus (PCR) 07/31/22 08/01/22 08/01/22 Unknown 00:26 04:13 WBC RBC 2.80 L Hgb 8.1 L Hct 24.9 L RDW 18.0 H Lymph % (Auto) 10.7 L Lymph # (Auto) 0.7 L Seg Neutrophils % 85.9 H Seg Neuts % (Manual) Lymphocytes % (Manual) Seg Neutrophils # Man PT D-Dimer ABG pH ABG pO2 ABG HCO3 ABG O2 Saturation ABG Base Excess ABG Hemoglobin Oxyhemoglobin Sodium Potassium Carbon Dioxide BUN Glucose POC Glucose 154 H Calcium Ferritin ALT Total Creatine Kinase C-Reactive Protein Total Protein Albumin Urine WBC (Auto) Salicylates Coronavirus (PCR) Positive A 08/01/22 08/01/22 08/01/22 04:13 04:43 11:52 WBC RBC Hgb Hct RDW Lymph % (Auto) Lymph # (Auto) Seg Neutrophils % Seg Neuts % (Manual) Lymphocytes % (Manual) Seg Neutrophils # Man PT D-Dimer ABG pH ABG pO2 ABG HCO3 ABG O2 Saturation ABG Base Excess ABG Hemoglobin Oxyhemoglobin Sodium Potassium 5.2 H Carbon Dioxide BUN 40 H Glucose 158 H POC Glucose 167 H 165 H Calcium 7.4 L Ferritin ALT Total Creatine Kinase C-Reactive Protein Total Protein Albumin Urine WBC (Auto) Salicylates Coronavirus (PCR) 08/01/22 08/01/22 08/01/22 14:06 17:24 23:27 WBC RBC Hgb Hct RDW Lymph % (Auto) Lymph # (Auto) Seg Neutrophils % Seg Neuts % (Manual) Lymphocytes % (Manual) Seg Neutrophils # Man PT D-Dimer ABG pH ABG pO2 ABG HCO3 ABG O2 Saturation ABG Base Excess ABG Hemoglobin Oxyhemoglobin Sodium 136 L Potassium Carbon Dioxide BUN 41 H Glucose 136 H POC Glucose 157 H 156 H Calcium 7.7 L Ferritin ALT < 5 L Total Creatine Kinase C-Reactive Protein Total Protein 5.7 L Albumin 2.0 L Urine WBC (Auto) Salicylates Coronavirus (PCR) 08/02/22 08/02/22 08/02/22 04:04 04:04 06:17 WBC RBC 2.91 L Hgb 8.4 L Hct 25.2 L RDW 17.9 H Lymph % (Auto) Lymph # (Auto) Seg Neutrophils % Seg Neuts % (Manual) Lymphocytes % (Manual) Seg Neutrophils # Man PT D-Dimer ABG pH ABG pO2 ABG HCO3 ABG O2 Saturation ABG Base Excess ABG Hemoglobin Oxyhemoglobin Sodium Potassium Carbon Dioxide 20 L BUN 39 H Glucose 119 H POC Glucose 114 H Calcium 7.9 L Ferritin ALT < 5 L Total Creatine Kinase C-Reactive Protein Total Protein 5.7 L Albumin 2.1 L Urine WBC (Auto) Salicylates Coronavirus (PCR) 08/02/22 08/02/22 08/03/22 12:29 18:38 05:36 WBC RBC Hgb Hct RDW Lymph % (Auto) Lymph # (Auto) Seg Neutrophils % Seg Neuts % (Manual) Lymphocytes % (Manual) Seg Neutrophils # Man PT D-Dimer ABG pH ABG pO2 ABG HCO3 ABG O2 Saturation ABG Base Excess ABG Hemoglobin Oxyhemoglobin Sodium Potassium Carbon Dioxide BUN Glucose POC Glucose 167 H 163 H 126 H Calcium Ferritin ALT Total Creatine Kinase C-Reactive Protein Total Protein Albumin Urine WBC (Auto) Salicylates Coronavirus (PCR) 08/03/22 08/03/22 08/03/22 07:13 07:13 11:33 WBC 11.4 H RBC 2.80 L Hgb 7.9 L Hct 24.2 L RDW 17.8 H Lymph % (Auto) Lymph # (Auto) Seg Neutrophils % Seg Neuts % (Manual) Lymphocytes % (Manual) Seg Neutrophils # Man PT D-Dimer ABG pH ABG pO2 ABG HCO3 ABG O2 Saturation ABG Base Excess ABG Hemoglobin Oxyhemoglobin Sodium 136 L Potassium Carbon Dioxide BUN 34 H 33 H Glucose 137 H 157 H POC Glucose Calcium 7.8 L 7.9 L Ferritin ALT < 5 L Total Creatine Kinase C-Reactive Protein Total Protein 5.5 L Albumin 2.2 L Urine WBC (Auto) Salicylates Coronavirus (PCR) 08/03/22 08/03/22 08/03/22 12:13 17:36 22:57 WBC RBC Hgb Hct RDW Lymph % (Auto) Lymph # (Auto) Seg Neutrophils % Seg Neuts % (Manual) Lymphocytes % (Manual) Seg Neutrophils # Man PT D-Dimer ABG pH ABG pO2 ABG HCO3 ABG O2 Saturation ABG Base Excess ABG Hemoglobin Oxyhemoglobin Sodium Potassium Carbon Dioxide BUN Glucose POC Glucose 161 H 129 H 146 H Calcium Ferritin ALT Total Creatine Kinase C-Reactive Protein Total Protein Albumin Urine WBC (Auto) Salicylates Coronavirus (PCR) 08/04/22 08/04/22 08/04/22 05:34 06:37 06:37 WBC RBC 2.61 L Hgb 7.7 L Hct 22.5 L RDW 17.7 H Lymph % (Auto) Lymph # (Auto) Seg Neutrophils % Seg Neuts % (Manual) Lymphocytes % (Manual) Seg Neutrophils # Man PT D-Dimer ABG pH ABG pO2 ABG HCO3 ABG O2 Saturation ABG Base Excess ABG Hemoglobin Oxyhemoglobin Sodium Potassium Carbon Dioxide BUN 32 H Glucose 125 H POC Glucose 114 H Calcium 8.1 L Ferritin ALT < 5 L Total Creatine Kinase C-Reactive Protein Total Protein 5.2 L Albumin 2.0 L Urine WBC (Auto) Salicylates Coronavirus (PCR) 08/04/22 08/04/22 08/04/22 11:32 16:22 23:25 WBC RBC Hgb Hct RDW Lymph % (Auto) Lymph # (Auto) Seg Neutrophils % Seg Neuts % (Manual) Lymphocytes % (Manual) Seg Neutrophils # Man PT D-Dimer ABG pH ABG pO2 ABG HCO3 ABG O2 Saturation ABG Base Excess ABG Hemoglobin Oxyhemoglobin Sodium Potassium Carbon Dioxide BUN Glucose POC Glucose 180 H 134 H 134 H Calcium Ferritin ALT Total Creatine Kinase C-Reactive Protein Total Protein Albumin Urine WBC (Auto) Salicylates Coronavirus (PCR) 08/05/22 08/05/22 08/05/22 05:48 07:35 10:29 WBC 21.2 H RBC Hgb 11.1 L D Hct 34.9 L D RDW 18.8 H Lymph % (Auto) Lymph # (Auto) Seg Neutrophils % Seg Neuts % (Manual) 90.0 H Lymphocytes % (Manual) 9.0 L Seg Neutrophils # Man 19.1 H PT D-Dimer ABG pH 7.518 H ABG pO2 37.7 L* ABG HCO3 ABG O2 Saturation 74.1 L ABG Base Excess ABG Hemoglobin 9.9 L Oxyhemoglobin 73.2 L Sodium Potassium Carbon Dioxide BUN Glucose POC Glucose 190 H Calcium Ferritin ALT Total Creatine Kinase C-Reactive Protein Total Protein Albumin Urine WBC (Auto) Salicylates Coronavirus (PCR) 08/05/22 08/05/22 08/05/22 10:29 11:31 16:14 WBC RBC Hgb Hct RDW Lymph % (Auto) Lymph # (Auto) Seg Neutrophils % Seg Neuts % (Manual) Lymphocytes % (Manual) Seg Neutrophils # Man PT D-Dimer ABG pH ABG pO2 ABG HCO3 ABG O2 Saturation ABG Base Excess ABG Hemoglobin Oxyhemoglobin Sodium 136 L Potassium Carbon Dioxide BUN 30 H Glucose 187 H POC Glucose 225 H 196 H Calcium Ferritin ALT Total Creatine Kinase C-Reactive Protein Total Protein Albumin Urine WBC (Auto) Salicylates Coronavirus (PCR) 08/05/22 23:56 WBC RBC Hgb Hct RDW Lymph % (Auto) Lymph # (Auto) Seg Neutrophils % Seg Neuts % (Manual) Lymphocytes % (Manual) Seg Neutrophils # Man PT D-Dimer ABG pH ABG pO2 ABG HCO3 ABG O2 Saturation ABG Base Excess ABG Hemoglobin Oxyhemoglobin Sodium Potassium Carbon Dioxide BUN Glucose POC Glucose 145 H Calcium Ferritin ALT Total Creatine Kinase C-Reactive Protein Total Protein Albumin Urine WBC (Auto) Salicylates Coronavirus (PCR) Chest x-ray: pending Allied health notes reviewed: nursing
[2022-08-06] MEDS: ASCORBIC ACID 500 MG TAB FEEDTUBE SCH ×2 (10:13→21:18)
[2022-08-06] MEDS: METOPROLOL TARTRATE 25 MG TAB PO SCH ×2 (10:13→21:18)
[2022-08-06] MEDS: GABAPENTIN 300 MG CAP FEEDTUBE SCH (10:13)
[2022-08-06] MEDS: ZINC SULFATE 220 MG CAP PO SCH ×2 (10:13→21:18)
[2022-08-06] MEDS: DOXAZOSIN 1 MG TAB FEEDTUBE SCH (10:13)
[2022-08-06] MEDS: VALPROIC ACID 250 MG/5 ML ORAL LIQD PO SCH (10:13)
[2022-08-06] MEDS: dexAMETHasone 4 MG/ML VIAL IV SCH (10:14)
[2022-08-06] MEDS: SENNOSIDES ORAL LIQD 8.8 MG/5 ML ORAL LIQD FEEDTUBE SCH ×2 (10:14→22:40)
[2022-08-06] MEDS: FAMOTIDINE 20 MG TAB FEEDTUBE SCH ×2 (10:14→21:18)
[2022-08-06] MEDS: FUROSEMIDE 40 MG TAB PO SCH (10:14)
--- NOTE | 2022-08-06 11:05 | Progress Note ---
Assessment and Plan Cultures: COVID-19 PCR: Positive 07/31/2022 blood culture: No growth 07/31/2022 tracheal aspirate cultures: Contaminated, high epithelial cells 07/31/2022 urine culture: MSSA A/P: 57-year-old male with diabetes, GERD, anxiety, depression, prior right AKA, indwelling PEG tube, [facility] resident was admitted on 07/31/2022 with hypoxia, hypotension: #COVID-19 pneumonia: Ferritin 577, CRP 14.6. #Acute respiratory failure: Was on the vent, now on room air #UTI: UA with significant pyuria. Urine culture growing Staph aureus, which is not a common uropathogen but there is no evidence of bacteremia or sepsis. UA did show significant pyuria. Has a Kyle catheter. #Acute encephalopathy #Indwelling PEG tube Recs: - Keflex 500 mg 4 times daily for 7 days -Continue steroids for 10 days -Monitor CRP, procalcitonin ID will sign off. Please call questions. Wayne Nolasco MD [facility] O: [phone] F: [phone] Subjective Date of service: 08/06/22 Principal diagnosis: AHRF; Septic Shock; Aspiration Pneumonia; UTI; DM II; COVID-19 infection Interval history: Afebrile, no acute change. Objective - Exam Narrative Exam: Physical Exam: Constitutional: Alert, no distress Head, Ears, Nose: Normocephalic, atraumatic. External ears, nose normal Eyes: Conjunctivae/corneas clear. No icterus. No ptosis. Neck: Supple, no meningeal signs Cardiovascular: S1, S2 + Respiratory: Good air entry, clear to auscultation bilaterally GI: Soft, non-tender; bowel sounds normal. No peritoneal signs. G-tube + Musculoskeletal: Right AKA, well-healed Skin: No rash or abscess Hem/Lymphatic: No palpable cervical or supraclavicular nodes. No lymphangitis Psych: Confused Neurological: Awake, alert, confused - Constitutional Vitals: Vital Signs Temp Pulse Resp BP Pulse Ox 98.2 F 85 22 155/77 88 08/06/22 07:14 08/06/22 10:00 08/06/22 10:00 08/06/22 10:00 08/06/22 10:00 Temperature -Last 24 Hours Temperature 98.2 F Temperature 98.8 F Temperature 99.3 F Temperature 97.6 F Temperature 97.6 F Temperature 98.2 F Temperature 99 F - Labs CBC & Chem 7: 08/05/22 10:29 08/05/22 10:29 Labs: Abnormal lab results 08/05/22 08/05/22 08/05/22 Range/Units 10:29 11:31 16:14 WBC 21.2 H (4.5-11.0) K/mm3 Hgb 11.1 L D (11.8-15.2) gm/dl Hct 34.9 L D (35.5-45.6) % RDW 18.8 H (13.2-15.2) % Seg Neuts % (Manual) 90.0 H (40.0-70.0) % Lymphocytes % (Manual) 9.0 L (13.4-35.0) % Seg Neutrophils # Man 19.1 H (1.8-7.7) K/mm3 POC Glucose 225 H 196 H (70-105) mg/dL 08/05/22 08/06/22 Range/Units 23:56 06:12 WBC (4.5-11.0) K/mm3 Hgb (11.8-15.2) gm/dl Hct (35.5-45.6) % RDW (13.2-15.2) % Seg Neuts % (Manual) (40.0-70.0) % Lymphocytes % (Manual) (13.4-35.0) % Seg Neutrophils # Man (1.8-7.7) K/mm3 POC Glucose 145 H 146 H (70-105) mg/dL
--- NOTE | 2022-08-06 14:13 | XRay Report ---
CHEST 1 VIEW 08/06/2022 12:03 PM INDICATION / CLINICAL INFORMATION: hypoxia. COMPARISON: 08/05/2022 FINDINGS: SUPPORT DEVICES: None. HEART / MEDIASTINUM: No significant abnormality. LUNGS / PLEURA: Atelectasis/consolidation at the left lung base as improved significantly. The right lung is generally clear. No appreciable pleural fluid on portable exam. No pneumothorax. ADDITIONAL FINDINGS: No significant additional findings. IMPRESSION: 1. Improvement in the left lung base atelectasis or infiltrate. Signer Name: Americo Dooley Jr, MD Signed: 08/06/2022 2:09 PM Workstation Name: [id number]
[2022-08-06 14:39] LABS: Hematocrit 25.2 % (35.5-45.6); Hemoglobin 8.2 gm/dl (11.8-15.2); Mean Corpuscular HGB Conc 32 % (32-34); Mean Corpuscular Volume 87 fl (84-94); Platelet Count 204 K/mm3 (140-440); Red Blood Count 2.88 M/mm3 (3.65-5.03)
--- NOTE | 2022-08-06 14:51 | Cat Scan Report ---
CTA CHEST WITH CONTRAST INDICATION / CLINICAL INFORMATION: Hypoxia. TECHNIQUE: Axial CT images were obtained through the chest after injection of IV contrast. 3 plane WA P and/or 3D reconstructions were produced. All CT scans at this location are performed using CT dose reduction for ALARA by means of automated exposure control. COMPARISON: None available. FINDINGS: PULMONARY EMBOLUS: None. THORACIC AORTA: No significant abnormality. HEART: No significant abnormality. CORONARY ARTERY CALCIFICATION: Absent -- None. MEDIASTINUM / BECKA: Mildly dilated fluid filled esophagus with food particles and debris. PLEURA: Moderate right pleural effusion No pneumothorax. LUNGS: Moderate airspace consolidation left lower lobe. Patchy bilateral groundglass parenchymal dise ase diffusely. ADDITIONAL FINDINGS: None. UPPER ABDOMEN: PEG tube in stomach. SKELETAL STRUCTURES: No significant osseous abnormality. IMPRESSION: 1. No CT evidence for pulmonary embolism. 2. Bilateral pneumonia worse within left lower lobe likely secondary to aspiration with fluid-filled mildly dilated esophagus containing debris and peg tube noted 3. Moderate right pleural effusion Signer Name: Drake Goncalves MD Signed: 08/06/2022 2:47 PM Workstation Name: [id number]
[2022-08-06 15:07] LABS: BUN/Creatinine Ratio 43; Blood Urea Nitrogen 43 mg/dL (9-20); Calcium 8.2 mg/dL (8.4-10.2); Hemolysis Index 9
[2022-08-06 15:12] LABS: Albumin 2.3 g/dL (3.9-5)
[2022-08-06 15:13] LABS: Alanine Aminotransferase < 5 units/L (7-56); Bilirubin,Direct < 0.2 mg/dL (0-0.2)
--- NOTE | 2022-08-06 18:06 | Progress Note ---
Assessment and Plan Assessment and plan: This is a 57-year-old SNF resident who has DM, diabetic neuropathy, s/p right AKA, GERD, esophageal tear s/p and repair, dysphagia s/p PEG tube placement, anxiety, depression admitted with septic shock, acute hypoxic respiratory failure-story support with COVID-19 pneumonia. Neuro: Acute metabolic encephalopathy, h/o diabetic neuropathy, substance abuse, anxiety, depression -Reorientation as needed -Maintain sleep-wake cycle -As needed analgesia -CT head shows microvascular ischemia -Continue gabapentin -Seroquel -Valproic acid, xanax prn Cardiac: NAD -Cardiology consulted, appreciate recommendations -Blood pressure monitoring per protocol -S/p vasopressor support -MAP goal greater than 65 -Echocardiogram pending -Lasix p.o. -Metoprolol 12.5 twice daily Respiratory: Acute hypoxic respiratory failure -CCM consulted, appreciate recommendations -Intubated 07/31 in the ED and self extubated on 07/31 -S/p BiPAP therapy -Currently on high flow nasal cannula -Pulmonary hygiene -SPO2 monitoring -CTA chest shows no evidence of pulmonary embolism, bilateral pneumonia worse on the left lower lobe likely related to aspiration with fluid-filled mildly dilated esophagus containing debris's and PEG tube noted, moderate right pleural effusion -Ultrasound-guided thoracentesis pending GI: Moderate protein calorie malnutrition, h/o dysphagia, esophageal tear, s/p PEG tube, GERD -24 hours -1121 ml -PPI -NTR consulted for tube feedings -BR: Senokot-S -GI consulted, appreciate recommendations : Urinary retention, slight hyponatremia -Monitor intake and output-Renally dose medications -Avoid nephrotoxic medications -Trend BMP -doxazosin, Flomax ID: COVID-19 pneumonia, sepsis, Staph aureus urinary tract infection -Presented from SNF with hypoxia, low-grade fever, tachycardia, hypotension requiring vasopressor support -CXR showed right lower lobe pneumonia -Infectious disease consulted, appreciate recommendation -UA consistent with UTI -COVID-19 PCR positive -Decadron 6 mg daily for 10 days () -Antibiotic therapy with Keflex 500 mg 4 times daily for 7 days -Contact/droplet precautions -Trend COVID-19 inflammatory markers -Anticoagulation per hospital protocol -Vitamin C, D, zinc -S/p 1 dose IV () -f/u blood culture -Monitor WBC and temperature curve Endo: h/o DM -Avoid hypoglycemia -SSI -Accu-Cheks q. every 6 -Long-acting insulin, titrate as needed Heme: Microcytic anemia, leukocytosis -Trend CBC -Transfuse hemoglobin less than 7 -SCDs to BLE while in bed The high probability of a clinically significant, sudden or life threatening deterioration of the [multiple] system(s) required my full and direct attention, intervention and personal management. The aggregate critical care time was [60] minutes. This time is in addition to time spent performing reported procedures but includes the following: [x] Data Review and interpretation [x] Patient assessment and monitoring of vital signs [x] Documentation [x] Medication orders and management Disposition Plan: transfer to med/surg Total Time Spent with Patient (Minutes): 60 History Interval history: This is a 57-year-old male with DM, GERD, anxiety, depression, right AKA, s/p esophageal tear and substance abuse on Suboxone who presents emergency department on 07/31 with complaints of generalized weakness, changes mental status, shortness of breath via EMS from halfway. Per EMS patient is blood pressure was low and will he was hypoxic and received Benadryl and acetaminophen while in the halfway. Upon arrival to the emergency department patient was found to be hypoxic and hypotensive and subsequently intubated for airway protection. Lab work significant for H/H of 8.5/26, BUN/creatinine of 30/1.2 and urinalysis significant for UTI. CXR showed infectious process in the right lower lobe and possible small dependent right pleural effusion, CT head showed no acute findings. Patient was initiated on IV fluids, empiric IV antibiotics and admitted to the hospitalist service with co nsults to [facility] and ID with acute hypoxic respiratory failure, septic shock, UTI, pneumonia. Hospital Course to Date: 07/31: Intubated, easily arousable, following simple commands. Remains on 100% Fio2 and 6 of peep this am. Hypoxic from this am ABG, however, SPO2 at 100%. We an FIO2 as tolerated for SPO2 above 95. Remains on low dose levophed gtt, VSS. Titrate pressor for MAP above 65. Patient remains afebrile, COVID PCR pending. Continue empiric IV abx for now, Check CRP and procal. 08/01: Self-extubated overnight due to increase agitation/combative s/p IV ativan, now in restraints for safety. Patient is still confused and restless this am, stable on RA, SPO2 at 100%. Off pressors, VSS. PRN Haldol and PO seroquel added. Will consult Neuro and Mental health for further eval and treatment. Mild hyperkalemia this am, Scr. stable, X1 dose of Kayaxalate. Cardura added for urinary retention. COVID PCR +, IV decadron initiated and ID consulted. Continue current IV abx per ID. 08/02: Patient from respiratory standpoint is clinically stable for transfer to the medical floor. MRI done yesterday is negative for acute CVA Discussed with the mother today we will start patient back on his Percocet therapy. ID input is noted patient will consider steroids for 10 days and also IV remdesivir for 5 days. Urine culture finalization is still pending. ID input is appreciated. Is unclear to me what his baseline mental status is. His mother tells me that he has been on long-term opioid medication outpatient. Anticipate discharge to facility in 1 to 2 days. Wean off oxygen as tolerated Cultures: COVID-19 PCR: Positive 07/31/2022 blood culture: No growth 07/31/2022 tracheal aspirate cultures: Contaminated, high epithelial cells 07/31/2022 urine culture: Staph aureus 08/03: Patient seen and examined this morning no acute distress that extensive review of her records from the facility and also spoke to the staff at the facility he normally moves around with his wheelchair. Sometimes he takes other peoples food and eats by mouth after he throws off his tube feeds himself. He unfortunately does not have his bed to come back today. Clinically he is improving I do speak to the mom also noticed that there was some hospice documentation on the chart she tells me that he was never in hospice. Urine culture came back MSSA so we will switch to Keflex 500 mg 4 ti mes daily for 7 days as recommended by ID and discontinue vancomycin. We will obtain speech evaluation and monitor his mental status. He is still chronically on Xanax as needed and Percocet as as needed that has been restarted. Anticipate discharge once he has an accepting facility. I was also notified by the facility that the first time he came to the facility that he was COVID- positive. He is currently on 2 L of oxygen now. 08/04: Patient continues to improve, mental status improving. Discussed with Nursing staff to obtain PT eval. Awaiting reauthorization to return to the facility. Restarted the Lasix, anticipate positive impact on the BP 08/05: Patient now in Severe hypoxic Distress, ?Flash pulmonary edema, also a thought is given to Pulmonary embolism but he has been on Heparin DVT prophylaxis, gave patient a dose of IV Lasix with 300cc Of urine output noted. Patient will be transferred to the CCU for continued monitoring. Call placed to the dedicated regional driver. Summary of stay so far. PATIENT IS 57 Year old male resident of [facility] admitted with hypoxic respiratory failure, diagnosed with COVID 19 Possible reinfection, was doing well being treated with remdesivir and steroids was weaned down to 2 L of oxygen until this morning when he became hypoxic in the 70s. ABG shows compensated respiratory alkalosis with severe hypoxia. Patient in ICU as noted above. Patient has severe anemia but no sign of bleeding was noted. The plan was for an outpatient GI evaluation. I am waiting for labs today to see if there is further decrease in hemoglobin this has also precluded given full dose anticoagulation. As mentioned patient was actually recovering and was planned t o be discharged back to [facility] except COVID did not have a bed. He is active although has a right AKA gets around with his wheelchair but in the past few days has been debilitated 08/06: Patient had a CTA chest showed moderate right pleural effusion and a ultrasound-guided thoracentesis was ordered. Patient remained on high flow nasal cannula. GI consulted as Dr. Bell seen the patient in [facility] changed to nightly. Patient will be transferred to the floor. Hospitalist Physical - Constitutional Vitals: Temp Pulse Resp BP Pulse Ox 98.2 F 66 11 L 135/65 99 08/06/22 16:58 08/06/22 18:00 08/06/22 18:00 08/06/22 18:00 08/06/22 18:00 General appearance: Present: no acute distress, cachectic, other (On the vent) - EENT Eyes: Present: PERRL, EOM intact ENT: hearing intact, clear oral mucosa, dentition normal - Neck Neck: Present: normal ROM - Respiratory Respiratory effort: normal Respiratory: bilateral: diminished - Cardiovascular Rhythm: regular Heart Sounds: Present: S1 & S2. Absent: systolic murmur, diastolic murmur - Extremities Extremities: no ischemia, pulses intact, pulses symmetrical, No edema, normal temperature, normal color Peripheral Pulses: within normal limits - Abdominal General gastrointestinal: soft, non-tender, non-distended, normal bowel sounds - Integumentary Integumentary: Present: warm, dry - Psychiatric Psychiatric: cooperative - Neurologic Neurologic: CNII-XII intact, no focal deficits, moves all extremities - Allied Health Allied health notes reviewed: nursing, RT, social work HEART Score - HEART Score Troponin: Troponin T 0.025 ng/mL (0.00-0.029) 07/31/22 00:37 Results - Labs CBC & Chem 7: 08/06/22 14:23 08/06/22 14:23 Labs: Laboratory Last Values WBC 18.0 K/mm3 (4.5-11.0) H 08/06/22 14:23 RBC 2.88 M/mm3 (3.65-5.03) L 08/06/22 14:23 Hgb 8.2 gm/dl (11.8-15.2) L 08/06/22 14:23 Hct 25.2 % (35.5-45.6) L D 08/06/22 14:23 MCV 87 fl (84-94) 08/06/22 14:23 MCH 28 pg (28-32) 08/06/22 14:23 MCHC 32 % (32-34) 08/06/22 14:23 RDW 19.0 % (13.2-15.2) H 08/06/22 14:23 Plt Count 204 K/mm3 (140-440) 08/06/22 14:23 Lymph % (Auto) 10.7 % (13.4-35.0) L 08/01/22 04:13 [place] % (Auto) 3.3 % (0.0-7.3) 08/01/22 04:13 Eos % (Auto) 0.0 % (0.0-4.3) 08/01/22 04:13 Baso % (Auto) 0.1 % (0.0-1.8) 08/01/22 04:13 Lymph # (Auto) 0.7 K/mm3 (1.2-5.4) L 08/01/22 04:13 [place] # (Auto) 0.2 K/mm3 (0.0-0.8) 08/01/22 04:13 Eos # (Auto) 0.0 K/mm3 (0.0-0.4) 08/01/22 04:13 Baso # (Auto) 0.0 K/mm3 (0.0-0.1) 08/01/22 04:13 Add Manual Diff Complete 08/05/22 10:29 Total Counted 100 08/05/22 10:29 Seg Neutrophils % Animal Treatment Investigator 08/05/22 10:29 Seg Neuts % (Manual) 90.0 % (40.0-70.0) H 08/05/22 10:29 Band Neutrophils % 0 % 08/05/22 10:29 Lymphocytes % (Manual) 9.0 % (13.4-35.0) L 08/05/22 10:29 Reactive Lymphs % (Man) 0 % 08/05/22 10:29 Monocytes % (Manual) 1.0 % (0.0-7.3) 08/05/22 10:29 Eosinophils % (Manual) 0 % (0.0-4.3) 08/05/22 10:29 Basophils % (Manual) 0 % (0.0-1.8) 08/05/22 10:29 Metamyelocytes % 0 % 08/05/22 10:29 Myelocytes % 0 % 08/05/22 10:29 Promyelocytes % 0 % 08/05/22 10:29 Blast Cells % 0 % 08/05/22 10:29 Nucleated RBC % Not Reportable 08/05/22 10:29 Seg Neutrophils # 6.0 K/mm3 (1.8-7.7) 08/01/22 04:13 Seg Neutrophils # Man 19.1 K/mm3 (1.8-7.7) H 08/05/22 10:29 Band Neutrophils # 0.0 K/mm3 08/05/22 10:29 Lymphocytes # (Manual) 1.9 K/mm3 (1.2-5.4) 08/05/22 10:29 Abs React Lymphs (Man) 0.0 K/mm3 08/05/22 10:29 Monocytes # (Manual) 0.2 K/mm3 (0.0-0.8) 08/05/22 10:29 Eosinophils # (Manual) 0.0 K/mm3 (0.0-0.4) 08/05/22 10:29 Basophils # (Manual) 0.0 K/mm3 (0.0-0.1) 08/05/22 10:29 Metamyelocytes # 0.0 K/mm3 08/05/22 10:29 Myelocytes # 0.0 K/mm3 08/05/22 10:29 Promyelocytes # 0.0 K/mm3 08/05/22 10:29 Blast Cells # 0.0 K/mm3 08/05/22 10:29 WBC Morphology Not Reportable 08/05/22 10:29 Hypersegmented Neuts Not Reportable 08/05/22 10:29 Hyposegmented Neuts Not Reportable 08/05/22 10:29 Hypogranular Neuts Not Reportable 08/05/22 10:29 Smudge Cells Not Reportable 08/05/22 10:29 Toxic Granulation Not Reportable 08/05/22 10:29 Toxic Vacuolation Not Reportable 08/05/22 10:29 Dohle Bodies Not Reportable 08/05/22 10:29 Pelger-Huet Anomaly Not Reportable 08/05/22 10:29 Ruthie Rods Not Reportable 08/05/22 10:29 Platelet Estimate Not Reportable 08/05/22 10:29 Clumped Platelets Not Reportable 08/05/22 10:29 Plt Clumps, EDTA Not Reportable 08/05/22 10:29 Large Platelets Not Reportable 08/05/22 10:29 Giant Platelets Not Reportable 08/05/22 10:29 Platelet Satelliting Not Reportable 08/05/22 10:29 Plt Morphology Comment Not Reportable 08/05/22 10:29 RBC Morphology Normal 08/05/22 10:29 Dimorphic RBCs Not Reportable 08/05/22 10:29 Polychromasia Not Reportable 08/05/22 10:29 Hypochromasia Not Reportable 08/05/22 10:29 Poikilocytosis Not Reportable 08/05/22 10:29 Anisocytosis Not Reportable 08/05/22 10:29 Microcytosis Not Reportable 08/05/22 10:29 Macrocytosis Not Reportable 08/05/22 10:29 Spherocytes Not Reportable 08/05/22 10:29 Pappenheimer Bodies Not Reportable 08/05/22 10:29 Sickle Cells Not Reportable 08/05/22 10:29 Target Cells Not Reportable 08/05/22 10:29 Tear Drop Cells Not Reportable 08/05/22 10:29 Ovalocytes Not Reportable 08/05/22 10:29 Helmet Cells Not Reportable 08/05/22 10:29 [place] Bodies Not Reportable 08/05/22 10:29 [place] Rings Not Reportable 08/05/22 10:29 [place] Cells Not Reportable 08/05/22 10:29 Bite Cells Not Reportable 08/05/22 10:29 Crenated Cell Not Reportable 08/05/22 10:29 Elliptocytes Not Reportable 08/05/22 10:29 Acanthocytes (Spur) Not Reportable 08/05/22 10:29 Rouleaux Not Reportable 08/05/22 10:29 Hemoglobin C Crystals Not Reportable 08/05/22 10:29 Schistocytes Not Reportable 08/05/22 10:29 Malaria parasites Not Reportable 08/05/22 10:29 Rob Bodies Not Reportable 08/05/22 10:29 Hem Pathologist Commnt No 08/05/22 10:29 PT 15.1 Sec. (12.2-14.9) H 07/31/22 00:37 INR 1.04 (0.87-1.13) 07/31/22 00:37 APTT 32.1 Sec. (24.2-36.6) 07/31/22 00:37 D-Dimer 880.44 ng/mlDDU (0-234) H 07/31/22 09:52 ABG pH 7.518 pH Units (7.350-7.450) H 08/05/22 07:35 ABG pCO2 31.8 mm Hg 08/05/22 07:35 ABG pO2 37.7 mm Hg (80.0-90.0) L* 08/05/22 07:35 ABG HCO3 25.2 mmol/L (20.0-26.0) 08/05/22 07:35 ABG O2 Saturation 74.1 % (95.0-99.0) L 08/05/22 07:35 ABG O2 Content 10.2 (0.0-44) 08/05/22 07:35 ABG Base Excess 2.6 mmol/L (-2.0-3.0) 08/05/22 07:35 ABG Hemoglobin 9.9 gm/dl (14.0-18.0) L 08/05/22 07:35 ABG Carboxyhemoglobin 0.9 % (0.0-5.0) 08/05/22 07:35 ABG Methemoglobin 0.3 % (0.0-1.5) 08/05/22 07:35 Oxyhemoglobin 73.2 % (95.0-99.0) L 08/05/22 07:35 FiO2 100 % 08/05/22 07:35 Sodium 136 mmol/L (137-145) L 08/06/22 14:23 Potassium 4.0 mmol/L (3.6-5.0) 08/06/22 14:23 Chloride 98.7 mmol/L (98-107) 08/06/22 14:23 Carbon Dioxide 27 mmol/L (22-30) 08/06/22 14:23 Anion Gap 14 mmol/L 08/06/22 14:23 BUN 43 mg/dL (9-20) H 08/06/22 14:23 Creatinine 1.0 mg/dL (0.8-1.3) 08/06/22 14:23 Estimated GFR > 60 ml/min 08/06/22 14:23 BUN/Creatinine Ratio 43 % 08/06/22 14:23 Glucose 158 mg/dL (75-100) H 08/06/22 14:23 POC Glucose 185 mg/dL (70-105) H 08/06/22 16:38 Lactic Acid 1.00 mmol/L (0.7-2.0) 07/31/22 05:00 Calcium 8.2 mg/dL (8.4-10.2) L 08/06/22 14:23 Phosphorus 3.60 mg/dL (2.5-4.5) 08/02/22 04:04 Magnesium 2.10 mg/dL (1.7-2.3) 08/02/22 04:04 Ferritin 577.8 ng/mL (30.0-300.0) H 07/31/22 09:52 Total Bilirubin 0.30 mg/dL (0.1-1.2) 08/06/22 14:23 Direct Bilirubin < 0.2 mg/dL (0-0.2) 08/06/22 14:23 Indirect Bilirubin 0.1 mg/dL 08/06/22 14:23 AST 11 units/L (5-40) 08/06/22 14:23 ALT < 5 units/L (7-56) L 08/06/22 14:23 Alkaline Phosphatase 70 units/L (35-129) 08/06/22 14:23 Ammonia 31.0 umol/L (25-60) 08/01/22 14:53 Lactate Dehydrogenase 164 units/L (91-180) 08/06/22 14:23 Total Creatine Kinase 14 units/L (55-170) L 07/31/22 00:37 Troponin T 0.025 ng/mL (0.00-0.029) 07/31/22 00:37 C-Reactive Protein 14.60 mg/dL (0.00-1.30) H 07/31/22 09:52 Total Protein 5.5 g/dL (6.3-8.2) L 08/06/22 14:23 Albumin 2.3 g/dL (3.9-5) L 08/06/22 14:23 Albumin/Globulin Ratio 0.7 % 08/06/22 14:23 Procalcitonin 6.98 ng/mL (<0.15) 07/31/22 09:52 TSH 0.844 mlU/mL (0.270-4.200) 07/31/22 00:37 Urine Color Yellow (Yellow) 07/31/22 Unknown Urine Turbidity Cloudy (Clear) 07/31/22 Unknown Specific [place] (Man) 1.020 (1.003-1.030) 07/31/22 Unknown Ur Protein (Man) 3+ mg/dL (Negative) 07/31/22 Unknown Ur Ketones (Man) Negative (Negative) 07/31/22 Unknown Ur Nitrite (Man) Negative (Negative) 07/31/22 Unknown Urine Bilirubin (Man) Large (Negative) 07/31/22 Unknown Urine Ictotest Positive (Negative) 07/31/22 Unknown Leukocyte Esterase (Man) Small (Negative) 07/31/22 Unknown Urine WBC (Auto) > 182.0 /HPF (0.0-6.0) H 07/31/22 Unknown Urine RBC (Auto) 154.0 /HPF (0.0-6.0) 07/31/22 Unknown U Epithel Cells (Auto) 1.0 /HPF (0-13.0) 07/31/22 Unknown Urine Bacteria (Auto) 1+ /HPF (Negative) 07/31/22 Unknown Urine RBC (Manual) 3+ (Negative) 07/31/22 Unknown Urine WBC Clumps 3+ /HPF 07/31/22 Unknown Urine Mucus Few /HPF 07/31/22 Unknown Urine Yeast (Budding) 2+ /HPF 07/31/22 Unknown Salicylates < 0.3 mg/dL (2.8-20.0) L 07/31/22 00:37 Acetaminophen 14.6 ug/mL (10.0-30.0) 07/31/22 00:37 Coronavirus (PCR) Positive (Negative) A 07/31/22 Unknown Kyle/IV: Voiding Method Indwelling Catheter Active Medications - Current Medications Current Medications: Generic Name Dose Route Start Last Admin Trade Name Freq PRN Reason Stop Dose Admin Acetaminophen 650 mg 07/31/22 02:27 07/31/22 03:20 Acetaminophen 650 Mg Rect Supp OR 650 mg Q6H PRN Administration Pain MILD(1-3)/Fever >100.5/BARDALES Alprazolam 0.5 mg 08/01/22 11:40 08/04/22 22:01 Alprazolam 0.5 Mg Tab PO 0.5 mg TID PRN Administration Agitation Ascorbic Acid 500 mg 08/01/22 22:00 08/06/22 10:13 Ascorbic Acid 500 Mg Tab FEEDTUBE 500 mg BID HALEY Administration Cephalexin 500 mg 08/03/22 09:30 08/06/22 11:56 Cephalexin Oral Liqd 500 Mg/10 Ml Oral Liqd PO 08/10/22 09:29 500 mg Q6HR HALEY Administration Protocol Dexamethasone 6 mg 08/01/22 10:00 08/06/22 10:14 Dexamethasone 4 Mg/Ml Vial IV 08/10/22 10:01 6 mg QDAY HALEY Administration Dextrose 50 ml 07/31/22 02:27 Dextrose 50% In Water (25gm) 50 Ml Syringe IV Q30MIN PRN Hypoglycemia Protocol Doxazosin Mesylate 1 mg 08/01/22 13:00 08/06/22 10:13 Doxazosin 1 Mg Tab FEEDTUBE 1 mg QDAY HALEY Administration Famotidine 20 mg 08/01/22 22:00 08/06/22 10:14 Famotidine 20 Mg Tab FEEDTUBE 20 mg BID HALEY Administration Furosemide 40 mg 08/04/22 14:00 08/06/22 10:14 Furosemide 40 Mg Tab PO 40 mg DAILY HALEY Administration Gabapentin 300 mg 08/01/22 14:00 08/06/22 10:13 Gabapentin 300 Mg Cap FEEDTUBE 300 mg QDAY HALEY Administration Heparin Sodium (Porcine) 5,000 unit 07/31/22 06:00 08/06/22 14:24 Heparin 5,000 Unit/1 Ml Vial SUB-Q 5,000 unit Q8HR HALEY Administration Hydrophilic Ointment 1 applic 07/31/22 01:30 Lip Therapy Vaseline TP Q2HR PRN Dry Lips Insulin Human Lispro 0 unit 07/31/22 12:00 08/06/22 11:56 Insulin Lispro 100 Unit/Ml SUB-Q 2 unit Q6HR HALEY Administration Protocol Magnesium Hydroxide 30 ml 07/31/22 02:27 Magnesium Hydroxide (Mom) Oral Liqd Udc PO Q4H PRN Constipation Metoprolol Tartrate 12.5 mg 08/03/22 10:00 08/06/22 10:13 Metoprolol Tartrate 25 Mg Tab PO 12.5 mg BID HALEY Administration Multi-Ingred Cream/Lotion/Oil/Oint 1 applic 07/31/22 01:30 Mineral Oil/Petrolatum, White Ophth Oint 3.5 Gm OU Q4HR PRN Dry Eye(s) Ondansetron HCl 4 mg 07/31/22 02:27 Ondansetron 4 Mg/2 Ml Inj IV Q8H PRN Nausea And Vomiting Oxycodone/Acetaminophen 1 tab 08/02/22 11:07 08/06/22 16:07 Oxycodone /Acetaminophen 5-325mg Tab FEEDTUBE 1 tab Q6H PRN Administration Pain, Moderate (4-6) Quetiapine Fumarate 50 mg 08/06/22 22:00 Quetiapine 25 Mg Tab FEEDTUBE QHS HALEY Senna 17.6 mg 08/02/22 10:00 08/06/22 10:14 Sennosides Oral Liqd 8.8 Mg/5 Ml Oral Liqd FEEDTUBE Not Given BID HALEY Sodium Chloride 10 ml 07/31/22 10:00 08/06/22 10:14 Sodium Chloride 0.9% 10 Ml Flush Syringe IV 10 ml BID HALEY Administration Sodium Chloride 10 ml 07/31/22 02:27 08/02/22 22:53 Sodium Chloride 0.9% 10 Ml Flush Syringe IV 10 ml PRN PRN Administration LINE FLUSH Valproic Acid 500 mg 08/04/22 22:00 08/06/22 10:13 Valproic Acid 250 Mg/5 Ml Oral Liqd PO 500 mg Q12HR HALEY Administration Zinc Sulfate 220 mg 08/01/22 22:00 08/06/22 10:13 Zinc Sulfate 220 Mg Cap PO 220 mg BID HALEY Administration Nutrition/Malnutrition Assess - Dietary Evaluation Nutrition/Malnutrition Findings: Nutrition Notes Start: 07/31/22 09:38 Freq: Status: Active Protocol: Document 08/02/22 11:12 CM (Rec: 08/02/22 11:20 CM [email or web address]) Co-Sign 08/02/22 11:12 WW Nutrition Notes Need for Assessment generated from: [email or web address],[email or web address] Initial or Follow up Brief Note Current Diagnosis Diabetes,Sepsis,Respiratory Failure Other Pertinent Diagnosis GERD, AKA, UTI Current Diet TF Vital AF 1.2 [place] @ 60mL/hr Labs/Tests 08/02: CO2 20 BUN 39 Glu 119 Pertinent Medications 08/02: Zinc Sulfate Ascorbic ACid Dexamethasone Height 6 ft 2 in Weight 58.4 kg [place] Body Weight (kg) 86.36 BMI 16.5 Subjective/Other Information RD consult for malnutrition screening tool score 2 (unsure wt loss / no decreased appetite) Pt currently under COVID-19 isolation on room air. Will monitor need for malnutrition assessment at follow-up. Receiving Vital AF @ 50mL/hr via PEG and increasing to goal by this afternoon - no N/V or BM per RN. Abdomen soft, flat, w/ BS+ per physical assessment. GI Symptoms None Difficulty In Swallowing Food Allergy No Skin Integrity/Comment Sacral pressure ulcer II Current % PO Other #1 Nutrition Diagnosis Swallowing difficulty Comments: Change Nutrition Diagnosis for precision. Etiology Esophageal tear s/p repair Diagnosis Progress(for reassessment Continues documentation) Is patient on ventilator? No Is Patient Ambulatory and/or Out of Bed No REE-([facility]-confined to bed) [phone] Calculation Used for Recommendations Hernan Cuevas Additional Notes Estimated Protein Needs: 1.25- 2.0g/kg ABW = 73-108g PRO q day Estimated Fluid Needs: 1mL/ kcal or per MD. Nutrition Intervention Nutrition Support: Initiate Vital AF @ 20mL/hr and increase by 10mL q 8hr to goal rate of 60mL/hr as medically feasible. Kcal 1,728 Protein (gm) 108 Fluid (mL) 1,170 % RDI: 99% Kcal / 100% AA Goal #1 Pt to obtain and tolerate >75% of estimated energy/protein needs through enteral nutrition. Goal #2 Pt to maintain current wt status throughout LOS. Follow-Up By: 08/09/22 Additional Comments Monitor TF rate, tolerance, BM , and wt status.
[2022-08-06] MEDS: ALPRAZolam 0.5 MG TAB PO PRN (21:17)
[2022-08-06] MEDS: QUEtiapine 25 MG TAB FEEDTUBE SCH (21:18)
[2022-08-07] MEDS: INSULIN LISPRO 100 UNIT/ML SUB-Q SCH ×4 (00:44→18:00)
[2022-08-07] MEDS: oxyCODONE /ACETAMINOPHEN 5-325MG TAB FEEDTUBE PRN ×3 (04:13→15:24)
[2022-08-07] MEDS: VALPROIC ACID 250 MG/5 ML ORAL LIQD PO SCH ×3 (05:01→21:36)
[2022-08-07] MEDS: cephALEXin ORAL LIQD 500 MG/10 ML ORAL LIQD PO SCH ×4 (05:02→18:41)
[2022-08-07] MEDS: HEPARIN 5,000 UNIT/1 ML VIAL SUB-Q SCH ×3 (05:06→21:36)
[2022-08-07 05:26] LABS: Hematocrit 24.3 % (35.5-45.6); Hemoglobin 7.8 gm/dl (11.8-15.2); Mean Corpuscular HGB Conc 32 % (32-34); Mean Corpuscular Volume 87 fl (84-94); Platelet Count 107 K/mm3 (140-440); Red Blood Count 2.77 M/mm3 (3.65-5.03); Red Cell Distribution Width 19.1 % (13.2-15.2)
[2022-08-07 05:46] LABS: BUN/Creatinine Ratio 50; Blood Urea Nitrogen 45 mg/dL (9-20); Calcium 8.2 mg/dL (8.4-10.2); Hemolysis Index 73
--- NOTE | 2022-08-07 08:23 | Progress Note ---
Assessment and Plan Assessment and plan: Interval history: This is a 57-year-old male with DM, GERD, anxiety, depression, right AKA, s/p esophageal tear and substance abuse on Suboxone who presents emergency department on 07/31 with complaints of generalized weakness, changes mental status, shortness of breath via EMS from group home. Per EMS patient is blood pressure was low and will he was hypoxic and received Benadryl and acetaminophen while in the group home. Upon arrival to the emergency department patient was found to be hypoxic and hypotensive and subsequently intubated for airway protection. Lab work significant for H/H of 8.5/26, BUN/creatinine of 30/1.2 and urinalysis significant for UTI. CXR showed infectious process in the right lower lobe and possible small dependent right pleural effusion, CT head showed no acute findings. Patient was initiated on IV fluids, empiric IV antibiotics and admitted to the hospitalist service with consults to CCM and ID with acute hypoxic respiratory failure, septic shock, UTI, pneumonia. Hospital Course to Date: 07/31: Intubated, easily arousable, following simple commands. Remains on 100% Fio2 and 6 of peep this am. Hypoxic from this am ABG, however, SPO2 at 100%. Wean FIO2 as tolerated for SPO2 above 95. Remains on low dose levophed gtt, VSS. Titrate pressor for MAP above 65. Patient remains afebrile, COVID PCR pending. Continue empiric IV abx for now, Check CRP and procal. 08/01: Self-extubated overnight due to increase agitation/combative s/p IV ativan, now in restraints for safety. Patient is still confused and restless this am, stable on RA, SPO2 at 100%. Off pressors, VSS. PRN Haldol and PO seroquel added. Will consult Neuro and Mental health for further eval and treatment. Mild hyperkalemia this am, Scr. stable, X1 dose of Kayaxalate. Cardura added for urinary retention. COVID PCR +, IV decadron initiated and ID consulted. Continue current IV abx per ID. 08/02: Patient from respiratory standpoint is clinically stable for transfer to the medical floor. MRI done yesterday is negative for acute CVA Discussed with the mother today we will start patient back on his Percocet therapy. ID input is noted patient will consider steroids for 10 days and also IV remdesivir for 5 days. Urine culture finalization is still pending. ID input is appreciated. Is unclear to me what his baseline mental status is. His mother tells me that he has been on long-term opioid medication outpatient. Anticipate discharge to facility in 1 to 2 days. Wean off oxygen as tolerated Cultures: COVID-19 PCR: Positive 07/31/2022 blood culture: No growth 07/31/2022 tracheal aspirate cultures: Contaminated, high epithelial cells 07/31/2022 urine culture: Staph aureus 08/03: Patient seen and examined this morning no acute distress that extensive review of her records from the facility and also spoke to the staff at the acility he normally moves around with his wheelchair. Sometimes he takes other peoples food and eats by mouth after he throws off his tube feeds himself. He unfortunately does not have his bed to come back today. Clinically he is improving I do speak to the mom also noticed that there was some hospice documentation on the chart she tells me that he was never in hospice. Urine culture came back MSSA so we will switch to Keflex 500 mg 4 times daily for 7 days as recommended by ID and discontinue vancomycin. We will obtain speech evaluation and monitor his mental status. He is still chronically on Xanax as needed and Percocet as as needed that has been restarted. Anticipate discharge once he has an accepting facility. I was also notified by the facility that the first time he came to the facility that he was COVID- positive. He is currently on 2 L of oxygen now. 08/04: Patient continues to improve, mental status improving. Discussed with Nursing staff to obtain PT eval. Awaiting reauthorization to return to the facility. Restarted the Lasix, anticipate positive impact on the BP 08/05: Patient now in Severe hypoxic Distress, ?Flash pulmonary edema, also a thought is given to Pulmonary embolism but he has been on Heparin DVT prophylaxis, gave patient a dose of IV Lasix with 300cc Of urine output noted. Patient will be transferred to the CCU for continued monitoring. Call placed to the portfolio assistant. Summary of stay so far. PATIENT IS 57 Year old male resident of [facility] admitted with hypoxic respiratory failure, diagnosed with COVID 19 Possible reinfection, was doing well being treated with remdesivir and steroids was weaned down to 2 L of oxygen until this morning when he became hypoxic in the 70s. ABG shows compensated respiratory alkalosis with severe hypoxia. Patient in ICU as noted above. Patient has severe anemia but no sign of bleeding was noted. The plan was for an outpatient GI evaluation. I am waiting for labs today to see if there is further decrease in hemoglobin this has also precluded given full dose anticoagulation. As mentioned patient was actually recovering and was planned to be discharged back to [place] except COVID did not have a bed. He is active although has a right AKA gets around with his wheelchair but in the past few days has been debilitated 08/06: Patient had a CTA chest showed moderate right pleural effusion and a ultrasound-guided thoracentesis was ordered. Patient remained on high flow nasal cannula. GI consulted as Dr. Bell seen the patient in [place], Seroquel changed to nightly. Patient will be transferred to the floor. 08/07: Discussed with Dr. Bell. Patient has a history of esophageal ulceration and stricture. He had intolerance to solids and some liquids, thus a PEG was placed in June. He is an office patient of [facility] and Dr. Bell recommended he follow up as an outpatient to determine is PEG will continue to be required or not. Patient to remain NPO. continue nutrition through PEG. Anticipate d/c tomorrow back to [facility]. Assessment and plan: This is a 57-year-old SNF resident who has DM, diabetic neuropathy, s/p right A KA, GERD, esophageal tear s/p and repair, dysphagia s/p PEG tube placement, anxiety, depression admitted with septic shock, acute hypoxic respiratory failure-story support with COVID-19 pneumonia. Neuro: Acute metabolic encephalopathy (resolved), h/o diabetic neuropathy, substance abuse, anxiety, depression -Reorientation as needed -Maintain sleep-wake cycle -As needed analgesia -CT head shows microvascular ischemia -Continue gabapentin -Seroquel -Valproic acid, xanax prn Cardiac: NAD -Cardiology consulted, appreciate recommendations -Blood pressure monitoring per protocol -S/p vasopressor support -MAP goal greater than 65 -Echocardiogram pending -Lasix p.o. -Metoprolol 12.5 twice daily Respiratory: Acute hypoxic respiratory failure (improving) -[facility] consulted, appreciate recommendations -Intubated 07/31 in the ED and self extubated on 07/31 -S/p BiPAP therapy -Currently on high flow nasal cannula -Pulmonary hygiene -SPO2 monitoring -CTA chest shows no evidence of pulmonary embolism, bilateral pneumonia worse on the left lower lobe likely related to aspiration with fluid-filled mildly dilated esophagus containing debris's and PEG tube noted, moderate right pleural effusion -Ultrasound-guided thoracentesis pending GI: Moderate protein calorie malnutrition, h/o dysphagia, esophageal tear, s/p PEG tube, GERD -24 hours -1121 ml -PPI -NTR consulted for tube feedings -BR: Senokot-S -GI consulted, appreciate recommendations : Urinary retention, slight hyponatremia -Monitor intake and output-Renally dose medications -Avoid nephrotoxic medications -Trend BMP -doxazosin, Flomax ID: COVID-19 pneumonia, sepsis POA, Staph aureus urinary tract infection -Presented from SNF with hypoxia, low-grade fever, tachycardia, hypotension requiring vasopressor support -CXR showed right lower lobe pneumonia -Infectious disease consulted, appreciate recommendation -UA consistent with UTI -COVID-19 PCR positive -Decadron 6 mg daily for 10 days () -Antibiotic therapy with Keflex 500 mg 4 times daily for 7 days -Contact/droplet precautions -Trend COVID-19 inflammatory markers -Anticoagulation per hospital protocol -Vitamin C, D, zinc -S/p 1 dose IV () -f/u blood culture -Monitor WBC and temperature curve Endo: h/o DM -Avoid hypoglycemia -SSI -Accu-Cheks q. every 6 -Long-acting insulin, titrate as needed Heme: Microcytic anemia, leukocytosis -Trend CBC -Transfuse hemoglobin less than 7 -SCDs to BLE while in bed #Advance care planning Disease education conducted, care plan discussed, diagnoses discussed, prognosis discussed, patient is full code, patient acknowledges understanding and agree with care plan, +30 minutes. History Interval history: Feeling weak but overall vitals stable. Patient not in any distress. no complaints otherwise. Hospitalist Physical - Physical exam Narrative exam: General appearance: Present: no acute distress, cachectic, other (On the vent) - EENT Eyes: Present: PERRL, EOM intact ENT: hearing intact, clear oral mucosa, dentition normal - Neck Neck: Present: normal ROM - Respiratory Respiratory effort: normal Respiratory: bilateral: diminished - Cardiovascular Rhythm: regular Heart Sounds: Present: S1 & S2. Absent: systolic murmur, diastolic murmur - Extremities Extremities: no ischemia, pulses intact, pulses symmetrical, No edema, normal temperature, normal color Peripheral Pulses: within normal limits - Abdominal General gastrointestinal: soft, non-tender, non-distended, normal bowel sounds - Integumentary Integumentary: Present: warm, dry - Psychiatric Psychiatric: cooperative - Neurologic Neurologic: CNII-XII intact, no focal deficits, moves all extremities - Allied Health Allied health notes reviewed: nursing, RT, social work - Constitutional Vitals: Temp Pulse Resp BP Pulse Ox 98.8 F 85 16 158/83 95 08/07/22 04:27 08/07/22 04:27 08/07/22 04:27 08/07/22 04:27 08/07/22 04:27 General appearance: Present: no acute distress, cachectic, other (On the vent) HEART Score - HEART Score Troponin: Troponin T 0.025 ng/mL (0.00-0.029) 07/31/22 00:37 Results - Labs CBC & Chem 7: 08/07/22 04:27 08/07/22 04:27 Labs: Laboratory Last Values WBC 14.1 K/mm3 (4.5-11.0) H 08/07/22 04:27 RBC 2.77 M/mm3 (3.65-5.03) L 08/07/22 04:27 Hgb 7.8 gm/dl (11.8-15.2) L 08/07/22 04:27 Hct 24.3 % (35.5-45.6) L 08/07/22 04:27 MCV 87 fl (84-94) 08/07/22 04:27 MCH 28 pg (28-32) 08/07/22 04:27 MCHC 32 % (32-34) 08/07/22 04:27 RDW 19.1 % (13.2-15.2) H 08/07/22 04:27 Plt Count 107 K/mm3 (140-440) L 08/07/22 04:27 Lymph % (Auto) 10.7 % (13.4-35.0) L 08/01/22 04:13 Yates % (Auto) 3.3 % (0.0-7.3) 08/01/22 04:13 Eos % (Auto) 0.0 % (0.0-4.3) 08/01/22 04:13 Baso % (Auto) 0.1 % (0.0-1.8) 08/01/22 04:13 Lymph # (Auto) 0.7 K/mm3 (1.2-5.4) L 08/01/22 04:13 Yates # (Auto) 0.2 K/mm3 (0.0-0.8) 08/01/22 04:13 Eos # (Auto) 0.0 K/mm3 (0.0-0.4) 08/01/22 04:13 Baso # (Auto) 0.0 K/mm3 (0.0-0.1) 08/01/22 04:13 Add Manual Diff Complete 08/05/22 10:29 Total Counted 100 08/05/22 10:29 Seg Neutrophils % [place] 08/05/22 10:29 Seg Neuts % (Manual) 90.0 % (40.0-70.0) H 08/05/22 10:29 Band Neutrophils % 0 % 08/05/22 10:29 Lymphocytes % (Manual) 9.0 % (13.4-35.0) L 08/05/22 10:29 Reactive Lymphs % (Man) 0 % 08/05/22 10:29 Monocytes % (Manual) 1.0 % (0.0-7.3) 08/05/22 10:29 Eosinophils % (Manual) 0 % (0.0-4.3) 08/05/22 10:29 Basophils % (Manual) 0 % (0.0-1.8) 08/05/22 10:29 Metamyelocytes % 0 % 08/05/22 10:29 Myelocytes % 0 % 08/05/22 10:29 Promyelocytes % 0 % 08/05/22 10:29 Blast Cells % 0 % 08/05/22 10:29 Nucleated RBC % Not Reportable 08/05/22 10:29 Seg Neutrophils # 6.0 K/mm3 (1.8-7.7) 08/01/22 04:13 Seg Neutrophils # Man 19.1 K/mm3 (1.8-7.7) H 08/05/22 10:29 Band Neutrophils # 0.0 K/mm3 08/05/22 10:29 Lymphocytes # (Manual) 1.9 K/mm3 (1.2-5.4) 08/05/22 10:29 Abs React Lymphs (Man) 0.0 K/mm3 08/05/22 10:29 Monocytes # (Manual) 0.2 K/mm3 (0.0-0.8) 08/05/22 10:29 Eosinophils # (Manual) 0.0 K/mm3 (0.0-0.4) 08/05/22 10:29 Basophils # (Manual) 0.0 K/mm3 (0.0-0.1) 08/05/22 10:29 Metamyelocytes # 0.0 K/mm3 08/05/22 10:29 Myelocytes # 0.0 K/mm3 08/05/22 10:29 Promyelocytes # 0.0 K/mm3 08/05/22 10:29 Blast Cells # 0.0 K/mm3 08/05/22 10:29 WBC Morphology Not Reportable 08/05/22 10:29 Hypersegmented Neuts Not Reportable 08/05/22 10:29 Hyposegmented Neuts Not Reportable 08/05/22 10:29 Hypogranular Neuts Not Reportable 08/05/22 10:29 Smudge Cells Not Reportable 08/05/22 10:29 Toxic Granulation Not Reportable 08/05/22 10:29 Toxic Vacuolation Not Reportable 08/05/22 10:29 Dohle Bodies Not Reportable 08/05/22 10:29 Pelger-Huet Anomaly Not Reportable 08/05/22 10:29 Ruthie Rods Not Reportable 08/05/22 10:29 Platelet Estimate Not Reportable 08/05/22 10:29 Clumped Platelets Not Reportable 08/05/22 10:29 Plt Clumps, EDTA Not Reportable 08/05/22 10:29 Large Platelets Not Reportable 08/05/22 10:29 Giant Platelets Not Reportable 08/05/22 10:29 Platelet Satelliting Not Reportable 08/05/22 10:29 Plt Morphology Comment Not Reportable 08/05/22 10:29 RBC Morphology Normal 08/05/22 10:29 Dimorphic RBCs Not Reportable 08/05/22 10:29 Polychromasia Not Reportable 08/05/22 10:29 Hypochromasia Not Reportable 08/05/22 10:29 Poikilocytosis Not Reportable 08/05/22 10:29 Anisocytosis Not Reportable 08/05/22 10:29 Microcytosis Not Reportable 08/05/22 10:29 Macrocytosis Not Reportable 08/05/22 10:29 Spherocytes Not Reportable 08/05/22 10:29 Pappenheimer Bodies Not Reportable 08/05/22 10:29 Sickle Cells Not Reportable 08/05/22 10:29 Target Cells Not Reportable 08/05/22 10:29 Tear Drop Cells Not Reportable 08/05/22 10:29 Ovalocytes Not Reportable 08/05/22 10:29 Helmet Cells Not Reportable 08/05/22 10:29 [place] Bodies Not Reportable 08/05/22 10:29 [place] Rings Not Reportable 08/05/22 10:29 [place] Cells Not Reportable 08/05/22 10:29 Bite Cells Not Reportable 08/05/22 10:29 Crenated Cell Not Reportable 08/05/22 10:29 Elliptocytes Not Reportable 08/05/22 10:29 Acanthocytes (Spur) Not Reportable 08/05/22 10:29 Rouleaux Not Reportable 08/05/22 10:29 Hemoglobin C Crystals Not Reportable 08/05/22 10:29 Schistocytes Not Reportable 08/05/22 10:29 Malaria parasites Not Reportable 08/05/22 10:29 Rob Bodies Not Reportable 08/05/22 10:29 Hem Pathologist Commnt No 08/05/22 10:29 PT 15.1 Sec. (12.2-14.9) H 07/31/22 00:37 INR 1.04 (0.87-1.13) 07/31/22 00:37 APTT 32.1 Sec. (24.2-36.6) 07/31/22 00:37 D-Dimer 880.44 ng/mlDDU (0-234) H 07/31/22 09:52 ABG pH 7.518 pH Units (7.350-7.450) H 08/05/22 07:35 ABG pCO2 31.8 mm Hg 08/05/22 07:35 ABG pO2 37.7 mm Hg (80.0-90.0) L* 08/05/22 07:35 ABG HCO3 25.2 mmol/L (20.0-26.0) 08/05/22 07:35 ABG O2 Saturation 74.1 % (95.0-99.0) L 08/05/22 07:35 ABG O2 Content 10.2 (0.0-44) 08/05/22 07:35 ABG Base Excess 2.6 mmol/L (-2.0-3.0) 08/05/22 07:35 ABG Hemoglobin 9.9 gm/dl (14.0-18.0) L 08/05/22 07:35 ABG Carboxyhemoglobin 0.9 % (0.0-5.0) 08/05/22 07:35 ABG Methemoglobin 0.3 % (0.0-1.5) 08/05/22 07:35 Oxyhemoglobin 73.2 % (95.0-99.0) L 08/05/22 07:35 FiO2 100 % 08/05/22 07:35 Sodium 140 mmol/L (137-145) 08/07/22 04:27 Potassium 4.4 mmol/L (3.6-5.0) 08/07/22 04:27 Chloride 102.2 mmol/L (98-107) 08/07/22 04:27 Carbon Dioxide 29 mmol/L (22-30) 08/07/22 04:27 Anion Gap 13 mmol/L 08/07/22 04:27 BUN 45 mg/dL (9-20) H 08/07/22 04:27 Creatinine 0.9 mg/dL (0.8-1.3) 08/07/22 04:27 Estimated GFR > 60 ml/min 08/07/22 04:27 BUN/Creatinine Ratio 50 % 08/07/22 04:27 Glucose 69 mg/dL (75-100) L 08/07/22 04:27 POC Glucose 185 mg/dL (70-105) H 08/06/22 16:38 Lactic Acid 1.00 mmol/L (0.7-2.0) 07/31/22 05:00 Calcium 8.2 mg/dL (8.4-10.2) L 08/07/22 04:27 Phosphorus 3.60 mg/dL (2.5-4.5) 08/02/22 04:04 Magnesium 2.10 mg/dL (1.7-2.3) 08/02/22 04:04 Ferritin 577.8 ng/mL (30.0-300.0) H 07/31/22 09:52 Total Bilirubin 0.30 mg/dL (0.1-1.2) 08/06/22 14:23 Direct Bilirubin < 0.2 mg/dL (0-0.2) 08/06/22 14:23 Indirect Bilirubin 0.1 mg/dL 08/06/22 14:23 AST 11 units/L (5-40) 08/06/22 14:23 ALT < 5 units/L (7-56) L 08/06/22 14:23 Alkaline Phosphatase 70 units/L (35-129) 08/06/22 14:23 Ammonia 31.0 umol/L (25-60) 08/01/22 14:53 Lactate Dehydrogenase 164 units/L (91-180) 08/06/22 14:23 Total Creatine Kinase 14 units/L (55-170) L 07/31/22 00:37 Troponin T 0.025 ng/mL (0.00-0.029) 07/31/22 00:37 C-Reactive Protein 14.60 mg/dL (0.00-1.30) H 07/31/22 09:52 Total Protein 5.5 g/dL (6.3-8.2) L 08/06/22 14:23 Albumin 2.3 g/dL (3.9-5) L 08/06/22 14:23 Albumin/Globulin Ratio 0.7 % 08/06/22 14:23 Procalcitonin 6.98 ng/mL (<0.15) 07/31/22 09:52 TSH 0.844 mlU/mL (0.270-4.200) 07/31/22 00:37 Urine Color Yellow (Yellow) 07/31/22 Unknown Urine Turbidity Cloudy (Clear) 07/31/22 Unknown Specific [place] (Man) 1.020 (1.003-1.030) 07/31/22 Unknown Ur Protein (Man) 3+ mg/dL (Negative) 07/31/22 Unknown Ur Ketones (Man) Negative (Negative) 07/31/22 Unknown Ur Nitrite (Man) Negative (Negative) 07/31/22 Unknown Urine Bilirubin (Man) Large (Negative) 07/31/22 Unknown Urine Ictotest Positive (Negative) 07/31/22 Unknown Leukocyte Esterase (Man) Small (Negative) 07/31/22 Unknown Urine WBC (Auto) > 182.0 /HPF (0.0-6.0) H 07/31/22 Unknown Urine RBC (Auto) 154.0 /HPF (0.0-6.0) 07/31/22 Unknown U Epithel Cells (Auto) 1.0 /HPF (0-13.0) 07/31/22 Unknown Urine Bacteria (Auto) 1+ /HPF (Negative) 07/31/22 Unknown Urine RBC (Manual) 3+ (Negative) 07/31/22 Unknown Urine WBC Clumps 3+ /HPF 07/31/22 Unknown Urine Mucus Few /HPF 07/31/22 Unknown Urine Yeast (Budding) 2+ /HPF 07/31/22 Unknown Salicylates < 0.3 mg/dL (2.8-20.0) L 07/31/22 00:37 Acetaminophen 14.6 ug/mL (10.0-30.0) 07/31/22 00:37 Coronavirus (PCR) Positive (Negative) A 07/31/22 Unknown Kyle/IV: Voiding Method Indwelling Catheter Active Medications - Current Medications Current Medications: Generic Name Dose Route Start Last Admin Trade Name Freq PRN Reason Stop Dose Admin Acetaminophen 650 mg 07/31/22 02:27 07/31/22 03:20 Acetaminophen 650 Mg Rect Supp FL 650 mg Q6H PRN Administration Pain MILD(1-3)/Fever >100.5/BARDALES Alprazolam 0.5 mg 08/01/22 11:40 08/06/22 21:17 Alprazolam 0.5 Mg Tab PO 0.5 mg TID PRN Administration Agitation Ascorbic Acid 500 mg 08/01/22 22:00 08/06/22 21:18 Ascorbic Acid 500 Mg Tab FEEDTUBE 500 mg BID HALEY Administration Cephalexin 500 mg 08/03/22 09:30 08/07/22 07:37 Cephalexin Oral Liqd 500 Mg/10 Ml Oral Liqd PO 08/10/22 09:29 Not Given Q6HR [facility] Protocol Dexamethasone 6 mg 08/01/22 10:00 08/06/22 10:14 Dexamethasone 4 Mg/Ml Vial IV 08/10/22 10:01 6 mg QDAY HALEY Administration Dextrose 50 ml 07/31/22 02:27 Dextrose 50% In Water (25gm) 50 Ml Syringe IV Q30MIN PRN Hypoglycemia Protocol Doxazosin Mesylate 1 mg 08/01/22 13:00 08/06/22 10:13 Doxazosin 1 Mg Tab FEEDTUBE 1 mg QDAY HALEY Administration Famotidine 20 mg 08/01/22 22:00 08/06/22 21:18 Famotidine 20 Mg Tab FEEDTUBE 20 mg BID HALEY Administration Furosemide 40 mg 08/04/22 14:00 08/06/22 10:14 Furosemide 40 Mg Tab PO 40 mg DAILY HALEY Administration Gabapentin 300 mg 08/01/22 14:00 08/06/22 10:13 Gabapentin 300 Mg Cap FEEDTUBE 300 mg QDAY HALEY Administration Heparin Sodium (Porcine) 5,000 unit 07/31/22 06:00 08/07/22 05:06 Heparin 5,000 Unit/1 Ml Vial SUB-Q Not Given Q8HR [facility] Hydrophilic Ointment 1 applic 07/31/22 01:30 Lip Therapy Vaseline TP Q2HR PRN Dry Lips Insulin Human Lispro 0 unit 07/31/22 12:00 08/07/22 05:05 Insulin Lispro 100 Unit/Ml SUB-Q Not Given Q6HR [facility] Protocol Magnesium Hydroxide 30 ml 07/31/22 02:27 Magnesium Hydroxide (Mom) Oral Liqd Udc PO Q4H PRN Constipation Metoprolol Tartrate 12.5 mg 08/03/22 10:00 08/06/22 21:18 Metoprolol Tartrate 25 Mg Tab PO 12.5 mg BID HALEY Administration Multi-Ingred Cream/Lotion/Oil/Oint 1 applic 07/31/22 01:30 Mineral Oil/Petrolatum, White Ophth Oint 3.5 Gm OU Q4HR PRN Dry Eye(s) Ondansetron HCl 4 mg 07/31/22 02:27 Ondansetron 4 Mg/2 Ml Inj IV Q8H PRN Nausea And Vomiting Oxycodone/Acetaminophen 1 tab 08/02/22 11:07 08/07/22 04:13 Oxycodone /Acetaminophen 5-325mg Tab FEEDTUBE 1 tab Q6H PRN Administration Pain, Moderate (4-6) Quetiapine Fumarate 50 mg 08/06/22 22:00 08/06/22 21:18 Quetiapine 25 Mg Tab FEEDTUBE 50 mg QHS HALEY Administration Senna 17.6 mg 08/02/22 10:00 08/06/22 22:40 Sennosides Oral Liqd 8.8 Mg/5 Ml Oral Liqd FEEDTUBE Not Given BID HALEY Sodium Chloride 10 ml 07/31/22 10:00 08/06/22 21:18 Sodium Chloride 0.9% 10 Ml Flush Syringe IV 10 ml BID HALEY Administration Sodium Chloride 10 ml 07/31/22 02:27 08/02/22 22:53 Sodium Chloride 0.9% 10 Ml Flush Syringe IV 10 ml PRN PRN Administration LINE FLUSH Valproic Acid 500 mg 08/04/22 22:00 08/07/22 05:01 Valproic Acid 250 Mg/5 Ml Oral Liqd PO Not Given Q12HR HALEY Zinc Sulfate 220 mg 08/01/22 22:00 08/06/22 21:18 Zinc Sulfate 220 Mg Cap PO 220 mg BID HALEY Administration Nutrition/Malnutrition Assess - Dietary Evaluation Nutrition/Malnutrition Findings: Nutrition Notes Start: 07/31/22 09:38 Freq: Status: Active Protocol: Document 08/02/22 11:12 CM (Rec: 08/02/22 11:20 CM [id number]) Co-Sign 08/02/22 11:12 WW Nutrition Notes Need for Assessment generated from: parts manager,MST Initial or Follow up Brief Note Current Diagnosis Diabetes,Sepsis,Respiratory Failure Other Pertinent Diagnosis GERD, AKA, UTI Current Diet TF Vital AF 1.2 [place] @ 60mL/hr Labs/Tests 08/02: CO2 20 BUN 39 Glu 119 Pertinent Medications 08/02: Zinc Sulfate Ascorbic ACid Dexamethasone Height 6 ft 2 in Weight 58.4 kg [place] Body Weight (kg) 86.36 BMI 16.5 Subjective/Other Information RD consult for malnutrition screening tool score 2 (unsure wt loss / no decreased appetite) Pt currently under COVID-19 isolation on room air. Will monitor need for malnutrition assessment at follow-up. Receiving Vital AF @ 50mL/hr via PEG and increasing to goal by this afternoon - no N/V or BM per RN. Abdomen soft, flat, w/ BS+ per physical assessment. GI Symptoms None Difficulty In Swallowing Food Allergy No Skin Integrity/Comment Sacral pressure ulcer II Current % PO Other #1 Nutrition Diagnosis Swallowing difficulty Comments: Change Nutrition Diagnosis for precision. Etiology Esophageal tear s/p repair Diagnosis Progress(for reassessment Continues documentation) Is patient on ventilator? No Is Patient Ambulatory and/or Out of Bed No REE-([facility]-confined to bed) [phone] Calculation Used for Recommendations [facility] Additional Notes Estimated Protein Needs: 1.25- 2.0g/kg ABW = 73-108g PRO q day Estimated Fluid Needs: 1mL/ kcal or per MD. Nutrition Intervention Nutrition Support: Initiate Vital AF @ 20mL/hr and increase by 10mL q 8hr to goal rate of 60mL/hr as medically feasible. Kcal 1,728 Protein (gm) 108 Fluid (mL) 1,170 % RDI: 99% Kcal / 100% AA Goal #1 Pt to obtain and tolerate >75% of estimated energy/protein needs through enteral nutrition. Goal #2 Pt to maintain current wt status throughout LOS. Follow-Up By: 08/09/22 Additional Comments Monitor TF rate, tolerance, BM , and wt status.
[2022-08-07] MEDS: DOXAZOSIN 1 MG TAB FEEDTUBE SCH (09:40)
[2022-08-07] MEDS: ASCORBIC ACID 500 MG TAB FEEDTUBE SCH ×2 (09:41→21:36)
[2022-08-07] MEDS: GABAPENTIN 300 MG CAP FEEDTUBE SCH (09:41)
[2022-08-07] MEDS: dexAMETHasone 4 MG/ML VIAL IV SCH (09:41)
[2022-08-07] MEDS: FAMOTIDINE 20 MG TAB FEEDTUBE SCH ×2 (09:41→21:36)
[2022-08-07] MEDS: FUROSEMIDE 40 MG TAB PO SCH (09:41)
[2022-08-07] MEDS: SENNOSIDES ORAL LIQD 8.8 MG/5 ML ORAL LIQD FEEDTUBE SCH ×2 (09:43→21:37)
[2022-08-07] MEDS: ZINC SULFATE 220 MG CAP PO SCH ×2 (09:44→21:36)
[2022-08-07] MEDS: METOPROLOL TARTRATE 25 MG TAB PO SCH ×2 (09:44→21:36)
[2022-08-07] MEDS: ALPRAZolam 0.5 MG TAB PO PRN ×2 (09:52→18:41)
--- NOTE | 2022-08-07 13:51 | Ultrasound Report ---
ULTRASOUND CHEST HISTORY: Right pleural effusion TECHNIQUE: Grayscale ultrasound COMPARISON: CTA chest 08/05/2022. AP chest 08/06/2022. FINDINGS: This examination was scheduled as an ultrasound guided right thoracentesis. Initial scan of the chest demonstrates resolution of the right pleural effusion and only a tiny left pleural effusio n too small for safe thoracentesis. IMPRESSION: Right pleural effusion has resolved. Trace left pleural fluid remains which is too small for safe ultrasound-guided thoracentesis. Signer Name: Americo Dooley Jr, MD Signed: 08/07/2022 1:47 PM Workstation Name: [id number]
--- NOTE | 2022-08-07 17:10 | Progress Note ---
Assessment and Plan 57-year-old male with known history of diabetes mellitus, GERD, anxiety and depression, right AKA brought into the emergency room today via EMS with complaint of generalized weakness, changes in mental status and shortness of breath. Patient is a resident of a snf. Most of the history was gotten from the ER staff as patient is already intubated sedated. Blood pressure was said to be low on the field and patient was also said to be hypoxic. He was said to have received Benadryl and acetaminophen while in the snf. Surgical history right AKA and Gastric tube placement. Upon arrival in the emergency room he was found to be hypoxic and hypotensive. He was subsequently intubated because he was not protecting his airway. Work-up in the emergency room today, lab is significant for hemoglobin of 8.5 and hematocrit of 26. BUN of 30 and creatinine of 1.2. Urinalysis significant for UTI. Chest x-ray shows infectious process in the right lower lobe with possible small dependent right pleural effusion. CT of the head is suggestive microvascular ischemia. MRI of the brain suggested if needed for further evaluation. Patient has been started on IV fluid, pressure and empiric IV antibiotics. Patient Burger virus (PCR) positive. Patient extubated, off the pressors. Patient transfered to telemetry. Patient awake. Patient weak. On 4 litres O2. O2 saturation reported 92%. Complaining mild shortness of breath and cough. No acute respiratory distress at rest. Patient awake. Patient weak. On 4 litres O2. O2 saturation reported 92%. Complaining mild shortness of breath and cough. No acute respiratory distress at rest. Patient afebrile. Has mild leukocytosis , Blood pressure 164/80 , pulse 74 , respirations 20. Chest xray 07/31/22 reported nfectious process right lower lung could be considered with possible small dependent right pleural effusion. Chest xray 08/06/22 reported Improvement in the left lung base atelectasis or infiltrate. Patient is on Decadron, S/C Heparin, Famotidine,PO Keflex. - Patient Problems (1) Acute respiratory failure with hypoxia Current Visit: Yes Status: Acute Plan to address problem: Patient intubated and extubated. O2 4 litres via nasal canula Patient is on Decadron. S/C Heparin Famotidine. (2) Pneumonia Current Visit: Yes Status: Acute Plan to address problem: Patient is on PO Keflex. (3) Acute encephalopathy Current Visit: Yes Status: Acute Plan to address problem: Management as per primary care. (4) Septic shock Current Visit: Yes Status: Acute Plan to address problem: Patient was on cefepime and vancomycin. (5) Coronavirus infection Current Visit: Yes Status: Acute Plan to address problem: Patient is on Decadron, Also received REMDESIVIR. Management as per infectious diseases. Burger virus isolation precautions. Subjective Date of service: 08/07/22 Principal diagnosis: AHRF; Septic Shock; Aspiration Pneumonia; UTI; DM II; COVID-19 infection Interval history: 57-year-old male with known history of diabetes mellitus, GERD, anxiety and depression, right AKA brought into the emergency room today via EMS with complaint of generalized weakness, changes in mental status and shortness of breath. Patient is a resident of a snf. Most of the history was gotten from the ER staff as patient is already intubated sedated. Blood pressure was said to be low on the field and patient was also said to be hypoxic. He was said to have received Benadryl and acetaminophen while in the snf. Surgical history right AKA and Gastric tube placement. Upon arrival in the emergency room he was found to be hypoxic and hypotensive. He was subsequently intubated because he was not protecting his airway. Work-up in the emergency room today, lab is significant for hemoglobin of 8.5 and hematocrit of 26. BUN of 30 and creatinine of 1.2. Urinalysis significant for UTI. Chest x-ray shows infectious process in the right lower lobe with possible small dependent right pleural effusion. CT of the head is suggestive microvascular ischemia. MRI of the brain suggested if needed for further evaluation. Patient has been started on IV fluid, pressure and empiric IV antibiotics. Patient Burger virus (PCR) positive. Patient extubated, off the pressors. Patient transfered to telemetry. Patient awake. Patient weak. On 4 litres O2. O2 saturation reported 92%. Complaining mild shortness of breath and cough. No acute respiratory distress at rest. Patients o2 saturation running low. Patient is candidate for home O2. Patient afebrile. Has mild leukocytosis , Blood pressure 164/80 , pulse 74 , respirations 20. Chest xray 07/31/22 reported nfectious process right lower lung could be considered with possible small dependent right pleural effusion. Chest xray 08/06/22 reported Improvement in the left lung base atelectasis or infiltrate. Patient is on Decadron, S/C Heparin, Famotidine,PO Keflex. Objective Vital Signs - 12hr 08/07/22 08/07/22 08/07/22 08:35 09:40 09:44 Temperature Pulse Rate 85 85 Respiratory Rate Blood Pressure 158/83 158/83 Blood Pressure [Right] O2 Sat by Pulse 96 Oximetry 08/07/22 13:48 Temperature 98 F Pulse Rate 74 Respiratory 20 Rate Blood Pressure Blood Pressure 160/80 [Right] O2 Sat by Pulse 92 Oximetry Constitutional: no acute distress, alert, other (Weak. No acute respiratory distress at rest.) Eyes: non-icteric ENT: oropharynx moist, other (+ BIPAP FFM) Neck: supple, no lymphadenopathy, no JVD Effort: mildly labored Ascultation: Bilateral: diminished breath sounds, rhonchi, other (improved LLL air entry) Percussion: Bilateral: not dull Cardiovascular: regular rate and rhythm, other (S1,S2) Gastrointestinal: normoactive bowel sounds, soft, non-tender, non-distended, other (PEG in place) Integumentary: normal, other (s/p right AKA, Kyle catheter) Extremities: no cyanosis, no edema, pink and warm, other (Right AKA) Neurologic: non-focal exam (grossly), pupils equal and round, CN II-XII normal Psychiatric: depressed CBC and BMP: 08/07/22 04:27 08/07/22 04:27 ABG, PT/INR, D-dimer: ABG ABG pH 7.518 pH Units (7.350-7.450) H 08/05/22 07:35 ABG pCO2 31.8 mm Hg 08/05/22 07:35 ABG pO2 37.7 mm Hg (80.0-90.0) L* 08/05/22 07:35 ABG O2 Saturation 74.1 % (95.0-99.0) L 08/05/22 07:35 PT/INR, D-dimer PT 15.1 Sec. (12.2-14.9) H 07/31/22 00:37 INR 1.04 (0.87-1.13) 07/31/22 00:37 D-Dimer 880.44 ng/mlDDU (0-234) H 07/31/22 09:52 Abnormal lab findings: Abnormal Labs 07/31/22 07/31/22 07/31/22 00:37 00:37 00:37 WBC RBC 2.99 L Hgb 8.5 L Hct 26.0 L RDW 17.6 H Plt Count Lymph % (Auto) 9.9 L Lymph # (Auto) 0.5 L Seg Neutrophils % 83.3 H Seg Neuts % (Manual) Lymphocytes % (Manual) Seg Neutrophils # Man PT 15.1 H D-Dimer ABG pH ABG pO2 ABG HCO3 ABG O2 Saturation ABG Base Excess ABG Hemoglobin Oxyhemoglobin Sodium Potassium 5.1 H Carbon Dioxide BUN 30 H Glucose POC Glucose Calcium 7.6 L Ferritin ALT < 5 L Total Creatine Kinase C-Reactive Protein Total Protein 5.4 L Albumin 1.9 L Urine WBC (Auto) Salicylates Coronavirus (PCR) 07/31/22 07/31/22 07/31/22 00:37 00:37 02:25 WBC RBC Hgb Hct RDW Plt Count Lymph % (Auto) Lymph # (Auto) Seg Neutrophils % Seg Neuts % (Manual) Lymphocytes % (Manual) Seg Neutrophils # Man PT D-Dimer ABG pH ABG pO2 51.2 L ABG HCO3 28.7 H ABG O2 Saturation 88.6 L ABG Base Excess 3.2 H ABG Hemoglobin 7.1 L Oxyhemoglobin 87.3 L Sodium Potassium Carbon Dioxide BUN Glucose POC Glucose Calcium Ferritin ALT Total Creatine Kinase 14 L C-Reactive Protein Total Protein Albumin Urine WBC (Auto) Salicylates < 0.3 L Coronavirus (PCR) 07/31/22 07/31/22 07/31/22 05:27 09:52 09:52 WBC RBC Hgb Hct RDW Plt Count Lymph % (Auto) Lymph # (Auto) Seg Neutrophils % Seg Neuts % (Manual) Lymphocytes % (Manual) Seg Neutrophils # Man PT D-Dimer 880.44 H ABG pH ABG pO2 ABG HCO3 ABG O2 Saturation ABG Base Excess ABG Hemoglobin Oxyhemoglobin Sodium Potassium Carbon Dioxide BUN Glucose POC Glucose 142 H Calcium Ferritin 577.8 H ALT Total Creatine Kinase C-Reactive Protein Total Protein Albumin Urine WBC (Auto) Salicylates Coronavirus (PCR) 07/31/22 07/31/22 07/31/22 09:52 16:55 Unknown WBC RBC Hgb Hct RDW Plt Count Lymph % (Auto) Lymph # (Auto) Seg Neutrophils % Seg Neuts % (Manual) Lymphocytes % (Manual) Seg Neutrophils # Man PT D-Dimer ABG pH ABG pO2 ABG HCO3 ABG O2 Saturation ABG Base Excess ABG Hemoglobin Oxyhemoglobin Sodium Potassium Carbon Dioxide BUN Glucose POC Glucose 137 H Calcium Ferritin ALT Total Creatine Kinase C-Reactive Protein 14.60 H Total Protein Albumin Urine WBC (Auto) > 182.0 H Salicylates Coronavirus (PCR) 07/31/22 08/01/22 08/01/22 Unknown 00:26 04:13 WBC RBC 2.80 L Hgb 8.1 L Hct 24.9 L RDW 18.0 H Plt Count Lymph % (Auto) 10.7 L Lymph # (Auto) 0.7 L Seg Neutrophils % 85.9 H Seg Neuts % (Manual) Lymphocytes % (Manual) Seg Neutrophils # Man PT D-Dimer ABG pH ABG pO2 ABG HCO3 ABG O2 Saturation ABG Base Excess ABG Hemoglobin Oxyhemoglobin Sodium Potassium Carbon Dioxide BUN Glucose POC Glucose 154 H Calcium Ferritin ALT Total Creatine Kinase C-Reactive Protein Total Protein Albumin Urine WBC (Auto) Salicylates Coronavirus (PCR) Positive A 08/01/22 08/01/22 08/01/22 04:13 04:43 11:52 WBC RBC Hgb Hct RDW Plt Count Lymph % (Auto) Lymph # (Auto) Seg Neutrophils % Seg Neuts % (Manual) Lymphocytes % (Manual) Seg Neutrophils # Man PT D-Dimer ABG pH ABG pO2 ABG HCO3 ABG O2 Saturation ABG Base Excess ABG Hemoglobin Oxyhemoglobin Sodium Potassium 5.2 H Carbon Dioxide BUN 40 H Glucose 158 H POC Glucose 167 H 165 H Calcium 7.4 L Ferritin ALT Total Creatine Kinase C-Reactive Protein Total Protein Albumin Urine WBC (Auto) Salicylates Coronavirus (PCR) 08/01/22 08/01/22 08/01/22 14:06 17:24 23:27 WBC RBC Hgb Hct RDW Plt Count Lymph % (Auto) Lymph # (Auto) Seg Neutrophils % Seg Neuts % (Manual) Lymphocytes % (Manual) Seg Neutrophils # Man PT D-Dimer ABG pH ABG pO2 ABG HCO3 ABG O2 Saturation ABG Base Excess ABG Hemoglobin Oxyhemoglobin Sodium 136 L Potassium Carbon Dioxide BUN 41 H Glucose 136 H POC Glucose 157 H 156 H Calcium 7.7 L Ferritin ALT < 5 L Total Creatine Kinase C-Reactive Protein Total Protein 5.7 L Albumin 2.0 L Urine WBC (Auto) Salicylates Coronavirus (PCR) 08/02/22 08/02/22 08/02/22 04:04 04:04 06:17 WBC RBC 2.91 L Hgb 8.4 L Hct 25.2 L RDW 17.9 H Plt Count Lymph % (Auto) Lymph # (Auto) Seg Neutrophils % Seg Neuts % (Manual) Lymphocytes % (Manual) Seg Neutrophils # Man PT D-Dimer ABG pH ABG pO2 ABG HCO3 ABG O2 Saturation ABG Base Excess ABG Hemoglobin Oxyhemoglobin Sodium Potassium Carbon Dioxide 20 L BUN 39 H Glucose 119 H POC Glucose 114 H Calcium 7.9 L Ferritin ALT < 5 L Total Creatine Kinase C-Reactive Protein Total Protein 5.7 L Albumin 2.1 L Urine WBC (Auto) Salicylates Coronavirus (PCR) 08/02/22 08/02/22 08/03/22 12:29 18:38 05:36 WBC RBC Hgb Hct RDW Plt Count Lymph % (Auto) Lymph # (Auto) Seg Neutrophils % Seg Neuts % (Manual) Lymphocytes % (Manual) Seg Neutrophils # Man PT D-Dimer ABG pH ABG pO2 ABG HCO3 ABG O2 Saturation ABG Base Excess ABG Hemoglobin Oxyhemoglobin Sodium Potassium Carbon Dioxide BUN Glucose POC Glucose 167 H 163 H 126 H Calcium Ferritin ALT Total Creatine Kinase C-Reactive Protein Total Protein Albumin Urine WBC (Auto) Salicylates Coronavirus (PCR) 08/03/22 08/03/22 08/03/22 07:13 07:13 11:33 WBC 11.4 H RBC 2.80 L Hgb 7.9 L Hct 24.2 L RDW 17.8 H Plt Count Lymph % (Auto) Lymph # (Auto) Seg Neutrophils % Seg Neuts % (Manual) Lymphocytes % (Manual) Seg Neutrophils # Man PT D-Dimer ABG pH ABG pO2 ABG HCO3 ABG O2 Saturation ABG Base Excess ABG Hemoglobin Oxyhemoglobin Sodium 136 L Potassium Carbon Dioxide BUN 34 H 33 H Glucose 137 H 157 H POC Glucose Calcium 7.8 L 7.9 L Ferritin ALT < 5 L Total Creatine Kinase C-Reactive Protein Total Protein 5.5 L Albumin 2.2 L Urine WBC (Auto) Salicylates Coronavirus (PCR) 08/03/22 08/03/22 08/03/22 12:13 17:36 22:57 WBC RBC Hgb Hct RDW Plt Count Lymph % (Auto) Lymph # (Auto) Seg Neutrophils % Seg Neuts % (Manual) Lymphocytes % (Manual) Seg Neutrophils # Man PT D-Dimer ABG pH ABG pO2 ABG HCO3 ABG O2 Saturation ABG Base Excess ABG Hemoglobin Oxyhemoglobin Sodium Potassium Carbon Dioxide BUN Glucose POC Glucose 161 H 129 H 146 H Calcium Ferritin ALT Total Creatine Kinase C-Reactive Protein Total Protein Albumin Urine WBC (Auto) Salicylates Coronavirus (PCR) 08/04/22 08/04/22 08/04/22 05:34 06:37 06:37 WBC RBC 2.61 L Hgb 7.7 L Hct 22.5 L RDW 17.7 H Plt Count Lymph % (Auto) Lymph # (Auto) Seg Neutrophils % Seg Neuts % (Manual) Lymphocytes % (Manual) Seg Neutrophils # Man PT D-Dimer ABG pH ABG pO2 ABG HCO3 ABG O2 Saturation ABG Base Excess ABG Hemoglobin Oxyhemoglobin Sodium Potassium Carbon Dioxide BUN 32 H Glucose 125 H POC Glucose 114 H Calcium 8.1 L Ferritin ALT < 5 L Total Creatine Kinase C-Reactive Protein Total Protein 5.2 L Albumin 2.0 L Urine WBC (Auto) Salicylates Coronavirus (PCR) 08/04/22 08/04/22 08/04/22 11:32 16:22 23:25 WBC RBC Hgb Hct RDW Plt Count Lymph % (Auto) Lymph # (Auto) Seg Neutrophils % Seg Neuts % (Manual) Lymphocytes % (Manual) Seg Neutrophils # Man PT D-Dimer ABG pH ABG pO2 ABG HCO3 ABG O2 Saturation ABG Base Excess ABG Hemoglobin Oxyhemoglobin Sodium Potassium Carbon Dioxide BUN Glucose POC Glucose 180 H 134 H 134 H Calcium Ferritin ALT Total Creatine Kinase C-Reactive Protein Total Protein Albumin Urine WBC (Auto) Salicylates Coronavirus (PCR) 08/05/22 08/05/22 08/05/22 05:48 07:35 10:29 WBC 21.2 H RBC Hgb 11.1 L D Hct 34.9 L D RDW 18.8 H Plt Count Lymph % (Auto) Lymph # (Auto) Seg Neutrophils % Seg Neuts % (Manual) 90.0 H Lymphocytes % (Manual) 9.0 L Seg Neutrophils # Man 19.1 H PT D-Dimer ABG pH 7.518 H ABG pO2 37.7 L* ABG HCO3 ABG O2 Saturation 74.1 L ABG Base Excess ABG Hemoglobin 9.9 L Oxyhemoglobin 73.2 L Sodium Potassium Carbon Dioxide BUN Glucose POC Glucose 190 H Calcium Ferritin ALT Total Creatine Kinase C-Reactive Protein Total Protein Albumin Urine WBC (Auto) Salicylates Coronavirus (PCR) 08/05/22 08/05/22 08/05/22 10:29 11:31 16:14 WBC RBC Hgb Hct RDW Plt Count Lymph % (Auto) Lymph # (Auto) Seg Neutrophils % Seg Neuts % (Manual) Lymphocytes % (Manual) Seg Neutrophils # Man PT D-Dimer ABG pH ABG pO2 ABG HCO3 ABG O2 Saturation ABG Base Excess ABG Hemoglobin Oxyhemoglobin Sodium 136 L Potassium Carbon Dioxide BUN 30 H Glucose 187 H POC Glucose 225 H 196 H Calcium Ferritin ALT Total Creatine Kinase C-Reactive Protein Total Protein Albumin Urine WBC (Auto) Salicylates Coronavirus (PCR) 08/05/22 08/06/22 08/06/22 23:56 06:12 11:23 WBC RBC Hgb Hct RDW Plt Count Lymph % (Auto) Lymph # (Auto) Seg Neutrophils % Seg Neuts % (Manual) Lymphocytes % (Manual) Seg Neutrophils # Man PT D-Dimer ABG pH ABG pO2 ABG HCO3 ABG O2 Saturation ABG Base Excess ABG Hemoglobin Oxyhemoglobin Sodium Potassium Carbon Dioxide BUN Glucose POC Glucose 145 H 146 H 173 H Calcium Ferritin ALT Total Creatine Kinase C-Reactive Protein Total Protein Albumin Urine WBC (Auto) Salicylates Coronavirus (PCR) 08/06/22 08/06/22 08/06/22 14:23 14:23 14:23 WBC 18.0 H RBC 2.88 L Hgb 8.2 L Hct 25.2 L D RDW 19.0 H Plt Count Lymph % (Auto) Lymph # (Auto) Seg Neutrophils % Seg Neuts % (Manual) Lymphocytes % (Manual) Seg Neutrophils # Man PT D-Dimer ABG pH ABG pO2 ABG HCO3 ABG O2 Saturation ABG Base Excess ABG Hemoglobin Oxyhemoglobin Sodium 136 L Potassium Carbon Dioxide BUN 43 H Glucose 158 H POC Glucose Calcium 8.2 L Ferritin ALT < 5 L Total Creatine Kinase C-Reactive Protein Total Protein 5.5 L Albumin 2.3 L Urine WBC (Auto) Salicylates Coronavirus (PCR) 08/06/22 08/07/22 08/07/22 16:38 04:27 04:27 WBC 14.1 H RBC 2.77 L Hgb 7.8 L Hct 24.3 L RDW 19.1 H Plt Count 107 L Lymph % (Auto) Lymph # (Auto) Seg Neutrophils % Seg Neuts % (Manual) Lymphocytes % (Manual) Seg Neutrophils # Man PT D-Dimer ABG pH ABG pO2 ABG HCO3 ABG O2 Saturation ABG Base Excess ABG Hemoglobin Oxyhemoglobin Sodium Potassium Carbon Dioxide BUN 45 H Glucose 69 L POC Glucose 185 H Calcium 8.2 L Ferritin ALT Total Creatine Kinase C-Reactive Protein Total Protein Albumin Urine WBC (Auto) Salicylates Coronavirus (PCR) 08/07/22 12:30 WBC RBC Hgb Hct RDW Plt Count Lymph % (Auto) Lymph # (Auto) Seg Neutrophils % Seg Neuts % (Manual) Lymphocytes % (Manual) Seg Neutrophils # Man PT D-Dimer ABG pH ABG pO2 ABG HCO3 ABG O2 Saturation ABG Base Excess ABG Hemoglobin Oxyhemoglobin Sodium Potassium Carbon Dioxide BUN Glucose POC Glucose 206 H Calcium Ferritin ALT Total Creatine Kinase C-Reactive Protein Total Protein Albumin Urine WBC (Auto) Salicylates Coronavirus (PCR) Chest x-ray: report reviewed, image reviewed Additional Studies: CHEST 1 VIEW 08/06/2022 12:03 PM INDICATION / CLINICAL INFORMATION: hypoxia. COMPARISON: 08/05/2022 FINDINGS: SUPPORT DEVICES: None. HEART / MEDIASTINUM: No significant abnormality. LUNGS / PLEURA: Atelectasis/consolidation at the left lung base as improved significantly. The right lung is generally clear. No appreciable pleural fluid on portable exam. No pneumothorax. ADDITIONAL FINDINGS: No significant additional findings. IMPRESSION: 1. Improvement in the left lung base atelectasis or infiltrate. Allied health notes reviewed: nursing
[2022-08-07] MEDS: QUEtiapine 25 MG TAB FEEDTUBE SCH (21:36)
[2022-08-08] MEDS: cephALEXin ORAL LIQD 500 MG/10 ML ORAL LIQD PO SCH ×4 (00:17→17:38)
[2022-08-08] MEDS: oxyCODONE /ACETAMINOPHEN 5-325MG TAB FEEDTUBE PRN ×2 (00:17→06:37)
[2022-08-08] MEDS: INSULIN LISPRO 100 UNIT/ML SUB-Q SCH ×4 (01:10→18:00)
[2022-08-08] MEDS: HEPARIN 5,000 UNIT/1 ML VIAL SUB-Q SCH ×2 (05:11→17:39)
[2022-08-08] MEDS: ALPRAZolam 0.5 MG TAB PO PRN ×2 (05:14→17:38)
--- NOTE | 2022-08-08 07:32 | Discharge Summary ---
Providers - Providers Date of Admission: 07/31/22 02:29 Date of discharge: 08/08/22 Attending physician: CINDY BARBOSA MD 07/31/22 01:30 Consult to Physician [CONS] Stat Comment: Consulting Provider: VDIA COLEMAN Physician Instructions: Reason For Exam: resp failuire sepsis 07/31/22 02:29 Consult to Dietitian/Nutrition [CONS] Routine Physician Instructions: Reason For Exam: Reason for Consult: Write/Manage Tube Feeding 07/31/22 16:45 Consult to Physician [CONS] Routine Comment: Consulting Provider: DAVY RAY Physician Instructions: Reason For Exam: Sepsis-UTI, RLL PNA, COVID + 07/31/22 16:54 Consult to Wound/ET Nurse [CONS] Routine Reason For Exam: wound eval 08/01/22 08:48 Consult to Mental Health [CONS] Routine Reason For Exam: psychosis Consult to Physician [CONS] Routine Comment: Consulting Provider: NAMRATA SINGH Physician Instructions: Reason For Exam: Encephalopathy 08/03/22 09:00 Physical Therapy Evaluation and Treat [CONS] Routine Comment: Reason For Exam: debility, was on wheelchair, aka 08/04/22 12:00 Consult to Case Management [CONS] Routine Services Needed at Discharge: Other Notified:: no Additional Physician Instructions: discharge Primary care physician: SONNY MCNAIR Hospitalization Reason for admission: shortness of breath Condition: Critical Hospital course: Interval history: This is a 57-year-old male with DM, GERD, anxiety, depression, right AKA, s/p esophageal tear and substance abuse on Suboxone who presents emergency department on 07/31 with complaints of generalized weakness, changes mental status, shortness of breath via EMS from [facility]. Per EMS patient is blood pressure was low and will he was hypoxic and received Benadryl and acetaminophen while in the [facility]. Upon arrival to the emergency department patient was found to be hypoxic and hypotensive and subsequently intubated for airway protection. Lab work significant for H/H of 8.5/26, BUN/creatinine of 30/1.2 and urinalysis significant for UTI. CXR showed infectious process in the right lower lobe and possible small dependent right pleural effusion, CT head showed no acute findings. Patient was initiated on IV fluids, empiric IV antibiotics and admitted to the hospitalist service with consults to [facility] and ID with acute hypoxic respiratory failure, septic shock, UTI, pneumonia. Hospital Course to Date: 07/31: Intubated, easily arousable, following simple commands. Remains on 100% Fio2 and 6 of peep this am. Hypoxic from this am ABG, however, SPO2 at 100%. Wean FIO2 as tolerated for SPO2 above 95. Remains on low dose levophed gtt, VSS. Titrate pressor for MAP above 65. Patient remains afebrile, COVID PCR pending. Continue empiric IV abx for now, Check CRP and procal. 08/01: Self-extubated overnight due to increase agitation/combative s/p IV ativan, now in restraints for safety. Patient is still confused and restless this am, stable on RA, SPO2 at 100%. Off pressors, VSS. PRN Haldol and PO seroquel added. Will consult Neuro and Mental health for further eval and treatment. Mild hyperkalemia this am, Scr. stable, X1 dose of Kayaxalate. Cardura added for urinary retention. COVID PCR +, IV decadron initiated and ID consulted. Continue current IV abx per ID. 08/02: Patient from respiratory standpoint is clinically stable for transfer to the medical floor. MRI done yesterday is negative for acute CVA Discussed with the mother today we will start patient back on his Percocet therapy. ID input is noted patient will consider steroids for 10 days and also IV remdesivir for 5 days. Urine culture finalization is still pending. ID input is appreciated. Is unclear to me what his baseline mental status is. His mother tells me that he has been on long-term opioid medication outpatient. Anticipate discharge to facility in 1 to 2 days. Wean off oxygen as tolerated Cultures: COVID-19 PCR: Positive 07/31/2022 blood culture: No growth 07/31/2022 tracheal aspirate cultures: Contaminated, high epithelial cells 07/31/2022 urine culture: Staph aureus 08/03: Patient seen and examined this morning no acute distress that extensive review of her records from the facility and also spoke to the staff at the facility he normally moves around with his wheelchair. Sometimes he takes other peoples food and eats by mouth after he throws off his tube feeds himself. He unfortunately does not have his bed to come back today. Clinically he is improving I do speak to the mom also noticed that there was some hospice documentation on the chart she tells me that he was never in hospice. Urine culture came back MSSA so we will switch to Keflex 500 mg 4 times daily for 7 days as recommended by ID and discontinue vancomycin. We will obtain speech evaluation and monitor his mental status. He is still chronically on Xanax as needed and Percocet as as needed that has been restarted. Anticipate discharge once he has an accepting facility. I was also notified by the facility that the first time he came to the facility that he was COVID-positive. He is currently on 2 L of oxygen now. 08/04: Patient continues to improve, mental status improving. Discussed with Nursing staff to obtain PT eval. Awaiting reauthorization to return to the facility. Restarted the Lasix, anticipate positive impact on the BP 08/05: Patient now in Severe hypoxic Distress, ?Flash pulmonary edema, also a thought is given to Pulmonary embolism but he has been on Heparin DVT prophy laxis, gave patient a dose of IV Lasix with 300cc Of urine output noted. Patient will be transferred to the CCU for continued monitoring. Call placed to the radiation technician. Summary of stay so far. PATIENT IS 57 Year old male resident of [facility] admitted with hypoxic respiratory failure, diagnosed with COVID 19 Possible reinfection, was doing well being treated with remdesivir and steroids was weaned down to 2 L of oxygen until this morning when he became hypoxic in the 70s. ABG shows compensated respiratory alkalosis with severe hypoxia. Patient in ICU as noted above. Patient has severe anemia but no sign of bleeding was noted. The plan was for an outpatient GI evaluation. I am waiting for labs today to see if there is further decrease in hemoglobin this has also precluded given full dose anticoagulation. As mentioned patient was actually recovering and was planned to be discharged back to [facility] except COVID did not have a bed. He is active although has a right AKA gets around with his wheelchair but in the past few days has been debilitated 08/06: Patient had a CTA chest showed moderate right pleural effusion and a ultrasound-guided thoracentesis was ordered. Patient remained on high flow nasal cannula. GI consulted as Dr. Bell seen the patient in [place], Seroquel changed to nightly. Patient will be transferred to the floor. 08/07: Discussed with Dr. Bell. Patient has a history of esophageal ulceration and stricture. He had intolerance to solids and some liquids, thus a PEG was placed in June. He is an office patient of [facility] and Dr. Bell recommended he follow up as an outpatient to determine is PEG will continue to be required or not. Patient to remain NPO. continue nutrition through PEG. Anticipate d/c tomorrow back to [facility]. 08/08: isolation can be d/c, 5 days after symptomology. d/c to [facility] today. Assessment and plan: This is a 57-year-old SNF resident who has DM, diabetic neuropathy, s/p right AKA, GERD, esophageal tear s/p and repair, dysphagia s/p PEG tube placement, anxiety, depression admitted with septic shock, acute hypoxic respiratory failure-story support with COVID-19 pneumonia. Neuro: Acute metabolic encephalopathy (resolved), h/o diabetic neuropathy, substance abuse, anxiety, depression -Reorientation as needed -Maintain sleep-wake cycle -As needed analgesia -CT head shows microvascular ischemia -Continue gabapentin -Seroquel -Valproic acid, xanax prn Cardiac: NAD -Cardiology consulted, appreciate recommendations -Blood pressure monitoring per protocol -S/p vasopressor support -MAP goal greater than 65 -Echocardiogram pending -Lasix p.o. -Metoprolol 12.5 twice daily Respiratory: Acute hypoxic respiratory failure (improving) -[facility] consulted, appreciate recommendations -Intubated 07/31 in the ED and self extubated on 07/31 -S/p BiPAP therapy -Currently on high flow nasal cannula -Pulmonary hygiene -SPO2 monitoring -CTA chest shows no evidence of pulmonary embolism, bilateral pneumonia worse on the left lower lobe likely related to aspiration with fluid-filled mildly dilated esophagus containing debris's and PEG tube noted, moderate right pleural effusion -Ultrasound-guided thoracentesis pending GI: Moderate protein calorie malnutrition, h/o dysphagia, esophageal tear, s/p PEG tube, GERD -24 hours -1121 ml -PPI -NTR consulted for tube feedings -BR: Senokot-S -GI consulted, appreciate recommendations : Urinary retention, slight hyponatremia -Monitor intake and output-Renally dose medications -Avoid nephrotoxic medications -Trend BMP -doxazosin, Flomax ID: COVID-19 pneumonia, sepsis POA, Staph aureus urinary tract infection -Presented from SNF with hypoxia, low-grade fever, tachycardia, hypotension requiring vasopressor support -CXR showed right lower lobe pneumonia -Infectious disease consulted, appreciate recommendation -UA consistent with UTI -COVID-19 PCR positive -Decadron 6 mg daily for 10 days () -Antibiotic therapy with Keflex 500 mg 4 times daily for 7 days -Contact/droplet precautions -Trend COVID-19 inflammatory markers -Anticoagulation per hospital protocol -Vitamin C, D, zinc -S/p 1 dose IV () -f/u blood culture -Monitor WBC and temperature curve Endo: h/o DM -Avoid hypoglycemia -SSI -Accu-Cheks q. every 6 -Long-acting insulin, titrate as needed Heme: Microcytic anemia, leukocytosis -Trend CBC -Transfuse hemoglobin less than 7 -SCDs to BLE while in bed #Advance care planning Disease education conducted, care plan discussed, diagnoses discussed, prognosis discussed, patient is full code, patient acknowledges understanding and agree with care plan, +30 minutes. Disposition: 30 STILL A PATIENT Final Discharge Diagnosis (Prints w/discharge instructions): COVID 19 pneumonia Time spent for discharge: 35 Core Measure Documentation - Palliative Care Palliative Care/ Comfort Measures: Not Applicable - Core Measures Any of the following diagnoses?: none Exam - Physical Exam Narrative exam: General appearance: Present: no acute distress, cachectic, other (On the vent) - EENT Eyes: Present: PERRL, EOM intact ENT: hearing intact, clear oral mucosa, dentition normal - Neck Neck: Present: normal ROM - Respiratory Respiratory effort: normal Respiratory: bilateral: diminished - Cardiovascular Rhythm: regular Heart Sounds: Present: S1 & S2. Absent: systolic murmur, diastolic murmur - Extremities Extremities: no ischemia, pulses intact, pulses symmetrical, No edema, normal temperature, normal color Peripheral Pulses: within normal limits - Abdominal General gastrointestinal: soft, non-tender, non-distended, normal bowel sounds - Integumentary Integumentary: Present: warm, dry - Psychiatric Psychiatric: cooperative - Neurologic Neurologic: CNII-XII intact, no focal deficits, moves all extremities - Allied Health Allied health notes reviewed: nursing, RT, social work - Constitutional Vitals: Temp Pulse Resp BP Pulse Ox 97.9 F 63 18 158/74 90 08/08/22 05:07 08/08/22 05:07 08/08/22 05:07 08/08/22 05:07 08/08/22 05:07 Plan Follow up with: SONNY MCNAIR MD [Primary Care Provider] - 3-5 Days Prescriptions: QUEtiapine [SEROquel] 50 mg FEEDTUBE QHS 30 Days #30 tablet dexAMETHasone [Decadron] 6 mg FEEDTUBE DAILY 2 Days #1 bottle VALPROIC ACID Liq [DepaKENE Liq] 500 mg FEEDTUBE Q12HR 30 Days #1 bottle Gabapentin 300 mg FEEDTUBE QDAY 30 Days #30 capsule cephALEXin ORAL LIQD [Keflex] 500 mg FEEDTUBE Q6HR 2 Days #1 bottle Furosemide [Lasix] 40 mg FEEDTUBE DAILY 30 Days #30 tab Metoprolol [Lopressor TAB] 12.5 mg FEEDTUBE BID 30 Days #60 tablet
[2022-08-08] MEDS: ZINC SULFATE 220 MG CAP PO SCH (10:53)
[2022-08-08] MEDS: dexAMETHasone 4 MG/ML VIAL IV SCH (10:54)
[2022-08-08] MEDS: METOPROLOL TARTRATE 25 MG TAB PO SCH (10:54)
[2022-08-08] MEDS: FAMOTIDINE 20 MG TAB FEEDTUBE SCH (10:54)
[2022-08-08] MEDS: ASCORBIC ACID 500 MG TAB FEEDTUBE SCH (10:54)
[2022-08-08] MEDS: FUROSEMIDE 40 MG TAB PO SCH (10:55)
[2022-08-08] MEDS: DOXAZOSIN 1 MG TAB FEEDTUBE SCH (10:55)
[2022-08-08] MEDS: VALPROIC ACID 250 MG/5 ML ORAL LIQD PO SCH (10:57)
[2022-08-08] MEDS: GABAPENTIN 300 MG CAP FEEDTUBE SCH (10:58)
[2022-08-08] MEDS: SENNOSIDES ORAL LIQD 8.8 MG/5 ML ORAL LIQD FEEDTUBE SCH (10:58)
--- NOTE | 2022-08-08 14:11 | Progress Note ---
Assessment and Plan 57-year-old male with known history of diabetes mellitus, GERD, anxiety and depression, right AKA brought into the emergency room today via EMS with complaint of generalized weakness, changes in mental status and shortness of breath. [facility] is a [facility] of a [facility]. Most of the history was gotten from the ER staff as patient is already intubated sedated. Blood pressure was said to be low on the field and patient was also said to be hypoxic. He was said to have received Benadryl and acetaminophen while in the [facility]. Surgical history right AKA and Gastric tube placement. Upon arrival in the emergency room he was found to be hypoxic and hypotensive. He was subsequently intubated because he was not protecting his airway. Work-up in the emergency room today, lab is significant for hemoglobin of 8.5 and hematocrit of 26. BUN of 30 and creatinine of 1.2. Urinalysis significant for UTI. Chest x-ray shows infectious process in the right lower lobe with possible small dependent right pleural effusion. CT of the head is suggestive microvascular ischemia. MRI of the brain suggested if needed for further evaluation. Patient has been started on IV fluid, pressure and empiric IV antibiotics. Patient Burger virus (PCR) positive. Patient extubated, off the pressors. Patient transfered to telemetry. atient awake. Patient weak. On 4 litres O2. O2 saturation reported 96%.Not keeing O2 all the time.Recommend to keep O2 all the time. No acute respiratory distress at rest. Patients o2 saturation running low. Patient is candidate for home O2. Patient afebrile. Has leukocytosis , Blood pressure 162/75 , pulse 65 , respirations 16. Chest xray 07/31/22 reported nfectious process right lower lung could be considered with possible small dependent right pleural effusion. Chest xray 08/06/22 reported Improvement in the left lung base atelectasis or infiltrate. Patient is on Decadron, S/C Heparin, Famotidine,PO Keflex. - Patient Problems (1) Acute respiratory failure with hypoxia Current Visit: Yes Status: Acute Plan to address problem: Patient intubated and extubated. O2 4 litres via nasal canula Patient is on Decadron. S/C Heparin Famotidine. (2) Pneumonia Current Visit: Yes Status: Acute Plan to address problem: Patient is on PO Keflex. (3) Acute encephalopathy Current Visit: Yes Status: Acute Plan to address problem: Management as per primary care. (4) Septic shock Current Visit: Yes Status: Acute Plan to address problem: Patient was on cefepime and vancomycin. (5) Coronavirus infection Current Visit: Yes Status: Acute Plan to address problem: Patient is on Decadron, Also received REMDESIVIR. Management as per infectious diseases. Burger virus isolation precautions. Subjective Date of service: 08/08/22 Principal diagnosis: AHRF; Septic Shock; Aspiration Pneumonia; UTI; DM II; COVID-19 infection Interval history: 57-year-old male with known history of diabetes mellitus, GERD, anxiety and depression, right AKA brought into the emergency room today via EMS with complaint of generalized weakness, changes in mental status and shortness of breath. Patient is a resident of a [facility]. Most of the history was gotten from the ER staff as patient is already intubated sedated. Blood pressure was said to be low on the field and patient was also said to be hypoxic. He was said to have received Benadryl and acetaminophen while in the [facility]. Surgical history right AKA and Gastric tube placement. Upon arrival in the emergency room he was found to be hypoxic and hypotensive. He was subsequently intubated because he was not protecting his airway. Work-up in the emergency room today, lab is significant for hemoglobin of 8.5 and hematocrit of 26. BUN of 30 and creatinine of 1.2. Urinalysis significant for UTI. Chest x-ray shows infectious process in the right lower lobe with possible small dependent right pleural effusion. CT of the head is suggestive microvascular ischemia. MRI of the brain suggested if needed for further evaluation. Patient has been started on IV fluid, pressure and empiric IV antibiotics. Patient Burger virus (PCR) positive. Patient extubated, off the pressors. Patient transfered to telemetry. Patient awake. Patient weak. On 4 litres O2. O2 saturation reported 96%.Not keeing O2 all the time.Recommend to keep O2 all the time. No acute respiratory distress at rest. Patients o2 saturation running low. Patient is candidate for home O2. Patient afebrile. Has leukocytosis , Blood pressure 162/75 , pulse 65 , respirations 16. Chest xray 07/31/22 reported infectious process right lower lung could be considered with possible small dependent right pleural effusion. Chest xray 08/06/22 reported Improvement in the left lung base atelectasis or infiltrate. Patient is on Decadron, S/C Heparin, Famotidine,PO Keflex. Objective Vital Signs - 12hr 08/08/22 08/08/22 08/08/22 05:07 10:00 10:54 Temperature 97.9 F Pulse Rate 63 65 Respiratory 18 Rate Blood Pressure 158/74 162/75 O2 Sat by Pulse 90 89 Oximetry 08/08/22 10:55 Temperature Pulse Rate 65 Respiratory Rate Blood Pressure 162/75 O2 Sat by Pulse Oximetry Constitutional: no acute distress, alert, other (Weak. No acute respiratory distress at rest.) Eyes: non-icteric ENT: oropharynx moist, other (+ BIPAP FFM) Neck: supple, no lymphadenopathy, no JVD Effort: mildly labored Ascultation: Bilateral: diminished breath sounds, rhonchi, other (improved LLL air entry) Percussion: Bilateral: not dull Cardiovascular: regular rate and rhythm, other (S1,S2) Gastrointestinal: normoactive bowel sounds, soft, non-tender, non-distended, other (PEG in place) Integumentary: normal, other (s/p right AKA, Kyle catheter) Extremities: no cyanosis, no edema, pink and warm, other (Right AKA) Neurologic: non-focal exam (grossly), pupils equal and round, CN II-XII normal Psychiatric: depressed CBC and BMP: 08/07/22 04:27 08/07/22 04:27 ABG, PT/INR, D-dimer: ABG ABG pH 7.518 pH Units (7.350-7.450) H 08/05/22 07:35 ABG pCO2 31.8 mm Hg 08/05/22 07:35 ABG pO2 37.7 mm Hg (80.0-90.0) L* 08/05/22 07:35 ABG O2 Saturation 74.1 % (95.0-99.0) L 08/05/22 07:35 PT/INR, D-dimer PT 15.1 Sec. (12.2-14.9) H 07/31/22 00:37 INR 1.04 (0.87-1.13) 07/31/22 00:37 D-Dimer 880.44 ng/mlDDU (0-234) H 07/31/22 09:52 Abnormal lab findings: Abnormal Labs 07/31/22 07/31/22 07/31/22 00:37 00:37 00:37 WBC RBC 2.99 L Hgb 8.5 L Hct 26.0 L RDW 17.6 H Plt Count Lymph % (Auto) 9.9 L Lymph # (Auto) 0.5 L Seg Neutrophils % 83.3 H Seg Neuts % (Manual) Lymphocytes % (Manual) Seg Neutrophils # Man PT 15.1 H D-Dimer ABG pH ABG pO2 ABG HCO3 ABG O2 Saturation ABG Base Excess ABG Hemoglobin Oxyhemoglobin Sodium Potassium 5.1 H Carbon Dioxide BUN 30 H Glucose POC Glucose Calcium 7.6 L Ferritin ALT < 5 L Total Creatine Kinase C-Reactive Protein Total Protein 5.4 L Albumin 1.9 L Urine WBC (Auto) Salicylates Coronavirus (PCR) 07/31/22 07/31/22 07/31/22 00:37 00:37 02:25 WBC RBC Hgb Hct RDW Plt Count Lymph % (Auto) Lymph # (Auto) Seg Neutrophils % Seg Neuts % (Manual) Lymphocytes % (Manual) Seg Neutrophils # Man PT D-Dimer ABG pH ABG pO2 51.2 L ABG HCO3 28.7 H ABG O2 Saturation 88.6 L ABG Base Excess 3.2 H ABG Hemoglobin 7.1 L Oxyhemoglobin 87.3 L Sodium Potassium Carbon Dioxide BUN Glucose POC Glucose Calcium Ferritin ALT Total Creatine Kinase 14 L C-Reactive Protein Total Protein Albumin Urine WBC (Auto) Salicylates < 0.3 L Coronavirus (PCR) 07/31/22 07/31/22 07/31/22 05:27 09:52 09:52 WBC RBC Hgb Hct RDW Plt Count Lymph % (Auto) Lymph # (Auto) Seg Neutrophils % Seg Neuts % (Manual) Lymphocytes % (Manual) Seg Neutrophils # Man PT D-Dimer 880.44 H ABG pH ABG pO2 ABG HCO3 ABG O2 Saturation ABG Base Excess ABG Hemoglobin Oxyhemoglobin Sodium Potassium Carbon Dioxide BUN Glucose POC Glucose 142 H Calcium Ferritin 577.8 H ALT Total Creatine Kinase C-Reactive Protein Total Protein Albumin Urine WBC (Auto) Salicylates Coronavirus (PCR) 07/31/22 07/31/22 07/31/22 09:52 16:55 Unknown WBC RBC Hgb Hct RDW Plt Count Lymph % (Auto) Lymph # (Auto) Seg Neutrophils % Seg Neuts % (Manual) Lymphocytes % (Manual) Seg Neutrophils # Man PT D-Dimer ABG pH ABG pO2 ABG HCO3 ABG O2 Saturation ABG Base Excess ABG Hemoglobin Oxyhemoglobin Sodium Potassium Carbon Dioxide BUN Glucose POC Glucose 137 H Calcium Ferritin ALT Total Creatine Kinase C-Reactive Protein 14.60 H Total Protein Albumin Urine WBC (Auto) > 182.0 H Salicylates Coronavirus (PCR) 07/31/22 08/01/22 08/01/22 Unknown 00:26 04:13 WBC RBC 2.80 L Hgb 8.1 L Hct 24.9 L RDW 18.0 H Plt Count Lymph % (Auto) 10.7 L Lymph # (Auto) 0.7 L Seg Neutrophils % 85.9 H Seg Neuts % (Manual) Lymphocytes % (Manual) Seg Neutrophils # Man PT D-Dimer ABG pH ABG pO2 ABG HCO3 ABG O2 Saturation ABG Base Excess ABG Hemoglobin Oxyhemoglobin Sodium Potassium Carbon Dioxide BUN Glucose POC Glucose 154 H Calcium Ferritin ALT Total Creatine Kinase C-Reactive Protein Total Protein Albumin Urine WBC (Auto) Salicylates Coronavirus (PCR) Positive A 08/01/22 08/01/22 08/01/22 04:13 04:43 11:52 WBC RBC Hgb Hct RDW Plt Count Lymph % (Auto) Lymph # (Auto) Seg Neutrophils % Seg Neuts % (Manual) Lymphocytes % (Manual) Seg Neutrophils # Man PT D-Dimer ABG pH ABG pO2 ABG HCO3 ABG O2 Saturation ABG Base Excess ABG Hemoglobin Oxyhemoglobin Sodium Potassium 5.2 H Carbon Dioxide BUN 40 H Glucose 158 H POC Glucose 167 H 165 H Calcium 7.4 L Ferritin ALT Total Creatine Kinase C-Reactive Protein Total Protein Albumin Urine WBC (Auto) Salicylates Coronavirus (PCR) 08/01/22 08/01/22 08/01/22 14:06 17:24 23:27 WBC RBC Hgb Hct RDW Plt Count Lymph % (Auto) Lymph # (Auto) Seg Neutrophils % Seg Neuts % (Manual) Lymphocytes % (Manual) Seg Neutrophils # Man PT D-Dimer ABG pH ABG pO2 ABG HCO3 ABG O2 Saturation ABG Base Excess ABG Hemoglobin Oxyhemoglobin Sodium 136 L Potassium Carbon Dioxide BUN 41 H Glucose 136 H POC Glucose 157 H 156 H Calcium 7.7 L Ferritin ALT < 5 L Total Creatine Kinase C-Reactive Protein Total Protein 5.7 L Albumin 2.0 L Urine WBC (Auto) Salicylates Coronavirus (PCR) 08/02/22 08/02/22 08/02/22 04:04 04:04 06:17 WBC RBC 2.91 L Hgb 8.4 L Hct 25.2 L RDW 17.9 H Plt Count Lymph % (Auto) Lymph # (Auto) Seg Neutrophils % Seg Neuts % (Manual) Lymphocytes % (Manual) Seg Neutrophils # Man PT D-Dimer ABG pH ABG pO2 ABG HCO3 ABG O2 Saturation ABG Base Excess ABG Hemoglobin Oxyhemoglobin Sodium Potassium Carbon Dioxide 20 L BUN 39 H Glucose 119 H POC Glucose 114 H Calcium 7.9 L Ferritin ALT < 5 L Total Creatine Kinase C-Reactive Protein Total Protein 5.7 L Albumin 2.1 L Urine WBC (Auto) Salicylates Coronavirus (PCR) 08/02/22 08/02/22 08/03/22 12:29 18:38 05:36 WBC RBC Hgb Hct RDW Plt Count Lymph % (Auto) Lymph # (Auto) Seg Neutrophils % Seg Neuts % (Manual) Lymphocytes % (Manual) Seg Neutrophils # Man PT D-Dimer ABG pH ABG pO2 ABG HCO3 ABG O2 Saturation ABG Base Excess ABG Hemoglobin Oxyhemoglobin Sodium Potassium Carbon Dioxide BUN Glucose POC Glucose 167 H 163 H 126 H Calcium Ferritin ALT Total Creatine Kinase C-Reactive Protein Total Protein Albumin Urine WBC (Auto) Salicylates Coronavirus (PCR) 08/03/22 08/03/22 08/03/22 07:13 07:13 11:33 WBC 11.4 H RBC 2.80 L Hgb 7.9 L Hct 24.2 L RDW 17.8 H Plt Count Lymph % (Auto) Lymph # (Auto) Seg Neutrophils % Seg Neuts % (Manual) Lymphocytes % (Manual) Seg Neutrophils # Man PT D-Dimer ABG pH ABG pO2 ABG HCO3 ABG O2 Saturation ABG Base Excess ABG Hemoglobin Oxyhemoglobin Sodium 136 L Potassium Carbon Dioxide BUN 34 H 33 H Glucose 137 H 157 H POC Glucose Calcium 7.8 L 7.9 L Ferritin ALT < 5 L Total Creatine Kinase C-Reactive Protein Total Protein 5.5 L Albumin 2.2 L Urine WBC (Auto) Salicylates Coronavirus (PCR) 08/03/22 08/03/22 08/03/22 12:13 17:36 22:57 WBC RBC Hgb Hct RDW Plt Count Lymph % (Auto) Lymph # (Auto) Seg Neutrophils % Seg Neuts % (Manual) Lymphocytes % (Manual) Seg Neutrophils # Man PT D-Dimer ABG pH ABG pO2 ABG HCO3 ABG O2 Saturation ABG Base Excess ABG Hemoglobin Oxyhemoglobin Sodium Potassium Carbon Dioxide BUN Glucose POC Glucose 161 H 129 H 146 H Calcium Ferritin ALT Total Creatine Kinase C-Reactive Protein Total Protein Albumin Urine WBC (Auto) Salicylates Coronavirus (PCR) 08/04/22 08/04/22 08/04/22 05:34 06:37 06:37 WBC RBC 2.61 L Hgb 7.7 L Hct 22.5 L RDW 17.7 H Plt Count Lymph % (Auto) Lymph # (Auto) Seg Neutrophils % Seg Neuts % (Manual) Lymphocytes % (Manual) Seg Neutrophils # Man PT D-Dimer ABG pH ABG pO2 ABG HCO3 ABG O2 Saturation ABG Base Excess ABG Hemoglobin Oxyhemoglobin Sodium Potassium Carbon Dioxide BUN 32 H Glucose 125 H POC Glucose 114 H Calcium 8.1 L Ferritin ALT < 5 L Total Creatine Kinase C-Reactive Protein Total Protein 5.2 L Albumin 2.0 L Urine WBC (Auto) Salicylates Coronavirus (PCR) 08/04/22 08/04/22 08/04/22 11:32 16:22 23:25 WBC RBC Hgb Hct RDW Plt Count Lymph % (Auto) Lymph # (Auto) Seg Neutrophils % Seg Neuts % (Manual) Lymphocytes % (Manual) Seg Neutrophils # Man PT D-Dimer ABG pH ABG pO2 ABG HCO3 ABG O2 Saturation ABG Base Excess ABG Hemoglobin Oxyhemoglobin Sodium Potassium Carbon Dioxide BUN Glucose POC Glucose 180 H 134 H 134 H Calcium Ferritin ALT Total Creatine Kinase C-Reactive Protein Total Protein Albumin Urine WBC (Auto) Salicylates Coronavirus (PCR) 08/05/22 08/05/22 08/05/22 05:48 07:35 10:29 WBC 21.2 H RBC Hgb 11.1 L D Hct 34.9 L D RDW 18.8 H Plt Count Lymph % (Auto) Lymph # (Auto) Seg Neutrophils % Seg Neuts % (Manual) 90.0 H Lymphocytes % (Manual) 9.0 L Seg Neutrophils # Man 19.1 H PT D-Dimer ABG pH 7.518 H ABG pO2 37.7 L* ABG HCO3 ABG O2 Saturation 74.1 L ABG Base Excess ABG Hemoglobin 9.9 L Oxyhemoglobin 73.2 L Sodium Potassium Carbon Dioxide BUN Glucose POC Glucose 190 H Calcium Ferritin ALT Total Creatine Kinase C-Reactive Protein Total Protein Albumin Urine WBC (Auto) Salicylates Coronavirus (PCR) 08/05/22 08/05/22 08/05/22 10:29 11:31 16:14 WBC RBC Hgb Hct RDW Plt Count Lymph % (Auto) Lymph # (Auto) Seg Neutrophils % Seg Neuts % (Manual) Lymphocytes % (Manual) Seg Neutrophils # Man PT D-Dimer ABG pH ABG pO2 ABG HCO3 ABG O2 Saturation ABG Base Excess ABG Hemoglobin Oxyhemoglobin Sodium 136 L Potassium Carbon Dioxide BUN 30 H Glucose 187 H POC Glucose 225 H 196 H Calcium Ferritin ALT Total Creatine Kinase C-Reactive Protein Total Protein Albumin Urine WBC (Auto) Salicylates Coronavirus (PCR) 08/05/22 08/06/22 08/06/22 23:56 06:12 11:23 WBC RBC Hgb Hct RDW Plt Count Lymph % (Auto) Lymph # (Auto) Seg Neutrophils % Seg Neuts % (Manual) Lymphocytes % (Manual) Seg Neutrophils # Man PT D-Dimer ABG pH ABG pO2 ABG HCO3 ABG O2 Saturation ABG Base Excess ABG Hemoglobin Oxyhemoglobin Sodium Potassium Carbon Dioxide BUN Glucose POC Glucose 145 H 146 H 173 H Calcium Ferritin ALT Total Creatine Kinase C-Reactive Protein Total Protein Albumin Urine WBC (Auto) Salicylates Coronavirus (PCR) 08/06/22 08/06/22 08/06/22 14:23 14:23 14:23 WBC 18.0 H RBC 2.88 L Hgb 8.2 L Hct 25.2 L D RDW 19.0 H Plt Count Lymph % (Auto) Lymph # (Auto) Seg Neutrophils % Seg Neuts % (Manual) Lymphocytes % (Manual) Seg Neutrophils # Man PT D-Dimer ABG pH ABG pO2 ABG HCO3 ABG O2 Saturation ABG Base Excess ABG Hemoglobin Oxyhemoglobin Sodium 136 L Potassium Carbon Dioxide BUN 43 H Glucose 158 H POC Glucose Calcium 8.2 L Ferritin ALT < 5 L Total Creatine Kinase C-Reactive Protein Total Protein 5.5 L Albumin 2.3 L Urine WBC (Auto) Salicylates Coronavirus (PCR) 08/06/22 08/07/22 08/07/22 16:38 04:27 04:27 WBC 14.1 H RBC 2.77 L Hgb 7.8 L Hct 24.3 L RDW 19.1 H Plt Count 107 L Lymph % (Auto) Lymph # (Auto) Seg Neutrophils % Seg Neuts % (Manual) Lymphocytes % (Manual) Seg Neutrophils # Man PT D-Dimer ABG pH ABG pO2 ABG HCO3 ABG O2 Saturation ABG Base Excess ABG Hemoglobin Oxyhemoglobin Sodium Potassium Carbon Dioxide BUN 45 H Glucose 69 L POC Glucose 185 H Calcium 8.2 L Ferritin ALT Total Creatine Kinase C-Reactive Protein Total Protein Albumin Urine WBC (Auto) Salicylates Coronavirus (PCR) 08/07/22 08/07/22 08/08/22 12:30 17:28 06:03 WBC RBC Hgb Hct RDW Plt Count Lymph % (Auto) Lymph # (Auto) Seg Neutrophils % Seg Neuts % (Manual) Lymphocytes % (Manual) Seg Neutrophils # Man PT D-Dimer ABG pH ABG pO2 ABG HCO3 ABG O2 Saturation ABG Base Excess ABG Hemoglobin Oxyhemoglobin Sodium Potassium Carbon Dioxide BUN Glucose POC Glucose 206 H 206 H 126 H Calcium Ferritin ALT Total Creatine Kinase C-Reactive Protein Total Protein Albumin Urine WBC (Auto) Salicylates Coronavirus (PCR) 08/08/22 10:58 WBC RBC Hgb Hct RDW Plt Count Lymph % (Auto) Lymph # (Auto) Seg Neutrophils % Seg Neuts % (Manual) Lymphocytes % (Manual) Seg Neutrophils # Man PT D-Dimer ABG pH ABG pO2 ABG HCO3 ABG O2 Saturation ABG Base Excess ABG Hemoglobin Oxyhemoglobin Sodium Potassium Carbon Dioxide BUN Glucose POC Glucose 131 H Calcium Ferritin ALT Total Creatine Kinase C-Reactive Protein Total Protein Albumin Urine WBC (Auto) Salicylates Coronavirus (PCR) Allied health notes reviewed: nursing
[2022-08-08 18:48] VITALS: BP 153/68
== END 2022-08-08 19:00 | DRG 871 ==
LOC: ED 23:57 → CC1 07-31 02:29 → 3A 08-02 12:41 → IMCU 08-05 09:44 → CC1 08-05 09:46 → 3A 08-06 18:47
PROVIDERS: ADMIT Internal Medicine Geriatric Medicine; ATTEND Internal Medicine
PROC: 5A1935Z Respiratory Ventilation, Less than 24 Consecutive Hours (ICD-10-PCS; principal; 2022-07-31)
PROC: 0BH17EZ Insertion of Endotracheal Airway into Trachea, Via Natural or Artificial Opening (ICD-10-PCS; 2022-07-31)
PROC: 4A033R1 Measurement of Arterial Saturation, Peripheral, Percutaneous Approach (ICD-10-PCS; 2022-07-31)
PROC: 02HV33Z Insertion of Infusion Device into Superior Vena Cava, Percutaneous Approach (ICD-10-PCS; 2022-07-31)
PROC: B548ZZA Ultrasonography of Superior Vena Cava, Guidance (ICD-10-PCS; 2022-07-31)
PROC: XW033E5 Introduction of Remdesivir Anti-infective into Peripheral Vein, Percutaneous Approach, New Technology Group 5 (ICD-10-PCS; 2022-08-01)
PROC: 5A09357 Assistance with Respiratory Ventilation, Less than 24 Consecutive Hours, Continuous Positive Airway Pressure (ICD-10-PCS; 2022-08-05)
PROC: 5A0935A Assistance with Respiratory Ventilation, Less than 24 Consecutive Hours, High Flow/Velocity Cannula (ICD-10-PCS; 2022-08-05)
DX: A41.9 Sepsis, unspecified organism (principal); R65.21 Severe sepsis with septic shock; G93.41 Metabolic encephalopathy; J96.01 Acute respiratory failure with hypoxia; U07.1 COVID-19; E43 Unspecified severe protein-calorie malnutrition; J12.82 Pneumonia due to coronavirus disease 2019; D50.9 Iron deficiency anemia, unspecified; K21.9 Gastro-esophageal reflux disease without esophagitis; E11.40 Type 2 diabetes mellitus with diabetic neuropathy, unspecified; I10 Essential (primary) hypertension; F41.9 Anxiety disorder, unspecified; F32.A Depression, unspecified; F17.200 Nicotine dependence, unspecified, uncomplicated; Z68.1 Body mass index [BMI] 19.9 or less, adult; R13.10 Dysphagia, unspecified; N30.00 Acute cystitis without hematuria; R33.9 Retention of urine, unspecified; E87.1 Hypo-osmolality and hyponatremia; Z89.611 Acquired absence of right leg above knee
CPT/HCPCS: 36415; 36600; 70450; 70553; 71045; 71275; 76604; 80048; 80053; 80076; 80320; 81001; 82140; 82550; 82728; 82803; 82962; 83615; 83735; 84100; 84145; 84443; 84484; 85007; 85025; 85027; 85379; 85610; 85730; 86140; 87040; 87076; 87086; 87186; 87205; 93005; 94002; 94660; 94760; 96374; 96375; 99291; G0378; J2354; J3490; Q9967; A9575; G0480; J0692; J1100; J1630; J1644; J1720; J1815; J1940; J2060; J2270; J3010; J3370; J7030; J7040; J7050; U0003